=== PATIENT | male | born 1935 | race Caucasian/White ===

== ENCOUNTER 2017-08-09 16:28 | Inpatient (IN) | payer MEDICARE, OTHER ==
[~2017-08-09] VITALS: Ht 170.2 cm; Wt 81.6 kg
--- NOTE | 2017-08-09 17:40 | EKG ---
[address] [address] Test Date: 2017-08-09 Test Time: 17:26:42 Pat Name: YESENIA DAVE Department: Room: Gender: M Wilton Weaver: : 1935 Requested By: IVETT GUTIÉRREZ Order Number: [id number] Reading MD: Cornelius Villela Measurements Intervals [place] Rate: 92 P: 39 ND: 192 QRS: 15 QRSD: 78 T: 56 QT: 368 QTc: 460 Interpretive Statements SINUS RHYTHM NONSPECIFIC ST-T WAVE CHANGES. RI6.01 No previous ECG available for comparison Electronically Signed On 08-26-2017 17:27:34 CDT by Cornelius Villela
[2017-08-09 17:53] LABS: BASO # 0.1 x10^3/uL (0.0-0.2); BASO % 1 % (0-3); EOS # 0.5 x10^3/uL (0.0-0.7); EOS % 5 % (0-3); HEMATOCRIT 46.3 % (39.0-53.0); HEMOGLOBIN 15.7 g/dL (13.0-17.5); LYMPH # 2.7 x10^3/uL (1.0-4.8); LYMPH % 26 % (24-48); MEAN CORPUSCULAR HEMOGLOBIN 30 pg (25-35); MEAN CORPUSCULAR HGB CONC 34 g/dL (31-37); MEAN CORPUSCULAR VOLUME 88 fL (79-100); MONO # 0.6 x10^3/uL (0.0-1.1); MONO % 6 % (0-9); NEUT # 6.5 x10^3uL (1.8-7.7); NEUT % 63 % (31-73); PLATELET COUNT 219 x10^3/uL (140-400); RED BLOOD COUNT 5.26 x10^6/uL (4.30-5.70); RED CELL DISTRIBUTION WIDTH 13.2 % (11.5-14.5); WHITE BLOOD COUNT 10.3 x10^3/uL (4.0-11.0)
--- NOTE | 2017-08-09 18:00 | PHYS DOC ---
Text Text 81-year-old male presenting to the emergency department today signed out to me at 6 PM with plans to follow-up on the patient's medical clearance screening exams and final disposition. I examined the patient in person. Clear lungs auscultation bilaterally abdomen is soft and nontender. Triage vital signs show mild hypertension afebrile with heart rate of 100 initially. When I examined the patient, the patient's heart rate was in the mid 80s. Patient is saturating 97% breathing comfortably on room air. Patient's left knee is normal appearing with mild pain with passive range of motion. No abrasions lacerations or ecchymosis. Neurovascularly intact distally. No edema of either leg. Patient is medically clear. We obtained a bed for the patient to be admitted for [facility]. (MOSHE GOODWIN MD) General Chief Complaint: MULTIPLE COMPLAINTS Stated Complaint: MULTIPLE COMPLAINTS Time Seen by MD: 16:37 Source: patient, family, old records Exam Limitations: no limitations Problems: (IVETT SEPNCER DO) Time Seen by MD: 18:10 Problems: (MOSHE GOODWIN MD) History of Present Illness Initial Comments Patient is an 81/M to ED brought by son for medical clearance and possible [facility] admission. Pt has recent history of seizure due to hyperglycemia, was admitted to short term rehab facility. It is reported that upon discharge from the facility pt's spouse would not allow him to move back in at home so pt had been living with a different son. Pt apparently has had some recent mood changes felt to be due to dementia by the family and the other son felt with whom he was formerly living has noted anger and aggression from the patient towards his children and deferred him to the son who brought him for evaluation today. Pt suffered a fall with right knee and head injury 08/05, was evaluated at [facility] CT head revealed no acute traumatic changes and right knee imaging negative for acute abnormality. In the ED today pt is AOx3, he appears to be cognizant of circumstances and why he is here. He does have some apparent short term memory impairments as he cannot recall 08/05 [facility] fall evaluation. His only complaint is right knee pain from the 08/05 fall, denies cp/sob he is noted to have upper extremity tremors and lower extremity edema which his son states is chronic. Patient takes baby aspirin no other blood thinners. He is not previously accepted for [facility] admission, will need ED medical clearance then [facility] screen and determination whether Dr Ford will accept. Timing/Duration: getting worse, changing over time Severity: severe Modifying Factors: improves with other Associated Symptoms: other (IVETT SPENCER DO) Allergies: Coded Allergies: Opioids - Morphine Analogues (Verified Allergy, Unknown, 08/09/17) Sulfa (Sulfonamide Antibiotics) (Verified Allergy, Unknown, 08/09/17) adhesive (Verified Allergy, Unknown, 08/09/17) latex (Verified Allergy, Unknown, 08/09/17) lidocaine (Verified Allergy, Unknown, 08/09/17) morphine (Verified Allergy, Unknown, 08/09/17) Past Medical History Medical History: other (CHF, dementia, angina, depression, DM2, hyperlipidemia , coronary artery disease, hypertension, seizure, neuropathy, tremor, obstructive sleep apnea, chronic lower extremity edema) Surgical History: coronary bypass surgery, other (IVETT SPENCER DO) Social History Smoker: non-smoker Alcohol: none Drugs: none (IVETT SPENCER DO) Review of Systems Constitutional: denies chills, denies diaphoresis, denies fever Respiratory: see HPI, denies cough, denies shortness of breath Cardiovascular: see HPI, denies palpitations, denies syncope Gastrointestinal: denies abdominal pain, denies diarrhea, denies nausea, denies vomiting Musculoskeletal: see HPI, denies back pain, denies neck pain Psychiatric/Neurological: see HPI, denies headache (IVETT SPENCER DO) Physical Exam General Appearance: no apparent distress, thin Ear, Nose, Throat: hearing grossly normal, normal ENT inspection, normal pharynx Neck: non-tender, supple Respiratory: other (decreased breath sounds at the bases with mild rales, chest is nontender no respiratory distress) Cardiovascular: normal peripheral pulses, regular rate, rhythm Gastrointestinal: normal bowel sounds, non tender, soft Back: no CVA tenderness, no vertebral tenderness Extremities: other (3+ pitting lower extremity edema with chronic venous stasis changes) 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 He is calm and cooperative no angular or depression noted.) Skin: pallor (poor turgor with lower extremity skin changes as above) (IVETT SPENCER DO) Orders, Labs, Meds EKG: Normal sinus rhythm 92 bpm, T, or abnormality noted no STEMI changes. Interpreted by Dr. Spencer. Patient signed out at 1800 shift change to incoming ER MD. See his documentation for further results and pt disposition. (IVETT SPENCER DO) IVETT SPENCER DO Aug 09, 2017 18:00 MOSHE GOODWIN MD Aug 09, 2017 19:00
[2017-08-09 18:08] LABS: ALBUMIN 3.8 g/dL (3.4-5.0); ALBUMIN/GLOBULIN RATIO 1.1 (1.0-1.7); CALCIUM 9.4 mg/dL (8.5-10.1); CREATININE 0.9 mg/dL (0.7-1.3); GFR 80.6; MAGNESIUM 2.1 mg/dL (1.8-2.4); TOTAL BILIRUBIN 0.4 mg/dL (0.2-1.0); TOTAL PROTEIN 7.2 g/dL (6.4-8.2)
[2017-08-09 18:50] LABS: COLOR,URINE STRAW
[2017-08-09 18:53] LABS: BILIRUBIN,URINE NEG (NEG); CLARITY,URINE CLEAR; GLUCOSE,URINE 100 mg/dL (NEG); NITRITE,URINE NEG (NEG); UROBILINOGEN,URINE 0.2 mg/dL (0.2 mg/dL)
[2017-08-09 18:54] LABS: BACTERIA,URINE 0 /HPF (0-FEW); RBC,URINE RARE /HPF (0-2); WBC,URINE OCC /HPF (0-4)
--- NOTE | 2017-08-09 19:31 | RAD ---
CT scan of the head without contrast 08/09/2017 Clinical History: Altered mental status. Weakness. Technique: Unenhanced, contiguous, 5 mm axial sections were obtained through the head. One or more of the following individualized dose reduction techniques were utilized for this study: 1. Automated exposure control. 2. Adjustment of the mA and/or kV according to patient size. 3. Use of iterative reconstruction technique. Findings: Comparison study is dated 05/07/2017. There is generalized parenchymal atrophy. Areas of decreased attenuation are seen within the periventricular and subcortical white matter of both cerebral hemispheres consistent with areas of small vessel ischemic disease. No acute parenchymal abnormality is seen. No extra-axial fluid collection is noted. No skull fracture is seen. Impression: No acute intracranial abnormality is seen. Electronically signed by: Blake Sanchez MD (08/09/2017 7:27 PM) [facility]
[2017-08-09] MEDS ORDERED: NAPR220C4 PO (21:29)
[2017-08-09] MEDS ORDERED: LEVE500T6 PO (21:29)
[2017-08-09] MEDS ORDERED: ACET500T68 PO (21:29)
[2017-08-09] MEDS ORDERED: DULO60CA6 PO (21:29)
[2017-08-09] MEDS ORDERED: HYDR25TA PO (21:29)
[2017-08-09] MEDS ORDERED: CARV6.252 PO (21:29)
[2017-08-09] MEDS ORDERED: LOSA25TA4 PO (21:29)
[2017-08-09] MEDS ORDERED: TAMS0.4C2 PO (21:29)
[2017-08-09] MEDS ORDERED: POTA10CA PO (21:29)
[2017-08-09] MEDS ORDERED: INSU100I27 SQ (21:29)
[2017-08-09] MEDS ORDERED: ALPR0.25 PO (21:29)
[2017-08-09] MEDS ORDERED: INSU100I17 SQ (21:29)
[2017-08-09] MEDS ORDERED: ISOS30TA4 PO (21:29)
[2017-08-09] MEDS ORDERED: ALPR1TAB2 PO (21:29)
[2017-08-09] MEDS ORDERED: ATOR40TA59 PO (21:29)
[2017-08-09] MEDS ORDERED: SITA50TA PO (21:29)
[2017-08-09] MEDS ORDERED: DESO59LO TP (21:29)
[2017-08-09] MEDS ORDERED: NITR0.4T22 SL ×2 (21:29)
[2017-08-09] MEDS ORDERED: FURO40TA4 PO (21:29)
[2017-08-09] MEDS ORDERED: PREG50CA PO (21:29)
[2017-08-09] MEDS ORDERED: MULT-246 PO (21:29)
[2017-08-09] MEDS ORDERED: ASPI-630 PO (21:29)
[2017-08-09 23:15] VITALS: BP 164/82
[2017-08-09] MEDS ORDERED: METHYL SALICYLATE/MENTHOL TOPICAL OINTMENT 29GM TUBE. TP PRN (23:45)
[2017-08-09] MEDS ORDERED: MAG HYDROX/AL HYDROX/SIMETH 30 ML ORAL.SUSP PO PRN (23:45)
[2017-08-09] MEDS ORDERED: MAGNESIUM HYDROXIDE 2,400 MG/30 ML ORAL.SUSP. PO PRN (23:45)
[2017-08-10] MEDS ORDERED: ISOSORBIDE MONONITRATE ER 30 MG TAB.ER.24H PO PRN
[2017-08-10] MEDS ORDERED: NITROGLYCERIN SUBLINGUAL 0.4 MG BOTTLE OF 25. SL PRN
[2017-08-10] MEDS ORDERED: hydrOXYzine HCL 25 MG TABLET PO PRN
[2017-08-10] MEDS ORDERED: NAPROXEN 250 MG TABLET PO PRN
[2017-08-10 07:10] VITALS: BP 180/92
--- NOTE | 2017-08-10 08:28 | RAD ---
Exam performed: One view chest. Indication: medical clearance Date of Service: 08/09/2017 8:11 PM Comparison: None available. Single AP upright portable view chest findings: Cardiomediastinal silhouette is within limits of normal. Previous median sternotomy. No acute infiltrates, effusion or pneumothorax is detected. Mild elevation of the left hemidiaphragm The bony structures are normal. Impression: No acute cardiopulmonary process is detected.
[2017-08-10] MEDS: DULoxetine HCL 60 MG CAPSULE.DR PO SCH (08:54)
[2017-08-10] MEDS: levETIRAcetam 500 MG TABLET PO SCH ×2 (08:54→20:24)
[2017-08-10] MEDS: FUROSEMIDE 40 MG TABLET PO SCH (08:55)
[2017-08-10] MEDS: ISOSORBIDE MONONITRATE ER 30 MG TAB.ER.24H PO SCH (08:55)
[2017-08-10] MEDS: MULTIVITAMIN with MINERAL TABLET. PO SCH (08:55)
[2017-08-10] MEDS: PREGABALIN 50 MG CAPSULE PO SCH ×2 (08:55→20:27)
[2017-08-10] MEDS: POTASSIUM CHLORIDE 20 MEQ TABLET.ER. PO SCH (08:56)
[2017-08-10] MEDS: LINAGLIPTIN 5 MG TABLET PO SCH (08:56)
[2017-08-10] MEDS: LOSARTAN 25 MG TABLET. PO SCH (08:56)
[2017-08-10] MEDS: ASPIRIN 81 MG TAB.CHEW PO SCH (08:56)
[2017-08-10] MEDS: CARVEDILOL 6.25 MG TABLET PO SCH ×2 (08:56→17:21)
[2017-08-10] MEDS: HYDROCORTISONE 1% TOPICAL CREAM 30GM TUBE. TP SCH ×2 (08:57→20:28)
[2017-08-10] MEDS ORDERED: TAMSULOSIN 0.4 MG CAP.ER.24H. PO SCH (09:00)
[2017-08-10 13:40] LABS: THYROID STIM HORMONE (TSH) 1.409 uIU/mL (0.358-3.740)
[2017-08-10 15:55] VITALS: BP 134/70
[2017-08-10 15:56] VITALS: BP_SYST 106; BP_SYST 108; BP_DIAS 61; BP_DIAS 70
--- NOTE | 2017-08-10 16:06 | RAD ---
Indication chronic knee pain. AP oblique and lateral views of the left knee were obtained. Surgical toñito are noted. Bony mineralization appears normal. No acute finding is seen. There are no significant degenerative changes. Vascular calcification is noted. IMPRESSION: No acute or significant finding seen on plain films of the left knee
[2017-08-10 19:08] LABS: T3 TOTAL 150 ng/dL (71-180)
[2017-08-10] MEDS: ATORVASTATIN CALCIUM 20 MG TABLET PO SCH (20:27)
[2017-08-10] MEDS: QUEtiapine 25 MG TABLET. PO SCH (20:27)
[2017-08-10] MEDS: traZODone 50 MG TABLET. PO SCH (20:27)
[2017-08-10] MEDS: INSULIN DETEMIR 300 UNITS/3 ML INSULN.PEN. SQ SCH (20:30)
--- NOTE | 2017-08-10 20:42 | PDOC ---
Exam Franco Demential Exam: Franco Note: Please also refer to the separate dictated note~for this date of service dictated separately.~Patient seen individually. Discussed the patient with Nursing staff reviewed the chart.~Reviewed interim history and current functioning. Reviewed vital signs,~Labs/ Radiology~and current medications noted below. Continue current treatment with the changes noted in the dictated addendum note Assessment: Vital Signs: Vital Signs Date Time Temp Pulse Resp B/P (MAP) Pulse Ox O2 Delivery O2 Flow Rate FiO2 08/10/17 17:21 109 106/61 08/10/17 15:55 96.8 18 93 08/09/17 16:28 Room Air I&O Intake and Output 08/11/17 07:00 Intake Total 1080 ml Balance 1080 ml Intake Oral 1080 ml Labs: Laboratory Tests Test 08/10/17 00:11 08/10/17 06:45 08/10/17 07:09 08/10/17 11:20 Glucose (Fingerstick) 134 mg/dL (70-99) H 137 mg/dL (70-99) H 206 mg/dL (70-99) H Triglycerides Level 128 mg/dL (0-150) Cholesterol Level 209 mg/dL (0-200) H LDL Cholesterol, Calculated 122 mg/dL (0-100) H VLDL Cholesterol, Calculated 25 mg/dL (0-40) Non-HDL Cholesterol Calculated 147 mg/dL (0-129) H HDL Cholesterol 62 mg/dL (40-60) H Cholesterol/HDL Ratio 3.0 Vitamin B12 Level 478 pg/mL (247-911) 25-Hydroxy Vitamin D Total Pending Thyroid Stimulating Hormone (TSH) 1.409 uIU/mL (0.358-3.740) Thyroxine (T4) 9.0 ug/dL (4.5-12.0) Total Triiodothyronine (TT3) 150 ng/dL (71-180) RPR Titer Additional Testing Pending Test 08/10/17 16:24 08/10/17 19:07 Glucose (Fingerstick) 219 mg/dL (70-99) H 225 mg/dL (70-99) H Current Medications: Meds: Current Medications Olanzapine (ZyPREXA ZYDIS) 1.25 mg PRN Q2HR PRN PO AGITATION/AGGRESSION Last administered on 08/10/17t 00:59; Start 08/09/17 at 23:45 Acetaminophen (Tylenol) 650 mg PRN Q6HRS PRN PO PAIN / TEMP; Start 08/09/17 at 23:45 Multi-Ingredient Ointment (Analgesic [place]) 1 odilia PRN QID PRN TP MUSCLE PAIN; Start 08/09/17 at 23:45 Al Hydroxide/Mg Hydroxide (Mylanta Plus Xs) 15 ml PRN AFTMEALHC PRN PO DYSPEPSIA Last administered on 08/10/17 12:45; Start 08/09/17 at 23:45 Magnesium Hydroxide (Milk Of Magnesia) 2,400 mg PRN QHS PRN PO CONSTIPATION; Start 08/09/17 at 23:45 Aspirin (Children'S Aspirin) 81 mg DAILY PO Last administered on 08/10/17 08: 56; Start 08/10/17 at 09:00 Carvedilol (Coreg) 6.25 mg BIDWMEALS PO Last administered on 08/10/17 17:21; Start 08/10/17 at 08:00 Furosemide (Lasix) 40 mg DAILY PO Last administered on 08/10/17 08:55; Start 08/10/17 at 09:00 Hydroxyzine HCl (Atarax) 25 mg PRN TID PRN PO ITCHING Last administered on 00:59; Start 08/10/17 at 00:00 Insulin Detemir (Levemir) 20 units HS SQ Last administered on 08/10/17 20:30 ; Start 08/10/17 at 21:00 Isosorbide Mononitrate (Imdur) 30 mg PRN DAILY PRN PO HYPERTENSION, SEE COMMENTS; Start 08/10/17 at 00:00; Stop 08/10/17 at 04:12; Status DC Levetiracetam (Keppra) 1,000 mg BID PO Last administered on 08/10/17 20:24; Start 08/10/17 at 09:00 Losartan Potassium (Cozaar) 25 mg DAILY PO Last administered on 08/10/17 08: 56; Start 08/10/17 at 09:00 Nitroglycerin (Nitrostat) 0.4 mg PRN Q5MIN PRN SL CHEST PAIN; Start 08/10/17 at 00:00 Pregabalin (Lyrica) 50 mg BID PO Last administered on 08/10/17 20:27; Start 08/10/17 at 09:00 Tamsulosin HCl (Flomax) 0.4 mg DAILY PO Last administered on 08/10/17 08:56; Start 08/10/17 at 09:00; Stop 08/10/17 at 13:57; Status DC Alprazolam (Xanax) 0.25 mg PRN Q4HRS PRN PO ANXIETY / AGITATION; Start at 00:00 Duloxetine HCl (Cymbalta) 60 mg DAILY PO Last administered on 08/10/17 08:54 ; Start 08/10/17 at 09:00 Atorvastatin Calcium (Lipitor) 40 mg QHS PO Last administered on 08/10/17 20: 27; Start 08/10/17 at 21:00 Hydrocortisone (Cortaid) 1 odilia BID TP Last administered on 08/10/17 20:28; Start 08/10/17 at 09:00 Multivitamins/ Calcium (Thera-M Plus) 1 tab DAILY PO Last administered on 08/10 08:55; Start 08/10/17 at 09:00 Naproxen (Naprosyn) 250 mg PRN Q12HR PRN PO INFLAMATION/PAIN; Start 08/10/17 at 00:00 Potassium Chloride (Klor-Con) 20 meq DAILYWBKFT PO Last administered on 08:56; Start 08/10/17 at 08:00 Linagliptin (Tradjenta) 5 mg DAILY PO Last administered on 08/10/17 08:56; Start 08/10/17 at 09:00 Isosorbide Mononitrate (Imdur) 30 mg DAILY PO Last administered on 08/10/17 08:55; Start 08/10/17 at 09:00 Tamsulosin HCl (Flomax) 0.8 mg DAILY PO ; Start 08/11/17 at 09:00 Influenza Virus Vaccine Quadrival (Fluarix Quad [id number] Syringe) 0.5 ml ONCE ONCE VAX IM ; Start 08/11/17 at 09:00; Stop 08/11/17 at 09:01 Pneumococcal Polyvalent Vaccine (Pneumovax 23) 0.5 ml ONCE ONCE VAX IM ; Start 08/11/17 at 09:00; Stop 08/11/17 at 09:01 Quetiapine Fumarate (SEROquel) 25 mg QHS PO Last administered on 08/10/17 20: 27; Start 08/10/17 at 21:00 Trazodone HCl (Desyrel) 50 mg QHS PO Last administered on 08/10/17 20:27; Start 08/10/17 at 21:00 Trazodone HCl (Desyrel) 50 mg PRN QHS PRN PO INSOMNIA; Start 08/10/17 at 18:15 Active Scripts Active Reported Xanax (Alprazolam) 0.25 Mg Tablet 0.25 Mg PO PRN Q4HRS PRN Acetaminophen 500 Mg Tablet 500 Mg PO PRN Q4-6HRS PRN NITROGLYCERIN SubLingual (Nitroglycerin) 0.4 Mg Tab.subl 0.4 Mg SL PRN Q5MIN PRN Hydroxyzine Hcl 25 Mg Tablet 25 Mg PO PRN TID PRN Aleve (Naproxen Sodium) 220 Mg Capsule 220 Mg PO PRN Q12HR Levemir Flextouch (Insulin Detemir) 100 Unit/1 Ml Insuln.pen 20 Unit SQ HS Novolog Flexpen (Insulin Aspart) 100 Unit/1 Ml Insuln.pen 0-7 Unit SQ TIDAC Atorvastatin Calcium 40 Mg Tablet 40 Mg PO QHS Lyrica (Pregabalin) 50 Mg Capsule 50 Mg PO BID Levetiracetam 500 Mg Tablet 1,000 Mg PO BID Desonide 59 Ml Lotion 0.05 Odilia TP BID Carvedilol 6.25 Mg Tablet 6.25 Mg PO BIDWMEALS Potassium Chloride 10 Meq Capsule.er 20 Meq PO TID Tamsulosin Hcl 0.4 Mg Cap.er.24h 0.4 Mg PO DAILY Multi-Vitamin Daily (Multivitamin) 1 Each Tablet 1 Each PO DAILY Losartan Potassium 25 Mg Tablet 25 Mg PO DAILY Januvia (Sitagliptin Phosphate) 50 Mg Tablet 50 Mg PO DAILY Isosorbide Mononitrate Er (Isosorbide Mononitrate) 30 Mg Tab.er.24h 30 Mg PO DAILY PRN Furosemide 40 Mg Tablet 40 Mg PO DAILY Cymbalta (Duloxetine Hcl) 60 Mg Capsule.dr 60 Mg PO DAILY Aspirin 81 Mg Tab.chew 81 Mg PO DAILY Diagnosis: Problems: (1) Dementia with behavioral disturbance (2) Anxiety disorder (3) Impulse control disorder (4) Mild cognitive disorder (5) Psychosis, atypical SHARI CHASE MD Aug 10, 2017 20:42
--- NOTE | 2017-08-11 02:23 | CONS ---
DATE OF CONSULTATION: 08/10/2017 HISTORY OF PRESENT ILLNESS: The patient is an 81-year-old male patient who was brought by his son to the Emergency Room as he apparently has been increasingly agitated, has made suicidal ideation and according to him, he is not getting along with his son. His also refused to take him back after he stayed at [facility]. He was evaluated in the Emergency Room, was admitted [facility] for inpatient psychiatric stabilization. On questioning him, he denied any complaint and said that he did not remember making any remarks about attempting suicide and he stated that he is too much for chicken to harm himself. PAST MEDICAL HISTORY: Significant for type 2 diabetes, severe peripheral neuropathy, hypertension, hyperlipidemia, benign prostatic hypertrophy, and seizure disorder. PAST SURGICAL HISTORY: Unremarkable. FAMILY HISTORY: Unremarkable. SOCIAL HISTORY: He is ; however, he lives with one of his sons. He does not smoke, drink alcohol or use any recreational drugs. ALLERGIES: He is allergic to MORPHINE, SULFA, ADHESIVES, LATEX, LIDOCAINE. MEDICATIONS: He is currently on following medications: He is on acetaminophen 500 mg every 4-6 hours, alprazolam 0.5 mg every 4 hours, aspirin 81 mg once a day, atorvastatin calcium 40 mg at bedtime, carvedilol 6.25 mg twice a day, desonide lotion 0.05 applied topically twice a day, duloxetine for Cymbalta 60 mg once a day, furosemide 40 mg daily, hydroxyzine 25 mg 3 times a day. He is on Levemir 20 units at bedtime, NovoLog FlexPen 3 times a day as per insulin sliding scale, isosorbide mononitrate 30 mg once a day, Keppra 1000 mg twice a day, losartan potassium 25 mg once a day, multivitamin 1 tablet once a day, naproxen for Aleve 220 mg every 12 hours, nitroglycerin 0.4 mg sublingually every 5 minutes, potassium chloride 20 mEq 3 times a day, pregabalin 50 mg twice a day and sitagliptin for Januvia 50 mg once a day, tamsulosin 0.4 mg at bedtime. PHYSICAL EXAMINATION: GENERAL: On examining him, the patient was resting flat, comfortably in bed, in no apparent respiratory distress, was pale; no jaundice, cyanosis or thyromegaly. No jugular venous distention. No lower limb edema. VITAL SIGNS: His heart rate was 101, blood pressure was 180/90, temperature was 97.6, respiratory rate was 18 and oxygen saturation was 97%. HEENT: Showed normocephalic, atraumatic. NECK: Supple. HEART: Showed normal first and second heart sounds with no gallop, rub or murmur. CHEST: Clear to auscultation. No crepitation or rhonchi. ABDOMEN: Distended, soft, and nontender. No guarding or rigidity. No organomegaly. Hernial orifices intact. Bowel sounds normal. NEUROLOGIC: He was sleepy, but arousable. All his cranial nerves are intact. EXTREMITIES: He moves extremities without difficulty. LABORATORY AND DIAGNOSTIC DATA: While in the Emergency Room, he has lab work done, which showed a white cell count 10,300, hemoglobin 15.7, hematocrit 46, MCV 88 and platelet count 219,000. His chemistry showed a serum sodium of 141, potassium 4, chloride 104, bicarbonate 26, anion gap of 11, BUN 11, creatinine 0.9, estimated GFR was 80 mL per minute. His glucose 176, calcium was 9.4, magnesium 2.1. Total bilirubin, AST, ALT, alkaline phosphatase were normal. His total protein was 7.2, albumin was 3.8. Urinalysis showed the urine was yellow, was clear, straw-colored with a pH of 6, specific gravity 1.005. The urine was negative for protein. There was large amount of glucose; negative for ketones, blood, nitrite and leukocyte esterase. There are very rare rbc's, occasional wbc's, and no bacteria. He had a CT scan of the head, which basically showed that there is generalized parenchymal atrophy; areas of decreased attenuation are seen within the periventricular and subcortical white matter of both cerebral hemispheres consistent with areas of small vessel ischemic disease. No acute parenchymal abnormality seen. No extraaxial fluid collection is noted. No skull fracture is seen. His chest x-ray showed cardiomediastinal silhouette within normal limits, previous median sternotomy, no acute infiltrate, effusion or pneumothorax detected, mild elevation of the left hemidiaphragm. The bony structures are normal. IMPRESSION AND PLAN: In summary, this is an 81-year-old male patient who was brought by his son to the ER with increased agitation and suicidal ideation. He is alert, oriented x3. His past medical history is significant for type 2 diabetes, hypertension, hyperlipidemia, seizure disorder, benign prostatic hypertrophy. His vital signs showed that his blood pressure continued to be suboptimally controlled. Lab work, however, seems to be all within normal range. Given that he has longstanding diabetes, I will arrange for him to have measurements of orthostatic hypotension and decide on further management accordingly. Thank you Dr. Ford for allowing me to participate in the care of this patient. KIMI DE LA PAZ MD DR: ARIS/shadi JOB#: [id number] / [id number]
[2017-08-11 05:58] VITALS: BP 111/71
[2017-08-11] MEDS: ASPIRIN 81 MG TAB.CHEW PO SCH (08:17)
[2017-08-11] MEDS: ISOSORBIDE MONONITRATE ER 30 MG TAB.ER.24H PO SCH (08:17)
[2017-08-11] MEDS: MULTIVITAMIN with MINERAL TABLET. PO SCH (08:17)
[2017-08-11] MEDS: LINAGLIPTIN 5 MG TABLET PO SCH (08:17)
[2017-08-11] MEDS: DULoxetine HCL 60 MG CAPSULE.DR PO SCH (08:17)
[2017-08-11] MEDS: POTASSIUM CHLORIDE 20 MEQ TABLET.ER. PO SCH (08:18)
[2017-08-11] MEDS: FUROSEMIDE 40 MG TABLET PO SCH (08:18)
[2017-08-11] MEDS: levETIRAcetam 500 MG TABLET PO SCH ×2 (08:18→19:15)
[2017-08-11] MEDS: PREGABALIN 50 MG CAPSULE PO SCH ×2 (08:20→19:20)
[2017-08-11] MEDS: TAMSULOSIN 0.4 MG CAP.ER.24H. PO SCH (08:20)
[2017-08-11] MEDS: CARVEDILOL 6.25 MG TABLET PO SCH ×2 (08:39→17:13)
[2017-08-11] MEDS: LOSARTAN 25 MG TABLET. PO SCH (08:39)
[2017-08-11] MEDS ORDERED: FLU VACC QS2017-18 (36MOS+)/PF 0.5 ML SYRINGE. VAX IM ONE (09:00)
[2017-08-11] MEDS ORDERED: PNEUMOC CONJ VACC 23-VALENT 0.5 ML VIAL. VAX IM ONE (09:00)
[2017-08-11] MEDS: HYDROCORTISONE 1% TOPICAL CREAM 30GM TUBE. TP SCH ×2 (12:22→19:16)
[2017-08-11 16:37] VITALS: BP 124/70
--- NOTE | 2017-08-11 18:12 | HP ---
ADMIT DATE: 08/10/2017 PSYCHIATRIC ADMISSION HISTORY/EVALUATION This is a late entry for 08/10/2017, covers elements not covered in my initial note of 08/10/2017. SUBJECTIVE: The patient was seen individually the evening of 08/10/2017 and met with the nursing staff, reviewed current and past records from home and Emergency Room at [facility]. I had previously discussed the patient with nursing staff on 2 or 3 separate occasions prior to the patient's admission to gather background information and discussed regarding admission criteria. IDENTIFYING DATA: The patient is an 81-year-old male who lives at home with his son presents to the Emergency Room at [facility] on account of increased agitation, making suicidal statements of wanting to end his life, increasingly paranoid, psychotic, believes his is going out with someone else. Reportedly, his lives just a few doors down the street from him and he is quite demented herself and on point could not recognize the patient, which greatly exacerbated his delusions. He is referred by his primary care physician, Dr. Thomason. CHIEF COMPLAINT: "I don't know." The patient responded after I questioned him about his symptoms of depression and the fact that he had made a statement that if he had a gun he would use it to end his life. HISTORY OF PRESENT ILLNESS: The patient has a history of increasing symptoms of depression, feeling hopeless, helpless, worthless, all of which is exacerbated by psychosocial stressors including the progressive dementia of his , her inability to recognize him, thus prompting an exacerbation of his delusions. He has had sleep and appetite changes, suicidal ideation as noted above, but no actual intent or plan. No active homicidal ideation. He is reasonably oriented, but gets more confused at times. No clear history of bipolar disorder. He does have some term memory deficits. The patient has not slept in about 48 hours prior to admission and his appetite has been significantly reduced. PAST PSYCHIATRIC HISTORY: As above. MEDICAL HISTORY: Hypertension, hyperlipidemia, urinary retention, and seizure disorder. Accu-Chek, CCHS diet, ADA. He takes his medications whole. Ambulates with a wheelchair and walker. UA negative on 08/09/2017. CURRENT PSYCHOTROPICS: Cymbalta 60 mg a day, Atarax 25 mg t.i.d. p.r.n., Xanax 0.25 mg every 4 hours p.r.n., Zyprexa Zydis was added 1.25 mg every 2 hours p.r.n. psychosis, agitation, max 7.5 mg in 24 hours. FAMILY HISTORY: Noncontributory. SOCIAL HISTORY: The patient resides at home with one of his sons. He does have 2 sons, Boone and Christian. No alcohol, drug abuse, physical, sexual or elder abuse. Not known to be a perpetrator. 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 MENTAL STATUS EXAMINATION: The patient is oriented to himself and situation. Speech is coherent. He is quite verbal, interactive. Mood is depressed. Affect is mood congruent. He is quite anxious, paranoid, suspicious as noted above. No active suicidal or homicidal ideation. Attention span short, language function intact. Intellect average, insight limited, judgment marginal. REVIEW OF SYSTEMS: Ambulation impaired. No CV, , pulmonary, eye, ENT system symptoms on review. Appetite is poor. IMPRESSION: Major depressive disorder, recurrent with psychotic features; psychotic disorder, unspecified; mild cognitive impairment. Rest diagnoses as above. PLAN: Admit to the Geropsychiatry Unit at [facility]. Request medical followup with Dr. Garcia/Dr. Villavicencio. I will see the patient daily individually from a psychiatric standpoint. Continue current psychotropics. Zyprexa was added p.r.n. for psychosis, agitation. We will add trazodone 50 mg at bedtime plus may repeat x 1 p.r.n. insomnia along with Seroquel 25 mg p.o. at bedtime, the latter the augment to Cymbalta 60 mg a day to help with the insomnia and psychotic symptoms. Reviewed drug interactions. Risk/benefit ratio favors no further change at this time. SHARI CHASE MD DR: GLENROY/shadi JOB#: [id number] / [id number]
[2017-08-11] MEDS: ATORVASTATIN CALCIUM 20 MG TABLET PO SCH (19:15)
[2017-08-11] MEDS: traZODone 50 MG TABLET. PO SCH (19:15)
[2017-08-11] MEDS: QUEtiapine 25 MG TABLET. PO SCH (19:15)
--- NOTE | 2017-08-11 20:24 | PDOC ---
Exam Franco Demential Exam: Franco Note: Please also refer to the separate dictated note~for this date of service dictated separately.~Patient seen individually. Discussed the patient with Nursing staff reviewed the chart.~Reviewed interim history and current functioning. Reviewed vital signs,~Labs/ Radiology~and current medications noted below. Continue current treatment with the changes noted in the dictated addendum note Assessment: Vital Signs: Vital Signs Date Time Temp Pulse Resp B/P (MAP) Pulse Ox O2 Delivery O2 Flow Rate FiO2 08/11/17 17:13 89 124/70 08/11/17 16:37 97.0 18 92 08/09/17 16:28 Room Air I&O Intake and Output 08/12/17 07:00 Intake Total 1320 ml Balance 1320 ml Intake Oral 1320 ml # Bowel Movements 1 Labs: Laboratory Tests Test 08/11/17 07:12 08/11/17 11:33 08/11/17 16:17 08/11/17 19:04 Glucose (Fingerstick) 112 mg/dL (70-99) H 164 mg/dL (70-99) H 155 mg/dL (70-99) H 250 mg/dL (70-99) H Current Medications: Meds: Current Medications Olanzapine (ZyPREXA ZYDIS) 1.25 mg PRN Q2HR PRN PO AGITATION/AGGRESSION Last administered on 08/10/17 00:59; Start 08/09/17 at 23:45 Acetaminophen (Tylenol) 650 mg PRN Q6HRS PRN PO PAIN / TEMP; Start 08/09/17 at 23:45 Multi-Ingredient Ointment (Analgesic [place]) 1 odilia PRN QID PRN TP MUSCLE PAIN; Start 08/09/17 at 23:45 Al Hydroxide/Mg Hydroxide (Mylanta Plus Xs) 15 ml PRN AFTMEALHC PRN PO DYSPEPSIA Last administered on 08/10/17 12:45; Start 08/09/17 at 23:45 Magnesium Hydroxide (Milk Of Magnesia) 2,400 mg PRN QHS PRN PO CONSTIPATION; Start 08/09/17 at 23:45 Aspirin (Children'S Aspirin) 81 mg DAILY PO Last administered on 08/11/17 08: 17; Start 08/10/17 at 09:00 Carvedilol (Coreg) 6.25 mg BIDWMEALS PO Last administered on 08/11/17 17:13; Start 08/10/17 at 08:00 Furosemide (Lasix) 40 mg DAILY PO Last administered on 08/11/17 08:18; Start 08/10/17 at 09:00 Hydroxyzine HCl (Atarax) 25 mg PRN TID PRN PO ITCHING Last administered on 00:59; Start 08/10/17 at 00:00 Insulin Detemir (Levemir) 20 units HS SQ Last administered on 08/10/17 20:30 ; Start 08/10/17 at 21:00 Isosorbide Mononitrate (Imdur) 30 mg PRN DAILY PRN PO HYPERTENSION, SEE COMMENTS; Start 08/10/17 at 00:00; Stop 08/10/17 at 04:12; Status DC Levetiracetam (Keppra) 1,000 mg BID PO Last administered on 08/11/17 19:15; Start 08/10/17 at 09:00 Losartan Potassium (Cozaar) 25 mg DAILY PO Last administered on 08/11/17 08: 39; Start 08/10/17 at 09:00 Nitroglycerin (Nitrostat) 0.4 mg PRN Q5MIN PRN SL CHEST PAIN; Start 08/10/17 at 00:00 Pregabalin (Lyrica) 50 mg BID PO Last administered on 08/11/17 19:20; Start 08/10/17 at 09:00 Tamsulosin HCl (Flomax) 0.4 mg DAILY PO Last administered on 08/10/17 08:56; Start 08/10/17 at 09:00; Stop 08/10/17 at 13:57; Status DC Alprazolam (Xanax) 0.25 mg PRN Q4HRS PRN PO ANXIETY / AGITATION; Start at 00:00 Duloxetine HCl (Cymbalta) 60 mg DAILY PO Last administered on 08/11/17 08:17 ; Start 08/10/17 at 09:00 Atorvastatin Calcium (Lipitor) 40 mg QHS PO Last administered on 08/11/17 19: 15; Start 08/10/17 at 21:00 Hydrocortisone (Cortaid) 1 odilia BID TP Last administered on 08/11/17 12:22; Start 08/10/17 at 09:00; Stop 08/11/17 at 15:10; Status DC Multivitamins/ Calcium (Thera-M Plus) 1 tab DAILY PO Last administered on 08/11 08:17; Start 08/10/17 at 09:00 Naproxen (Naprosyn) 250 mg PRN Q12HR PRN PO INFLAMATION/PAIN; Start 08/10/17 at 00:00 Potassium Chloride (Klor-Con) 20 meq DAILYWBKFT PO Last administered on 08:18; Start 08/10/17 at 08:00 Linagliptin (Tradjenta) 5 mg DAILY PO Last administered on 08/11/17 08:17; Start 08/10/17 at 09:00 Isosorbide Mononitrate (Imdur) 30 mg DAILY PO Last administered on 08/11/17 08:17; Start 08/10/17 at 09:00 Tamsulosin HCl (Flomax) 0.8 mg DAILY PO Last administered on 08/11/17 08:20; Start 08/11/17 at 09:00 Influenza Virus Vaccine Quadrival (Fluarix Quad [id number] Syringe) 0.5 ml ONCE ONCE VAX IM Last administered on 08/11/17 17:15; Start 08/11/17 at 09:00; Stop 08/11/17 at 09:01; Status DC Pneumococcal Polyvalent Vaccine (Pneumovax 23) 0.5 ml ONCE ONCE VAX IM Last administered on 08/11/17 17:16; Start 08/11/17 at 09:00; Stop 08/11/17 at 09 :01; Status DC Quetiapine Fumarate (SEROquel) 25 mg QHS PO Last administered on 08/11/17 19: 15; Start 08/10/17 at 21:00 Trazodone HCl (Desyrel) 50 mg QHS PO Last administered on 08/11/17 19:15; Start 08/10/17 at 21:00 Trazodone HCl (Desyrel) 50 mg PRN QHS PRN PO INSOMNIA; Start 08/10/17 at 18:15 Hydrocortisone (Cortaid) 1 odilia BID TP Last administered on 08/11/17 19:16; Start 08/11/17 at 15:10 Active Scripts Active Reported Xanax (Alprazolam) 0.25 Mg Tablet 0.25 Mg PO PRN Q4HRS PRN Acetaminophen 500 Mg Tablet 500 Mg PO PRN Q4-6HRS PRN NITROGLYCERIN SubLingual (Nitroglycerin) 0.4 Mg Tab.subl 0.4 Mg SL PRN Q5MIN PRN Hydroxyzine Hcl 25 Mg Tablet 25 Mg PO PRN TID PRN Aleve (Naproxen Sodium) 220 Mg Capsule 220 Mg PO PRN Q12HR Levemir Flextouch (Insulin Detemir) 100 Unit/1 Ml Insuln.pen 20 Unit SQ HS Novolog Flexpen (Insulin Aspart) 100 Unit/1 Ml Insuln.pen 0-7 Unit SQ TIDAC Atorvastatin Calcium 40 Mg Tablet 40 Mg PO QHS Lyrica (Pregabalin) 50 Mg Capsule 50 Mg PO BID Levetiracetam 500 Mg Tablet 1,000 Mg PO BID Desonide 59 Ml Lotion 0.05 Odilia TP BID Carvedilol 6.25 Mg Tablet 6.25 Mg PO BIDWMEALS Potassium Chloride 10 Meq Capsule.er 20 Meq PO TID Tamsulosin Hcl 0.4 Mg Cap.er.24h 0.4 Mg PO DAILY Multi-Vitamin Daily (Multivitamin) 1 Each Tablet 1 Each PO DAILY Losartan Potassium 25 Mg Tablet 25 Mg PO DAILY Januvia (Sitagliptin Phosphate) 50 Mg Tablet 50 Mg PO DAILY Isosorbide Mononitrate Er (Isosorbide Mononitrate) 30 Mg Tab.er.24h 30 Mg PO DAILY PRN Furosemide 40 Mg Tablet 40 Mg PO DAILY Cymbalta (Duloxetine Hcl) 60 Mg Capsule.dr 60 Mg PO DAILY Aspirin 81 Mg Tab.chew 81 Mg PO DAILY Diagnosis: Problems: (1) Dementia with behavioral disturbance (2) Anxiety disorder (3) Impulse control disorder (4) Mild cognitive disorder (5) Psychosis, atypical SHARI CHASE MD Aug 11, 2017 20:24
[2017-08-11] MEDS: INSULIN DETEMIR 300 UNITS/3 ML INSULN.PEN. SQ SCH (21:01)
[2017-08-12 06:02] VITALS: BP 118/73
[2017-08-12] MEDS: LOSARTAN 25 MG TABLET. PO SCH (07:33)
[2017-08-12] MEDS: levETIRAcetam 500 MG TABLET PO SCH ×2 (07:33→21:16)
[2017-08-12] MEDS: FUROSEMIDE 40 MG TABLET PO SCH (07:34)
[2017-08-12] MEDS: CARVEDILOL 6.25 MG TABLET PO SCH ×2 (07:34→17:23)
[2017-08-12] MEDS: TAMSULOSIN 0.4 MG CAP.ER.24H. PO SCH (07:34)
[2017-08-12] MEDS: MULTIVITAMIN with MINERAL TABLET. PO SCH (07:34)
[2017-08-12] MEDS: LINAGLIPTIN 5 MG TABLET PO SCH (07:34)
[2017-08-12] MEDS: DULoxetine HCL 60 MG CAPSULE.DR PO SCH (07:34)
[2017-08-12] MEDS: POTASSIUM CHLORIDE 20 MEQ TABLET.ER. PO SCH (07:35)
[2017-08-12] MEDS: ASPIRIN 81 MG TAB.CHEW PO SCH (07:35)
[2017-08-12] MEDS: ISOSORBIDE MONONITRATE ER 30 MG TAB.ER.24H PO SCH (07:35)
[2017-08-12] MEDS: PREGABALIN 50 MG CAPSULE PO SCH ×2 (07:36→21:15)
[2017-08-12] MEDS: HYDROCORTISONE 1% TOPICAL CREAM 30GM TUBE. TP SCH ×2 (09:00→21:17)
[2017-08-12 16:26] VITALS: BP 113/67
--- NOTE | 2017-08-12 20:32 | PDOC ---
Exam Franco Demential Exam: Franco Note: Please also refer to the separate dictated note~for this date of service dictated separately.~Patient seen individually. Discussed the patient with Nursing staff reviewed the chart.~Reviewed interim history and current functioning. Reviewed vital signs,~Labs/ Radiology~and current medications noted below. Continue current treatment with the changes noted in the dictated addendum note Assessment: Vital Signs: Vital Signs Date Time Temp Pulse Resp B/P (MAP) Pulse Ox O2 Delivery O2 Flow Rate FiO2 08/12/17 17:23 67 113/67 08/12/17 16:26 97.6 19 94 08/09/17 16:28 Room Air I&O Intake and Output 08/13/17 07:00 Intake Total 960 ml Balance 960 ml Intake Oral 960 ml Labs: Laboratory Tests Test 08/12/17 07:04 08/12/17 11:20 08/12/17 16:42 08/12/17 19:10 Glucose (Fingerstick) 109 mg/dL (70-99) H 160 mg/dL (70-99) H 186 mg/dL (70-99) H 241 mg/dL (70-99) H Current Medications: Meds: Current Medications Olanzapine (ZyPREXA ZYDIS) 1.25 mg PRN Q2HR PRN PO AGITATION/AGGRESSION Last administered on 08/10/17 00:59; Start 08/09/17 at 23:45 Acetaminophen (Tylenol) 650 mg PRN Q6HRS PRN PO PAIN / TEMP; Start 08/09/17 at 23:45 Multi-Ingredient Ointment (Analgesic [place]) 1 odilia PRN QID PRN TP MUSCLE PAIN; Start 08/09/17 at 23:45 Al Hydroxide/Mg Hydroxide (Mylanta Plus Xs) 15 ml PRN AFTMEALHC PRN PO DYSPEPSIA Last administered on 08/10/17 12:45; Start 08/09/17 at 23:45 Magnesium Hydroxide (Milk Of Magnesia) 2,400 mg PRN QHS PRN PO CONSTIPATION; Start 08/09/17 at 23:45 Aspirin (Children'S Aspirin) 81 mg DAILY PO Last administered on 08/12/17 07: 35; Start 08/10/17 at 09:00 Carvedilol (Coreg) 6.25 mg BIDWMEALS PO Last administered on 08/12/17 17:23; Start 08/10/17 at 08:00 Furosemide (Lasix) 40 mg DAILY PO Last administered on 08/12/17 07:34; Start 08/10/17 at 09:00 Hydroxyzine HCl (Atarax) 25 mg PRN TID PRN PO ITCHING Last administered on 00:59; Start 08/10/17 at 00:00 Insulin Detemir (Levemir) 20 units HS SQ Last administered on 08/11/17 21:01 ; Start 08/10/17 at 21:00 Isosorbide Mononitrate (Imdur) 30 mg PRN DAILY PRN PO HYPERTENSION, SEE COMMENTS; Start 08/10/17 at 00:00; Stop 08/10/17 at 04:12; Status DC Levetiracetam (Keppra) 1,000 mg BID PO Last administered on 08/12/17 07:33; Start 08/10/17 at 09:00 Losartan Potassium (Cozaar) 25 mg DAILY PO Last administered on 08/12/17 07: 33; Start 08/10/17 at 09:00 Nitroglycerin (Nitrostat) 0.4 mg PRN Q5MIN PRN SL CHEST PAIN; Start 08/10/17 at 00:00 Pregabalin (Lyrica) 50 mg BID PO Last administered on 08/12/17 07:36; Start 08/10/17 at 09:00 Tamsulosin HCl (Flomax) 0.4 mg DAILY PO Last administered on 08/10/17 08:56; Start 08/10/17 at 09:00; Stop 08/10/17 at 13:57; Status DC Alprazolam (Xanax) 0.25 mg PRN Q4HRS PRN PO ANXIETY / AGITATION; Start at 00:00 Duloxetine HCl (Cymbalta) 60 mg DAILY PO Last administered on 08/12/17 07:34 ; Start 08/10/17 at 09:00 Atorvastatin Calcium (Lipitor) 40 mg QHS PO Last administered on 08/11/17 19: 15; Start 08/10/17 at 21:00 Hydrocortisone (Cortaid) 1 odilia BID TP Last administered on 08/11/17 12:22; Start 08/10/17 at 09:00; Stop 08/11/17 at 15:10; Status DC Multivitamins/ Calcium (Thera-M Plus) 1 tab DAILY PO Last administered on 08/12 07:34; Start 08/10/17 at 09:00 Naproxen (Naprosyn) 250 mg PRN Q12HR PRN PO INFLAMATION/PAIN; Start 08/10/17 at 00:00 Potassium Chloride (Klor-Con) 20 meq DAILYWBKFT PO Last administered on 07:35; Start 08/10/17 at 08:00 Linagliptin (Tradjenta) 5 mg DAILY PO Last administered on 08/12/17 07:34; Start 08/10/17 at 09:00 Isosorbide Mononitrate (Imdur) 30 mg DAILY PO Last administered on 08/12/17 07:35; Start 08/10/17 at 09:00 Tamsulosin HCl (Flomax) 0.8 mg DAILY PO Last administered on 08/12/17 07:34; Start 08/11/17 at 09:00 Influenza Virus Vaccine Quadrival (Fluarix Quad [id number] Syringe) 0.5 ml ONCE ONCE VAX IM Last administered on 08/11/17 17:15; Start 08/11/17 at 09:00; Stop 08/11/17 at 09:01; Status DC Pneumococcal Polyvalent Vaccine (Pneumovax 23) 0.5 ml ONCE ONCE VAX IM Last administered on 08/11/17 17:16; Start 08/11/17 at 09:00; Stop 08/11/17 at 09 :01; Status DC Quetiapine Fumarate (SEROquel) 25 mg QHS PO Last administered on 08/11/17 19: 15; Start 08/10/17 at 21:00; Stop 08/12/17 at 11:19; Status DC Trazodone HCl (Desyrel) 50 mg QHS PO Last administered on 08/11/17 19:15; Start 08/10/17 at 21:00 Trazodone HCl (Desyrel) 50 mg PRN QHS PRN PO INSOMNIA; Start 08/10/17 at 18:15 Hydrocortisone (Cortaid) 1 odilia BID TP Last administered on 10/12/17at 09:00; Start 08/11/17 at 15:10 Quetiapine Fumarate (SEROquel) 50 mg QHS PO ; Start 08/12/17 at 21:00 Active Scripts Active Reported Xanax (Alprazolam) 0.25 Mg Tablet 0.25 Mg PO PRN Q4HRS PRN Acetaminophen 500 Mg Tablet 500 Mg PO PRN Q4-6HRS PRN NITROGLYCERIN SubLingual (Nitroglycerin) 0.4 Mg Tab.subl 0.4 Mg SL PRN Q5MIN PRN Hydroxyzine Hcl 25 Mg Tablet 25 Mg PO PRN TID PRN Aleve (Naproxen Sodium) 220 Mg Capsule 220 Mg PO PRN Q12HR Levemir Flextouch (Insulin Detemir) 100 Unit/1 Ml Insuln.pen 20 Unit SQ HS Novolog Flexpen (Insulin Aspart) 100 Unit/1 Ml Insuln.pen 0-7 Unit SQ TIDAC Atorvastatin Calcium 40 Mg Tablet 40 Mg PO QHS Lyrica (Pregabalin) 50 Mg Capsule 50 Mg PO BID Levetiracetam 500 Mg Tablet 1,000 Mg PO BID Desonide 59 Ml Lotion 0.05 Odilia TP BID Carvedilol 6.25 Mg Tablet 6.25 Mg PO BIDWMEALS Potassium Chloride 10 Meq Capsule.er 20 Meq PO TID Tamsulosin Hcl 0.4 Mg Cap.er.24h 0.4 Mg PO DAILY Multi-Vitamin Daily (Multivitamin) 1 Each Tablet 1 Each PO DAILY Losartan Potassium 25 Mg Tablet 25 Mg PO DAILY Januvia (Sitagliptin Phosphate) 50 Mg Tablet 50 Mg PO DAILY Isosorbide Mononitrate Er (Isosorbide Mononitrate) 30 Mg Tab.er.24h 30 Mg PO DAILY PRN Furosemide 40 Mg Tablet 40 Mg PO DAILY Cymbalta (Duloxetine Hcl) 60 Mg Capsule.dr 60 Mg PO DAILY Aspirin 81 Mg Tab.chew 81 Mg PO DAILY Diagnosis: Problems: (1) Dementia with behavioral disturbance (2) Anxiety disorder (3) Impulse control disorder (4) Mild cognitive disorder (5) Psychosis, atypical SHARI CHASE MD Aug 12, 2017 20:32
[2017-08-12] MEDS: traZODone 50 MG TABLET. PO SCH (21:16)
[2017-08-12] MEDS: ATORVASTATIN CALCIUM 20 MG TABLET PO SCH (21:16)
[2017-08-12] MEDS: QUEtiapine 25 MG TABLET. PO SCH (21:17)
[2017-08-12] MEDS: INSULIN DETEMIR 300 UNITS/3 ML INSULN.PEN. SQ SCH (21:19)
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
[2017-08-13 06:26] VITALS: BP 116/75
[2017-08-13] MEDS: POTASSIUM CHLORIDE 20 MEQ TABLET.ER. PO SCH (07:46)
[2017-08-13] MEDS: DULoxetine HCL 60 MG CAPSULE.DR PO SCH (07:46)
[2017-08-13] MEDS: ISOSORBIDE MONONITRATE ER 30 MG TAB.ER.24H PO SCH (07:47)
[2017-08-13] MEDS: LINAGLIPTIN 5 MG TABLET PO SCH (07:47)
[2017-08-13] MEDS: MULTIVITAMIN with MINERAL TABLET. PO SCH (07:47)
[2017-08-13] MEDS: ASPIRIN 81 MG TAB.CHEW PO SCH (07:47)
[2017-08-13] MEDS: CARVEDILOL 6.25 MG TABLET PO SCH ×2 (07:48→16:54)
[2017-08-13] MEDS: FUROSEMIDE 40 MG TABLET PO SCH (07:48)
[2017-08-13] MEDS: LOSARTAN 25 MG TABLET. PO SCH (07:49)
[2017-08-13] MEDS: TAMSULOSIN 0.4 MG CAP.ER.24H. PO SCH (07:51)
[2017-08-13] MEDS: levETIRAcetam 500 MG TABLET PO SCH ×2 (07:51→19:45)
[2017-08-13] MEDS: PREGABALIN 50 MG CAPSULE PO SCH ×2 (07:53→19:45)
[2017-08-13] MEDS: HYDROCORTISONE 1% TOPICAL CREAM 30GM TUBE. TP SCH ×2 (07:55→19:53)
[2017-08-13 16:31] VITALS: BP 116/73
[2017-08-13] MEDS: ATORVASTATIN CALCIUM 20 MG TABLET PO SCH (19:45)
[2017-08-13] MEDS: traZODone 50 MG TABLET. PO SCH (19:46)
[2017-08-13] MEDS: QUEtiapine 25 MG TABLET. PO SCH (19:46)
[2017-08-13] MEDS: INSULIN DETEMIR 300 UNITS/3 ML INSULN.PEN. SQ SCH (19:50)
--- NOTE | 2017-08-13 20:39 | PDOC ---
Exam Franco Demential Exam: Franco Note: Please also refer to the separate dictated note~for this date of service dictated separately.~Patient seen individually. Discussed the patient with Nursing staff reviewed the chart.~Reviewed interim history and current functioning. Reviewed vital signs,~Labs/ Radiology~and current medications noted below. Continue current treatment with the changes noted in the dictated addendum note Assessment: Vital Signs: Vital Signs Date Time Temp Pulse Resp B/P (MAP) Pulse Ox O2 Delivery O2 Flow Rate FiO2 08/13/17 16:54 74 116/73 08/13/17 16:31 98.4 18 97 08/09/17 16:28 Room Air I&O Intake and Output 08/14/17 07:00 Intake Total 1080 ml Balance 1080 ml Intake Oral 1080 ml Labs: Laboratory Tests Test 08/13/17 07:54 08/13/17 11:13 08/13/17 16:43 08/13/17 19:17 Glucose (Fingerstick) 97 mg/dL (70-99) 156 mg/dL (70-99) H 162 mg/dL (70-99) H 236 mg/dL (70-99) H Current Medications: Meds: Current Medications Olanzapine (ZyPREXA ZYDIS) 1.25 mg PRN Q2HR PRN PO AGITATION/AGGRESSION Last administered on 08/10/17 00:59; Start 08/09/17 at 23:45 Acetaminophen (Tylenol) 650 mg PRN Q6HRS PRN PO PAIN / TEMP; Start 08/09/17 at 23:45 Multi-Ingredient Ointment (Analgesic [place]) 1 odilia PRN QID PRN TP MUSCLE PAIN; Start 08/09/17 at 23:45 Al Hydroxide/Mg Hydroxide (Mylanta Plus Xs) 15 ml PRN AFTMEALHC PRN PO DYSPEPSIA Last administered on 08/10/17 12:45; Start 08/09/17 at 23:45 Magnesium Hydroxide (Milk Of Magnesia) 2,400 mg PRN QHS PRN PO CONSTIPATION; Start 08/09/17 at 23:45 Aspirin (Children'S Aspirin) 81 mg DAILY PO Last administered on 08/13/17 07: 47; Start 08/10/17 at 09:00 Carvedilol (Coreg) 6.25 mg BIDWMEALS PO Last administered on 08/13/17 16:54; Start 08/10/17 at 08:00 Furosemide (Lasix) 40 mg DAILY PO Last administered on 08/13/17 07:48; Start 08/10/17 at 09:00 Hydroxyzine HCl (Atarax) 25 mg PRN TID PRN PO ITCHING Last administered on 00:59; Start 08/10/17 at 00:00 Insulin Detemir (Levemir) 20 units HS SQ Last administered on 08/13/17 19:50 ; Start 08/10/17 at 21:00 Isosorbide Mononitrate (Imdur) 30 mg PRN DAILY PRN PO HYPERTENSION, SEE COMMENTS; Start 08/10/17 at 00:00; Stop 08/10/17 at 04:12; Status DC Levetiracetam (Keppra) 1,000 mg BID PO Last administered on 08/13/17 19:45; Start 08/10/17 at 09:00 Losartan Potassium (Cozaar) 25 mg DAILY PO Last administered on 08/13/17 07: 49; Start 08/10/17 at 09:00 Nitroglycerin (Nitrostat) 0.4 mg PRN Q5MIN PRN SL CHEST PAIN; Start 08/10/17 at 00:00 Pregabalin (Lyrica) 50 mg BID PO Last administered on 08/13/17 19:45; Start 08/10/17 at 09:00 Tamsulosin HCl (Flomax) 0.4 mg DAILY PO Last administered on 08/10/17 08:56; Start 08/10/17 at 09:00; Stop 08/10/17 at 13:57; Status DC Alprazolam (Xanax) 0.25 mg PRN Q4HRS PRN PO ANXIETY / AGITATION; Start at 00:00 Duloxetine HCl (Cymbalta) 60 mg DAILY PO Last administered on 08/13/17 07:46 ; Start 08/10/17 at 09:00 Atorvastatin Calcium (Lipitor) 40 mg QHS PO Last administered on 08/13/17 19: 45; Start 08/10/17 at 21:00 Hydrocortisone (Cortaid) 1 odilia BID TP Last administered on 08/11/17 12:22; Start 08/10/17 at 09:00; Stop 08/11/17 at 15:10; Status DC Multivitamins/ Calcium (Thera-M Plus) 1 tab DAILY PO Last administered on 08/13 07:47; Start 08/10/17 at 09:00 Naproxen (Naprosyn) 250 mg PRN Q12HR PRN PO INFLAMATION/PAIN; Start 08/10/17 at 00:00 Potassium Chloride (Klor-Con) 20 meq DAILYWBKFT PO Last administered on 07:46; Start 08/10/17 at 08:00 Linagliptin (Tradjenta) 5 mg DAILY PO Last administered on 08/13/17 07:47; Start 08/10/17 at 09:00 Isosorbide Mononitrate (Imdur) 30 mg DAILY PO Last administered on 08/13/17 07:47; Start 08/10/17 at 09:00 Tamsulosin HCl (Flomax) 0.8 mg DAILY PO Last administered on 08/13/17 07:51; Start 08/11/17 at 09:00 Influenza Virus Vaccine Quadrival (Fluarix Quad [id number] Syringe) 0.5 ml ONCE ONCE VAX IM Last administered on 08/11/17 17:15; Start 08/11/17 at 09:00; Stop 08/11/17 at 09:01; Status DC Pneumococcal Polyvalent Vaccine (Pneumovax 23) 0.5 ml ONCE ONCE VAX IM Last administered on 08/11/17 17:16; Start 08/11/17 at 09:00; Stop 08/11/17 at 09 :01; Status DC Quetiapine Fumarate (SEROquel) 25 mg QHS PO Last administered on 08/11/17 19: 15; Start 08/10/17 at 21:00; Stop 08/12/17 at 11:19; Status DC Trazodone HCl (Desyrel) 50 mg QHS PO Last administered on 08/13/17 19:46; Start 08/10/17 at 21:00 Trazodone HCl (Desyrel) 50 mg PRN QHS PRN PO INSOMNIA; Start 08/10/17 at 18:15 Hydrocortisone (Cortaid) 1 odilia BID TP Last administered on 08/13/17 19:53; Start 08/11/17 at 15:10 Quetiapine Fumarate (SEROquel) 50 mg QHS PO Last administered on 08/13/17 19: 46; Start 08/12/17 at 21:00 Bupropion HCl (Wellbutrin) 75 mg DAILY08 PO ; Start 08/14/17 at 08:00 Active Scripts Active Reported Xanax (Alprazolam) 0.25 Mg Tablet 0.25 Mg PO PRN Q4HRS PRN Acetaminophen 500 Mg Tablet 500 Mg PO PRN Q4-6HRS PRN NITROGLYCERIN SubLingual (Nitroglycerin) 0.4 Mg Tab.subl 0.4 Mg SL PRN Q5MIN PRN Hydroxyzine Hcl 25 Mg Tablet 25 Mg PO PRN TID PRN Aleve (Naproxen Sodium) 220 Mg Capsule 220 Mg PO PRN Q12HR Levemir Flextouch (Insulin Detemir) 100 Unit/1 Ml Insuln.pen 20 Unit SQ HS Novolog Flexpen (Insulin Aspart) 100 Unit/1 Ml Insuln.pen 0-7 Unit SQ TIDAC Atorvastatin Calcium 40 Mg Tablet 40 Mg PO QHS Lyrica (Pregabalin) 50 Mg Capsule 50 Mg PO BID Levetiracetam 500 Mg Tablet 1,000 Mg PO BID Desonide 59 Ml Lotion 0.05 Odilia TP BID Carvedilol 6.25 Mg Tablet 6.25 Mg PO BIDWMEALS Potassium Chloride 10 Meq Capsule.er 20 Meq PO TID Tamsulosin Hcl 0.4 Mg Cap.er.24h 0.4 Mg PO DAILY Multi-Vitamin Daily (Multivitamin) 1 Each Tablet 1 Each PO DAILY Losartan Potassium 25 Mg Tablet 25 Mg PO DAILY Januvia (Sitagliptin Phosphate) 50 Mg Tablet 50 Mg PO DAILY Isosorbide Mononitrate Er (Isosorbide Mononitrate) 30 Mg Tab.er.24h 30 Mg PO DAILY PRN Furosemide 40 Mg Tablet 40 Mg PO DAILY Cymbalta (Duloxetine Hcl) 60 Mg Capsule.dr 60 Mg PO DAILY Aspirin 81 Mg Tab.chew 81 Mg PO DAILY Diagnosis: Problems: (1) Dementia with behavioral disturbance (2) Anxiety disorder (3) Impulse control disorder (4) Mild cognitive disorder (5) Psychosis, atypical SHARI CHASE MD Aug 13, 2017 20:39
--- NOTE | 2017-08-14 04:14 | PN ---
DATE: 08/12/2017 PSYCHIATRIC PROGRESS NOTE This late entry 08/12/2017 covers elements not covered in my initial note of 08/12/2017. SUBJECTIVE: I met with the patient evening of 08/12/2017 and staffed at the treatment team meeting with the entire team morning of 08/12/2017. The patient has had episodes of not sleeping for 48 hours and then sleeping well. He slept 9-3/4 hours the previous evening, which is quite an improvement. We will have Neurology consult with Dr. Walker, given his seizure disorder diagnosis. He does have new-onset seizures and is on Keppra and stable on this. Social service staff discussed placement options including [facility] in [place]. REVIEW OF SYSTEMS: No CV, , pulmonary, eye, ENT system symptoms on review. MENTAL STATUS EXAM: Oriented to himself and situation. Speech is coherent, abstraction fair, computation impaired, language function intact, attention span short. Mood is somewhat dysphoric, still delusional about his ; but redirects when her diagnosis of Alzheimer's discussed with him. LABORATORIES: Reviewed. IMPRESSION: Unchanged from initial note. No suicidal or homicidal ideation at this time. PLAN: Increase Seroquel from 25 mg at bedtime to 50 mg at bedtime, maintain Cymbalta 60 mg a day, Atarax 25 mg t.i.d. p.r.n., Xanax p.r.n., Zyprexa p.r.n., trazodone 50 mg at bedtime, may repeat x 1 p.r.n. for insomnia. Review drug interactions, risk/benefit ratio favors no further change. MAN Geno CHASE MD DR: GLENROY/shadi JOB#: [id number] / [id number]
[2017-08-14 06:24] VITALS: BP 121/74
[2017-08-14] MEDS: DULoxetine HCL 60 MG CAPSULE.DR PO SCH (08:08)
[2017-08-14] MEDS: POTASSIUM CHLORIDE 20 MEQ TABLET.ER. PO SCH (08:08)
[2017-08-14] MEDS: MULTIVITAMIN with MINERAL TABLET. PO SCH (08:09)
[2017-08-14] MEDS: TAMSULOSIN 0.4 MG CAP.ER.24H. PO SCH (08:09)
[2017-08-14] MEDS: CARVEDILOL 6.25 MG TABLET PO SCH ×2 (08:09→18:29)
[2017-08-14] MEDS: levETIRAcetam 500 MG TABLET PO SCH ×2 (08:09→20:04)
[2017-08-14] MEDS: ISOSORBIDE MONONITRATE ER 30 MG TAB.ER.24H PO SCH (08:10)
[2017-08-14] MEDS: LINAGLIPTIN 5 MG TABLET PO SCH (08:10)
[2017-08-14] MEDS: PREGABALIN 50 MG CAPSULE PO SCH ×2 (08:10→20:05)
[2017-08-14] MEDS: ASPIRIN 81 MG TAB.CHEW PO SCH (08:11)
[2017-08-14] MEDS: FUROSEMIDE 40 MG TABLET PO SCH (08:11)
[2017-08-14] MEDS: LOSARTAN 25 MG TABLET. PO SCH (08:11)
[2017-08-14] MEDS: buPROPion 75 MG TABLET PO SCH (08:12)
[2017-08-14] MEDS: HYDROCORTISONE 1% TOPICAL CREAM 30GM TUBE. TP SCH ×2 (09:38→20:06)
[2017-08-14 16:08] VITALS: BP 125/82
[2017-08-14] MEDS: traZODone 50 MG TABLET. PO SCH (20:05)
[2017-08-14] MEDS: ATORVASTATIN CALCIUM 20 MG TABLET PO SCH (20:05)
[2017-08-14] MEDS: QUEtiapine 25 MG TABLET. PO SCH (20:05)
[2017-08-14] MEDS: INSULIN DETEMIR 300 UNITS/3 ML INSULN.PEN. SQ SCH (20:07)
--- NOTE | 2017-08-14 21:39 | PDOC ---
Exam Franco Demential Exam: Franco Note: Please also refer to the separate dictated note~for this date of service dictated separately.~Patient seen individually. Discussed the patient with Nursing staff reviewed the chart.~Reviewed interim history and current functioning. Reviewed vital signs,~Labs/ Radiology~and current medications noted below. Continue current treatment with the changes noted in the dictated addendum note Assessment: Vital Signs: Vital Signs Date Time Temp Pulse Resp B/P (MAP) Pulse Ox O2 Delivery O2 Flow Rate FiO2 08/14/17 18:29 90 125/82 08/14/17 16:08 97.1 18 95 Room Air I&O Intake and Output 08/15/17 07:00 Intake Total 1140 ml Balance 1140 ml Intake Oral 1140 ml Labs: Laboratory Tests Test 08/14/17 07:09 08/14/17 11:56 08/14/17 16:27 08/14/17 19:10 Glucose (Fingerstick) 111 mg/dL (70-99) H 230 mg/dL (70-99) H 193 mg/dL (70-99) H 243 mg/dL (70-99) H Current Medications: Meds: Current Medications Olanzapine (ZyPREXA ZYDIS) 1.25 mg PRN Q2HR PRN PO AGITATION/AGGRESSION Last administered on 08/10/17 00:59; Start 08/09/17 at 23:45 Acetaminophen (Tylenol) 650 mg PRN Q6HRS PRN PO PAIN / TEMP; Start 08/09/17 at 23:45 Multi-Ingredient Ointment (Analgesic [place]) 1 odilia PRN QID PRN TP MUSCLE PAIN; Start 08/09/17 at 23:45 Al Hydroxide/Mg Hydroxide (Mylanta Plus Xs) 15 ml PRN AFTMEALHC PRN PO DYSPEPSIA Last administered on 08/10/17 12:45; Start 08/09/17 at 23:45 Magnesium Hydroxide (Milk Of Magnesia) 2,400 mg PRN QHS PRN PO CONSTIPATION; Start 08/09/17 at 23:45 Aspirin (Children'S Aspirin) 81 mg DAILY PO Last administered on 08/14/17 08: 11; Start 08/10/17 at 09:00 Carvedilol (Coreg) 6.25 mg BIDWMEALS PO Last administered on 08/14/17 18:29; Start 08/10/17 at 08:00 Furosemide (Lasix) 40 mg DAILY PO Last administered on 08/14/17 08:11; Start 08/10/17 at 09:00 Hydroxyzine HCl (Atarax) 25 mg PRN TID PRN PO ITCHING Last administered on 00:59; Start 08/10/17 at 00:00 Insulin Detemir (Levemir) 20 units HS SQ Last administered on 08/13/17 19:50 ; Start 08/10/17 at 21:00; Stop 08/14/17 at 13:28; Status DC Isosorbide Mononitrate (Imdur) 30 mg PRN DAILY PRN PO HYPERTENSION, SEE COMMENTS; Start 08/10/17 at 00:00; Stop 08/10/17 at 04:12; Status DC Levetiracetam (Keppra) 1,000 mg BID PO Last administered on 08/14/17 20:04; Start 08/10/17 at 09:00 Losartan Potassium (Cozaar) 25 mg DAILY PO Last administered on 08/14/17 08: 11; Start 08/10/17 at 09:00 Nitroglycerin (Nitrostat) 0.4 mg PRN Q5MIN PRN SL CHEST PAIN; Start 08/10/17 at 00:00 Pregabalin (Lyrica) 50 mg BID PO Last administered on 08/14/17 20:05; Start 08/10/17 at 09:00 Tamsulosin HCl (Flomax) 0.4 mg DAILY PO Last administered on 08/10/17 08:56; Start 08/10/17 at 09:00; Stop 08/10/17 at 13:57; Status DC Alprazolam (Xanax) 0.25 mg PRN Q4HRS PRN PO ANXIETY / AGITATION; Start at 00:00 Duloxetine HCl (Cymbalta) 60 mg DAILY PO Last administered on 08/14/17 08:08 ; Start 08/10/17 at 09:00 Atorvastatin Calcium (Lipitor) 40 mg QHS PO Last administered on 08/14/17 20: 05; Start 08/10/17 at 21:00 Hydrocortisone (Cortaid) 1 odilia BID TP Last administered on 08/11/17 12:22; Start 08/10/17 at 09:00; Stop 08/11/17 at 15:10; Status DC Multivitamins/ Calcium (Thera-M Plus) 1 tab DAILY PO Last administered on 08/14 08:09; Start 08/10/17 at 09:00 Naproxen (Naprosyn) 250 mg PRN Q12HR PRN PO INFLAMATION/PAIN; Start 08/10/17 at 00:00 Potassium Chloride (Klor-Con) 20 meq DAILYWBKFT PO Last administered on 08:08; Start 08/10/17 at 08:00 Linagliptin (Tradjenta) 5 mg DAILY PO Last administered on 08/14/17 08:10; Start 08/10/17 at 09:00 Isosorbide Mononitrate (Imdur) 30 mg DAILY PO Last administered on 08/14/17 08:10; Start 08/10/17 at 09:00 Tamsulosin HCl (Flomax) 0.8 mg DAILY PO Last administered on 08/14/17 08:09; Start 08/11/17 at 09:00 Influenza Virus Vaccine Quadrival (Fluarix Quad [id number] Syringe) 0.5 ml ONCE ONCE VAX IM Last administered on 08/11/17 17:15; Start 08/11/17 at 09:00; Stop 08/11/17 at 09:01; Status DC Pneumococcal Polyvalent Vaccine (Pneumovax 23) 0.5 ml ONCE ONCE VAX IM Last administered on 08/11/17 17:16; Start 08/11/17 at 09:00; Stop 08/11/17 at 09 :01; Status DC Quetiapine Fumarate (SEROquel) 25 mg QHS PO Last administered on 08/11/17 19: 15; Start 08/10/17 at 21:00; Stop 08/12/17 at 11:19; Status DC Trazodone HCl (Desyrel) 50 mg QHS PO Last administered on 08/14/17 20:05; Start 08/10/17 at 21:00 Trazodone HCl (Desyrel) 50 mg PRN QHS PRN PO INSOMNIA; Start 08/10/17 at 18:15 Hydrocortisone (Cortaid) 1 odilia BID TP Last administered on 08/14/17 20:06; Start 08/11/17 at 15:10 Quetiapine Fumarate (SEROquel) 50 mg QHS PO Last administered on 08/14/17 20: 05; Start 08/12/17 at 21:00 Bupropion HCl (Wellbutrin) 75 mg DAILY08 PO Last administered on 08/14/17 08: 12; Start 08/14/17 at 08:00 Insulin Detemir (Levemir) 15 units BID SQ Last administered on 08/14/17 20:07 ; Start 08/14/17 at 21:00 Aripiprazole (Abilify) 2.5 mg DAILY PO ; Start 08/15/17 at 09:00 Active Scripts Active Reported Xanax (Alprazolam) 0.25 Mg Tablet 0.25 Mg PO PRN Q4HRS PRN Acetaminophen 500 Mg Tablet 500 Mg PO PRN Q4-6HRS PRN NITROGLYCERIN SubLingual (Nitroglycerin) 0.4 Mg Tab.subl 0.4 Mg SL PRN Q5MIN PRN Hydroxyzine Hcl 25 Mg Tablet 25 Mg PO PRN TID PRN Aleve (Naproxen Sodium) 220 Mg Capsule 220 Mg PO PRN Q12HR Levemir Flextouch (Insulin Detemir) 100 Unit/1 Ml Insuln.pen 20 Unit SQ HS Novolog Flexpen (Insulin Aspart) 100 Unit/1 Ml Insuln.pen 0-7 Unit SQ TIDAC Atorvastatin Calcium 40 Mg Tablet 40 Mg PO QHS Lyrica (Pregabalin) 50 Mg Capsule 50 Mg PO BID Levetiracetam 500 Mg Tablet 1,000 Mg PO BID Desonide 59 Ml Lotion 0.05 Odilia TP BID Carvedilol 6.25 Mg Tablet 6.25 Mg PO BIDWMEALS Potassium Chloride 10 Meq Capsule.er 20 Meq PO TID Tamsulosin Hcl 0.4 Mg Cap.er.24h 0.4 Mg PO DAILY Multi-Vitamin Daily (Multivitamin) 1 Each Tablet 1 Each PO DAILY Losartan Potassium 25 Mg Tablet 25 Mg PO DAILY Januvia (Sitagliptin Phosphate) 50 Mg Tablet 50 Mg PO DAILY Isosorbide Mononitrate Er (Isosorbide Mononitrate) 30 Mg Tab.er.24h 30 Mg PO DAILY PRN Furosemide 40 Mg Tablet 40 Mg PO DAILY Cymbalta (Duloxetine Hcl) 60 Mg Capsule.dr 60 Mg PO DAILY Aspirin 81 Mg Tab.chew 81 Mg PO DAILY Diagnosis: Problems: (1) Dementia with behavioral disturbance (2) Anxiety disorder (3) Impulse control disorder (4) Mild cognitive disorder (5) Psychosis, atypical SHARI CHASE MD Aug 14, 2017 21:39
--- NOTE | 2017-08-14 23:54 | PN ---
DATE: 08/13/2017 This is a late entry for date of service 08/13/2017 and covers the elements not covered in my initial note. SUBJECTIVE: I met with the patient at length in his room individually evening of 08/13/2017. Per nursing staff, the patient at times is tearful. He is anxious, restless, tries to get up from his wheelchair on his own, sat himself on the floor and no injuries were noted. As I met with him in his room, he was initially tearful, facing the panoramic window with his back towards the entrance door and he was sobbing as I entered the room. When I questioned him on this, it was apparent he is still delusional about his and though he states he knows she has Alzheimer's. He says this because he has been told this rather than believing it. He states he misses his per more than anything else. REVIEW OF SYSTEMS: Ambulation impaired. No CV, , pulmonary, eye, ENT system symptoms on review. MENTAL STATUS EXAM: Oriented to himself and situation. Speech is coherent, abstraction fair, computation impaired, language function intact, attention span short. Mood and affect still depressed. LABORATORY DATA: Reviewed. IMPRESSION: Major depressive disorder with psychotic features; psychotic disorder, unspecified; mild cognitive impairment. Rest unchanged. PLAN: Continue psychotropics mentioned in my initial note, Cymbalta 60 mg a day, Atarax 25 mg t.i.d. p.r.n., Xanax p.r.n., Zyprexa p.r.n., Seroquel 50 mg at bedtime, trazodone 50 mg at bedtime may repeat x 1. Augment the Cymbalta with Wellbutrin 75 mg in the morning to help with his daytime tiredness, apathy; had considered augmentation with Abilify, but he is already on Seroquel. We will see how he does with this change. Reviewed drug interactions. Risk/benefit ratio favors no further change. SHARI CHASE MD DR: GLENROY/shadi JOB#: [id number] / [id number]
--- NOTE | 2017-08-15 01:53 | PN ---
DATE: 08/14/2017 This note covers elements not covered in my initial note of 08/14/2017. SUBJECTIVE: I met with the patient at length in his room. He slept 5-3/4 hours previous evening, remains depressed, crying in his room, anxious. REVIEW OF SYSTEMS: Ambulation impaired. No CV, , pulmonary, eye, ENT system symptoms on review. MENTAL STATUS EXAMINATION: Reasonably oriented to place and situation. Speech is coherent, has some latency, abstraction fair, computation impaired, language function intact, attention span short. Mood and affect remains depressed, paranoid. He is somewhat delusional about his . LABORATORY DATA: Reviewed. IMPRESSION: Unchanged from initial note. PLAN: Augment the Cymbalta 60 mg a day with Abilify 2.5 mg a day. Continue the rest of his psychotropics. We may taper and stop the Seroquel to avoid using 2 atypical antipsychotics. Reviewed drug interactions. Risk/benefit ratio favors no further change. SHARI CHASE MD DR: GLENROY/shadi JOB#: [id number] / [id number]
[2017-08-15 06:15] VITALS: BP 120/81
[2017-08-15] MEDS: levETIRAcetam 500 MG TABLET PO SCH ×2 (07:47→20:20)
[2017-08-15] MEDS: LINAGLIPTIN 5 MG TABLET PO SCH (07:47)
[2017-08-15] MEDS: LOSARTAN 25 MG TABLET. PO SCH (07:47)
[2017-08-15] MEDS: buPROPion 75 MG TABLET PO SCH (07:47)
[2017-08-15] MEDS: ASPIRIN 81 MG TAB.CHEW PO SCH (07:48)
[2017-08-15] MEDS: TAMSULOSIN 0.4 MG CAP.ER.24H. PO SCH (07:48)
[2017-08-15] MEDS: DULoxetine HCL 60 MG CAPSULE.DR PO SCH (07:48)
[2017-08-15] MEDS: CARVEDILOL 6.25 MG TABLET PO SCH ×2 (07:49→17:37)
[2017-08-15] MEDS: FUROSEMIDE 40 MG TABLET PO SCH (07:49)
[2017-08-15] MEDS: POTASSIUM CHLORIDE 20 MEQ TABLET.ER. PO SCH (07:51)
[2017-08-15] MEDS: MULTIVITAMIN with MINERAL TABLET. PO SCH (07:52)
[2017-08-15] MEDS: ISOSORBIDE MONONITRATE ER 30 MG TAB.ER.24H PO SCH (07:52)
[2017-08-15] MEDS: PREGABALIN 50 MG CAPSULE PO SCH ×2 (07:52→20:20)
[2017-08-15] MEDS: ARIPiprazole 5 MG TABLET PO SCH (08:51)
[2017-08-15] MEDS: INSULIN DETEMIR 300 UNITS/3 ML INSULN.PEN. SQ SCH ×2 (08:56→20:23)
[2017-08-15] MEDS: HYDROCORTISONE 1% TOPICAL CREAM 30GM TUBE. TP SCH ×2 (09:00→20:22)
[2017-08-15 16:09] VITALS: BP 123/80
[2017-08-15] MEDS: ACETAMINOPHEN 325 MG TABLET PO PRN (17:38)
[2017-08-15] MEDS: QUEtiapine 25 MG TABLET. PO SCH (20:20)
[2017-08-15] MEDS: traZODone 50 MG TABLET. PO SCH (20:20)
[2017-08-15] MEDS: ATORVASTATIN CALCIUM 20 MG TABLET PO SCH (20:20)
--- NOTE | 2017-08-15 20:44 | PDOC ---
Exam Franco Demential Exam: Franco Note: Please also refer to the separate dictated note~for this date of service dictated separately.~Patient seen individually. Discussed the patient with Nursing staff reviewed the chart.~Reviewed interim history and current functioning. Reviewed vital signs,~Labs/ Radiology~and current medications noted below. Continue current treatment with the changes noted in the dictated addendum note Assessment: Vital Signs: Vital Signs Date Time Temp Pulse Resp B/P (MAP) Pulse Ox O2 Delivery O2 Flow Rate FiO2 08/15/17 17:37 78 123/80 08/15/17 16:09 97.9 20 96 Room Air I&O Intake and Output 08/16/17 07:00 Intake Total 1560 ml Balance 1560 ml Intake Oral 1560 ml Labs: Laboratory Tests Test 08/15/17 07:35 08/15/17 11:20 08/15/17 16:40 08/15/17 19:18 Glucose (Fingerstick) 138 mg/dL (70-99) H 217 mg/dL (70-99) H 213 mg/dL (70-99) H 213 mg/dL (70-99) H Current Medications: Meds: Current Medications Olanzapine (ZyPREXA ZYDIS) 1.25 mg PRN Q2HR PRN PO AGITATION/AGGRESSION Last administered on 08/10/17 00:59; Start 08/09/17 at 23:45 Acetaminophen (Tylenol) 650 mg PRN Q6HRS PRN PO PAIN / TEMP Last administered on 08/15/17 17:38; Start 08/09/17 at 23:45 Multi-Ingredient Ointment (Analgesic [place]) 1 odilia PRN QID PRN TP MUSCLE PAIN; Start 08/09/17 at 23:45 Al Hydroxide/Mg Hydroxide (Mylanta Plus Xs) 15 ml PRN AFTMEALHC PRN PO DYSPEPSIA Last administered on 08/10/17 12:45; Start 08/09/17 at 23:45 Magnesium Hydroxide (Milk Of Magnesia) 2,400 mg PRN QHS PRN PO CONSTIPATION; Start 08/09/17 at 23:45 Aspirin (Children'S Aspirin) 81 mg DAILY PO Last administered on 08/15/17 07: 48; Start 08/10/17 at 09:00 Carvedilol (Coreg) 6.25 mg BIDWMEALS PO Last administered on 08/15/17 17:37; Start 08/10/17 at 08:00 Furosemide (Lasix) 40 mg DAILY PO Last administered on 08/15/17 07:49; Start 08/10/17 at 09:00 Hydroxyzine HCl (Atarax) 25 mg PRN TID PRN PO ITCHING Last administered on 00:59; Start 08/10/17 at 00:00 Insulin Detemir (Levemir) 20 units HS SQ Last administered on 08/13/17 19:50 ; Start 08/10/17 at 21:00; Stop 08/14/17 at 13:28; Status DC Isosorbide Mononitrate (Imdur) 30 mg PRN DAILY PRN PO HYPERTENSION, SEE COMMENTS; Start 08/10/17 at 00:00; Stop 08/10/17 at 04:12; Status DC Levetiracetam (Keppra) 1,000 mg BID PO Last administered on 08/15/17 07:47; Start 08/10/17 at 09:00 Losartan Potassium (Cozaar) 25 mg DAILY PO Last administered on 08/15/17 07: 47; Start 08/10/17 at 09:00 Nitroglycerin (Nitrostat) 0.4 mg PRN Q5MIN PRN SL CHEST PAIN; Start 08/10/17 at 00:00 Pregabalin (Lyrica) 50 mg BID PO Last administered on 08/15/17 07:52; Start 08/10/17 at 09:00 Tamsulosin HCl (Flomax) 0.4 mg DAILY PO Last administered on 08/10/17 08:56; Start 08/10/17 at 09:00; Stop 08/10/17 at 13:57; Status DC Alprazolam (Xanax) 0.25 mg PRN Q4HRS PRN PO ANXIETY / AGITATION; Start at 00:00 Duloxetine HCl (Cymbalta) 60 mg DAILY PO Last administered on 08/15/17 07:48 ; Start 08/10/17 at 09:00 Atorvastatin Calcium (Lipitor) 40 mg QHS PO Last administered on 08/14/17 20: 05; Start 08/10/17 at 21:00 Hydrocortisone (Cortaid) 1 odilia BID TP Last administered on 08/11/17 12:22; Start 08/10/17 at 09:00; Stop 08/11/17 at 15:10; Status DC Multivitamins/ Calcium (Thera-M Plus) 1 tab DAILY PO Last administered on 08/15 07:52; Start 08/10/17 at 09:00 Naproxen (Naprosyn) 250 mg PRN Q12HR PRN PO INFLAMATION/PAIN; Start 08/10/17 at 00:00 Potassium Chloride (Klor-Con) 20 meq DAILYWBKFT PO Last administered on 07:51; Start 08/10/17 at 08:00 Linagliptin (Tradjenta) 5 mg DAILY PO Last administered on 08/15/17 07:47; Start 08/10/17 at 09:00 Isosorbide Mononitrate (Imdur) 30 mg DAILY PO Last administered on 08/15/17 07:52; Start 08/10/17 at 09:00 Tamsulosin HCl (Flomax) 0.8 mg DAILY PO Last administered on 08/15/17 07:48; Start 08/11/17 at 09:00 Influenza Virus Vaccine Quadrival (Fluarix Quad [id number] Syringe) 0.5 ml ONCE ONCE VAX IM Last administered on 08/11/17 17:15; Start 08/11/17 at 09:00; Stop 08/11/17 at 09:01; Status DC Pneumococcal Polyvalent Vaccine (Pneumovax 23) 0.5 ml ONCE ONCE VAX IM Last administered on 08/11/17 17:16; Start 08/11/17 at 09:00; Stop 08/11/17 at 09 :01; Status DC Quetiapine Fumarate (SEROquel) 25 mg QHS PO Last administered on 08/11/17 19: 15; Start 08/10/17 at 21:00; Stop 08/12/17 at 11:19; Status DC Trazodone HCl (Desyrel) 50 mg QHS PO Last administered on 08/14/17 20:05; Start 08/10/17 at 21:00 Trazodone HCl (Desyrel) 50 mg PRN QHS PRN PO INSOMNIA; Start 08/10/17 at 18:15 Hydrocortisone (Cortaid) 1 odilia BID TP Last administered on 08/15/17 09:00; Start 08/11/17 at 15:10 Quetiapine Fumarate (SEROquel) 50 mg QHS PO Last administered on 08/14/17 20: 05; Start 08/12/17 at 21:00 Bupropion HCl (Wellbutrin) 75 mg DAILY08 PO Last administered on 08/15/17 07: 47; Start 08/14/17 at 08:00 Insulin Detemir (Levemir) 15 units BID SQ Last administered on 08/15/17 08:56 ; Start 08/14/17 at 21:00 Aripiprazole (Abilify) 2.5 mg DAILY PO Last administered on 08/15/17 08:51; Start 08/15/17 at 09:00 Active Scripts Active Reported Xanax (Alprazolam) 0.25 Mg Tablet 0.25 Mg PO PRN Q4HRS PRN Acetaminophen 500 Mg Tablet 500 Mg PO PRN Q4-6HRS PRN NITROGLYCERIN SubLingual (Nitroglycerin) 0.4 Mg Tab.subl 0.4 Mg SL PRN Q5MIN PRN Hydroxyzine Hcl 25 Mg Tablet 25 Mg PO PRN TID PRN Aleve (Naproxen Sodium) 220 Mg Capsule 220 Mg PO PRN Q12HR Levemir Flextouch (Insulin Detemir) 100 Unit/1 Ml Insuln.pen 20 Unit SQ HS Novolog Flexpen (Insulin Aspart) 100 Unit/1 Ml Insuln.pen 0-7 Unit SQ TIDAC Atorvastatin Calcium 40 Mg Tablet 40 Mg PO QHS Lyrica (Pregabalin) 50 Mg Capsule 50 Mg PO BID Levetiracetam 500 Mg Tablet 1,000 Mg PO BID Desonide 59 Ml Lotion 0.05 Odilia TP BID Carvedilol 6.25 Mg Tablet 6.25 Mg PO BIDWMEALS Potassium Chloride 10 Meq Capsule.er 20 Meq PO TID Tamsulosin Hcl 0.4 Mg Cap.er.24h 0.4 Mg PO DAILY Multi-Vitamin Daily (Multivitamin) 1 Each Tablet 1 Each PO DAILY Losartan Potassium 25 Mg Tablet 25 Mg PO DAILY Januvia (Sitagliptin Phosphate) 50 Mg Tablet 50 Mg PO DAILY Isosorbide Mononitrate Er (Isosorbide Mononitrate) 30 Mg Tab.er.24h 30 Mg PO DAILY PRN Furosemide 40 Mg Tablet 40 Mg PO DAILY Cymbalta (Duloxetine Hcl) 60 Mg Capsule.dr 60 Mg PO DAILY Aspirin 81 Mg Tab.chew 81 Mg PO DAILY Diagnosis: Problems: (1) Dementia with behavioral disturbance (2) Anxiety disorder (3) Impulse control disorder (4) Mild cognitive disorder (5) Psychosis, atypical (6) Major depressive disorder, recurrent episode SHARI CHASE MD Aug 15, 2017 20:44
--- NOTE | 2017-08-15 21:10 | RAD ---
CT Head W/O Contrast: History: fell hit head, headache, sleepiness Comparison: August 09, 2017 Axial images were obtained without contrast. There is moderate diffuse atrophy. There is no mass effect, extraaxial fluid collections or hydrocephalus. There is no focal loss of chatman-white matter distinction to suggest acute ischemia, i.e. stroke. Impression: No acute findings. RS Compliance Statement: One or more of the following individualized dose reduction techniques were utilized for this examination: 1. Automated exposure control 2. Adjustment of the mA and/or kV according to patient size 3. Use of iterative reconstruction technique Electronically signed by: Jg Tejada III, MD (08/15/2017 9:07 PM) [id number]
[2017-08-16 07:16] VITALS: BP 157/90
[2017-08-16] MEDS: HYDROCORTISONE 1% TOPICAL CREAM 30GM TUBE. TP SCH ×2 (09:20→20:06)
[2017-08-16] MEDS: INSULIN DETEMIR 300 UNITS/3 ML INSULN.PEN. SQ SCH ×2 (09:21→20:10)
[2017-08-16] MEDS: buPROPion 75 MG TABLET PO SCH (09:22)
[2017-08-16] MEDS: TAMSULOSIN 0.4 MG CAP.ER.24H. PO SCH (09:22)
[2017-08-16] MEDS: ARIPiprazole 5 MG TABLET PO SCH (09:22)
[2017-08-16] MEDS: LINAGLIPTIN 5 MG TABLET PO SCH (09:22)
[2017-08-16] MEDS: levETIRAcetam 500 MG TABLET PO SCH ×2 (09:22→20:05)
[2017-08-16] MEDS: DULoxetine HCL 60 MG CAPSULE.DR PO SCH (09:22)
[2017-08-16] MEDS: ASPIRIN 81 MG TAB.CHEW PO SCH (09:23)
[2017-08-16] MEDS: ISOSORBIDE MONONITRATE ER 30 MG TAB.ER.24H PO SCH (09:23)
[2017-08-16] MEDS: LOSARTAN 25 MG TABLET. PO SCH (09:23)
[2017-08-16] MEDS: MULTIVITAMIN with MINERAL TABLET. PO SCH (09:24)
[2017-08-16] MEDS: CARVEDILOL 6.25 MG TABLET PO SCH ×2 (09:24→17:23)
[2017-08-16] MEDS: FUROSEMIDE 40 MG TABLET PO SCH (09:24)
[2017-08-16] MEDS: POTASSIUM CHLORIDE 20 MEQ TABLET.ER. PO SCH (09:24)
[2017-08-16] MEDS: PREGABALIN 50 MG CAPSULE PO SCH ×2 (09:26→20:05)
[2017-08-16 16:06] VITALS: BP 139/84
[2017-08-16] MEDS: ATORVASTATIN CALCIUM 20 MG TABLET PO SCH (20:05)
[2017-08-16] MEDS: QUEtiapine 25 MG TABLET. PO SCH (20:06)
[2017-08-16] MEDS: traZODone 50 MG TABLET. PO SCH (20:06)
--- NOTE | 2017-08-16 21:21 | PDOC ---
Exam Franco Demential Exam: Franco Note: Please also refer to the separate dictated note~for this date of service dictated separately.~Patient seen individually. Discussed the patient with Nursing staff reviewed the chart.~Reviewed interim history and current functioning. Reviewed vital signs,~Labs/ Radiology~and current medications noted below. Continue current treatment with the changes noted in the dictated addendum note Assessment: Vital Signs: Vital Signs Date Time Temp Pulse Resp B/P (MAP) Pulse Ox O2 Delivery O2 Flow Rate FiO2 08/16/17 17:23 84 139/84 08/16/17 16:06 97.4 20 95 Room Air I&O Intake and Output 08/17/17 07:00 Intake Total 720 ml Balance 720 ml Intake Oral 720 ml Labs: Laboratory Tests Test 08/16/17 07:34 08/16/17 11:39 08/16/17 16:57 08/16/17 19:47 Glucose (Fingerstick) 106 mg/dL (70-99) H 133 mg/dL (70-99) H 159 mg/dL (70-99) H 160 mg/dL (70-99) H Current Medications: Meds: Current Medications Olanzapine (ZyPREXA ZYDIS) 1.25 mg PRN Q2HR PRN PO AGITATION/AGGRESSION Last administered on 08/10/17 00:59; Start 08/09/17 at 23:45 Acetaminophen (Tylenol) 650 mg PRN Q6HRS PRN PO PAIN / TEMP Last administered on 08/15/17 17:38; Start 08/09/17 at 23:45 Multi-Ingredient Ointment (Analgesic [place]) 1 odilia PRN QID PRN TP MUSCLE PAIN; Start 08/09/17 at 23:45 Al Hydroxide/Mg Hydroxide (Mylanta Plus Xs) 15 ml PRN AFTMEALHC PRN PO DYSPEPSIA Last administered on 08/10/17 12:45; Start 08/09/17 at 23:45 Magnesium Hydroxide (Milk Of Magnesia) 2,400 mg PRN QHS PRN PO CONSTIPATION; Start 08/09/17 at 23:45 Aspirin (Children'S Aspirin) 81 mg DAILY PO Last administered on 08/16/17 09: 23; Start 08/10/17 at 09:00 Carvedilol (Coreg) 6.25 mg BIDWMEALS PO Last administered on 08/16/17 17:23; Start 08/10/17 at 08:00 Furosemide (Lasix) 40 mg DAILY PO Last administered on 08/16/17 09:24; Start 08/10/17 at 09:00 Hydroxyzine HCl (Atarax) 25 mg PRN TID PRN PO ITCHING Last administered on 00:59; Start 08/10/17 at 00:00 Insulin Detemir (Levemir) 20 units HS SQ Last administered on 08/13/17 19:50 ; Start 08/10/17 at 21:00; Stop 08/14/17 at 13:28; Status DC Isosorbide Mononitrate (Imdur) 30 mg PRN DAILY PRN PO HYPERTENSION, SEE COMMENTS; Start 08/10/17 at 00:00; Stop 08/10/17 at 04:12; Status DC Levetiracetam (Keppra) 1,000 mg BID PO Last administered on 08/16/17 20:05; Start 08/10/17 at 09:00 Losartan Potassium (Cozaar) 25 mg DAILY PO Last administered on 08/16/17 09: 23; Start 08/10/17 at 09:00 Nitroglycerin (Nitrostat) 0.4 mg PRN Q5MIN PRN SL CHEST PAIN; Start 08/10/17 at 00:00 Pregabalin (Lyrica) 50 mg BID PO Last administered on 08/16/17 20:05; Start 08/10/17 at 09:00 Tamsulosin HCl (Flomax) 0.4 mg DAILY PO Last administered on 08/10/17 08:56; Start 08/10/17 at 09:00; Stop 08/10/17 at 13:57; Status DC Alprazolam (Xanax) 0.25 mg PRN Q4HRS PRN PO ANXIETY / AGITATION; Start at 00:00 Duloxetine HCl (Cymbalta) 60 mg DAILY PO Last administered on 08/16/17 09:22 ; Start 08/10/17 at 09:00 Atorvastatin Calcium (Lipitor) 40 mg QHS PO Last administered on 08/16/17 20: 05; Start 08/10/17 at 21:00 Hydrocortisone (Cortaid) 1 odilia BID TP Last administered on 08/11/17 12:22; Start 08/10/17 at 09:00; Stop 08/11/17 at 15:10; Status DC Multivitamins/ Calcium (Thera-M Plus) 1 tab DAILY PO Last administered on 08/16 09:24; Start 08/10/17 at 09:00 Naproxen (Naprosyn) 250 mg PRN Q12HR PRN PO INFLAMATION/PAIN; Start 08/10/17 at 00:00 Potassium Chloride (Klor-Con) 20 meq DAILYWBKFT PO Last administered on 09:24; Start 08/10/17 at 08:00 Linagliptin (Tradjenta) 5 mg DAILY PO Last administered on 08/16/17 09:22; Start 08/10/17 at 09:00 Isosorbide Mononitrate (Imdur) 30 mg DAILY PO Last administered on 08/16/17 09:23; Start 08/10/17 at 09:00 Tamsulosin HCl (Flomax) 0.8 mg DAILY PO Last administered on 08/16/17 09:22; Start 08/11/17 at 09:00 Influenza Virus Vaccine Quadrival (Fluarix Quad [id number] Syringe) 0.5 ml ONCE ONCE VAX IM Last administered on 08/11/17 17:15; Start 08/11/17 at 09:00; Stop 08/11/17 at 09:01; Status DC Pneumococcal Polyvalent Vaccine (Pneumovax 23) 0.5 ml ONCE ONCE VAX IM Last administered on 08/11/17 17:16; Start 08/11/17 at 09:00; Stop 08/11/17 at 09 :01; Status DC Quetiapine Fumarate (SEROquel) 25 mg QHS PO Last administered on 08/11/17 19: 15; Start 08/10/17 at 21:00; Stop 08/12/17 at 11:19; Status DC Trazodone HCl (Desyrel) 50 mg QHS PO Last administered on 08/16/17 20:06; Start 08/10/17 at 21:00 Trazodone HCl (Desyrel) 50 mg PRN QHS PRN PO INSOMNIA; Start 08/10/17 at 18:15 Hydrocortisone (Cortaid) 1 odilia BID TP Last administered on 08/16/17 20:06; Start 08/11/17 at 15:10 Quetiapine Fumarate (SEROquel) 50 mg QHS PO Last administered on 08/16/17 20: 06; Start 08/12/17 at 21:00 Bupropion HCl (Wellbutrin) 75 mg DAILY08 PO Last administered on 08/16/17 09: 22; Start 08/14/17 at 08:00 Insulin Detemir (Levemir) 15 units BID SQ Last administered on 08/16/17 20:10 ; Start 08/14/17 at 21:00 Aripiprazole (Abilify) 2.5 mg DAILY PO Last administered on 08/16/17 09:22; Start 08/15/17 at 09:00 Active Scripts Active Reported Xanax (Alprazolam) 0.25 Mg Tablet 0.25 Mg PO PRN Q4HRS PRN Acetaminophen 500 Mg Tablet 500 Mg PO PRN Q4-6HRS PRN NITROGLYCERIN SubLingual (Nitroglycerin) 0.4 Mg Tab.subl 0.4 Mg SL PRN Q5MIN PRN Hydroxyzine Hcl 25 Mg Tablet 25 Mg PO PRN TID PRN Aleve (Naproxen Sodium) 220 Mg Capsule 220 Mg PO PRN Q12HR Levemir Flextouch (Insulin Detemir) 100 Unit/1 Ml Insuln.pen 20 Unit SQ HS Novolog Flexpen (Insulin Aspart) 100 Unit/1 Ml Insuln.pen 0-7 Unit SQ TIDAC Atorvastatin Calcium 40 Mg Tablet 40 Mg PO QHS Lyrica (Pregabalin) 50 Mg Capsule 50 Mg PO BID Levetiracetam 500 Mg Tablet 1,000 Mg PO BID Desonide 59 Ml Lotion 0.05 Odilia TP BID Carvedilol 6.25 Mg Tablet 6.25 Mg PO BIDWMEALS Potassium Chloride 10 Meq Capsule.er 20 Meq PO TID Tamsulosin Hcl 0.4 Mg Cap.er.24h 0.4 Mg PO DAILY Multi-Vitamin Daily (Multivitamin) 1 Each Tablet 1 Each PO DAILY Losartan Potassium 25 Mg Tablet 25 Mg PO DAILY Januvia (Sitagliptin Phosphate) 50 Mg Tablet 50 Mg PO DAILY Isosorbide Mononitrate Er (Isosorbide Mononitrate) 30 Mg Tab.er.24h 30 Mg PO DAILY PRN Furosemide 40 Mg Tablet 40 Mg PO DAILY Cymbalta (Duloxetine Hcl) 60 Mg Capsule.dr 60 Mg PO DAILY Aspirin 81 Mg Tab.chew 81 Mg PO DAILY Diagnosis: Problems: (1) Dementia with behavioral disturbance (2) Anxiety disorder (3) Impulse control disorder (4) Mild cognitive disorder (5) Psychosis, atypical (6) Major depressive disorder, recurrent episode SHARI CHASE MD Aug 16, 2017 21:21
--- NOTE | 2017-08-16 22:28 | PN ---
DATE: 08/15/2017 PSYCHIATRIC PROGRESS NOTE This late entry 08/15/2017 covers elements, not covered in my initial note of 08/15/2017. SUBJECTIVE: I met with the patient in the evening of 08/15/2017. Overall, the patient remains withdrawn, somewhat depressed, but better than before. He is compliant with medications and assessment. I met with him in his room. REVIEW OF SYSTEMS: Ambulation impaired, in a wheelchair. No CV, , pulmonary, eye, ENT system symptoms on review. MENTAL STATUS EXAM: Oriented to himself and situation. Speech coherent, has some latency, low in volume. Abstraction fair, computation impaired, language function intact. Mood and affect still depressed showing some improvement. LABORATORY DATA: Reviewed. IMPRESSION: Unchanged from initial note. PLAN: Continue Cymbalta 60 mg a day, Abilify 2.5 mg a day, Atarax p.r.n., Xanax p.r.n., Zyprexa p.r.n., Seroquel 50 mg at bedtime, trazodone 50 mg at bedtime, may repeat x1 for insomnia. Reviewed drug contractions. Risk/benefit ratio favors no further change. SHARI CHASE MD DR: GLENROY/shadi JOB#: [id number] / [id number]
--- NOTE | 2017-08-17 00:45 | RAD ---
CT head without contrast TECHNIQUE: 5 mm axial noncontrast imaging skull base to vertex. HISTORY: Fall injury hitting posterior head with headache and dizziness. COMPARISON: CT head August 15, 2017. FINDINGS: Ventriculomegaly similar to the prior exam could be due to generalized brain atrophy or normal pressure hydrocephalus. No obstructive hydrocephalus. No intracranial hemorrhage, mass or infarction. Orbits, mastoids, paranasal sinuses and bones are unremarkable. IMPRESSION: No acute intracranial CT abnormality. Stable exam. Exposure: One or more of the following individualized dose reduction techniques were utilized for this examination: 1. Automated exposure control 2. Adjustment of the mA and/or kV according to patient size 3. Use of iterative reconstruction technique Electronically signed by: You Mills MD (08/17/2017 12:42 AM) [facility]
--- NOTE | 2017-08-17 01:43 | RAD ---
AP pelvis and frontal and lateral x-rays bilateral hips HISTORY: Fall, pelvic and bilateral hip pain FINDINGS: No fracture or dislocation of the bilateral hips and pelvis. Bilateral hip osteoarthritis with joint space narrowing and bulky femoral head osteophytes. Spinal stimulator. IMPRESSION: No acute osseous injury. Electronically signed by: You Mills MD (08/17/2017 1:40 AM) [facility]
[2017-08-17 06:12] VITALS: BP 160/89
[2017-08-17] MEDS: FUROSEMIDE 40 MG TABLET PO SCH (08:50)
[2017-08-17] MEDS: PREGABALIN 50 MG CAPSULE PO SCH ×2 (08:50→20:45)
[2017-08-17] MEDS: LOSARTAN 25 MG TABLET. PO SCH (08:50)
[2017-08-17] MEDS: levETIRAcetam 500 MG TABLET PO SCH ×2 (08:50→20:46)
[2017-08-17] MEDS: LINAGLIPTIN 5 MG TABLET PO SCH (08:50)
[2017-08-17] MEDS: buPROPion 75 MG TABLET PO SCH (08:51)
[2017-08-17] MEDS: ISOSORBIDE MONONITRATE ER 30 MG TAB.ER.24H PO SCH (08:51)
[2017-08-17] MEDS: TAMSULOSIN 0.4 MG CAP.ER.24H. PO SCH (08:51)
[2017-08-17] MEDS: CARVEDILOL 6.25 MG TABLET PO SCH ×2 (08:51→17:10)
[2017-08-17] MEDS: POTASSIUM CHLORIDE 20 MEQ TABLET.ER. PO SCH (08:51)
[2017-08-17] MEDS: ARIPiprazole 5 MG TABLET PO SCH (08:51)
[2017-08-17] MEDS: DULoxetine HCL 60 MG CAPSULE.DR PO SCH (08:52)
[2017-08-17] MEDS: ASPIRIN 81 MG TAB.CHEW PO SCH (08:52)
[2017-08-17] MEDS: MULTIVITAMIN with MINERAL TABLET. PO SCH (08:52)
[2017-08-17] MEDS: HYDROCORTISONE 1% TOPICAL CREAM 30GM TUBE. TP SCH ×2 (08:56→20:47)
[2017-08-17] MEDS: INSULIN DETEMIR 300 UNITS/3 ML INSULN.PEN. SQ SCH ×2 (08:57→20:50)
[2017-08-17 15:58] VITALS: BP 105/55
--- NOTE | 2017-08-17 20:17 | PDOC ---
Exam Franco Demential Exam: Franco Note: Please also refer to the separate dictated note~for this date of service dictated separately.~Patient seen individually. Discussed the patient with Nursing staff reviewed the chart.~Reviewed interim history and current functioning. Reviewed vital signs,~Labs/ Radiology~and current medications noted below. Continue current treatment with the changes noted in the dictated addendum note Assessment: Vital Signs: Vital Signs Date Time Temp Pulse Resp B/P (MAP) Pulse Ox O2 Delivery O2 Flow Rate FiO2 08/17/17 17:10 88 105/55 08/17/17 15:58 97.3 18 97 08/16/17 16:06 Room Air I&O Intake and Output 08/18/17 07:00 Intake Total 600 ml Balance 600 ml Intake Oral 600 ml Labs: Laboratory Tests Test 08/17/17 07:23 08/17/17 11:28 08/17/17 16:04 08/17/17 19:17 Glucose (Fingerstick) 105 mg/dL (70-99) H 225 mg/dL (70-99) H 190 mg/dL (70-99) H 160 mg/dL (70-99) H Current Medications: Meds: Current Medications Olanzapine (ZyPREXA ZYDIS) 1.25 mg PRN Q2HR PRN PO AGITATION/AGGRESSION Last administered on 08/10/17 00:59; Start 08/09/17 at 23:45 Acetaminophen (Tylenol) 650 mg PRN Q6HRS PRN PO PAIN / TEMP Last administered on 08/15/17 17:38; Start 08/09/17 at 23:45 Multi-Ingredient Ointment (Analgesic [place]) 1 odilia PRN QID PRN TP MUSCLE PAIN; Start 08/09/17 at 23:45 Al Hydroxide/Mg Hydroxide (Mylanta Plus Xs) 15 ml PRN AFTMEALHC PRN PO DYSPEPSIA Last administered on 08/10/17 12:45; Start 08/09/17 at 23:45 Magnesium Hydroxide (Milk Of Magnesia) 2,400 mg PRN QHS PRN PO CONSTIPATION; Start 08/09/17 at 23:45 Aspirin (Children'S Aspirin) 81 mg DAILY PO Last administered on 08/17/17 08: 52; Start 08/10/17 at 09:00 Carvedilol (Coreg) 6.25 mg BIDWMEALS PO Last administered on 08/17/17 08:51; Start 08/10/17 at 08:00 Furosemide (Lasix) 40 mg DAILY PO Last administered on 08/17/17 08:50; Start 08/10/17 at 09:00 Hydroxyzine HCl (Atarax) 25 mg PRN TID PRN PO ITCHING Last administered on 00:59; Start 08/10/17 at 00:00 Insulin Detemir (Levemir) 20 units HS SQ Last administered on 08/13/17 19:50 ; Start 08/10/17 at 21:00; Stop 08/14/17 at 13:28; Status DC Isosorbide Mononitrate (Imdur) 30 mg PRN DAILY PRN PO HYPERTENSION, SEE COMMENTS; Start 08/10/17 at 00:00; Stop 08/10/17 at 04:12; Status DC Levetiracetam (Keppra) 1,000 mg BID PO Last administered on 08/17/17 08:50; Start 08/10/17 at 09:00 Losartan Potassium (Cozaar) 25 mg DAILY PO Last administered on 08/17/17 08: 50; Start 08/10/17 at 09:00 Nitroglycerin (Nitrostat) 0.4 mg PRN Q5MIN PRN SL CHEST PAIN; Start 08/10/17 at 00:00 Pregabalin (Lyrica) 50 mg BID PO Last administered on 08/17/17 08:50; Start 08/10/17 at 09:00 Tamsulosin HCl (Flomax) 0.4 mg DAILY PO Last administered on 08/10/17 08:56; Start 08/10/17 at 09:00; Stop 08/10/17 at 13:57; Status DC Alprazolam (Xanax) 0.25 mg PRN Q4HRS PRN PO ANXIETY / AGITATION; Start at 00:00 Duloxetine HCl (Cymbalta) 60 mg DAILY PO Last administered on 08/17/17 08:52 ; Start 08/10/17 at 09:00 Atorvastatin Calcium (Lipitor) 40 mg QHS PO Last administered on 08/16/17 20: 05; Start 08/10/17 at 21:00 Hydrocortisone (Cortaid) 1 odilia BID TP Last administered on 08/11/17 12:22; Start 08/10/17 at 09:00; Stop 08/11/17 at 15:10; Status DC Multivitamins/ Calcium (Thera-M Plus) 1 tab DAILY PO Last administered on 08/17 08:52; Start 08/10/17 at 09:00 Naproxen (Naprosyn) 250 mg PRN Q12HR PRN PO INFLAMATION/PAIN; Start 08/10/17 at 00:00 Potassium Chloride (Klor-Con) 20 meq DAILYWBKFT PO Last administered on 08:51; Start 08/10/17 at 08:00 Linagliptin (Tradjenta) 5 mg DAILY PO Last administered on 08/17/17 08:50; Start 08/10/17 at 09:00 Isosorbide Mononitrate (Imdur) 30 mg DAILY PO Last administered on 08/17/17 08:51; Start 08/10/17 at 09:00 Tamsulosin HCl (Flomax) 0.8 mg DAILY PO Last administered on 08/17/17 08:51; Start 08/11/17 at 09:00 Influenza Virus Vaccine Quadrival (Fluarix Quad [id number] Syringe) 0.5 ml ONCE ONCE VAX IM Last administered on 08/11/17 17:15; Start 08/11/17 at 09:00; Stop 08/11/17 at 09:01; Status DC Pneumococcal Polyvalent Vaccine (Pneumovax 23) 0.5 ml ONCE ONCE VAX IM Last administered on 08/11/17 17:16; Start 08/11/17 at 09:00; Stop 08/11/17 at 09 :01; Status DC Quetiapine Fumarate (SEROquel) 25 mg QHS PO Last administered on 08/11/17 19: 15; Start 08/10/17 at 21:00; Stop 08/12/17 at 11:19; Status DC Trazodone HCl (Desyrel) 50 mg QHS PO Last administered on 08/16/17 20:06; Start 08/10/17 at 21:00 Trazodone HCl (Desyrel) 50 mg PRN QHS PRN PO INSOMNIA; Start 08/10/17 at 18:15 Hydrocortisone (Cortaid) 1 odilia BID TP Last administered on 08/17/17 08:56; Start 08/11/17 at 15:10 Quetiapine Fumarate (SEROquel) 50 mg QHS PO Last administered on 08/16/17 20: 06; Start 08/12/17 at 21:00 Bupropion HCl (Wellbutrin) 75 mg DAILY08 PO Last administered on 08/17/17 08: 51; Start 08/14/17 at 08:00 Insulin Detemir (Levemir) 15 units BID SQ Last administered on 08/17/17 08:57 ; Start 08/14/17 at 21:00 Aripiprazole (Abilify) 2.5 mg DAILY PO Last administered on 08/17/17 08:51; Start 08/15/17 at 09:00 Active Scripts Active Reported Xanax (Alprazolam) 0.25 Mg Tablet 0.25 Mg PO PRN Q4HRS PRN Acetaminophen 500 Mg Tablet 500 Mg PO PRN Q4-6HRS PRN NITROGLYCERIN SubLingual (Nitroglycerin) 0.4 Mg Tab.subl 0.4 Mg SL PRN Q5MIN PRN Hydroxyzine Hcl 25 Mg Tablet 25 Mg PO PRN TID PRN Aleve (Naproxen Sodium) 220 Mg Capsule 220 Mg PO PRN Q12HR Levemir Flextouch (Insulin Detemir) 100 Unit/1 Ml Insuln.pen 20 Unit SQ HS Novolog Flexpen (Insulin Aspart) 100 Unit/1 Ml Insuln.pen 0-7 Unit SQ TIDAC Atorvastatin Calcium 40 Mg Tablet 40 Mg PO QHS Lyrica (Pregabalin) 50 Mg Capsule 50 Mg PO BID Levetiracetam 500 Mg Tablet 1,000 Mg PO BID Desonide 59 Ml Lotion 0.05 Odilia TP BID Carvedilol 6.25 Mg Tablet 6.25 Mg PO BIDWMEALS Potassium Chloride 10 Meq Capsule.er 20 Meq PO TID Tamsulosin Hcl 0.4 Mg Cap.er.24h 0.4 Mg PO DAILY Multi-Vitamin Daily (Multivitamin) 1 Each Tablet 1 Each PO DAILY Losartan Potassium 25 Mg Tablet 25 Mg PO DAILY Januvia (Sitagliptin Phosphate) 50 Mg Tablet 50 Mg PO DAILY Isosorbide Mononitrate Er (Isosorbide Mononitrate) 30 Mg Tab.er.24h 30 Mg PO DAILY PRN Furosemide 40 Mg Tablet 40 Mg PO DAILY Cymbalta (Duloxetine Hcl) 60 Mg Capsule.dr 60 Mg PO DAILY Aspirin 81 Mg Tab.chew 81 Mg PO DAILY Diagnosis: Problems: (1) Dementia with behavioral disturbance (2) Anxiety disorder (3) Impulse control disorder (4) Mild cognitive disorder (5) Psychosis, atypical (6) Major depressive disorder, recurrent episode SHARI CHASE MD Aug 17, 2017 20:17
[2017-08-17] MEDS: QUEtiapine 25 MG TABLET. PO SCH (20:46)
[2017-08-17] MEDS: traZODone 50 MG TABLET. PO SCH (20:46)
[2017-08-17] MEDS: ATORVASTATIN CALCIUM 20 MG TABLET PO SCH (21:20)
--- NOTE | 2017-08-18 03:37 | PN ---
DATE: 08/16/2017 This is a late entry for 08/16/2017 and covers elements not covered in my initial note of 08/16/2017. I met with the patient in the evening of 08/16/2017. I met with him in his room. He still believes his left him for another man as noted by nursing staff, but when I questioned him, he denied this, said, "she has dementia." He slept 8-1/2 hours previous evening, has been less tearful, looking for his dog, seems to have an affection more for his dog than his . He is quite open, candid about this as I met with him. REVIEW OF SYSTEMS: Positive for impaired ambulation, in wheelchair. No CV, , pulmonary, eye, ENT system symptoms on review. MENTAL STATUS EXAM: Oriented to himself and situation. Speech has some latency, coherent, often responses monosyllabic. Abstraction fair, computation impaired, language function intact, attention span short. Mood and affect still depressed. No suicidal or homicidal ideation. LABORATORY DATA: Reviewed. IMPRESSION: Unchanged from initial note. PLAN: Continue current psychotropics as mentioned in my initial note. Reviewed drug interactions, risk/benefit ratio favors no further change, may need to increase Abilify if mood symptoms persist or psychotic symptoms remain problematic. MAN Geno CHASE MD DR: GLENROY/shadi JOB#: [id number] / [id number]
[2017-08-18 05:54] VITALS: BP 154/93
[2017-08-18] MEDS: TAMSULOSIN 0.4 MG CAP.ER.24H. PO SCH (08:08)
[2017-08-18] MEDS: ARIPiprazole 5 MG TABLET PO SCH (08:08)
[2017-08-18] MEDS: PREGABALIN 50 MG CAPSULE PO SCH ×2 (08:08→19:19)
[2017-08-18] MEDS: MULTIVITAMIN with MINERAL TABLET. PO SCH (08:09)
[2017-08-18] MEDS: LOSARTAN 25 MG TABLET. PO SCH (08:09)
[2017-08-18] MEDS: ASPIRIN 81 MG TAB.CHEW PO SCH (08:09)
[2017-08-18] MEDS: DULoxetine HCL 60 MG CAPSULE.DR PO SCH (08:10)
[2017-08-18] MEDS: LINAGLIPTIN 5 MG TABLET PO SCH (08:10)
[2017-08-18] MEDS: FUROSEMIDE 40 MG TABLET PO SCH (08:10)
[2017-08-18] MEDS: buPROPion 75 MG TABLET PO SCH (08:10)
[2017-08-18] MEDS: levETIRAcetam 500 MG TABLET PO SCH ×2 (08:10→19:18)
[2017-08-18] MEDS: ISOSORBIDE MONONITRATE ER 30 MG TAB.ER.24H PO SCH (08:11)
[2017-08-18] MEDS: POTASSIUM CHLORIDE 20 MEQ TABLET.ER. PO SCH (08:11)
[2017-08-18] MEDS: CARVEDILOL 6.25 MG TABLET PO SCH ×2 (08:11→16:52)
[2017-08-18] MEDS: HYDROCORTISONE 1% TOPICAL CREAM 30GM TUBE. TP SCH ×2 (08:13→20:25)
[2017-08-18] MEDS: INSULIN DETEMIR 300 UNITS/3 ML INSULN.PEN. SQ SCH ×2 (08:14→20:21)
[2017-08-18 09:18] LABS: BASO # 0.1 x10^3/uL (0.0-0.2); BASO % 1 % (0-3); EOS # 0.3 x10^3/uL (0.0-0.7); EOS % 3 % (0-3); HEMATOCRIT 44.3 % (39.0-53.0); HEMOGLOBIN 15.2 g/dL (13.0-17.5); LYMPH # 2.4 x10^3/uL (1.0-4.8); LYMPH % 22 % (24-48); MEAN CORPUSCULAR HEMOGLOBIN 30 pg (25-35); MEAN CORPUSCULAR HGB CONC 34 g/dL (31-37); MEAN CORPUSCULAR VOLUME 88 fL (79-100); MONO # 0.7 x10^3/uL (0.0-1.1); MONO % 7 % (0-9); NEUT # 7.1 x10^3uL (1.8-7.7); NEUT % 67 % (31-73); PLATELET COUNT 225 x10^3/uL (140-400); RED BLOOD COUNT 5.05 x10^6/uL (4.30-5.70); RED CELL DISTRIBUTION WIDTH 13.6 % (11.5-14.5); WHITE BLOOD COUNT 10.6 x10^3/uL (4.0-11.0)
[2017-08-18 09:33] LABS: ALBUMIN 3.2 g/dL (3.4-5.0); ALBUMIN/GLOBULIN RATIO 0.8 (1.0-1.7); CALCIUM 8.9 mg/dL (8.5-10.1); CREATININE 0.8 mg/dL (0.7-1.3); GFR 92.3; TOTAL BILIRUBIN 0.5 mg/dL (0.2-1.0)
[2017-08-18 16:14] VITALS: BP 108/70
[2017-08-18] MEDS ORDERED: POTASSIUM CHLORIDE 20 MEQ TABLET.ER. PO ONE (17:00)
[2017-08-18] MEDS: traZODone 50 MG TABLET. PO SCH (19:18)
[2017-08-18] MEDS: QUEtiapine 25 MG TABLET. PO SCH (19:18)
[2017-08-18] MEDS: ATORVASTATIN CALCIUM 20 MG TABLET PO SCH (19:18)
--- NOTE | 2017-08-18 20:45 | PDOC ---
Exam Franco Demential Exam: Franco Note: Please also refer to the separate dictated note~for this date of service dictated separately.~Patient seen individually. Discussed the patient with Nursing staff reviewed the chart.~Reviewed interim history and current functioning. Reviewed vital signs,~Labs/ Radiology~and current medications noted below. Continue current treatment with the changes noted in the dictated addendum note Assessment: Vital Signs: Vital Signs Date Time Temp Pulse Resp B/P (MAP) Pulse Ox O2 Delivery O2 Flow Rate FiO2 08/18/17 16:52 87 108/70 08/18/17 16:14 98.2 20 97 08/16/17 16:06 Room Air I&O Intake and Output 08/19/17 06:59 Intake Total 840 ml Balance 840 ml Intake Oral 840 ml Labs: Laboratory Tests Test 08/18/17 07:10 08/18/17 08:59 08/18/17 11:58 08/18/17 16:51 Glucose (Fingerstick) 142 mg/dL (70-99) H 162 mg/dL (70-99) H 181 mg/dL (70-99) H White Blood Count 10.6 x10^3/uL (4.0-11.0) Red Blood Count 5.05 x10^6/uL (4.30-5.70) Hemoglobin 15.2 g/dL (13.0-17.5) Hematocrit 44.3 % (39.0-53.0) Mean Corpuscular Volume 88 fL (79-100) Mean Corpuscular Hemoglobin 30 pg (25-35) Mean Corpuscular Hemoglobin Concent 34 g/dL (31-37) Red Cell Distribution Width 13.6 % (11.5-14.5) Platelet Count 225 x10^3/uL (140-400) Neutrophils (%) (Auto) 67 % (31-73) Lymphocytes (%) (Auto) 22 % (24-48) L Monocytes (%) (Auto) 7 % (0-9) Eosinophils (%) (Auto) 3 % (0-3) Basophils (%) (Auto) 1 % (0-3) Neutrophils # (Auto) 7.1 x10^3uL (1.8-7.7) Lymphocytes # (Auto) 2.4 x10^3/uL (1.0-4.8) Monocytes # (Auto) 0.7 x10^3/uL (0.0-1.1) Eosinophils # (Auto) 0.3 x10^3/uL (0.0-0.7) Basophils # (Auto) 0.1 x10^3/uL (0.0-0.2) Sodium Level 139 mmol/L (136-145) Potassium Level 3.0 mmol/L (3.5-5.1) L Chloride Level 100 mmol/L (98-107) Carbon Dioxide Level 30 mmol/L (21-32) Anion Gap 9 (6-14) Blood Urea Nitrogen 15 mg/dL (8-26) Creatinine 0.8 mg/dL (0.7-1.3) Estimated GFR (Cockcroft-Gault) 92.3 BUN/Creatinine Ratio 19 (6-20) Glucose Level 175 mg/dL (70-99) H Calcium Level 8.9 mg/dL (8.5-10.1) Total Bilirubin 0.5 mg/dL (0.2-1.0) Aspartate Amino Transferase (AST) 16 U/L (15-37) Alanine Aminotransferase (ALT) 21 U/L (16-63) Alkaline Phosphatase 71 U/L (46-116) Total Protein 7.0 g/dL (6.4-8.2) Albumin 3.2 g/dL (3.4-5.0) L Albumin/Globulin Ratio 0.8 (1.0-1.7) L Test 08/18/17 19:57 Glucose (Fingerstick) 225 mg/dL (70-99) H Current Medications: Meds: Current Medications Olanzapine (ZyPREXA ZYDIS) 1.25 mg PRN Q2HR PRN PO AGITATION/AGGRESSION Last administered on 08/10/17 00:59; Start 08/09/17 at 23:45 Acetaminophen (Tylenol) 650 mg PRN Q6HRS PRN PO PAIN / TEMP Last administered on 08/15/17 17:38; Start 08/09/17 at 23:45 Multi-Ingredient Ointment (Analgesic [place]) 1 odilia PRN QID PRN TP MUSCLE PAIN; Start 08/09/17 at 23:45 Al Hydroxide/Mg Hydroxide (Mylanta Plus Xs) 15 ml PRN AFTMEALHC PRN PO DYSPEPSIA Last administered on 08/10/17 12:45; Start 08/09/17 at 23:45 Magnesium Hydroxide (Milk Of Magnesia) 2,400 mg PRN QHS PRN PO CONSTIPATION; Start 08/09/17 at 23:45 Aspirin (Children'S Aspirin) 81 mg DAILY PO Last administered on 08/18/17 08: 09; Start 08/10/17 at 09:00 Carvedilol (Coreg) 6.25 mg BIDWMEALS PO Last administered on 08/18/17 16:52; Start 08/10/17 at 08:00 Furosemide (Lasix) 40 mg DAILY PO Last administered on 08/18/17 08:10; Start 08/10/17 at 09:00 Hydroxyzine HCl (Atarax) 25 mg PRN TID PRN PO ITCHING Last administered on 00:59; Start 08/10/17 at 00:00 Insulin Detemir (Levemir) 20 units HS SQ Last administered on 08/13/17 19:50 ; Start 08/10/17 at 21:00; Stop 08/14/17 at 13:28; Status DC Isosorbide Mononitrate (Imdur) 30 mg PRN DAILY PRN PO HYPERTENSION, SEE COMMENTS; Start 08/10/17 at 00:00; Stop 08/10/17 at 04:12; Status DC Levetiracetam (Keppra) 1,000 mg BID PO Last administered on 08/18/17 19:18; Start 08/10/17 at 09:00 Losartan Potassium (Cozaar) 25 mg DAILY PO Last administered on 08/18/17 08: 09; Start 08/10/17 at 09:00 Nitroglycerin (Nitrostat) 0.4 mg PRN Q5MIN PRN SL CHEST PAIN; Start 08/10/17 at 00:00 Pregabalin (Lyrica) 50 mg BID PO Last administered on 08/18/17 19:19; Start 08/10/17 at 09:00 Tamsulosin HCl (Flomax) 0.4 mg DAILY PO Last administered on 08/10/17 08:56; Start 08/10/17 at 09:00; Stop 08/10/17 at 13:57; Status DC Alprazolam (Xanax) 0.25 mg PRN Q4HRS PRN PO ANXIETY / AGITATION; Start at 00:00 Duloxetine HCl (Cymbalta) 60 mg DAILY PO Last administered on 08/18/17 08:10 ; Start 08/10/17 at 09:00 Atorvastatin Calcium (Lipitor) 40 mg QHS PO Last administered on 08/18/17 19: 18; Start 08/10/17 at 21:00 Hydrocortisone (Cortaid) 1 odilia BID TP Last administered on 08/11/17 12:22; Start 08/10/17 at 09:00; Stop 08/11/17 at 15:10; Status DC Multivitamins/ Calcium (Thera-M Plus) 1 tab DAILY PO Last administered on 08/18 08:09; Start 08/10/17 at 09:00 Naproxen (Naprosyn) 250 mg PRN Q12HR PRN PO INFLAMATION/PAIN; Start 08/10/17 at 00:00 Potassium Chloride (Klor-Con) 20 meq DAILYWBKFT PO Last administered on 08:11; Start 08/10/17 at 08:00 Linagliptin (Tradjenta) 5 mg DAILY PO Last administered on 08/18/17 08:10; Start 08/10/17 at 09:00 Isosorbide Mononitrate (Imdur) 30 mg DAILY PO Last administered on 08/18/17 08:11; Start 08/10/17 at 09:00 Tamsulosin HCl (Flomax) 0.8 mg DAILY PO Last administered on 08/18/17 08:08; Start 08/11/17 at 09:00 Influenza Virus Vaccine Quadrival (Fluarix Quad [id number] Syringe) 0.5 ml ONCE ONCE VAX IM Last administered on 08/11/17 17:15; Start 08/11/17 at 09:00; Stop 08/11/17 at 09:01; Status DC Pneumococcal Polyvalent Vaccine (Pneumovax 23) 0.5 ml ONCE ONCE VAX IM Last administered on 08/11/17 17:16; Start 08/11/17 at 09:00; Stop 08/11/17 at 09 :01; Status DC Quetiapine Fumarate (SEROquel) 25 mg QHS PO Last administered on 08/11/17 19: 15; Start 08/10/17 at 21:00; Stop 08/12/17 at 11:19; Status DC Trazodone HCl (Desyrel) 50 mg QHS PO Last administered on 08/18/17 19:18; Start 08/10/17 at 21:00 Trazodone HCl (Desyrel) 50 mg PRN QHS PRN PO INSOMNIA; Start 08/10/17 at 18:15 Hydrocortisone (Cortaid) 1 odilia BID TP Last administered on 08/18/17 20:25; Start 08/11/17 at 15:10 Quetiapine Fumarate (SEROquel) 50 mg QHS PO Last administered on 08/18/17 19: 18; Start 08/12/17 at 21:00 Bupropion HCl (Wellbutrin) 75 mg DAILY08 PO Last administered on 08/18/17 08: 10; Start 08/14/17 at 08:00 Insulin Detemir (Levemir) 15 units BID SQ Last administered on 08/18/17 20:21 ; Start 08/14/17 at 21:00 Aripiprazole (Abilify) 2.5 mg DAILY PO Last administered on 08/18/17 08:08; Start 08/15/17 at 09:00 Potassium Chloride (Klor-Con) 40 meq 1X ONCE PO Last administered on 16:51; Start 08/18/17 at 17:00; Stop 08/18/17 at 17:01; Status DC Active Scripts Active Reported Xanax (Alprazolam) 0.25 Mg Tablet 0.25 Mg PO PRN Q4HRS PRN Acetaminophen 500 Mg Tablet 500 Mg PO PRN Q4-6HRS PRN NITROGLYCERIN SubLingual (Nitroglycerin) 0.4 Mg Tab.subl 0.4 Mg SL PRN Q5MIN PRN Hydroxyzine Hcl 25 Mg Tablet 25 Mg PO PRN TID PRN Aleve (Naproxen Sodium) 220 Mg Capsule 220 Mg PO PRN Q12HR Levemir Flextouch (Insulin Detemir) 100 Unit/1 Ml Insuln.pen 20 Unit SQ HS Novolog Flexpen (Insulin Aspart) 100 Unit/1 Ml Insuln.pen 0-7 Unit SQ TIDAC Atorvastatin Calcium 40 Mg Tablet 40 Mg PO QHS Lyrica (Pregabalin) 50 Mg Capsule 50 Mg PO BID Levetiracetam 500 Mg Tablet 1,000 Mg PO BID Desonide 59 Ml Lotion 0.05 Odilia TP BID Carvedilol 6.25 Mg Tablet 6.25 Mg PO BIDWMEALS Potassium Chloride 10 Meq Capsule.er 20 Meq PO TID Tamsulosin Hcl 0.4 Mg Cap.er.24h 0.4 Mg PO DAILY Multi-Vitamin Daily (Multivitamin) 1 Each Tablet 1 Each PO DAILY Losartan Potassium 25 Mg Tablet 25 Mg PO DAILY Januvia (Sitagliptin Phosphate) 50 Mg Tablet 50 Mg PO DAILY Isosorbide Mononitrate Er (Isosorbide Mononitrate) 30 Mg Tab.er.24h 30 Mg PO DAILY PRN Furosemide 40 Mg Tablet 40 Mg PO DAILY Cymbalta (Duloxetine Hcl) 60 Mg Capsule.dr 60 Mg PO DAILY Aspirin 81 Mg Tab.chew 81 Mg PO DAILY Diagnosis: Problems: (1) Dementia with behavioral disturbance (2) Anxiety disorder (3) Impulse control disorder (4) Mild cognitive disorder (5) Psychosis, atypical (6) Major depressive disorder, recurrent episode SHARI CHASE MD Aug 18, 2017 20:45
--- NOTE | 2017-08-18 23:50 | PN ---
DATE: 08/17/2017 PSYCHIATRIC PROGRESS NOTE This is a late entry for 08/17/2017, covers the elements not covered in my initial note of 08/17/2017. SUBJECTIVE: I met with the patient in the evening of 08/17/2017 in his room. I also had a message to call the patient's son Deuce Bernabe Jr., but JAMES Forbes informed me she had already discussed the patient's progress with the son and would check with the son had any further questions. Once Leidy called the son, he had some questions about discharge plans and transportation, but did not express the need to have any other questions for me. The patient has been somewhat withdrawn, sedated at times, did ambulate with physical therapy. REVIEW OF SYSTEMS: No CV, , pulmonary, eye, ENT system symptoms on review. Gait unsteady. MENTAL STATUS EXAM: Oriented to himself and situation. Speech is coherent, abstraction fair, computation impaired, language function intact, attention span short. Mood and affect still withdrawn, but showing improvement. LABORATORY DATA: Reviewed. IMPRESSION: Unchanged from initial note. PLAN: Continue current psychotropics, reviewed drug interactions, risk/benefit ratio favors no further change. SHARI CHASE MD DR: GLENROY/shadi JOB#: [id number] / [id number]
[2017-08-19 06:28] VITALS: BP 160/90
[2017-08-19] MEDS: ISOSORBIDE MONONITRATE ER 30 MG TAB.ER.24H PO SCH (08:11)
[2017-08-19] MEDS: ARIPiprazole 5 MG TABLET PO SCH (08:12)
[2017-08-19] MEDS: CARVEDILOL 6.25 MG TABLET PO SCH ×2 (08:12→16:57)
[2017-08-19] MEDS: MULTIVITAMIN with MINERAL TABLET. PO SCH (08:12)
[2017-08-19] MEDS: levETIRAcetam 500 MG TABLET PO SCH ×2 (08:12→19:16)
[2017-08-19] MEDS: PREGABALIN 50 MG CAPSULE PO SCH ×2 (08:12→19:15)
[2017-08-19] MEDS: ASPIRIN 81 MG TAB.CHEW PO SCH (08:13)
[2017-08-19] MEDS: FUROSEMIDE 40 MG TABLET PO SCH (08:13)
[2017-08-19] MEDS: DULoxetine HCL 60 MG CAPSULE.DR PO SCH (08:13)
[2017-08-19] MEDS: LOSARTAN 25 MG TABLET. PO SCH (08:13)
[2017-08-19] MEDS: LINAGLIPTIN 5 MG TABLET PO SCH (08:13)
[2017-08-19] MEDS: TAMSULOSIN 0.4 MG CAP.ER.24H. PO SCH (08:14)
[2017-08-19] MEDS: buPROPion 75 MG TABLET PO SCH (08:14)
[2017-08-19] MEDS: POTASSIUM CHLORIDE 20 MEQ TABLET.ER. PO SCH (08:14)
[2017-08-19] MEDS: HYDROCORTISONE 1% TOPICAL CREAM 30GM TUBE. TP SCH ×2 (08:15→21:00)
[2017-08-19] MEDS: INSULIN DETEMIR 300 UNITS/3 ML INSULN.PEN. SQ SCH ×2 (08:17→19:18)
[2017-08-19 16:17] VITALS: BP 131/71
[2017-08-19] MEDS: QUEtiapine 25 MG TABLET. PO SCH (19:16)
[2017-08-19] MEDS: ATORVASTATIN CALCIUM 20 MG TABLET PO SCH (19:16)
[2017-08-19] MEDS: traZODone 50 MG TABLET. PO SCH (19:16)
[2017-08-19] MEDS: traZODone 50 MG TABLET. PO PRN (19:19)
--- NOTE | 2017-08-19 20:49 | PDOC ---
Exam Franco Demential Exam: Franco Note: Please also refer to the separate dictated note~for this date of service dictated separately.~Patient seen individually. Discussed the patient with Nursing staff reviewed the chart.~Reviewed interim history and current functioning. Reviewed vital signs,~Labs/ Radiology~and current medications noted below. Continue current treatment with the changes noted in the dictated addendum note Assessment: Vital Signs: Vital Signs Date Time Temp Pulse Resp B/P (MAP) Pulse Ox O2 Delivery O2 Flow Rate FiO2 08/19/17 16:57 76 131/71 08/19/17 16:17 97.6 20 96 08/16/17 16:06 Room Air I&O Intake and Output 08/20/17 07:00 Intake Total 1320 ml Balance 1320 ml Intake Oral 1320 ml Labs: Laboratory Tests Test 08/19/17 07:11 08/19/17 11:45 08/19/17 16:35 08/19/17 19:05 Glucose (Fingerstick) 118 mg/dL (70-99) H 128 mg/dL (70-99) H 179 mg/dL (70-99) H 198 mg/dL (70-99) H Current Medications: Meds: Current Medications Olanzapine (ZyPREXA ZYDIS) 1.25 mg PRN Q2HR PRN PO AGITATION/AGGRESSION Last administered on 08/10/17 00:59; Start 08/09/17 at 23:45 Acetaminophen (Tylenol) 650 mg PRN Q6HRS PRN PO PAIN / TEMP Last administered on 08/15/17 17:38; Start 08/09/17 at 23:45 Multi-Ingredient Ointment (Analgesic [place]) 1 odilia PRN QID PRN TP MUSCLE PAIN; Start 08/09/17 at 23:45 Al Hydroxide/Mg Hydroxide (Mylanta Plus Xs) 15 ml PRN AFTMEALHC PRN PO DYSPEPSIA Last administered on 08/10/17 12:45; Start 08/09/17 at 23:45 Magnesium Hydroxide (Milk Of Magnesia) 2,400 mg PRN QHS PRN PO CONSTIPATION; Start 08/09/17 at 23:45 Aspirin (Children'S Aspirin) 81 mg DAILY PO Last administered on 08/19/17 08: 13; Start 08/10/17 at 09:00 Carvedilol (Coreg) 6.25 mg BIDWMEALS PO Last administered on 08/19/17 16:57; Start 08/10/17 at 08:00 Furosemide (Lasix) 40 mg DAILY PO Last administered on 08/19/17 08:13; Start 08/10/17 at 09:00 Hydroxyzine HCl (Atarax) 25 mg PRN TID PRN PO ITCHING Last administered on 00:59; Start 08/10/17 at 00:00 Insulin Detemir (Levemir) 20 units HS SQ Last administered on 08/13/17 19:50 ; Start 08/10/17 at 21:00; Stop 08/14/17 at 13:28; Status DC Isosorbide Mononitrate (Imdur) 30 mg PRN DAILY PRN PO HYPERTENSION, SEE COMMENTS; Start 08/10/17 at 00:00; Stop 08/10/17 at 04:12; Status DC Levetiracetam (Keppra) 1,000 mg BID PO Last administered on 08/19/17 19:16; Start 08/10/17 at 09:00 Losartan Potassium (Cozaar) 25 mg DAILY PO Last administered on 08/19/17 08: 13; Start 08/10/17 at 09:00 Nitroglycerin (Nitrostat) 0.4 mg PRN Q5MIN PRN SL CHEST PAIN; Start 08/10/17 at 00:00 Pregabalin (Lyrica) 50 mg BID PO Last administered on 08/19/17 19:15; Start 08/10/17 at 09:00 Tamsulosin HCl (Flomax) 0.4 mg DAILY PO Last administered on 08/10/17 08:56; Start 08/10/17 at 09:00; Stop 08/10/17 at 13:57; Status DC Alprazolam (Xanax) 0.25 mg PRN Q4HRS PRN PO ANXIETY / AGITATION; Start at 00:00 Duloxetine HCl (Cymbalta) 60 mg DAILY PO Last administered on 08/19/17 08:13 ; Start 08/10/17 at 09:00 Atorvastatin Calcium (Lipitor) 40 mg QHS PO Last administered on 08/19/17 19: 16; Start 08/10/17 at 21:00 Hydrocortisone (Cortaid) 1 odilia BID TP Last administered on 08/11/17 12:22; Start 08/10/17 at 09:00; Stop 08/11/17 at 15:10; Status DC Multivitamins/ Calcium (Thera-M Plus) 1 tab DAILY PO Last administered on 08/19 08:12; Start 08/10/17 at 09:00 Naproxen (Naprosyn) 250 mg PRN Q12HR PRN PO INFLAMATION/PAIN; Start 08/10/17 at 00:00 Potassium Chloride (Klor-Con) 20 meq DAILYWBKFT PO Last administered on 08:14; Start 08/10/17 at 08:00 Linagliptin (Tradjenta) 5 mg DAILY PO Last administered on 08/19/17 08:13; Start 08/10/17 at 09:00 Isosorbide Mononitrate (Imdur) 30 mg DAILY PO Last administered on 08/19/17 08:11; Start 08/10/17 at 09:00 Tamsulosin HCl (Flomax) 0.8 mg DAILY PO Last administered on 08/19/17 08:14; Start 08/11/17 at 09:00 Influenza Virus Vaccine Quadrival (Fluarix Quad [id number] Syringe) 0.5 ml ONCE ONCE VAX IM Last administered on 08/11/17 17:15; Start 08/11/17 at 09:00; Stop 08/11/17 at 09:01; Status DC Pneumococcal Polyvalent Vaccine (Pneumovax 23) 0.5 ml ONCE ONCE VAX IM Last administered on 08/11/17 17:16; Start 08/11/17 at 09:00; Stop 08/11/17 at 09 :01; Status DC Quetiapine Fumarate (SEROquel) 25 mg QHS PO Last administered on 08/11/17 19: 15; Start 08/10/17 at 21:00; Stop 08/12/17 at 11:19; Status DC Trazodone HCl (Desyrel) 50 mg QHS PO Last administered on 08/19/17 19:16; Start 08/10/17 at 21:00 Trazodone HCl (Desyrel) 50 mg PRN QHS PRN PO INSOMNIA Last administered on 19:19; Start 08/10/17 at 18:15 Hydrocortisone (Cortaid) 1 odilia BID TP Last administered on 08/19/17 08:15; Start 08/11/17 at 15:10 Quetiapine Fumarate (SEROquel) 50 mg QHS PO Last administered on 08/19/17 19: 16; Start 08/12/17 at 21:00 Bupropion HCl (Wellbutrin) 75 mg DAILY08 PO Last administered on 08/19/17 08: 14; Start 08/14/17 at 08:00 Insulin Detemir (Levemir) 15 units BID SQ Last administered on 08/19/17 19:18 ; Start 08/14/17 at 21:00 Aripiprazole (Abilify) 2.5 mg DAILY PO Last administered on 08/19/17 08:12; Start 08/15/17 at 09:00 Potassium Chloride (Klor-Con) 40 meq 1X ONCE PO Last administered on 16:51; Start 08/18/17 at 17:00; Stop 08/18/17 at 17:01; Status DC Active Scripts Active Reported Xanax (Alprazolam) 0.25 Mg Tablet 0.25 Mg PO PRN Q4HRS PRN Acetaminophen 500 Mg Tablet 500 Mg PO PRN Q4-6HRS PRN NITROGLYCERIN SubLingual (Nitroglycerin) 0.4 Mg Tab.subl 0.4 Mg SL PRN Q5MIN PRN Hydroxyzine Hcl 25 Mg Tablet 25 Mg PO PRN TID PRN Aleve (Naproxen Sodium) 220 Mg Capsule 220 Mg PO PRN Q12HR Levemir Flextouch (Insulin Detemir) 100 Unit/1 Ml Insuln.pen 20 Unit SQ HS Novolog Flexpen (Insulin Aspart) 100 Unit/1 Ml Insuln.pen 0-7 Unit SQ TIDAC Atorvastatin Calcium 40 Mg Tablet 40 Mg PO QHS Lyrica (Pregabalin) 50 Mg Capsule 50 Mg PO BID Levetiracetam 500 Mg Tablet 1,000 Mg PO BID Desonide 59 Ml Lotion 0.05 Odilia TP BID Carvedilol 6.25 Mg Tablet 6.25 Mg PO BIDWMEALS Potassium Chloride 10 Meq Capsule.er 20 Meq PO TID Tamsulosin Hcl 0.4 Mg Cap.er.24h 0.4 Mg PO DAILY Multi-Vitamin Daily (Multivitamin) 1 Each Tablet 1 Each PO DAILY Losartan Potassium 25 Mg Tablet 25 Mg PO DAILY Januvia (Sitagliptin Phosphate) 50 Mg Tablet 50 Mg PO DAILY Isosorbide Mononitrate Er (Isosorbide Mononitrate) 30 Mg Tab.er.24h 30 Mg PO DAILY PRN Furosemide 40 Mg Tablet 40 Mg PO DAILY Cymbalta (Duloxetine Hcl) 60 Mg Capsule.dr 60 Mg PO DAILY Aspirin 81 Mg Tab.chew 81 Mg PO DAILY Diagnosis: Problems: (1) Dementia with behavioral disturbance (2) Anxiety disorder (3) Impulse control disorder (4) Mild cognitive disorder (5) Psychosis, atypical (6) Major depressive disorder, recurrent episode SHARI CHASE MD Aug 19, 2017 20:49
--- NOTE | 2017-08-20 03:46 | PN ---
DATE: 08/18/2017 PSYCHIATRIC PROGRESS NOTE This is a late entry for 08/18/2017, covers the elements not covered in my initial note of 08/18/2017. SUBJECTIVE: I met with the patient evening of 08/18/2017. The patient has been coming out a little more to the groups in common areas, day room. He is still delusional, believes his is running around with another man. Oriented to himself and hospital, confused about time. REVIEW OF SYSTEMS: Ambulation impaired. No CV, , pulmonary, eye, ENT system symptoms on review. Ambulation is in a wheelchair. MENTAL STATUS EXAM: Oriented to himself. Insight somewhat limited, judgment marginal, language function intact, attention span short. Mood and affect, somewhat anxious, attention span fair. No active suicidal or homicidal ideation. LABORATORY DATA: Reviewed. IMPRESSION: Unchanged from initial note. PLAN: Continue current psychotropics. Reviewed drug interactions, risk/benefit ratio favors no further change. SHARI CHASE MD DR: GLENROY/shadi JOB#: [id number] / [id number]
[2017-08-20 05:44] VITALS: BP 132/79
[2017-08-20] MEDS: FUROSEMIDE 40 MG TABLET PO SCH (07:55)
[2017-08-20] MEDS: CARVEDILOL 6.25 MG TABLET PO SCH ×2 (07:55→16:48)
[2017-08-20] MEDS: levETIRAcetam 500 MG TABLET PO SCH ×2 (07:55→19:30)
[2017-08-20] MEDS: buPROPion 75 MG TABLET PO SCH (07:55)
[2017-08-20] MEDS: POTASSIUM CHLORIDE 20 MEQ TABLET.ER. PO SCH (07:55)
[2017-08-20] MEDS: TAMSULOSIN 0.4 MG CAP.ER.24H. PO SCH (07:56)
[2017-08-20] MEDS: LOSARTAN 25 MG TABLET. PO SCH (07:56)
[2017-08-20] MEDS: DULoxetine HCL 60 MG CAPSULE.DR PO SCH (07:57)
[2017-08-20] MEDS: LINAGLIPTIN 5 MG TABLET PO SCH (07:57)
[2017-08-20] MEDS: ISOSORBIDE MONONITRATE ER 30 MG TAB.ER.24H PO SCH (07:57)
[2017-08-20] MEDS: PREGABALIN 50 MG CAPSULE PO SCH ×2 (07:57→19:30)
[2017-08-20] MEDS: MULTIVITAMIN with MINERAL TABLET. PO SCH (07:57)
[2017-08-20] MEDS: ASPIRIN 81 MG TAB.CHEW PO SCH (07:57)
[2017-08-20] MEDS: ARIPiprazole 5 MG TABLET PO SCH (08:00)
[2017-08-20] MEDS: HYDROCORTISONE 1% TOPICAL CREAM 30GM TUBE. TP SCH ×2 (08:00→19:33)
[2017-08-20] MEDS: INSULIN DETEMIR 300 UNITS/3 ML INSULN.PEN. SQ SCH ×2 (08:03→19:32)
[2017-08-20 16:28] VITALS: BP 114/75
[2017-08-20] MEDS: QUEtiapine 25 MG TABLET. PO SCH (19:30)
[2017-08-20] MEDS: ATORVASTATIN CALCIUM 20 MG TABLET PO SCH (19:30)
[2017-08-20] MEDS: traZODone 50 MG TABLET. PO SCH (19:30)
--- NOTE | 2017-08-20 20:49 | PDOC ---
Exam Franco Demential Exam: Franco Note: Please also refer to the separate dictated note~for this date of service dictated separately.~Patient seen individually. Discussed the patient with Nursing staff reviewed the chart.~Reviewed interim history and current functioning. Reviewed vital signs,~Labs/ Radiology~and current medications noted below. Continue current treatment with the changes noted in the dictated addendum note Assessment: Vital Signs: Vital Signs Date Time Temp Pulse Resp B/P (MAP) Pulse Ox O2 Delivery O2 Flow Rate FiO2 08/20/17 16:48 81 114/75 08/20/17 16:28 97.3 20 96 08/16/17 16:06 Room Air I&O Intake and Output 08/21/17 07:00 Intake Total 960 ml Balance 960 ml Intake Oral 960 ml Labs: Laboratory Tests Test 08/20/17 07:24 08/20/17 11:31 08/20/17 16:37 08/20/17 19:06 Glucose (Fingerstick) 106 mg/dL (70-99) H 140 mg/dL (70-99) H 136 mg/dL (70-99) H 173 mg/dL (70-99) H Current Medications: Meds: Current Medications Olanzapine (ZyPREXA ZYDIS) 1.25 mg PRN Q2HR PRN PO AGITATION/AGGRESSION Last administered on 08/10/17 00:59; Start 08/09/17 at 23:45 Acetaminophen (Tylenol) 650 mg PRN Q6HRS PRN PO PAIN / TEMP Last administered on 08/15/17 17:38; Start 08/09/17 at 23:45 Multi-Ingredient Ointment (Analgesic [place]) 1 odilia PRN QID PRN TP MUSCLE PAIN; Start 08/09/17 at 23:45 Al Hydroxide/Mg Hydroxide (Mylanta Plus Xs) 15 ml PRN AFTMEALHC PRN PO DYSPEPSIA Last administered on 08/10/17 12:45; Start 08/09/17 at 23:45 Magnesium Hydroxide (Milk Of Magnesia) 2,400 mg PRN QHS PRN PO CONSTIPATION; Start 08/09/17 at 23:45 Aspirin (Children'S Aspirin) 81 mg DAILY PO Last administered on 08/20/17 07: 57; Start 08/10/17 at 09:00 Carvedilol (Coreg) 6.25 mg BIDWMEALS PO Last administered on 08/20/17 16:48; Start 08/10/17 at 08:00 Furosemide (Lasix) 40 mg DAILY PO Last administered on 08/20/17 07:55; Start 08/10/17 at 09:00 Hydroxyzine HCl (Atarax) 25 mg PRN TID PRN PO ITCHING Last administered on 00:59; Start 08/10/17 at 00:00 Insulin Detemir (Levemir) 20 units HS SQ Last administered on 08/13/17 19:50 ; Start 08/10/17 at 21:00; Stop 08/14/17 at 13:28; Status DC Isosorbide Mononitrate (Imdur) 30 mg PRN DAILY PRN PO HYPERTENSION, SEE COMMENTS; Start 08/10/17 at 00:00; Stop 08/10/17 at 04:12; Status DC Levetiracetam (Keppra) 1,000 mg BID PO Last administered on 08/20/17 19:30; Start 08/10/17 at 09:00 Losartan Potassium (Cozaar) 25 mg DAILY PO Last administered on 08/20/17 07: 56; Start 08/10/17 at 09:00 Nitroglycerin (Nitrostat) 0.4 mg PRN Q5MIN PRN SL CHEST PAIN; Start 08/10/17 at 00:00 Pregabalin (Lyrica) 50 mg BID PO Last administered on 08/20/17 19:30; Start 08/10/17 at 09:00 Tamsulosin HCl (Flomax) 0.4 mg DAILY PO Last administered on 08/10/17 08:56; Start 08/10/17 at 09:00; Stop 08/10/17 at 13:57; Status DC Alprazolam (Xanax) 0.25 mg PRN Q4HRS PRN PO ANXIETY / AGITATION; Start at 00:00 Duloxetine HCl (Cymbalta) 60 mg DAILY PO Last administered on 08/20/17 07:57 ; Start 08/10/17 at 09:00 Atorvastatin Calcium (Lipitor) 40 mg QHS PO Last administered on 08/20/17 19: 30; Start 08/10/17 at 21:00 Hydrocortisone (Cortaid) 1 odilia BID TP Last administered on 08/11/17 12:22; Start 08/10/17 at 09:00; Stop 08/11/17 at 15:10; Status DC Multivitamins/ Calcium (Thera-M Plus) 1 tab DAILY PO Last administered on 08/20 07:57; Start 08/10/17 at 09:00 Naproxen (Naprosyn) 250 mg PRN Q12HR PRN PO INFLAMATION/PAIN; Start 08/10/17 at 00:00 Potassium Chloride (Klor-Con) 20 meq DAILYWBKFT PO Last administered on 07:55; Start 08/10/17 at 08:00 Linagliptin (Tradjenta) 5 mg DAILY PO Last administered on 08/20/17 07:57; Start 08/10/17 at 09:00 Isosorbide Mononitrate (Imdur) 30 mg DAILY PO Last administered on 08/20/17 07:57; Start 08/10/17 at 09:00 Tamsulosin HCl (Flomax) 0.8 mg DAILY PO Last administered on 08/20/17 07:56; Start 08/11/17 at 09:00 Influenza Virus Vaccine Quadrival (Fluarix Quad [id number] Syringe) 0.5 ml ONCE ONCE VAX IM Last administered on 08/11/17 17:15; Start 08/11/17 at 09:00; Stop 08/11/17 at 09:01; Status DC Pneumococcal Polyvalent Vaccine (Pneumovax 23) 0.5 ml ONCE ONCE VAX IM Last administered on 08/11/17 17:16; Start 08/11/17 at 09:00; Stop 08/11/17 at 09 :01; Status DC Quetiapine Fumarate (SEROquel) 25 mg QHS PO Last administered on 08/11/17 19: 15; Start 08/10/17 at 21:00; Stop 08/12/17 at 11:19; Status DC Trazodone HCl (Desyrel) 50 mg QHS PO Last administered on 08/20/17 19:30; Start 08/10/17 at 21:00 Trazodone HCl (Desyrel) 50 mg PRN QHS PRN PO INSOMNIA Last administered on 19:19; Start 08/10/17 at 18:15 Hydrocortisone (Cortaid) 1 odilia BID TP Last administered on 08/20/17 19:33; Start 08/11/17 at 15:10 Quetiapine Fumarate (SEROquel) 50 mg QHS PO Last administered on 08/20/17 19: 30; Start 08/12/17 at 21:00 Bupropion HCl (Wellbutrin) 75 mg DAILY08 PO Last administered on 08/20/17 07: 55; Start 08/14/17 at 08:00; Stop 08/20/17 at 12:20; Status DC Insulin Detemir (Levemir) 15 units BID SQ Last administered on 08/20/17 19:32 ; Start 08/14/17 at 21:00 Aripiprazole (Abilify) 2.5 mg DAILY PO Last administered on 08/20/17 08:00; Start 08/15/17 at 09:00 Potassium Chloride (Klor-Con) 40 meq 1X ONCE PO Last administered on 16:51; Start 08/18/17 at 17:00; Stop 08/18/17 at 17:01; Status DC Bupropion HCl (Wellbutrin Xl) 150 mg DAILY PO ; Start 08/21/17 at 09:00 Active Scripts Active Reported Xanax (Alprazolam) 0.25 Mg Tablet 0.25 Mg PO PRN Q4HRS PRN Acetaminophen 500 Mg Tablet 500 Mg PO PRN Q4-6HRS PRN NITROGLYCERIN SubLingual (Nitroglycerin) 0.4 Mg Tab.subl 0.4 Mg SL PRN Q5MIN PRN Hydroxyzine Hcl 25 Mg Tablet 25 Mg PO PRN TID PRN Aleve (Naproxen Sodium) 220 Mg Capsule 220 Mg PO PRN Q12HR Levemir Flextouch (Insulin Detemir) 100 Unit/1 Ml Insuln.pen 20 Unit SQ HS Novolog Flexpen (Insulin Aspart) 100 Unit/1 Ml Insuln.pen 0-7 Unit SQ TIDAC Atorvastatin Calcium 40 Mg Tablet 40 Mg PO QHS Lyrica (Pregabalin) 50 Mg Capsule 50 Mg PO BID Levetiracetam 500 Mg Tablet 1,000 Mg PO BID Desonide 59 Ml Lotion 0.05 Odilia TP BID Carvedilol 6.25 Mg Tablet 6.25 Mg PO BIDWMEALS Potassium Chloride 10 Meq Capsule.er 20 Meq PO TID Tamsulosin Hcl 0.4 Mg Cap.er.24h 0.4 Mg PO DAILY Multi-Vitamin Daily (Multivitamin) 1 Each Tablet 1 Each PO DAILY Losartan Potassium 25 Mg Tablet 25 Mg PO DAILY Januvia (Sitagliptin Phosphate) 50 Mg Tablet 50 Mg PO DAILY Isosorbide Mononitrate Er (Isosorbide Mononitrate) 30 Mg Tab.er.24h 30 Mg PO DAILY PRN Furosemide 40 Mg Tablet 40 Mg PO DAILY Cymbalta (Duloxetine Hcl) 60 Mg Capsule.dr 60 Mg PO DAILY Aspirin 81 Mg Tab.chew 81 Mg PO DAILY Diagnosis: Problems: (1) Dementia with behavioral disturbance (2) Anxiety disorder (3) Impulse control disorder (4) Mild cognitive disorder (5) Psychosis, atypical (6) Major depressive disorder, recurrent episode SHARI CHASE MD Aug 20, 2017 20:49
--- NOTE | 2017-08-21 03:51 | PN ---
DATE: 08/19/2017 This late entry 08/19/2017 covers elements not covered in my initial note of 08/19/2017. SUBJECTIVE: I met with the patient evening of 08/19/2017 and the patient was staffed at a treatment team meeting with the entire team morning of 08/19/2017. He has been coming out of his room just a little bit better, still is somewhat delusional, believing his maybe going out with another man, but as I questioned him on this at some length individually, he was able to accept that his has dementia and is probably not going out with someone else, but that is his perception, which is inaccurate. He goes back and forth on this. REVIEW OF SYSTEMS: Ambulation impaired. No CV, , pulmonary, eye, ENT system symptoms on review. He is in a wheelchair. MENTAL STATUS EXAM: Oriented to himself and situation. Speech has some latency, coherent. Abstraction fair, computation impaired, language function intact. Mood and affect still somewhat dysphoric, anxious, obsessive. No active suicidal or homicidal ideation. LABORATORY DATA: Reviewed. IMPRESSION: Unchanged from initial note. PLAN: Increase the morning Wellbutrin 75 mg a day to Wellbutrin XL 150 mg a day. Continue rest of the psychotropics noted in my initial note. As part of discharge instructions, believing directions on how to taper off the Seroquel to avoid combination of two atypical antipsychotics Seroquel and Abilify. MAN Geno CHASE MD DR: GLENROY/shadi JOB#: [id number] / [id number]
[2017-08-21 05:53] VITALS: BP 165/96
[2017-08-21] MEDS: LINAGLIPTIN 5 MG TABLET PO SCH (08:35)
[2017-08-21] MEDS: TAMSULOSIN 0.4 MG CAP.ER.24H. PO SCH (08:35)
[2017-08-21] MEDS: POTASSIUM CHLORIDE 20 MEQ TABLET.ER. PO SCH (08:36)
[2017-08-21] MEDS: ARIPiprazole 5 MG TABLET PO SCH (08:36)
[2017-08-21] MEDS: FUROSEMIDE 40 MG TABLET PO SCH (08:36)
[2017-08-21] MEDS: levETIRAcetam 500 MG TABLET PO SCH ×2 (08:36→19:21)
[2017-08-21] MEDS: LOSARTAN 25 MG TABLET. PO SCH (08:36)
[2017-08-21] MEDS: DULoxetine HCL 60 MG CAPSULE.DR PO SCH (08:37)
[2017-08-21] MEDS: ASPIRIN 81 MG TAB.CHEW PO SCH (08:37)
[2017-08-21] MEDS: MULTIVITAMIN with MINERAL TABLET. PO SCH (08:37)
[2017-08-21] MEDS: ISOSORBIDE MONONITRATE ER 30 MG TAB.ER.24H PO SCH (08:37)
[2017-08-21] MEDS: HYDROCORTISONE 1% TOPICAL CREAM 30GM TUBE. TP SCH ×2 (09:00→19:21)
[2017-08-21] MEDS: CARVEDILOL 6.25 MG TABLET PO SCH ×2 (09:34→17:00)
[2017-08-21] MEDS: PREGABALIN 50 MG CAPSULE PO SCH ×2 (09:36→19:21)
[2017-08-21] MEDS: buPROPion XL 150 MG TAB.ER.24H PO SCH (09:36)
[2017-08-21] MEDS: INSULIN DETEMIR 300 UNITS/3 ML INSULN.PEN. SQ SCH ×2 (09:41→19:21)
--- NOTE | 2017-08-21 14:24 | PN ---
DATE: 08/20/2017 PSYCHIATRIC PROGRESS NOTE This note covers elements not covered in my initial note of 08/20/2017. SUBJECTIVE: Per nursing report, the patient continues to be somewhat delusional about his running with someone else. He has also talked about believing a son that kicking him out of the home he just purchased with kim payment. obsessed with some of these. REVIEW OF SYSTEMS: Ambulation impaired, in wheelchair. No CV, , pulmonary, eye, ENT system symptoms on review. MENTAL STATUS EXAM: Oriented to himself and situation. Speech has some latency, coherent. Abstraction fair, computation impaired, language function intact. Mood and affect despite the above has improved and still somewhat delusional. LABORATORY DATA: Reviewed. IMPRESSION: Unchanged from initial note. PLAN: Continue current psychotropics. Review drug interactions. Risk/benefit ratio favors no further change. Transition to [facility] over the weekend. MAN Geno CHASE MD DR: GLENROY/shadi JOB#: [id number] / [id number]
[2017-08-21 16:10] VITALS: BP 97/60
[2017-08-21] MEDS: PRIMIDONE 50 MG TABLET PO SCH (18:05)
[2017-08-21] MEDS: traZODone 50 MG TABLET. PO SCH (19:21)
[2017-08-21] MEDS: ATORVASTATIN CALCIUM 20 MG TABLET PO SCH (19:21)
[2017-08-21] MEDS: QUEtiapine 25 MG TABLET. PO SCH (19:21)
--- NOTE | 2017-08-21 21:51 | PDOC ---
Exam Franco Demential Exam: Franco Note: Please also refer to the separate dictated note~for this date of service dictated separately.~Patient seen individually. Discussed the patient with Nursing staff reviewed the chart.~Reviewed interim history and current functioning. Reviewed vital signs,~Labs/ Radiology~and current medications noted below. Continue current treatment with the changes noted in the dictated addendum note Assessment: Vital Signs: Vital Signs Date Time Temp Pulse Resp B/P (MAP) Pulse Ox O2 Delivery O2 Flow Rate FiO2 08/21/17 17:00 90 97/60 08/21/17 16:10 97.0 18 97 08/21/17 05:53 Room Air I&O Intake and Output 08/22/17 07:00 Intake Total 1680 ml Balance 1680 ml Intake Oral 1680 ml Labs: Laboratory Tests Test 08/21/17 07:26 08/21/17 11:25 08/21/17 16:36 08/21/17 18:52 Glucose (Fingerstick) 130 mg/dL (70-99) H 144 mg/dL (70-99) H 122 mg/dL (70-99) H 172 mg/dL (70-99) H Current Medications: Meds: Current Medications Olanzapine (ZyPREXA ZYDIS) 1.25 mg PRN Q2HR PRN PO AGITATION/AGGRESSION Last administered on 08/10/17 00:59; Start 08/09/17 at 23:45 Acetaminophen (Tylenol) 650 mg PRN Q6HRS PRN PO PAIN / TEMP Last administered on 08/15/17 17:38; Start 08/09/17 at 23:45 Multi-Ingredient Ointment (Analgesic [place]) 1 odilia PRN QID PRN TP MUSCLE PAIN; Start 08/09/17 at 23:45 Al Hydroxide/Mg Hydroxide (Mylanta Plus Xs) 15 ml PRN AFTMEALHC PRN PO DYSPEPSIA Last administered on 08/10/17 12:45; Start 08/09/17 at 23:45 Magnesium Hydroxide (Milk Of Magnesia) 2,400 mg PRN QHS PRN PO CONSTIPATION; Start 08/09/17 at 23:45 Aspirin (Children'S Aspirin) 81 mg DAILY PO Last administered on 08/21/17 08: 37; Start 08/10/17 at 09:00 Carvedilol (Coreg) 6.25 mg BIDWMEALS PO Last administered on 08/21/17 09:34; Start 08/10/17 at 08:00 Furosemide (Lasix) 40 mg DAILY PO Last administered on 08/21/17 08:36; Start 08/10/17 at 09:00 Hydroxyzine HCl (Atarax) 25 mg PRN TID PRN PO ITCHING Last administered on 00:59; Start 08/10/17 at 00:00 Insulin Detemir (Levemir) 20 units HS SQ Last administered on 08/13/17 19:50 ; Start 08/10/17 at 21:00; Stop 08/14/17 at 13:28; Status DC Isosorbide Mononitrate (Imdur) 30 mg PRN DAILY PRN PO HYPERTENSION, SEE COMMENTS; Start 08/10/17 at 00:00; Stop 08/10/17 at 04:12; Status DC Levetiracetam (Keppra) 1,000 mg BID PO Last administered on 08/21/17 19:21; Start 08/10/17 at 09:00 Losartan Potassium (Cozaar) 25 mg DAILY PO Last administered on 08/21/17 08: 36; Start 08/10/17 at 09:00 Nitroglycerin (Nitrostat) 0.4 mg PRN Q5MIN PRN SL CHEST PAIN; Start 08/10/17 at 00:00 Pregabalin (Lyrica) 50 mg BID PO Last administered on 08/21/17 19:21; Start 08/10/17 at 09:00 Tamsulosin HCl (Flomax) 0.4 mg DAILY PO Last administered on 08/10/17 08:56; Start 08/10/17 at 09:00; Stop 08/10/17 at 13:57; Status DC Alprazolam (Xanax) 0.25 mg PRN Q4HRS PRN PO ANXIETY / AGITATION; Start at 00:00 Duloxetine HCl (Cymbalta) 60 mg DAILY PO Last administered on 08/21/17 08:37 ; Start 08/10/17 at 09:00 Atorvastatin Calcium (Lipitor) 40 mg QHS PO Last administered on 08/21/17 19: 21; Start 08/10/17 at 21:00 Hydrocortisone (Cortaid) 1 odilia BID TP Last administered on 08/11/17 12:22; Start 08/10/17 at 09:00; Stop 08/11/17 at 15:10; Status DC Multivitamins/ Calcium (Thera-M Plus) 1 tab DAILY PO Last administered on 08/21 08:37; Start 08/10/17 at 09:00 Naproxen (Naprosyn) 250 mg PRN Q12HR PRN PO INFLAMATION/PAIN; Start 08/10/17 at 00:00 Potassium Chloride (Klor-Con) 20 meq DAILYWBKFT PO Last administered on 08:36; Start 08/10/17 at 08:00 Linagliptin (Tradjenta) 5 mg DAILY PO Last administered on 08/21/17 08:35; Start 08/10/17 at 09:00 Isosorbide Mononitrate (Imdur) 30 mg DAILY PO Last administered on 08/21/17 08:37; Start 08/10/17 at 09:00 Tamsulosin HCl (Flomax) 0.8 mg DAILY PO Last administered on 08/21/17 08:35; Start 08/11/17 at 09:00 Influenza Virus Vaccine Quadrival (Fluarix Quad [id number] Syringe) 0.5 ml ONCE ONCE VAX IM Last administered on 08/11/17 17:15; Start 08/11/17 at 09:00; Stop 08/11/17 at 09:01; Status DC Pneumococcal Polyvalent Vaccine (Pneumovax 23) 0.5 ml ONCE ONCE VAX IM Last administered on 08/11/17 17:16; Start 08/11/17 at 09:00; Stop 08/11/17 at 09 :01; Status DC Quetiapine Fumarate (SEROquel) 25 mg QHS PO Last administered on 08/11/17 19: 15; Start 08/10/17 at 21:00; Stop 08/12/17 at 11:19; Status DC Trazodone HCl (Desyrel) 50 mg QHS PO Last administered on 08/21/17 19:21; Start 08/10/17 at 21:00 Trazodone HCl (Desyrel) 50 mg PRN QHS PRN PO INSOMNIA Last administered on 19:19; Start 08/10/17 at 18:15 Hydrocortisone (Cortaid) 1 odilia BID TP Last administered on 08/21/17 19:21; Start 08/11/17 at 15:10 Quetiapine Fumarate (SEROquel) 50 mg QHS PO Last administered on 08/21/17 19: 21; Start 08/12/17 at 21:00 Bupropion HCl (Wellbutrin) 75 mg DAILY08 PO Last administered on 08/20/17 07: 55; Start 08/14/17 at 08:00; Stop 08/20/17 at 12:20; Status DC Insulin Detemir (Levemir) 15 units BID SQ Last administered on 08/21/17 19:21 ; Start 08/14/17 at 21:00 Aripiprazole (Abilify) 2.5 mg DAILY PO Last administered on 08/21/17 08:36; Start 08/15/17 at 09:00 Potassium Chloride (Klor-Con) 40 meq 1X ONCE PO Last administered on 16:51; Start 08/18/17 at 17:00; Stop 08/18/17 at 17:01; Status DC Bupropion HCl (Wellbutrin Xl) 150 mg DAILY PO Last administered on 08/21/17 09:36; Start 08/21/17 at 09:00 Primidone (Mysoline) 50 mg DAILY16 PO Last administered on 08/21/17 18:05; Start 08/21/17 at 16:00 Active Scripts Active Reported Xanax (Alprazolam) 0.25 Mg Tablet 0.25 Mg PO PRN Q4HRS PRN Acetaminophen 500 Mg Tablet 500 Mg PO PRN Q4-6HRS PRN NITROGLYCERIN SubLingual (Nitroglycerin) 0.4 Mg Tab.subl 0.4 Mg SL PRN Q5MIN PRN Hydroxyzine Hcl 25 Mg Tablet 25 Mg PO PRN TID PRN Aleve (Naproxen Sodium) 220 Mg Capsule 220 Mg PO PRN Q12HR Levemir Flextouch (Insulin Detemir) 100 Unit/1 Ml Insuln.pen 20 Unit SQ HS Novolog Flexpen (Insulin Aspart) 100 Unit/1 Ml Insuln.pen 0-7 Unit SQ TIDAC Atorvastatin Calcium 40 Mg Tablet 40 Mg PO QHS Lyrica (Pregabalin) 50 Mg Capsule 50 Mg PO BID Levetiracetam 500 Mg Tablet 1,000 Mg PO BID Desonide 59 Ml Lotion 0.05 Odilia TP BID Carvedilol 6.25 Mg Tablet 6.25 Mg PO BIDWMEALS Potassium Chloride 10 Meq Capsule.er 20 Meq PO TID Tamsulosin Hcl 0.4 Mg Cap.er.24h 0.4 Mg PO DAILY Multi-Vitamin Daily (Multivitamin) 1 Each Tablet 1 Each PO DAILY Losartan Potassium 25 Mg Tablet 25 Mg PO DAILY Januvia (Sitagliptin Phosphate) 50 Mg Tablet 50 Mg PO DAILY Isosorbide Mononitrate Er (Isosorbide Mononitrate) 30 Mg Tab.er.24h 30 Mg PO DAILY PRN Furosemide 40 Mg Tablet 40 Mg PO DAILY Cymbalta (Duloxetine Hcl) 60 Mg Capsule.dr 60 Mg PO DAILY Aspirin 81 Mg Tab.chew 81 Mg PO DAILY Diagnosis: Problems: (1) Dementia with behavioral disturbance (2) Anxiety disorder (3) Impulse control disorder (4) Mild cognitive disorder (5) Psychosis, atypical (6) Major depressive disorder, recurrent episode SHARI CHASE MD Aug 21, 2017 21:51
--- NOTE | 2017-08-22 00:48 | PN ---
DATE: 08/21/2017 This note covers elements not covered in my initial note of 08/21/2017. SUBJECTIVE: Overall, the patient remains somewhat isolative, little delusional about his but less so than before. I met with him in his room. REVIEW OF SYSTEMS: No CV, , pulmonary, eye, ENT system symptoms on review. Ambulation impaired. MENTAL STATUS EXAM: Oriented to himself and situation. Speech has some latency, coherent. Abstraction fair, computation impaired, language function intact, attention span short. Mood and affect showing improvement. LABORATORY DATA: Reviewed. IMPRESSION: Unchanged from initial note. PLAN: Continue current psychotropics as mentioned my initial note. Wellbutrin was increased and he is more awake and alert during the day. Reviewed drug interactions, risk/benefit ratio favors no further change. MAN Geno CHASE MD DR: GLENROY/shadi JOB#: [id number] / [id number]
[2017-08-22 05:58] VITALS: BP 143/63
[2017-08-22] MEDS: buPROPion XL 150 MG TAB.ER.24H PO SCH (07:54)
[2017-08-22] MEDS: TAMSULOSIN 0.4 MG CAP.ER.24H. PO SCH (07:54)
[2017-08-22] MEDS: ASPIRIN 81 MG TAB.CHEW PO SCH (07:54)
[2017-08-22] MEDS: PREGABALIN 50 MG CAPSULE PO SCH ×2 (07:54→19:17)
[2017-08-22] MEDS: levETIRAcetam 500 MG TABLET PO SCH ×2 (07:54→19:17)
[2017-08-22] MEDS: ISOSORBIDE MONONITRATE ER 30 MG TAB.ER.24H PO SCH (07:55)
[2017-08-22] MEDS: LOSARTAN 25 MG TABLET. PO SCH (07:55)
[2017-08-22] MEDS: FUROSEMIDE 40 MG TABLET PO SCH (07:55)
[2017-08-22] MEDS: ARIPiprazole 5 MG TABLET PO SCH (07:55)
[2017-08-22] MEDS: DULoxetine HCL 60 MG CAPSULE.DR PO SCH (07:55)
[2017-08-22] MEDS: MULTIVITAMIN with MINERAL TABLET. PO SCH (07:55)
[2017-08-22] MEDS: LINAGLIPTIN 5 MG TABLET PO SCH (07:55)
[2017-08-22] MEDS: CARVEDILOL 6.25 MG TABLET PO SCH ×2 (07:56→16:20)
[2017-08-22] MEDS: POTASSIUM CHLORIDE 20 MEQ TABLET.ER. PO SCH (07:56)
[2017-08-22] MEDS: HYDROCORTISONE 1% TOPICAL CREAM 30GM TUBE. TP SCH ×2 (07:57→19:19)
[2017-08-22] MEDS: INSULIN DETEMIR 300 UNITS/3 ML INSULN.PEN. SQ SCH ×2 (07:59→19:19)
[2017-08-22] MEDS ORDERED: PERMETHRIN 5% TOPICAL CREAM 60GM TUBE. TP ONE ×2 (15:00→21:00)
[2017-08-22 16:05] VITALS: BP 148/81
[2017-08-22] MEDS: PRIMIDONE 50 MG TABLET PO SCH (16:20)
[2017-08-22] MEDS: QUEtiapine 25 MG TABLET. PO SCH (19:17)
[2017-08-22] MEDS: traZODone 50 MG TABLET. PO SCH (19:17)
[2017-08-22] MEDS: ATORVASTATIN CALCIUM 20 MG TABLET PO SCH (19:17)
--- NOTE | 2017-08-22 23:49 | PN ---
DATE: REFERRING PHYSICIAN: Champ Ford MD SUBJECTIVE: The patient denies any new medical or neurological complaints. He denies seizure; however, he complains of numbness and paresthesia of the upper and lower extremities due to underlying peripheral neuropathy. The patient has been calm, cooperative and less delusional. OBJECTIVE: GENERAL: Well-developed, well-nourished male in no acute distress. VITAL SIGNS: Blood pressure 143/63, respiratory rate 18, pulse is 96, oxygen saturation 96% on room air and temperature is 97.2. HEENT: Normocephalic, atraumatic, otherwise unremarkable. NECK: Supple. Negative for carotid bruit, lymphadenopathy or thyromegaly. LUNGS: Clear to A and P. CARDIOVASCULAR: Regular rate and rhythm, normal S1, S2. ABDOMEN: Soft. Bowel sounds positive. EXTREMITIES: Negative for cyanosis, clubbing or pitting edema. NEUROLOGICAL EXAM: Mental Status: The patient is alert and oriented x 3. Speech is fluent. There is no language dysfunction. Memory, judgment, and abstract thinking are fair. The patient denies hallucination or delusion. Cranial nerves are intact. Motor examination revealed a resting muscle in both hands and weakness of the hands, abductors muscles. The strength was 4/5 throughout. Sensory examination revealed diminished pinprick and light touch senses in the glove and stocking distributions bilaterally. Deep tendon reflexes were symmetric and absent Achilles responses bilaterally. The patient has unsteady gait and unsteady stand and he uses a chair and walker for ambulation. IMPRESSION: 1. Dementia. 2. Depression and anxiety. 3. Multiple medical problems include peripheral neuropathy in the upper and lower extremities, hypertension and chronic obstructive pulmonary disease. RECOMMENDATIONS: Continue with current medical and psychiatric care and medications. M Rocio MUNOZ MD DR: MANDEEP/shadi JOB#: [id number] / [id number]
[2017-08-23] MEDS ORDERED: ACET325T9 PO (01:44)
[2017-08-23] MEDS ORDERED: ARIP5TAB13 PO (01:45)
[2017-08-23] MEDS ORDERED: MAG30ORA2 PO (01:54)
[2017-08-23] MEDS ORDERED: MAGN400O7 PO (01:54)
[2017-08-23] MEDS ORDERED: OLAN5TAB5 PO (01:56)
[2017-08-23] MEDS ORDERED: POTA20TA84 PO (01:57)
[2017-08-23] MEDS ORDERED: QUET50TA5 PO (01:58)
[2017-08-23] MEDS ORDERED: BUPR150T15 PO (01:59)
[2017-08-23] MEDS ORDERED: TRAZ50TA15 PO ×2 (02:00)
[2017-08-23] MEDS ORDERED: PERM60CR12 TP (02:11)
[2017-08-23 06:04] VITALS: BP 149/88
[2017-08-23] MEDS: levETIRAcetam 500 MG TABLET PO SCH ×2 (08:30→19:33)
[2017-08-23] MEDS: LINAGLIPTIN 5 MG TABLET PO SCH (08:30)
[2017-08-23] MEDS: PREGABALIN 50 MG CAPSULE PO SCH ×2 (08:31→19:32)
[2017-08-23] MEDS: MULTIVITAMIN with MINERAL TABLET. PO SCH (08:31)
[2017-08-23] MEDS: buPROPion XL 150 MG TAB.ER.24H PO SCH (08:31)
[2017-08-23] MEDS: DULoxetine HCL 60 MG CAPSULE.DR PO SCH (08:31)
[2017-08-23] MEDS: FUROSEMIDE 40 MG TABLET PO SCH (08:31)
[2017-08-23] MEDS: TAMSULOSIN 0.4 MG CAP.ER.24H. PO SCH (08:32)
[2017-08-23] MEDS: ARIPiprazole 5 MG TABLET PO SCH (08:32)
[2017-08-23] MEDS: CARVEDILOL 6.25 MG TABLET PO SCH ×2 (08:32→17:22)
[2017-08-23] MEDS: ASPIRIN 81 MG TAB.CHEW PO SCH (08:32)
[2017-08-23] MEDS: POTASSIUM CHLORIDE 20 MEQ TABLET.ER. PO SCH (08:32)
[2017-08-23] MEDS: LOSARTAN 25 MG TABLET. PO SCH (08:32)
[2017-08-23] MEDS: INSULIN DETEMIR 300 UNITS/3 ML INSULN.PEN. SQ SCH ×2 (08:33→19:34)
[2017-08-23] MEDS: ISOSORBIDE MONONITRATE ER 30 MG TAB.ER.24H PO SCH (08:33)
[2017-08-23] MEDS: HYDROCORTISONE 1% TOPICAL CREAM 30GM TUBE. TP SCH ×2 (09:00→20:08)
[2017-08-23 16:09] VITALS: BP 128/78
[2017-08-23] MEDS: PRIMIDONE 50 MG TABLET PO SCH (17:22)
[2017-08-23 17:38] LABS: CALCIUM 8.8 mg/dL (8.5-10.1); CREATININE 0.8 mg/dL (0.7-1.3); GFR 92.3; POTASSIUM 3.7 mmol/L (3.5-5.1)
[2017-08-23] MEDS: ATORVASTATIN CALCIUM 20 MG TABLET PO SCH (19:31)
[2017-08-23] MEDS: QUEtiapine 25 MG TABLET. PO SCH (19:32)
[2017-08-23] MEDS: traZODone 50 MG TABLET. PO SCH (19:32)
[2017-08-23] MEDS: ALPRAZolam 0.25 MG TABLET PO PRN (21:58)
[2017-08-23] MEDS: traZODone 50 MG TABLET. PO PRN (22:40)
--- NOTE | 2017-08-24 01:32 | PN ---
DATE: 08/23/2017 SUBJECTIVE: The patient was seen today, met with the staff, chart reviewed, and covering for Dr. Ford. The patient apparently had multiple TIAs in the past. The patient lately has been threatening suicide. The patient is also tearful, feeling hopeless and helpless. He feels there is no future for him. Sometimes, the patient also made statements like blowing his head off. The patient was able to walk. The patient also has physical complaints. OBSERVATION: VITAL SIGNS: Temperature 97.5, blood pressure 149/88, pulse 84, respirations 20 and O2 sat 94%. GENERAL: Slept about 7 hours last night. The patient apparently not sleeping well. The patient also has some paranoia and pathological jealousy towards his . The patient had significant difficulty accepting the changes he is going through and not happy with himself. He feels there is no future for him. The patient also states his spent all his money. The patient also showed some cognitive deficits. The patient was able to do serial 7 once. The patient was able to recall 2/3 objects in 3 minutes. MEDICATIONS: Reviewed. Currently on primidone 50 mg daily, bupropion 150 mg daily, aripiprazole 2.5 mg daily, Seroquel 50 mg at night, trazodone 50 mg at night and Cymbalta 60 mg daily. LABORATORY DATA: Reviewed. 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 PLAN: To continue with the treatment. Continue to evaluate the progress and make necessary adjustment with the medications. ABDIRIZAK DUARTE MD DR: LUCIO/shadi JOB#: [id number] / [id number]
[2017-08-24 06:32] VITALS: BP 158/94
[2017-08-24] MEDS: DULoxetine HCL 60 MG CAPSULE.DR PO SCH (08:38)
[2017-08-24] MEDS: LOSARTAN 25 MG TABLET. PO SCH (08:38)
[2017-08-24] MEDS: levETIRAcetam 500 MG TABLET PO SCH ×2 (08:38→19:17)
[2017-08-24] MEDS: ARIPiprazole 5 MG TABLET PO SCH (08:38)
[2017-08-24] MEDS: ISOSORBIDE MONONITRATE ER 30 MG TAB.ER.24H PO SCH (08:39)
[2017-08-24] MEDS: TAMSULOSIN 0.4 MG CAP.ER.24H. PO SCH (08:39)
[2017-08-24] MEDS: LINAGLIPTIN 5 MG TABLET PO SCH (08:39)
[2017-08-24] MEDS: CARVEDILOL 6.25 MG TABLET PO SCH ×2 (08:39→16:59)
[2017-08-24] MEDS: buPROPion XL 150 MG TAB.ER.24H PO SCH (08:39)
[2017-08-24] MEDS: POTASSIUM CHLORIDE 20 MEQ TABLET.ER. PO SCH (08:40)
[2017-08-24] MEDS: ASPIRIN 81 MG TAB.CHEW PO SCH (08:40)
[2017-08-24] MEDS: FUROSEMIDE 40 MG TABLET PO SCH (08:40)
[2017-08-24] MEDS: PREGABALIN 50 MG CAPSULE PO SCH ×2 (08:40→19:17)
[2017-08-24] MEDS: MULTIVITAMIN with MINERAL TABLET. PO SCH (08:41)
[2017-08-24] MEDS: HYDROCORTISONE 1% TOPICAL CREAM 30GM TUBE. TP SCH ×2 (08:41→19:22)
[2017-08-24] MEDS: INSULIN DETEMIR 300 UNITS/3 ML INSULN.PEN. SQ SCH ×2 (08:42→19:21)
[2017-08-24 15:27] VITALS: BP 122/77
[2017-08-24] MEDS: PRIMIDONE 50 MG TABLET PO SCH (17:00)
[2017-08-24] MEDS: traZODone 50 MG TABLET. PO SCH (19:16)
[2017-08-24] MEDS: QUEtiapine 25 MG TABLET. PO SCH (19:16)
[2017-08-24] MEDS: ATORVASTATIN CALCIUM 20 MG TABLET PO SCH (19:16)
--- NOTE | 2017-08-25 02:55 | PN ---
DATE: 08/24/2017 SUBJECTIVE: The patient was seen today, met with the staff, chart reviewed. The patient continues to have problems scratching his legs. The patient suspected of having scabies. The patient also has some inflammation of his right leg. The patient denies of any major problems. The patient is not expressing any suicidal or homicidal thoughts at this time. The patient is able to walk, but unsteady. OBSERVATION: VITAL SIGNS: Temperature 98, blood pressure 158/94, pulse 84, respirations 18, O2 sat was 98%. Slept 5-1/2 hours. The patient is not having any side effects to the medications. ASSESSMENT: Major depressive disorder, recurrent with psychotic features, vascular dementia, mild depression. PLAN: To continue with the treatment. ABDIRIZAK DUARTE MD DR: LUCIO/shadi JOB#: [id number] / [id number]
[2017-08-25 06:01] VITALS: BP 114/71
[2017-08-25] MEDS: ARIPiprazole 5 MG TABLET PO SCH (08:07)
[2017-08-25] MEDS: TAMSULOSIN 0.4 MG CAP.ER.24H. PO SCH (08:08)
[2017-08-25] MEDS: DULoxetine HCL 60 MG CAPSULE.DR PO SCH (08:08)
[2017-08-25] MEDS: ASPIRIN 81 MG TAB.CHEW PO SCH (08:08)
[2017-08-25] MEDS: FUROSEMIDE 40 MG TABLET PO SCH (08:08)
[2017-08-25] MEDS: POTASSIUM CHLORIDE 20 MEQ TABLET.ER. PO SCH (08:08)
[2017-08-25] MEDS: ISOSORBIDE MONONITRATE ER 30 MG TAB.ER.24H PO SCH (08:09)
[2017-08-25] MEDS: levETIRAcetam 500 MG TABLET PO SCH ×2 (08:09→19:35)
[2017-08-25] MEDS: buPROPion XL 150 MG TAB.ER.24H PO SCH (08:09)
[2017-08-25] MEDS: CARVEDILOL 6.25 MG TABLET PO SCH ×2 (08:09→16:26)
[2017-08-25] MEDS: LINAGLIPTIN 5 MG TABLET PO SCH (08:09)
[2017-08-25] MEDS: LOSARTAN 25 MG TABLET. PO SCH (08:10)
[2017-08-25] MEDS: MULTIVITAMIN with MINERAL TABLET. PO SCH (08:10)
[2017-08-25] MEDS: PREGABALIN 50 MG CAPSULE PO SCH ×2 (08:12→19:36)
[2017-08-25] MEDS: INSULIN DETEMIR 300 UNITS/3 ML INSULN.PEN. SQ SCH ×2 (08:14→19:53)
[2017-08-25] MEDS: HYDROCORTISONE 1% TOPICAL CREAM 30GM TUBE. TP SCH ×2 (08:15→21:00)
[2017-08-25 16:09] VITALS: BP 117/73
[2017-08-25] MEDS: PRIMIDONE 50 MG TABLET PO SCH (16:25)
[2017-08-25] MEDS: ATORVASTATIN CALCIUM 20 MG TABLET PO SCH (19:35)
[2017-08-25] MEDS: QUEtiapine 25 MG TABLET. PO SCH (19:36)
[2017-08-25] MEDS: traZODone 50 MG TABLET. PO SCH (19:36)
[2017-08-26] MEDS: traZODone 50 MG TABLET. PO PRN (00:46)
--- NOTE | 2017-08-26 02:38 | PN ---
DATE: 08/25/2017 SUBJECTIVE: The patient was seen today, met with the staff, chart reviewed. The patient's behavior remains the same. No major behavior problems. Still confused, unsteady gait, but no falls. OBSERVATION: VITAL SIGNS: Temperature 98.3, blood pressure 114/71, pulse 78, respirations 18, O2 sat 94%. Slept about 9 hours last night. CURRENT MEDICATIONS: The patient's current medications include primidone 50 mg daily, bupropion 150 mg daily, Abilify 2.5 mg daily, Seroquel 50 mg at night, trazodone 50 mg at night, and Cymbalta 60 mg daily. The patient is not having any side effects to the medications. ASSESSMENT: 1. Major depressive disorder, recurrent with psychotic features. 2. Vascular dementia, depression. PLAN: Continue with the treatment. Awaiting for placement. ABDIRIZAK DUARTE MD DR: LUCIO/shadi JOB#: [id number] / [id number]
[2017-08-26 05:52] VITALS: BP 166/73
[2017-08-26 05:53] LABS: BASO # 0.1 x10^3/uL (0.0-0.2); BASO % 1 % (0-3); EOS # 0.3 x10^3/uL (0.0-0.7); EOS % 3 % (0-3); HEMATOCRIT 42.8 % (39.0-53.0); HEMOGLOBIN 14.7 g/dL (13.0-17.5); LYMPH # 2.6 x10^3/uL (1.0-4.8); LYMPH % 24 % (24-48); MEAN CORPUSCULAR HEMOGLOBIN 30 pg (25-35); MEAN CORPUSCULAR HGB CONC 34 g/dL (31-37); MEAN CORPUSCULAR VOLUME 88 fL (79-100); MONO # 0.8 x10^3/uL (0.0-1.1); MONO % 8 % (0-9); NEUT # 6.9 x10^3uL (1.8-7.7); NEUT % 64 % (31-73); PLATELET COUNT 190 x10^3/uL (140-400); RED BLOOD COUNT 4.88 x10^6/uL (4.30-5.70); RED CELL DISTRIBUTION WIDTH 13.8 % (11.5-14.5); WHITE BLOOD COUNT 10.7 x10^3/uL (4.0-11.0)
[2017-08-26] MEDS: LINAGLIPTIN 5 MG TABLET PO SCH (07:35)
[2017-08-26] MEDS: buPROPion XL 150 MG TAB.ER.24H PO SCH (07:35)
[2017-08-26] MEDS: levETIRAcetam 500 MG TABLET PO SCH ×2 (07:35→19:59)
[2017-08-26] MEDS: FUROSEMIDE 40 MG TABLET PO SCH (07:35)
[2017-08-26] MEDS: ARIPiprazole 5 MG TABLET PO SCH (07:36)
[2017-08-26] MEDS: CARVEDILOL 6.25 MG TABLET PO SCH ×2 (07:36→16:07)
[2017-08-26] MEDS: MULTIVITAMIN with MINERAL TABLET. PO SCH (07:37)
[2017-08-26] MEDS: ASPIRIN 81 MG TAB.CHEW PO SCH (07:37)
[2017-08-26] MEDS: POTASSIUM CHLORIDE 20 MEQ TABLET.ER. PO SCH (07:37)
[2017-08-26] MEDS: TAMSULOSIN 0.4 MG CAP.ER.24H. PO SCH (07:37)
[2017-08-26] MEDS: ISOSORBIDE MONONITRATE ER 30 MG TAB.ER.24H PO SCH (07:38)
[2017-08-26] MEDS: DULoxetine HCL 60 MG CAPSULE.DR PO SCH (07:38)
[2017-08-26] MEDS: PREGABALIN 50 MG CAPSULE PO SCH ×2 (07:40→19:59)
[2017-08-26] MEDS: HYDROCORTISONE 1% TOPICAL CREAM 30GM TUBE. TP SCH ×2 (07:40→21:00)
[2017-08-26] MEDS: LOSARTAN 25 MG TABLET. PO SCH (07:40)
[2017-08-26] MEDS: INSULIN DETEMIR 300 UNITS/3 ML INSULN.PEN. SQ SCH ×2 (07:42→20:00)
[2017-08-26 15:28] VITALS: BP 129/82
[2017-08-26] MEDS: PRIMIDONE 50 MG TABLET PO SCH (16:06)
[2017-08-26] MEDS: ATORVASTATIN CALCIUM 20 MG TABLET PO SCH (19:58)
[2017-08-26] MEDS: QUEtiapine 25 MG TABLET. PO SCH (19:59)
[2017-08-26] MEDS: traZODone 50 MG TABLET. PO SCH (19:59)
[2017-08-27 05:35] VITALS: BP 157/75
[2017-08-27] MEDS: TAMSULOSIN 0.4 MG CAP.ER.24H. PO SCH (07:57)
[2017-08-27] MEDS: ARIPiprazole 5 MG TABLET PO SCH (07:57)
[2017-08-27] MEDS: buPROPion XL 150 MG TAB.ER.24H PO SCH (07:57)
[2017-08-27] MEDS: LINAGLIPTIN 5 MG TABLET PO SCH (07:57)
[2017-08-27] MEDS: POTASSIUM CHLORIDE 20 MEQ TABLET.ER. PO SCH (07:58)
[2017-08-27] MEDS: LOSARTAN 25 MG TABLET. PO SCH (07:58)
[2017-08-27] MEDS: ISOSORBIDE MONONITRATE ER 30 MG TAB.ER.24H PO SCH (07:58)
[2017-08-27] MEDS: PREGABALIN 50 MG CAPSULE PO SCH ×2 (07:59→19:31)
[2017-08-27] MEDS: ASPIRIN 81 MG TAB.CHEW PO SCH (07:59)
[2017-08-27] MEDS: MULTIVITAMIN with MINERAL TABLET. PO SCH (07:59)
[2017-08-27] MEDS: levETIRAcetam 500 MG TABLET PO SCH ×2 (07:59→19:31)
[2017-08-27] MEDS: CARVEDILOL 6.25 MG TABLET PO SCH ×2 (08:00→16:39)
[2017-08-27] MEDS: FUROSEMIDE 40 MG TABLET PO SCH (08:00)
[2017-08-27] MEDS: DULoxetine HCL 60 MG CAPSULE.DR PO SCH (08:00)
[2017-08-27] MEDS: HYDROCORTISONE 1% TOPICAL CREAM 30GM TUBE. TP SCH ×2 (08:01→19:33)
[2017-08-27] MEDS: INSULIN DETEMIR 300 UNITS/3 ML INSULN.PEN. SQ SCH ×2 (08:01→19:47)
[2017-08-27] MEDS: ALPRAZolam 0.25 MG TABLET PO PRN (13:06)
[2017-08-27 16:27] VITALS: BP 137/77
--- NOTE | 2017-08-27 16:38 | PN ---
DATE: 08/26/2017 SUBJECTIVE: Discussed in the treatment review today with regard to the patient's progress, diagnosis, and discharge plans. The patient's behavior remains the same. The patient's test for scabies came negative. Staff reports no major behavior problems. OBSERVATION: VITAL SIGNS: Temperature 97.2, blood pressure 166/73, pulse 75, respirations 18, O2 sat 94%. GENERAL: The patient slept about 7 hours last night. CURRENT MEDICATIONS: The patient's current medications include bupropion 150 mg daily, Abilify 2.5 mg daily, Seroquel 50 mg at night, trazodone 50 mg at night, and Cymbalta 60 mg daily. The patient denies of any side effects to the medications. ASSESSMENT: 1. Major depressive disorder, recurrent with psychotic features. 2. Vascular dementia with depression. PLAN: To continue with the treatment. The patient is planned for discharge in 3 or 4 days and hoping to find a placement. ABDIRIZAK DUARTE MD DR: LUCIO/shadi JOB#: [id number] / [id number]
[2017-08-27] MEDS: PRIMIDONE 50 MG TABLET PO SCH (16:39)
[2017-08-27] MEDS: traZODone 50 MG TABLET. PO SCH (19:31)
[2017-08-27] MEDS: ATORVASTATIN CALCIUM 20 MG TABLET PO SCH (19:31)
[2017-08-27] MEDS: QUEtiapine 25 MG TABLET. PO SCH (19:32)
[2017-08-28 05:55] VITALS: BP 133/92
[2017-08-28] MEDS: POTASSIUM CHLORIDE 20 MEQ TABLET.ER. PO SCH (08:11)
[2017-08-28] MEDS: CARVEDILOL 6.25 MG TABLET PO SCH ×2 (08:11→17:38)
[2017-08-28] MEDS: ARIPiprazole 5 MG TABLET PO SCH (08:11)
[2017-08-28] MEDS: ASPIRIN 81 MG TAB.CHEW PO SCH (08:12)
[2017-08-28] MEDS: LOSARTAN 25 MG TABLET. PO SCH (08:12)
[2017-08-28] MEDS: DULoxetine HCL 60 MG CAPSULE.DR PO SCH (08:12)
[2017-08-28] MEDS: TAMSULOSIN 0.4 MG CAP.ER.24H. PO SCH (08:12)
[2017-08-28] MEDS: levETIRAcetam 500 MG TABLET PO SCH ×2 (08:13→19:43)
[2017-08-28] MEDS: ISOSORBIDE MONONITRATE ER 30 MG TAB.ER.24H PO SCH (08:13)
[2017-08-28] MEDS: FUROSEMIDE 40 MG TABLET PO SCH (08:13)
[2017-08-28] MEDS: MULTIVITAMIN with MINERAL TABLET. PO SCH (08:14)
[2017-08-28] MEDS: PREGABALIN 50 MG CAPSULE PO SCH ×2 (08:14→19:43)
[2017-08-28] MEDS: buPROPion XL 150 MG TAB.ER.24H PO SCH (08:14)
[2017-08-28] MEDS: LINAGLIPTIN 5 MG TABLET PO SCH (08:14)
[2017-08-28] MEDS: HYDROCORTISONE 1% TOPICAL CREAM 30GM TUBE. TP SCH ×2 (09:00→21:00)
[2017-08-28] MEDS: INSULIN DETEMIR 300 UNITS/3 ML INSULN.PEN. SQ SCH ×2 (09:11→19:47)
[2017-08-28 15:46] VITALS: BP 111/69
[2017-08-28] MEDS: PRIMIDONE 50 MG TABLET PO SCH (17:38)
[2017-08-28] MEDS: QUEtiapine 25 MG TABLET. PO SCH (19:43)
[2017-08-28] MEDS: ATORVASTATIN CALCIUM 20 MG TABLET PO SCH (19:43)
[2017-08-28] MEDS: traZODone 50 MG TABLET. PO SCH (19:43)
[2017-08-28] MEDS: traZODone 50 MG TABLET. PO PRN (22:11)
[2017-08-28] MEDS: ALPRAZolam 0.25 MG TABLET PO PRN (23:39)
--- NOTE | 2017-08-29 02:12 | PN ---
DATE: 08/28/2017 SUBJECTIVE: The patient was seen today, met with the staff, chart reviewed. The patient is still unsteady on his feet. The patient is not reporting any major complaints at this time. OBSERVATION: VITAL SIGNS: Temperature 97.3, blood pressure 133/92, pulse 79, respiration 18, O2 sat 93%. Slept about 6 hours last night. The patient denies of any falls. Staff reports no major physical problems. MEDICATIONS: The patient's current medications include bupropion 150 mg daily. Abilify 2.5 mg daily, Seroquel 50 mg at night, trazodone 50 mg at night, and Cymbalta 60 mg daily. The patient denies of any side effects to the medications. His appetite is improved. ASSESSMENT: 1. Major depressive disorder, recurrent with psychotic features. 2. Vascular dementia with depression. PLAN: To continue with the treatment. ABDIRIZAK DUARTE MD DR: LUCIO/shadi JOB#: [id number] / [id number]
[2017-08-29 05:56] VITALS: BP 152/78
[2017-08-29] MEDS: POTASSIUM CHLORIDE 20 MEQ TABLET.ER. PO SCH (08:10)
[2017-08-29] MEDS: CARVEDILOL 6.25 MG TABLET PO SCH ×2 (08:11→16:15)
[2017-08-29] MEDS: ARIPiprazole 5 MG TABLET PO SCH (08:12)
[2017-08-29] MEDS: buPROPion XL 150 MG TAB.ER.24H PO SCH (08:12)
[2017-08-29] MEDS: PREGABALIN 50 MG CAPSULE PO SCH ×2 (08:13→19:56)
[2017-08-29] MEDS: FUROSEMIDE 40 MG TABLET PO SCH (08:13)
[2017-08-29] MEDS: LINAGLIPTIN 5 MG TABLET PO SCH (08:13)
[2017-08-29] MEDS: TAMSULOSIN 0.4 MG CAP.ER.24H. PO SCH (08:13)
[2017-08-29] MEDS: ASPIRIN 81 MG TAB.CHEW PO SCH (08:14)
[2017-08-29] MEDS: levETIRAcetam 500 MG TABLET PO SCH ×2 (08:14→19:55)
[2017-08-29] MEDS: DULoxetine HCL 60 MG CAPSULE.DR PO SCH (08:14)
[2017-08-29] MEDS: LOSARTAN 25 MG TABLET. PO SCH (08:14)
[2017-08-29] MEDS: ISOSORBIDE MONONITRATE ER 30 MG TAB.ER.24H PO SCH (08:15)
[2017-08-29] MEDS: MULTIVITAMIN with MINERAL TABLET. PO SCH (08:17)
[2017-08-29] MEDS: INSULIN DETEMIR 300 UNITS/3 ML INSULN.PEN. SQ SCH ×2 (08:23→19:57)
[2017-08-29] MEDS: HYDROCORTISONE 1% TOPICAL CREAM 30GM TUBE. TP SCH ×2 (08:25→19:56)
[2017-08-29] MEDS: PRIMIDONE 50 MG TABLET PO SCH (16:17)
[2017-08-29 16:40] VITALS: BP 120/77
[2017-08-29] MEDS: ATORVASTATIN CALCIUM 20 MG TABLET PO SCH (19:55)
[2017-08-29] MEDS: QUEtiapine 25 MG TABLET. PO SCH (19:55)
[2017-08-29] MEDS: traZODone 50 MG TABLET. PO SCH (19:56)
--- NOTE | 2017-08-29 20:46 | DS ---
DATE OF DISCHARGE: 08/29/2017 PSYCHIATRIC DISCHARGE SUMMARY FINAL DIAGNOSES: AXIS I: 1. Major depressive disorder, recurrent with psychotic features. 2. Psychotic disorder, unspecified. 3. Mild cognitive disorder. AXIS II: None. AXIS III: Hypertension, hyperlipidemia, history of seizures, congestive heart failure, diabetes mellitus, peripheral neuropathy, benign prostatic hypertrophy. REASON FOR ADMISSION: This 81-year-old male was admitted to inpatient program senior behavioral unit at [facility] through the Emergency Room and he was brought by his son. Reasons for admissions were increased agitation, suicidal statements, not getting along well with his son. His also refused to take him back after he stayed at the [facility]. The patient also having problems with his cognitive functioning, also tend to be impulsive. HOSPITAL COURSE: The patient had a physical exam, routine lab work including CBC, chem profile, urinalysis, which were all within normal range except for blood sugar fluctuated from 96 to 283. The patient's electrolytes were within normal range. The patient's albumin was 3.2. The patient will continue on his medications including primidone 50 mg daily, Wellbutrin XL 150 mg daily, Abilify 2.5 mg b.i.d. and Seroquel 50 mg q hs po and he was also on insulin detemir, he was also Keppra 1000 mg b.i.d., aspirin 81 mg daily, potassium chloride 20 mEq daily, Coreg 6.25 mg b.i.d., he was also on nitroglycerin 0.4 mg p.r.n. q. 5 minutes for chest pain. The patient was also on Lyrica 50 mg b.i.d., losartan 25 mg daily, Cymbalta 60 mg daily. The patient was also on Imdur 30 mg daily, he was also on Tradjenta 5 mg daily, Lipitor 40 mg daily. The patient did improve, did not present with any major behavioral problems. The patient is mainly concerned about his legs and has been scratching constantly, has some inflammation. The patient attended all the activities, able to gain some understanding of his problems. After care plan, the patient at the time of discharge was not expressing any suicidal or homicidal thoughts. His condition improved and he was medically stable. The patient will be returning to correction and son will be his caregiver.Patient is on two anti psychotic drugs an discontinuation of Abilify is recommended. ABDIRIZAK DUARTE MD DR: LUCIO/shadi JOB#: [id number] / [id number] ESTHER
[2017-08-30] MEDS ORDERED: PRIM50TA PO (00:05)
[2017-08-30 06:17] VITALS: BP 171/52
[2017-08-30] MEDS: POTASSIUM CHLORIDE 20 MEQ TABLET.ER. PO SCH (07:39)
[2017-08-30] MEDS: CARVEDILOL 6.25 MG TABLET PO SCH (07:41)
[2017-08-30] MEDS: MULTIVITAMIN with MINERAL TABLET. PO SCH (08:43)
[2017-08-30] MEDS: ARIPiprazole 5 MG TABLET PO SCH (08:43)
[2017-08-30] MEDS: levETIRAcetam 500 MG TABLET PO SCH (08:43)
[2017-08-30] MEDS: buPROPion XL 150 MG TAB.ER.24H PO SCH (08:43)
[2017-08-30] MEDS: FUROSEMIDE 40 MG TABLET PO SCH (08:43)
[2017-08-30] MEDS: ISOSORBIDE MONONITRATE ER 30 MG TAB.ER.24H PO SCH (08:44)
[2017-08-30] MEDS: PREGABALIN 50 MG CAPSULE PO SCH (08:44)
[2017-08-30] MEDS: LINAGLIPTIN 5 MG TABLET PO SCH (08:44)
[2017-08-30] MEDS: TAMSULOSIN 0.4 MG CAP.ER.24H. PO SCH (08:44)
[2017-08-30] MEDS: DULoxetine HCL 60 MG CAPSULE.DR PO SCH (08:45)
[2017-08-30 08:55] VITALS: BP 171/52
[2017-08-30] MEDS: LOSARTAN 25 MG TABLET. PO SCH (08:55)
[2017-08-30] MEDS: ASPIRIN 81 MG TAB.CHEW PO SCH (08:56)
[2017-08-30] MEDS: INSULIN DETEMIR 300 UNITS/3 ML INSULN.PEN. SQ SCH (09:09)
[2017-08-30] MEDS: ACETAMINOPHEN 325 MG TABLET PO PRN (09:13)
[2017-08-30] MEDS: HYDROCORTISONE 1% TOPICAL CREAM 30GM TUBE. TP SCH (09:39)
--- NOTE | 2017-08-30 12:33 | PN ---
DATE: 08/27/2017 SUBJECTIVE: The patient was seen today, met with the staff, chart reviewed. The patient's behavior is improved. The patient is not presenting with any major physical complaints. OBSERVATION: The patient's vital signs are stable. The patient's sleep and appetite have improved. The patient did not have any falls. The patient is pleasant, interacting with the staff and not confused.. MEDICATIONS: The patient's current medications include bupropion 150 mg daily, Abilify 2.5 mg daily, Seroquel 50 mg at night, trazodone 50 mg at night, Cymbalta 60 mg daily. The patient is not having any side effects. ASSESSMENT: 1. Major depressive disorder, recurrent with psychotic features. 2. Vascular dementia with depression. PLAN: To continue with the treatment. Plan for discharge on 08/30/2017. ABDIRIZAK DUARTE MD DR: LUCIO/shdai JOB#: [id number] / [id number] ESTHER
--- NOTE | 2017-08-30 20:54 | PDOC ---
Exam Franco Demential Exam: Franco Note: Please also refer to the separate dictated note~for this date of service dictated separately.~Patient seen individually. Discussed the patient with Nursing staff reviewed the chart.~Reviewed interim history and current functioning. Reviewed vital signs,~Labs/ Radiology~and current medications noted below. Continue current treatment with the changes noted in the dictated addendum note Assessment: Vital Signs: Vital Signs Date Time Temp Pulse Resp B/P (MAP) Pulse Ox O2 Delivery O2 Flow Rate FiO2 08/30/17 08:55 91 171/52 08/30/17 06:17 97.4 22 92 Room Air I&O Intake and Output 08/31/17 07:00 Intake Total 540 ml Balance 540 ml Intake Oral 540 ml Labs: Laboratory Tests Test 08/30/17 06:55 Glucose (Fingerstick) 91 mg/dL (70-99) Current Medications: Meds: Current Medications Olanzapine (ZyPREXA ZYDIS) 1.25 mg PRN Q2HR PRN PO AGITATION/AGGRESSION Last administered on 08/10/17 00:59; Start 08/09/17 at 23:45; Stop 08/30/17 at 10: 06; Status DC Acetaminophen (Tylenol) 650 mg PRN Q6HRS PRN PO PAIN / TEMP Last administered on 08/30/17 09:13; Start 08/09/17 at 23:45; Stop 08/30/17 at 10:06; Status DC Multi-Ingredient Ointment (Analgesic Chappell) 1 odilia PRN QID PRN TP MUSCLE PAIN Last administered on 08/23/17 08:51; Start 08/09/17 at 23:45; Stop 08/30/17 at 10:06; Status DC Al Hydroxide/Mg Hydroxide (Mylanta Plus Xs) 15 ml PRN AFTMEALHC PRN PO DYSPEPSIA Last administered on 08/10/17 12:45; Start 08/09/17 at 23:45; Stop 08/30/17 at 10:06; Status DC Magnesium Hydroxide (Milk Of Magnesia) 2,400 mg PRN QHS PRN PO CONSTIPATION; Start 08/09/17 at 23:45; Stop 08/30/17 at 10:06; Status DC Aspirin (Children'S Aspirin) 81 mg DAILY PO Last administered on 08/30/17 08: 56; Start 08/10/17 at 09:00; Stop 08/30/17 at 10:06; Status DC Carvedilol (Coreg) 6.25 mg BIDWMEALS PO Last administered on 08/30/17 07:41; Start 08/10/17 at 08:00; Stop 08/30/17 at 10:06; Status DC Furosemide (Lasix) 40 mg DAILY PO Last administered on 08/30/17 08:43; Start 08/10/17 at 09:00; Stop 08/30/17 at 10:06; Status DC Hydroxyzine HCl (Atarax) 25 mg PRN TID PRN PO ITCHING Last administered on 00:59; Start 08/10/17 at 00:00; Stop 08/30/17 at 10:06; Status DC Insulin Detemir (Levemir) 20 units HS SQ Last administered on 08/13/17 19:50 ; Start 08/10/17 at 21:00; Stop 08/14/17 at 13:28; Status DC Isosorbide Mononitrate (Imdur) 30 mg PRN DAILY PRN PO HYPERTENSION, SEE COMMENTS; Start 08/10/17 at 00:00; Stop 08/10/17 at 04:12; Status DC Levetiracetam (Keppra) 1,000 mg BID PO Last administered on 08/30/17 08:43; Start 08/10/17 at 09:00; Stop 08/30/17 at 10:06; Status DC Losartan Potassium (Cozaar) 25 mg DAILY PO Last administered on 08/30/17 08: 55; Start 08/10/17 at 09:00; Stop 08/30/17 at 10:06; Status DC Nitroglycerin (Nitrostat) 0.4 mg PRN Q5MIN PRN SL CHEST PAIN; Start 08/10/17 at 00:00; Stop 08/30/17 at 10:06; Status DC Pregabalin (Lyrica) 50 mg BID PO Last administered on 08/30/17 08:44; Start 08/10/17 at 09:00; Stop 08/30/17 at 10:06; Status DC Tamsulosin HCl (Flomax) 0.4 mg DAILY PO Last administered on 08/10/17 08:56; Start 08/10/17 at 09:00; Stop 08/10/17 at 13:57; Status DC Alprazolam (Xanax) 0.25 mg PRN Q4HRS PRN PO ANXIETY / AGITATION Last administered on 08/28/17 23:39; Start 08/10/17 at 00:00; Stop 08/30/17 at 10 :06; Status DC Duloxetine HCl (Cymbalta) 60 mg DAILY PO Last administered on 08/30/17 08:45 ; Start 08/10/17 at 09:00; Stop 08/30/17 at 10:06; Status DC Atorvastatin Calcium (Lipitor) 40 mg QHS PO Last administered on 08/29/17 19: 55; Start 08/10/17 at 21:00; Stop 08/30/17 at 10:06; Status DC Hydrocortisone (Cortaid) 1 odilia BID TP Last administered on 08/11/17 12:22; Start 08/10/17 at 09:00; Stop 08/11/17 at 15:10; Status DC Multivitamins/ Calcium (Thera-M Plus) 1 tab DAILY PO Last administered on 08/30 08:43; Start 08/10/17 at 09:00; Stop 08/30/17 at 10:06; Status DC Naproxen (Naprosyn) 250 mg PRN Q12HR PRN PO INFLAMATION/PAIN; Start 08/10/17 at 00:00; Stop 08/30/17 at 10:06; Status DC Potassium Chloride (Klor-Con) 20 meq DAILYWBKFT PO Last administered on 07:39; Start 08/10/17 at 08:00; Stop 08/30/17 at 10:06; Status DC Linagliptin (Tradjenta) 5 mg DAILY PO Last administered on 08/30/17 08:44; Start 08/10/17 at 09:00; Stop 08/30/17 at 10:06; Status DC Isosorbide Mononitrate (Imdur) 30 mg DAILY PO Last administered on 08/30/17 08:44; Start 08/10/17 at 09:00; Stop 08/30/17 at 10:06; Status DC Tamsulosin HCl (Flomax) 0.8 mg DAILY PO Last administered on 08/30/17 08:44; Start 08/11/17 at 09:00; Stop 08/30/17 at 10:06; Status DC Influenza Virus Vaccine Quadrival (Fluarix Quad 8910-0004 Syringe) 0.5 ml ONCE ONCE VAX IM Last administered on 08/11/17 17:15; Start 08/11/17 at 09:00; Stop 08/11/17 at 09:01; Status DC Pneumococcal Polyvalent Vaccine (Pneumovax 23) 0.5 ml ONCE ONCE VAX IM Last administered on 08/11/17 17:16; Start 08/11/17 at 09:00; Stop 08/11/17 at 09 :01; Status DC Quetiapine Fumarate (SEROquel) 25 mg QHS PO Last administered on 08/11/17 19: 15; Start 08/10/17 at 21:00; Stop 08/12/17 at 11:19; Status DC Trazodone HCl (Desyrel) 50 mg QHS PO Last administered on 08/29/17 19:56; Start 08/10/17 at 21:00; Stop 08/30/17 at 10:06; Status DC Trazodone HCl (Desyrel) 50 mg PRN QHS PRN PO INSOMNIA Last administered on 22:11; Start 08/10/17 at 18:15; Stop 08/30/17 at 10:06; Status DC Hydrocortisone (Cortaid) 1 odilia BID TP Last administered on 08/30/17 09:39; Start 08/11/17 at 15:10; Stop 08/30/17 at 10:06; Status DC Quetiapine Fumarate (SEROquel) 50 mg QHS PO Last administered on 08/29/17 19: 55; Start 08/12/17 at 21:00; Stop 08/30/17 at 10:06; Status DC Bupropion HCl (Wellbutrin) 75 mg DAILY08 PO Last administered on 08/20/17 07: 55; Start 08/14/17 at 08:00; Stop 08/20/17 at 12:20; Status DC Insulin Detemir (Levemir) 15 units BID SQ Last administered on 08/30/17 09:09 ; Start 08/14/17 at 21:00; Stop 08/30/17 at 10:06; Status DC Aripiprazole (Abilify) 2.5 mg DAILY PO Last administered on 08/30/17 08:43; Start 08/15/17 at 09:00; Stop 08/30/17 at 10:06; Status DC Potassium Chloride (Klor-Con) 40 meq 1X ONCE PO Last administered on 16:51; Start 08/18/17 at 17:00; Stop 08/18/17 at 17:01; Status DC Bupropion HCl (Wellbutrin Xl) 150 mg DAILY PO Last administered on 08/30/17 08:43; Start 08/21/17 at 09:00; Stop 08/30/17 at 10:06; Status DC Primidone (Mysoline) 50 mg DAILY16 PO Last administered on 08/29/17 16:17; Start 08/21/17 at 16:00; Stop 08/30/17 at 10:06; Status DC Permethrin (Elimite) 1 odilia 1X ONCE TP ; Start 08/22/17 at 15:00; Stop at 15:01; Status DC Permethrin (Elimite) 1 odilia 1X ONCE TP Last administered on 08/22/17 18:30; Start 08/22/17 at 21:00; Stop 08/22/17 at 21:01; Status DC Active Scripts Active Reported Primidone 50 Mg Tablet 50 Mg PO DAILY16 Trazodone Hcl 50 Mg Tablet 50 Mg PO PRN QHS PRN Trazodone Hcl 50 Mg Tablet 50 Mg PO QHS Wellbutrin Xl (Bupropion Hcl) 150 Mg Tab.er.24h 150 Mg PO DAILY Seroquel (Quetiapine Fumarate) 50 Mg Tablet 50 Mg PO QHS K-Tab ER (Potassium Chloride) 20 Meq Tablet.er 20 Meq PO DAILYWBKFT Zyprexa Zydis (Olanzapine) 5 Mg Tab.rapdis 1.25 Mg PO PRN Q2HR PRN MDD 7.5mg Milk Of Magnesia (Magnesium Hydroxide) 400 Mg/5 Ml Oral.susp 2,400 Mg PO PRN QHS PRN Mag-Al Plus Xs Suspension (Mag Hydrox/Al Hydrox/Simeth) 30 Ml Oral.susp 15 Ml PO PRN AFTMEALHC PRN Abilify (Aripiprazole) 5 Mg Tablet 2.5 Mg PO DAILY Tylenol (Acetaminophen) 325 Mg Tablet 650 Mg PO PRN Q6HRS PRN Xanax (Alprazolam) 0.25 Mg Tablet 0.25 Mg PO PRN Q4HRS PRN NITROGLYCERIN SubLingual (Nitroglycerin) 0.4 Mg Tab.subl 0.4 Mg SL PRN Q5MIN PRN Hydroxyzine Hcl 25 Mg Tablet 25 Mg PO PRN TID PRN Levemir Flextouch (Insulin Detemir) 100 Unit/1 Ml Insuln.pen 15 Unit SQ HS Atorvastatin Calcium 40 Mg Tablet 40 Mg PO QHS Lyrica (Pregabalin) 50 Mg Capsule 50 Mg PO BID Levetiracetam 500 Mg Tablet 1,000 Mg PO BID Desonide 59 Ml Lotion 1 Odilia TP BID Carvedilol 6.25 Mg Tablet 6.25 Mg PO BIDWMEALS Tamsulosin Hcl 0.4 Mg Cap.er.24h 0.8 Mg PO DAILY Multi-Vitamin Daily (Multivitamin) 1 Each Tablet 1 Tab PO DAILY Losartan Potassium 25 Mg Tablet 25 Mg PO DAILY Januvia (Sitagliptin Phosphate) 50 Mg Tablet 50 Mg PO DAILY Isosorbide Mononitrate Er (Isosorbide Mononitrate) 30 Mg Tab.er.24h 30 Mg PO DAILY PRN Furosemide 40 Mg Tablet 40 Mg PO DAILY Cymbalta (Duloxetine Hcl) 60 Mg Capsule.dr 60 Mg PO DAILY Aspirin 81 Mg Tab.chew 81 Mg PO DAILY Diagnosis: Problems: (1) Anxiety disorder (2) Impulse control disorder (3) Mild cognitive disorder (4) Psychosis, atypical (5) Major depressive disorder, recurrent episode SHARI CHASE MD Aug 30, 2017 20:53
--- NOTE | 2017-08-31 19:53 | DS ---
DATE OF DISCHARGE: 08/30/2017 DISCHARGE SUMMARY/PSYCHIATRIC PROGRESS NOTE REASON FOR ADMISSION: Please refer to the admission history for details. Briefly, the patient is an 81-year-old male admitted from home via the Emergency Room at [facility] where he presented on account of increased agitation, suicidal ideation, being delusional, having marked insomnia, worsening memory deficits, having failed outpatient psychiatric interventions. SIGNIFICANT FINDINGS AND CLINICAL COURSE: Following admission, the patient was seen daily individually by myself from a psychiatric standpoint and Dr. Palma during my vacation and from a medical standpoint per Dr. Garcia/Dr. Villavicencio. He was noted to be initially forgetful, anxious, somewhat delusional, convinced that his was having an affair rather than worsening confusion, which prevented her from recognizing him. He continued to believe erroneously that his was deliberately not recognizing him. Adjustments were made in his psychotropics and all of this gradually improved other than his memory deficits. No suicidal or homicidal ideation noted at discharge. He seemed to respond to a combination of Cymbalta 60 mg a day, Atarax 25 mg t.i.d. p.r.n., Xanax p.r.n., Zyprexa p.r.n., Seroquel 50 mg at bedtime, trazodone 50 mg at bedtime, may repeat x 1 for insomnia, Abilify 2.5 mg a day to augment the Cymbalta, Wellbutrin-XL 150 mg a day, which seemed to help with his energy, motivation, daytime sedation and helped his withdrawal and isolation, which was prominent before that. He was also on primidone 50 mg daily at 1600 hours. Condition on discharge improved. REVIEW OF SYSTEMS: Prior to discharge, ambulation improved. No CV, , pulmonary, eye, ENT system symptoms on review. MENTAL STATUS EXAM: Oriented to himself and situation. Speech has some latency, coherent, often responses monosyllabic. Abstraction fair, computation impaired, language function intact. Mood and affect improved. No active suicidal or homicidal ideation prior to discharge. Condition improved. 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 Rest diagnoses unchanged from admission. DISCHARGE MEDICATIONS: Please refer to the MRAD. DISCHARGE INSTRUCTIONS: Outpatient psychiatric and medical followup at the alf. Time for discharge day management greater than 30 minutes. The patient in fact was transferred to an assisted living while his was going to be at the same facility and then on the alf side, and they would have an opportunity to visit each other if they so desired. MAN Geno CHASE MD DR: GLENROY/shadi JOB#: [id number] / [id number]
== END 2017-08-30 09:40 | DRG 884 ==
LOC: ER 16:28 → GEROPSY 23:04
PROVIDERS: ADMIT Psychiatry & Neurology Psychiatry; ATTEND Psychiatry & Neurology Psychiatry
DX: F01.51 Vascular dementia, unspecified severity, with behavioral disturbance (principal); E11.42 Type 2 diabetes mellitus with diabetic polyneuropathy; F33.3 Major depressive disorder, recurrent, severe with psychotic symptoms; I11.0 Hypertensive heart disease with heart failure; I50.9 Heart failure, unspecified; F02.81 Dementia in other diseases classified elsewhere, unspecified severity, with behavioral disturbance; G30.9 Alzheimer's disease, unspecified; E78.5 Hyperlipidemia, unspecified; F41.9 Anxiety disorder, unspecified; F63.9 Impulse disorder, unspecified; G40.909 Epilepsy, unspecified, not intractable, without status epilepticus; G47.00 Insomnia, unspecified; G47.33 Obstructive sleep apnea (adult) (pediatric); I25.10 Atherosclerotic heart disease of native coronary artery without angina pectoris; I95.1 Orthostatic hypotension; J44.9 Chronic obstructive pulmonary disease, unspecified; N40.0 Benign prostatic hyperplasia without lower urinary tract symptoms; Z79.82 Long term (current) use of aspirin; Z79.899 Other long term (current) drug therapy; Z86.73 Personal history of transient ischemic attack (TIA), and cerebral infarction without residual deficits; Z88.2 Allergy status to sulfonamides; Z88.8 Allergy status to other drugs, medicaments and biological substances; Z88.6 Allergy status to analgesic agent; Z88.1 Allergy status to other antibiotic agents; Z91.040 Latex allergy status; Z95.1 Presence of aortocoronary bypass graft
CPT/HCPCS: 36415; 70450; 71010; 73521; 73562; 80048; 80053; 80061; 81001; 82306; 82550; 82607; 82947; 83036; 83540; 83550; 83735; 84436; 84443; 84480; 84484; 85025; 86592; 86593; 90686; 90732; 93005; J1815; 97110; 97116; 97535; 99285-25

== ENCOUNTER 2019-05-08 17:04 | Observation (INO) | payer MEDICARE, OTHER ==
[~2019-05-08] VITALS: Ht 170.2 cm; Wt 74.0 kg
[~2019-05-08 17:04] MED LIST: ACET325T9 PO; ACET500T68 PO; ALPR0.25 PO; ALPR1TAB2 PO; ARIP5TAB13 PO; ASPI-630 PO; ATOR40TA59 PO; BUPR150T15 PO; CARV6.2541 PO; DESO59LO TP; DULO60CA6 PO; FURO40TA4 PO; HYDR25TA PO; INSU100I17 SQ; INSU100I27 SQ; ISOS30TA4 PO; LEVE500T6 PO; LOSA25TA11 PO; MAG30ORA2 PO; MAGN400O7 PO; MULT-246 PO; NAPR220C4 PO; NITR0.4T22 SL; OLAN5TAB5 PO; PERM60CR12 TP; POTA10CA PO; POTA20TA84 PO; PREG50CA PO; PRIM50TA PO; QUET50TA5 PO; SITA50TA PO; TAMS0.4C2 PO; TRAZ-120 PO
[2019-05-08] MEDS ORDERED: IV NORMAL SALINE 500ML 500 ML IV ONE (18:45)
[2019-05-08 18:51] LABS: ACETAMIN 5.5 mcg/mL (10-30); SALIC 0.8 mg/dL (2.8-20.0)
[2019-05-08 18:54] LABS: ALBUMIN 2.5 g/dL (3.4-5.0); ALBUMIN/GLOBULIN RATIO 0.6 (1.0-1.7); CALCIUM 9.1 mg/dL (8.5-10.1); CREATININE 0.7 mg/dL (0.7-1.3); GFR 107.2; MAGNESIUM 1.9 mg/dL (1.8-2.4); POTASSIUM 3.8 mmol/L (3.5-5.1); TOTAL BILIRUBIN 0.8 mg/dL (0.2-1.0); TOTAL PROTEIN 6.7 g/dL (6.4-8.2)
[2019-05-08 19:00] LABS: BASO % 0 % (0-3); EOS % 1 % (0-3); HEMATOCRIT 37.4 % (39.0-53.0); LYMPH % 10 % (24-48); MEAN CORPUSCULAR HEMOGLOBIN 30 pg (25-35); MEAN CORPUSCULAR HGB CONC 32 g/dL (31-37); MEAN CORPUSCULAR VOLUME 95 fL (79-100); MONO % 7 % (0-9); NEUT # 9.7 x10^3uL (1.8-7.7); NEUT % 82 % (31-73); PLATELET COUNT 186 x10^3/uL (140-400); RED BLOOD COUNT 3.95 x10^6/uL (4.30-5.70); RED CELL DISTRIBUTION WIDTH 13.2 % (11.5-14.5); WHITE BLOOD COUNT 11.9 x10^3/uL (4.0-11.0)
[2019-05-08 19:01] LABS: EOS # 0.1 x10^3/uL (0.0-0.7); LYMPH # 1.2 x10^3/uL (1.0-4.8); MONO # 0.9 x10^3/uL (0.0-1.1)
[2019-05-08] MEDS ORDERED: DEXTROSE 50% 25 GM / 50ML DISP.SYRIN. IV PRN (19:15)
[2019-05-08 19:49] LABS: BARBITURATES NEG (NEG); BENZODIAZEPINES POS (NEG); CANNABINOIDS NEG (NEG); COCAINE NEG (NEG); METHADONE NEG (NEG); OPIATES NEG (NEG); PHENCYCLIDINE NEG (NEG)
[2019-05-08 19:51] LABS: AMPHETAMINE/METHAMPHETAMINE NEG (NEG)
--- NOTE | 2019-05-08 19:59 | PHYS DOC ---
Past History Past Medical History: CAD, CHF, Dementia, Depression, Diabetes, Hypertension, Seizure Additional Past Medical Histor: Parkinsonism, Mild congnitive impairment, muscle weakness Past Medical History Unable to obtain due to dementia Past Surgical History: Coronary Bypass Surgery, Other Past Surgical History Unable to obtain due to dementia Alcohol Use: None Drug Use: None Social History Unable to obtain due to dementia Adult General Chief Complaint Chief Complaint: MEDICAL CLEARANCE HPI HPI 83-year-old male with past medical history of dementia and CAD with history of CABG presents with report of behavioral changes from jail for medical clearance for [facility] behavioral unit. Patient is a very poor historian. Patient will follow commands however is unclear of why he has been transferred to the emergency department. Per EMS patient is currently at his baseline. Patient denies any pain at this time. Denies shortness of breath. Denies nausea or vomiting. History of present illness limited due to patient's baseline dementia. Review of Systems Review of Systems Respiratory: Denies shortness of breath Cardiovascular: Denies chest pain GI: Denies abdominal pain, nausea, or vomiting Psych: Hx of behavioral changes Review of systems limited due to patient's baseline dementia Current Medications Current Medications Current Medications Medications (Trade) Dose Ordered Sig/Bobbi Start Time Stop Time Status Last Admin Dose Admin Dextrose (Dextrose 50%-Water Syringe) 12.5 gm PRN Q15MIN PRN 05/08/19 19:15 Insulin Human Lispro (HumaLOG) 0-5 UNITS TIDWMEALS 05/09/19 08:00 Sodium Chloride 500 ml @ 0 mls/hr 1X ONCE 05/08/19 18:45 05/08/19 18:46 DC 05/08/19 18:45 500 MLS/HR Allergies Allergies Allergies Coded Allergies Type Severity Reaction Last Updated Verified Opioids - Morphine Analogues Allergy Intermediate 08/10/17 Yes Sulfa (Sulfonamide Antibiotics) Allergy Intermediate 08/10/17 Yes adhesive Allergy Intermediate 08/10/17 Yes latex Allergy Intermediate 08/10/17 Yes lidocaine Allergy Intermediate 08/10/17 Yes morphine Allergy Intermediate 08/10/17 Yes Physical Exam Physical Exam Constitutional: Well developed, well nourished, no acute distress, non-toxic appearance HENT: Normocephalic, atraumatic, oropharynx tacky Eyes: Conjunctiva normal, no discharge Neck: Normal range of motion, no tenderness, supple Cardiovascular: Heart rate normal, regular rhythm Lungs & Thorax: Bilateral breath sounds clear to auscultation, no wheezing Abdomen: Soft, no tenderness Skin: Warm, dry, no erythema, no rash Extremities: No tenderness, ROM intact, no edema Neurologic: Alert and oriented to name only, normal motor function, normal sensory function, no focal deficits noted Psychologic: Affect flat, judgement abnormal Current Patient Data Vital Signs Vital Signs Date Time Temp Pulse Resp B/P (MAP) Pulse Ox O2 Delivery O2 Flow Rate FiO2 05/08/19 19:15 85 20 160/109 (126) 93 Room Air 05/08/19 18:08 97.7 Lab Results Laboratory Tests Test 05/08/19 17:26 White Blood Count 11.9 x10^3/uL (4.0-11.0) H Red Blood Count 3.95 x10^6/uL (4.30-5.70) L Hemoglobin 12.0 g/dL (13.0-17.5) L Hematocrit 37.4 % (39.0-53.0) L Mean Corpuscular Volume 95 fL (79-100) Mean Corpuscular Hemoglobin 30 pg (25-35) Mean Corpuscular Hemoglobin Concent 32 g/dL (31-37) Red Cell Distribution Width 13.2 % (11.5-14.5) Platelet Count 186 x10^3/uL (140-400) Neutrophils (%) (Auto) 82 % (31-73) H Lymphocytes (%) (Auto) 10 % (24-48) L Monocytes (%) (Auto) 7 % (0-9) Eosinophils (%) (Auto) 1 % (0-3) Basophils (%) (Auto) 0 % (0-3) Neutrophils # (Auto) 9.7 x10^3uL (1.8-7.7) H Lymphocytes # (Auto) 1.2 x10^3/uL (1.0-4.8) Monocytes # (Auto) 0.9 x10^3/uL (0.0-1.1) Eosinophils # (Auto) 0.1 x10^3/uL (0.0-0.7) Basophils # (Auto) 0.0 x10^3/uL (0.0-0.2) Sodium Level 138 mmol/L (136-145) Potassium Level 3.8 mmol/L (3.5-5.1) Chloride Level 101 mmol/L (98-107) Carbon Dioxide Level 26 mmol/L (21-32) Anion Gap 11 (6-14) Blood Urea Nitrogen 16 mg/dL (8-26) Creatinine 0.7 mg/dL (0.7-1.3) Estimated GFR (Cockcroft-Gault) 107.2 BUN/Creatinine Ratio 23 (6-20) H Glucose Level 193 mg/dL (70-99) H Calcium Level 9.1 mg/dL (8.5-10.1) Magnesium Level 1.9 mg/dL (1.8-2.4) Total Bilirubin 0.8 mg/dL (0.2-1.0) Aspartate Amino Transferase (AST) 16 U/L (15-37) Alanine Aminotransferase (ALT) 24 U/L (16-63) Alkaline Phosphatase 105 U/L (46-116) Creatine Kinase 33 U/L (39-308) L Creatine Kinase MB (Mass) 3.4 ng/mL (0.0-3.6) Creatine Kinase MB Relative Index 10.3 % (0-4) H Troponin I Quantitative 0.057 ng/mL (0-0.055) H Total Protein 6.7 g/dL (6.4-8.2) Albumin 2.5 g/dL (3.4-5.0) L Albumin/Globulin Ratio 0.6 (1.0-1.7) L Salicylates Level 0.8 mg/dL (2.8-20.0) L Salicylate Last Dose Date Unknown Salicylate Last Dose Time Unknown Acetaminophen Level 5.5 mcg/mL (10-30) L Acetaminophen Last Dose Date Unknown Acetaminophen Last Dose Time Unknown EKG EKG @1735 NSR at 90bpm, NO ST elevation, PAC, QRS 90ms, QT/QTc 366/452ms Radiology/Procedures Radiology/Procedures [] Course & Med Decision Making Course & Med Decision Making Pertinent Lab studies reviewed. (See chart for details) Patient [facility] EMS from jail with report of behavioral changes. Patient sent for medical clearance for possible admission to senior behavioral unit. Patient poor historian. Hx of dementia. Patient also with history of CAD with CABG. Denies pain or SOA at this time. Again patient very poor historian. No history or signs of trauma. Patient moving all extremities. Will pick and choose following commands. EKG stable. Labs obtained and posted to chart. Troponin slightly elevated. Given elevated troponin, patient requiring admission for further evaluation and treatment including serial troponins. Discussed with Dr. Villavicencio (hospitalist) who is in agreement with admission. Dragon Disclaimer Dragon Disclaimer This electronic medical record was generated, in whole or in part, using a voice recognition dictation system. Departure Departure: Impression: Primary Impression: Elevated troponin Additional Impression: Change in behavior Disposition: ADMITTED INPATIENT Admitting Physician: Arcadio Villavicencio Condition: GUARDED Referrals: BRISEYDA DUFF MD (PCP) HEART Score for Chest Pain PTs The HEART Score for CP Pts HEART Score for Chest Pain: HEART Score for Chest Pain Response (Comments) Value History Slighlty/Non-Suspicious 0 ECG Normal 0 Age > 65 2 Risk Factors >3 Risk Factors or Hx CAD 2 Troponin >1-<3x Normal Limit 1 Total 5 Risk Factors: Risk Factors: DM, Current or recent (<one month) smoker, HTN, HLP, family history of CAD, obesity. Risk Scores: Score 0 - 3: 2.5% MACE over next 6 weeks - Discharge Home Score 4 - 6: 20.3% MACE over next 6 weeks - Admit for Clinical Observation Score 7 - 10: 72.7% MACE over next 6 weeks - Early Invasive Strategies Critical Care Time Critical care time was 30 minutes which includes time at bedside, spent in discussion of patient's care with specialists and/or family members, with interpretation of laboratory and/or radiological studies and is exclusive of procedures. Problem Qualifiers SUKI SIGALA DO May 08, 2019 19:59
[2019-05-08 20:08] LABS: CLARITY,URINE CLOUDY; COLOR,URINE YELLOW
[2019-05-08 20:09] LABS: BACTERIA,URINE FEW /HPF (0-FEW); BILIRUBIN,URINE NEG (NEG); GLUCOSE,URINE NEG (NEG); HYALINE CASTS, URINE OCC /HPF; NITRITE,URINE NEG (NEG); RBC,URINE OCC /HPF (0-2); SQUAMOUS EPITHELIAL CELL,UR OCC /LPF; UROBILINOGEN,URINE 4 mg/dL (0.2 mg/dL); WBC,URINE 0 /HPF (0-4)
[2019-05-08 21:01] VITALS: BP 152/77
[2019-05-08 21:50] VITALS: BP 152/77
--- NOTE | 2019-05-08 22:38 | PDOC ---
Exam Note: Franco Note: Please also refer to the separate dictated note~for this date of service dictated separately.~Patient seen individually. Discussed the patient with Nursing staff reviewed the chart.~Reviewed interim history and current functioning. Reviewed vital signs,~Labs/ Radiology~and current medications noted below. Continue current treatment with the changes noted in the dictated addendum note Assessment: Vital Signs/I&O: Vital Signs Date Time Temp Pulse Resp B/P (MAP) Pulse Ox O2 Delivery O2 Flow Rate FiO2 05/08/19 21:50 98.3 86 15 152/77 (102) Room Air 05/08/19 21:01 93 Labs: Laboratory Tests Test 05/08/19 17:26 05/08/19 19:22 White Blood Count 11.9 x10^3/uL (4.0-11.0) H Red Blood Count 3.95 x10^6/uL (4.30-5.70) L Hemoglobin 12.0 g/dL (13.0-17.5) L Hematocrit 37.4 % (39.0-53.0) L Mean Corpuscular Volume 95 fL (79-100) Mean Corpuscular Hemoglobin 30 pg (25-35) Mean Corpuscular Hemoglobin Concent 32 g/dL (31-37) Red Cell Distribution Width 13.2 % (11.5-14.5) Platelet Count 186 x10^3/uL (140-400) Neutrophils (%) (Auto) 82 % (31-73) H Lymphocytes (%) (Auto) 10 % (24-48) L Monocytes (%) (Auto) 7 % (0-9) Eosinophils (%) (Auto) 1 % (0-3) Basophils (%) (Auto) 0 % (0-3) Neutrophils # (Auto) 9.7 x10^3uL (1.8-7.7) H Lymphocytes # (Auto) 1.2 x10^3/uL (1.0-4.8) Monocytes # (Auto) 0.9 x10^3/uL (0.0-1.1) Eosinophils # (Auto) 0.1 x10^3/uL (0.0-0.7) Basophils # (Auto) 0.0 x10^3/uL (0.0-0.2) Sodium Level 138 mmol/L (136-145) Potassium Level 3.8 mmol/L (3.5-5.1) Chloride Level 101 mmol/L (98-107) Carbon Dioxide Level 26 mmol/L (21-32) Anion Gap 11 (6-14) Blood Urea Nitrogen 16 mg/dL (8-26) Creatinine 0.7 mg/dL (0.7-1.3) Estimated GFR (Cockcroft-Gault) 107.2 BUN/Creatinine Ratio 23 (6-20) H Glucose Level 193 mg/dL (70-99) H Calcium Level 9.1 mg/dL (8.5-10.1) Magnesium Level 1.9 mg/dL (1.8-2.4) Total Bilirubin 0.8 mg/dL (0.2-1.0) Aspartate Amino Transferase (AST) 16 U/L (15-37) Alanine Aminotransferase (ALT) 24 U/L (16-63) Alkaline Phosphatase 105 U/L (46-116) Creatine Kinase 33 U/L (39-308) L Creatine Kinase MB (Mass) 3.4 ng/mL (0.0-3.6) Creatine Kinase MB Relative Index 10.3 % (0-4) H Troponin I Quantitative 0.057 ng/mL (0-0.055) H Total Protein 6.7 g/dL (6.4-8.2) Albumin 2.5 g/dL (3.4-5.0) L Albumin/Globulin Ratio 0.6 (1.0-1.7) L Salicylates Level 0.8 mg/dL (2.8-20.0) L Salicylate Last Dose Date Unknown Salicylate Last Dose Time Unknown Acetaminophen Level 5.5 mcg/mL (10-30) L Acetaminophen Last Dose Date Unknown Acetaminophen Last Dose Time Unknown Urine Collection Type Unknown Urine Color Yellow Urine Clarity Cloudy Urine pH 6.5 Urine Specific Osteen 1.025 Urine Protein 100 mg/dl (NEG-TRACE) Urine Glucose (UA) Neg mg/dL (NEG) Urine Ketones (Stick) Trace mg/dL (NEG) Urine Blood Small (NEG) Urine Nitrite Neg (NEG) Urine Bilirubin Neg (NEG) Urine Urobilinogen Dipstick 4 mg/dL (0.2 mg/dL) Urine Leukocyte Esterase Neg (NEG) Urine RBC Occ /HPF (0-2) Urine WBC 0 /HPF (0-4) Urine Squamous Epithelial Cells Occ /LPF Urine Bacteria Few /HPF (0-FEW) Urine Hyaline Casts Occ /HPF Urine Opiates Screen Neg (NEG) Urine Methadone Screen Neg (NEG) Urine Barbiturates Neg (NEG) Urine Phencyclidine Screen Neg (NEG) Urine Amphetamine/Methamphetamine Neg (NEG) Urine Benzodiazepines Screen Pos (NEG) Urine Cocaine Screen Neg (NEG) Urine Cannabinoids Screen Neg (NEG) Urine Ethyl Alcohol Neg (NEG) Current Medications: Meds: Current Medications Medications (Trade) Dose Ordered Sig/Bobbi Route PRN Reason Start Time Stop Time Status Last Admin Dose Admin Sodium Chloride 500 ml @ 0 mls/hr 1X ONCE IV 05/08/19 18:45 05/08/19 18:46 DC 05/08/19 18:45 I have reviewed the current psychotropics carefully including drug interactions. Risk benefit ratio favors no change other than as noted in my dictated progress note. Diagnosis: Problems: (1) Anxiety disorder (2) Impulse control disorder (3) Mild cognitive disorder (4) Psychosis, atypical (5) Major depressive disorder, recurrent episode SHARI CHASE MD May 08, 2019 22:38
[2019-05-09] MEDS ORDERED: TRAM50TA PO ×2 (01:47)
[2019-05-09] MEDS ORDERED: CALC-157 PO (01:47)
[2019-05-09] MEDS ORDERED: ACET325T9 RC (01:47)
[2019-05-09] MEDS ORDERED: ONDA4TAB7 PO (01:47)
[2019-05-09] MEDS ORDERED: GUAI-108 PO (01:47)
[2019-05-09] MEDS ORDERED: MELA3TAB2 PO (01:47)
[2019-05-09] MEDS ORDERED: INSU100C4 SQ (01:47)
[2019-05-09] MEDS ORDERED: CHOL200074 PO (01:47)
[2019-05-09] MEDS ORDERED: SENN-80 PO (01:47)
[2019-05-09] MEDS ORDERED: PROM25TA10 PO (01:47)
[2019-05-09] MEDS ORDERED: FINA5TAB4 PO (01:47)
[2019-05-09] MEDS ORDERED: BISA5TAB4 PO (01:47)
[2019-05-09] MEDS ORDERED: HYOS0.1279 PO (01:47)
[2019-05-09] MEDS ORDERED: BISA10SU2 RC (01:47)
[2019-05-09] MEDS ORDERED: MELO15TA23 PO (01:47)
[2019-05-09] MEDS ORDERED: CITA10TA4 PO (01:47)
[2019-05-09] MEDS ORDERED: DIVA500T17 PO (01:47)
[2019-05-09] MEDS ORDERED: METF500T16 PO (01:47)
[2019-05-09] MEDS ORDERED: ACETAMINOPHEN 325 MG TABLET PO PRN (02:15)
[2019-05-09] MEDS ORDERED: guaiFENesin DM 600/30MG 1 TAB TAB.ER.12H PO PRN (02:15)
[2019-05-09] MEDS ORDERED: traMADol 50 MG TABLET PO PRN ×2 (02:15)
[2019-05-09] MEDS ORDERED: BISACODYL TAB 5 MG TABLET.DR. PO PRN (02:15)
[2019-05-09] MEDS ORDERED: CALCIUM CARB/VIT D3 500/200 TABLET PO PRN (02:15)
[2019-05-09] MEDS ORDERED: MAGNESIUM HYDROXIDE 2,400 MG/30 ML ORAL.SUSP. PO PRN (02:15)
[2019-05-09] MEDS ORDERED: HYOSCYAMINE 0.125 MG TAB.RAPDIS PO PRN (02:30)
[2019-05-09] MEDS ORDERED: BISACODYL 10 MG SUPP.RECT PR PRN (02:30)
[2019-05-09] MEDS ORDERED: MELATONIN 3 MG TABLET PO PRN (02:30)
[2019-05-09] MEDS ORDERED: ONDANSETRON ODT 4 MG TAB.RAPDIS PO PRN (02:30)
[2019-05-09] MEDS ORDERED: ACETAMINOPHEN 650 MG SUPP.RECT. PR PRN (02:45)
[2019-05-09] MEDS ORDERED: PROMETHAZINE 25 MG TABLET. PO PRN (02:45)
[2019-05-09] MEDS ORDERED: CARVEDILOL 12.5 MG TABLET PO SCH (03:00)
[2019-05-09] MEDS ORDERED: ALPRAZolam 0.5 MG TABLET PO SCH (03:00)
[2019-05-09 06:42] VITALS: BP 160/99
[2019-05-09] MEDS ORDERED: POTASSIUM CHLORIDE 20 MEQ TABLET.ER. PO SCH (08:00)
[2019-05-09] MEDS ORDERED: ASPIRIN 81 MG TAB.CHEW PO SCH (08:00)
[2019-05-09] MEDS ORDERED: metFORMIN 500 MG TABLET PO SCH (08:00)
[2019-05-09] MEDS: INSULIN LISPRO 300 UNITS/3 ML INSULN.PEN. SQ SCH ×4 (08:00→12:00)
[2019-05-09] MEDS ORDERED: FINASTERIDE 5 MG TABLET PO SCH (09:00)
[2019-05-09] MEDS ORDERED: SENNOSIDES 8.6 MG TABLET PO SCH (09:00)
[2019-05-09] MEDS ORDERED: CHOLECALCIFEROL (VITAMIN D3) 1,000 UNIT TABLET PO SCH (09:00)
[2019-05-09] MEDS ORDERED: levETIRAcetam 500 MG TABLET PO SCH (09:00)
[2019-05-09] MEDS ORDERED: CITALOPRAM 10 MG TABLET. PO SCH (09:00)
[2019-05-09] MEDS ORDERED: FUROSEMIDE 40 MG TABLET PO SCH (09:00)
[2019-05-09] MEDS ORDERED: MULTIVITAMIN with MINERAL TABLET. PO SCH (09:00)
[2019-05-09] MEDS ORDERED: MELOXICAM 15 MG TABLET. PO SCH (09:00)
[2019-05-09] MEDS ORDERED: PREGABALIN 50 MG CAPSULE PO SCH (09:00)
[2019-05-09 10:38] VITALS: BP_SYST 116; BP_SYST 173; BP_DIAS 61; BP_DIAS 72
--- NOTE | 2019-05-09 15:51 | SSS ---
ADMIT DATE: HISTORY OF PRESENT ILLNESS: The patient is an 83-year-old male patient, a resident at [facility], who was brought to the Emergency Room with a plan to admit him to [facility] for inpatient psychiatric stabilization. The patient has been displaying increased anxiety, calling out repetitively, run into by another resident because of being disruptive, uncooperative with care, has had scheduled Xanax and tramadol for pain without much improvement and all this behavior is in a background of dementia with behavioral disturbances. The patient is extremely hard of hearing and really difficult to communicate with except by writing ____ accent and the nurse accent was a problem, but even ____ able to speak [place] accent he was unable to understand and then we have to write on a note to communicate with him. He apparently was evaluated in the Emergency Room and his troponin was found to be elevated and therefore, he was admitted to [address] [place] [address] to trend cardiac enzymes. When I questioned him, actually the pain was musculoskeletal, probably in the form of costochondritis, mostly in the left side. He has had 3 cardiac enzymes that all trending down, the first one was 0.057, second one 0.039 and 0.026. I did speak with the highway maintenance crew worker and given his age and frailty, he has a Halina lift and they recommended medical treatment and did not recommend any aggressive intervention. PAST MEDICAL HISTORY: Significant for congestive heart failure, Parkinson's disease, hypertension, type 2 diabetes mellitus and cardiomyopathy. The patient has also multiple falls. PAST PSYCHIATRIC HISTORY: Significant for major depressive disorder and dementia. ALLERGIES: He is allergic to LIDOCAINE and MORPHINE. MEDICATIONS: He is currently on following medications: He is on promethazine 25 mg every 4 hours as needed for nausea and vomiting, hyoscyamine sulfate 0.125 mg tablet every 4 hours, Flomax 0.4 mg at bedtime, carvedilol 12.5 mg twice a day with meals, aspirin 81 mg once a day, meloxicam 15 mg daily, tramadol 50 mg every 6 hours, tramadol 100 mg 4 times a day as needed, acetaminophen 650 mg every 6 hours, Tylenol 650 mg every 4 hours, primidone 50 mg at bedtime, divalproex 250 mg at bedtime. He is on Lyrica 50 mg 3 times a day, citalopram hydrobromide 30 mg daily, trazodone 25 mg at bedtime. He is on alprazolam 0.5 mg twice a day, calcium carbonate with vitamin D3 two tablets every 4 hours, potassium chloride 20 mEq twice a day, furosemide 40 mg daily, Mucinex DM extended release 600/30 mg 1 tablet twice a day, bisacodyl 10 mg suppositories rectally daily p.r.n. for constipation, bisacodyl 5 mg p.o. every 8 hours as needed, milk of magnesia 30 mL p.o. daily p.r.n. for constipation, senna 1 tablet twice a day, ondansetron 4 mg 3 times a day as needed for nausea and vomiting, metformin 500 mg twice a day. He is on NovoLog 3 units before meals and Levemir insulin 20 units at bedtime. He is on cholecalciferol for 2000 International Units p.o. daily, multivitamin 1 tablet once a day, finasteride 5 mg daily, melatonin 3 mg at bedtime. FAMILY HISTORY: Probably noncontributory. SOCIAL HISTORY: He is a resident at [facility]. He does not smoke, drink alcohol or use recreational drugs. He is mostly bed bound. He has a Halina lift. He is probably 6/6 in all his ADLs. PHYSICAL EXAMINATION: GENERAL: On arrival to the Emergency Room, he looked well and was clearly in no apparent respiratory distress, slightly pale, but no jaundice, cyanosis, or thyromegaly. No jugular venous distension. No limb edema. VITAL SIGNS: His heart rate was 85, blood pressure 160/109, temperature was 97.7, respiratory rate was 18 and oxygen saturation was 94%. HEAD, EYES, EARS, NOSE AND THROAT: Showed normocephalic, atraumatic. NECK: Supple. HEART: Showed normal first and second heart sounds. No gallop, rub or murmur. CHEST: Clear to auscultation. No crepitation or rhonchi. ABDOMEN: Distended, soft, nontender. NEUROLOGIC: He is extremely hard of hearing, but otherwise all his cranial nerves are intact. He moves his upper extremities to much good extent than his lower extremities, mostly bed bound and chair bound. He has a Halina lift for all the transfers. LABORATORY DATA: His lab work on arrival showed a serum sodium 138, potassium 3.8, chloride 101, bicarbonate 26, anion gap of 11, BUN 16, creatinine 0.7, estimated GFR was 107 mL per minute. His glucose was 193, calcium was 9.1, magnesium was 1.9. Total bilirubin, AST, ALT, alkaline phosphatase were normal. His first set troponin was 0.057. His total protein was 6.7 and albumin was 2.5. ASSESSMENT AND PLAN: The patient was admitted to [address] [place] [address]. His cardiac enzyme was trended down and in fact his second was 0.039 and the third was 0.026. I discussed the management with the Cardiology team and they do not feel that the patient need any further ischemic workup and in fact his pain is mostly musculoskeletal and marked tenderness on the left side of the chest at the chondrocostal junction. Given that he remained hemodynamically stable and afebrile, all his lab works are within normal range. A decision was made to discharge him from [address] [place] [address] to [facility] for inpatient psychiatric stabilization. FINAL DISCHARGE DIAGNOSES: Extreme anxiety and agitation, calling out repetitively, run into by another resident because he is being disruptive, uncooperative with care. He has numerous medical problems including hypertension, benign prostatic hypertrophy, type 2 diabetes, has also Parkinson's disease and congestive heart failure due to ischemic cardiomyopathy, although clinically he seems to be well compensated. He was discharged to [facility] to continue with all his medications. KIMI DE LA PAZ MD DR: ARIS/shadi JOB#: [id number] / [id number]
[2019-05-09] MEDS ORDERED: GUAI600T47 PO (16:01)
[2019-05-09] MEDS ORDERED: CALC200T3 PO (16:01)
[2019-05-09] MEDS ORDERED: INSULIN GLARGINE 300 UNITS/3 ML INSULN.PEN. SQ SCH (21:00)
[2019-05-09] MEDS ORDERED: traZODone 50 MG TABLET. PO SCH (21:00)
[2019-05-09] MEDS ORDERED: PRIMIDONE 50 MG TABLET PO SCH (21:00)
[2019-05-09] MEDS ORDERED: TAMSULOSIN 0.4 MG CAP.ER.24H. PO SCH (21:00)
[2019-05-09] MEDS ORDERED: DIVALPROEX ER 250 MG TAB.ER.24H. PO SCH (21:00)
== END 2019-05-09 14:42 | disposition short-term general hospital (02) ==
LOC: ER 17:04 → 1 SOUTH 19:15 → INTOOBSV 19:15 → ER 20:40
PROVIDERS: ADMIT Internal Medicine; ATTEND Internal Medicine
DX: F41.9 Anxiety disorder, unspecified (principal); R79.89 Other specified abnormal findings of blood chemistry; I25.10 Atherosclerotic heart disease of native coronary artery without angina pectoris; I11.0 Hypertensive heart disease with heart failure; I50.9 Heart failure, unspecified; E11.9 Type 2 diabetes mellitus without complications; F03.90 Unspecified dementia, unspecified severity, without behavioral disturbance, psychotic disturbance, mood disturbance, and anxiety; G20 Parkinson's disease; Z95.1 Presence of aortocoronary bypass graft; F33.9 Major depressive disorder, recurrent, unspecified; R29.6 Repeated falls; I25.5 Ischemic cardiomyopathy; N40.0 Benign prostatic hyperplasia without lower urinary tract symptoms
CPT/HCPCS: 36415; 80053; 80307; 80329; 81001; 82306; 82553; 82947; 83540; 83550; 83735; 84484; 85025; 87641; 93005; 99284; G0378; G0480; J1815; J7040; 96360; G0379; 82003; 99285-25

== ENCOUNTER 2019-05-09 14:10 | Inpatient (IN) | payer MEDICARE, OTHER ==
[~2019-05-09] VITALS: Ht 170.2 cm; Wt 69.1 kg
[~2019-05-09 14:10] MED LIST changes: +ACET325T9 RC; +BISA10SU4 RC; +BISA5TAB4 PO; +CALC-157 PO; +CHOL200074 PO; +CITA10TA4 PO; +DIVA500T17 PO; +FINA5TAB4 PO; +GUAI-108 PO; +HYOS0.1279 PO; +INSU100C4 SQ; +MELA3TAB2 PO; +MELO15TA23 PO; +METF500T16 PO; +ONDA4TAB7 PO; +PROM25TA10 PO; +SENN-80 PO; +TRAM50TA PO
[2019-05-09] MEDS ORDERED: BISACODYL TAB 5 MG TABLET.DR. PO PRN (15:45)
[2019-05-09] MEDS ORDERED: MAGNESIUM HYDROXIDE 2,400 MG/30 ML ORAL.SUSP. PO PRN ×2 (15:45→16:15)
[2019-05-09] MEDS ORDERED: ACETAMINOPHEN 325 MG TABLET PO PRN ×3 (15:45→16:15)
[2019-05-09 15:53] VITALS: BP 159/102
[2019-05-09 15:54] VITALS: BP 159/102
[2019-05-09] MEDS ORDERED: CALC200T3 PO (16:01)
[2019-05-09] MEDS ORDERED: GUAI600T47 PO (16:01)
[2019-05-09] MEDS ORDERED: MAG HYDROX/AL HYDROX/SIMETH 30 ML ORAL.SUSP PO PRN (16:15)
[2019-05-09] MEDS ORDERED: METHYL SALICYLATE/MENTHOL TOPICAL OINTMENT 29GM TUBE. TP PRN (16:15)
[2019-05-09] MEDS ORDERED: HYOSCYAMINE 0.125 MG TAB.RAPDIS PO PRN (16:30)
[2019-05-09] MEDS ORDERED: BISACODYL 10 MG SUPP.RECT PR PRN (16:30)
[2019-05-09] MEDS ORDERED: traMADol 50 MG TABLET PO PRN (16:45)
[2019-05-09] MEDS ORDERED: ONDANSETRON ODT 4 MG TAB.RAPDIS PO PRN (16:45)
[2019-05-09] MEDS ORDERED: CALCIUM CARBONATE 500 MG TAB.CHEW PO PRN (17:00)
[2019-05-09] MEDS ORDERED: CALCIUM CARB/VIT D3 500/200 TABLET PO PRN (17:00)
[2019-05-09] MEDS: POTASSIUM CHLORIDE 20 MEQ TABLET.ER. PO SCH (17:14)
[2019-05-09] MEDS: metFORMIN 500 MG TABLET PO SCH (17:14)
[2019-05-09] MEDS: CARVEDILOL 12.5 MG TABLET PO SCH (17:14)
[2019-05-09] MEDS: INSULIN LISPRO 300 UNITS/3 ML INSULN.PEN. SQ SCH (17:16)
[2019-05-09 17:18] LABS: VAL ACID 9 mcg/mL (50-100)
[2019-05-09] MEDS: traZODone 50 MG TABLET. PO SCH (19:58)
[2019-05-09] MEDS: TAMSULOSIN 0.4 MG CAP.ER.24H. PO SCH (19:58)
[2019-05-09] MEDS: PREGABALIN 50 MG CAPSULE PO SCH (19:58)
[2019-05-09] MEDS: ALPRAZolam 0.5 MG TABLET PO SCH (19:58)
[2019-05-09] MEDS: levETIRAcetam 500 MG TABLET PO SCH (19:58)
[2019-05-09] MEDS: SENNOSIDES 8.6 MG TABLET PO SCH (19:59)
[2019-05-09] MEDS: PRIMIDONE 50 MG TABLET PO SCH (19:59)
[2019-05-09] MEDS: INSULIN GLARGINE 300 UNITS/3 ML INSULN.PEN. SQ SCH (20:02)
--- NOTE | 2019-05-09 22:15 | PDOC ---
Exam Note: Franco Note: Please also refer to the separate dictated note~for this date of service dictated separately. Discussed the patient with Nursing staff reviewed the chart.~Reviewed interim history and current functioning. Reviewed vital signs,~Labs/ Radiology~and current medications noted below. Continue current treatment with the changes noted in the dictated addendum note Assessment: Vital Signs/I&O: Vital Signs Date Time Temp Pulse Resp B/P (MAP) Pulse Ox O2 Delivery O2 Flow Rate FiO2 05/09/19 19:54 95 05/09/19 17:15 24 Room Air 05/09/19 17:14 65 159/102 05/09/19 15:54 98.2 Labs: Laboratory Tests Test 05/09/19 16:36 05/09/19 16:48 05/09/19 19:17 Magnesium Level 1.8 mg/dL (1.8-2.4) Valproic Acid Level 9 mcg/mL (50-100) L Valproic Acid Last Dose Date 05/08/2019 Valproic Acid Last Dose Time 2100 Glucose (Fingerstick) 146 mg/dL (70-99) H 196 mg/dL (70-99) H Current Medications: Meds: Current Medications Medications (Trade) Dose Ordered Sig/Bobbi Route PRN Reason Start Time Stop Time Status Last Admin Dose Admin Olanzapine (ZyPREXA ZYDIS) 2.5 mg PRN Q2HR PRN PO PSYCHOSIS 05/09/19 16:00 05/09/19 16:23 Carvedilol (Coreg) 12.5 mg BIDWMEALS PO 05/09/19 17:00 05/09/19 17:14 Pregabalin (Lyrica) 50 mg TID PO 05/09/19 21:00 05/09/19 19:58 Tamsulosin HCl (Flomax) 0.4 mg HS PO 05/09/19 21:00 05/09/19 19:58 Tramadol HCl (Ultram) 50 mg PRN Q6HRS PRN PO PAIN 05/09/19 16:45 05/09/19 17:15 Alprazolam (Xanax) 0.5 mg BID PO 05/09/19 21:00 05/09/19 19:58 Insulin Human Lispro (HumaLOG) 3 units TIDBFRMEAL SQ 05/09/19 16:30 05/09/19 17:16 Insulin Glargine (Lantus) 20 units QHS SQ 05/09/19 21:00 05/09/19 20:02 Levetiracetam (Keppra) 1,000 mg BID PO 05/09/19 21:00 05/09/19 19:58 Potassium Chloride (Klor-Con) 20 meq BIDWMEALS PO 05/09/19 17:00 05/09/19 17:14 Primidone (Mysoline) 50 mg HS PO 05/09/19 21:00 05/09/19 19:59 Sennosides (Senna) 8.6 mg BID PO 05/09/19 21:00 05/09/19 19:59 Trazodone HCl (Desyrel) 25 mg QHS PO 05/09/19 21:00 05/09/19 19:58 Metformin HCl (Glucophage) 500 mg BIDWMEALS PO 05/09/19 17:00 05/09/19 17:14 Olanzapine (ZyPREXA ZYDIS) 5 mg ONCE ONCE PO 05/09/19 18:40 05/09/19 18:41 DC 05/09/19 18:44 I have reviewed the current psychotropics carefully including drug interactions. Risk benefit ratio favors no change other than as noted in my dictated progress note. Diagnosis: Problems: (1) Anxiety disorder (2) Impulse control disorder (3) Mild cognitive disorder (4) Psychosis, atypical (5) Major depressive disorder, recurrent episode (6) Dementia SHARI CHASE MD May 09, 2019 22:15
[2019-05-10 04:08] LABS: HEMOGLOBIN A1C 6.4 % (4.8-5.6)
[2019-05-10 05:12] LABS: THYROXINE 8.3 ug/dL (4.5-12.0)
[2019-05-10 06:33] VITALS: BP 164/95
[2019-05-10] MEDS ORDERED: CITALOPRAM 10 MG TABLET. PO SCH (09:00)
[2019-05-10] MEDS ORDERED: SERTRALINE 25 MG TABLET. PO ONE (09:15)
[2019-05-10] MEDS: INSULIN LISPRO 300 UNITS/3 ML INSULN.PEN. SQ SCH ×3 (09:58→16:30)
[2019-05-10] MEDS: CARVEDILOL 12.5 MG TABLET PO SCH ×2 (09:59→17:28)
[2019-05-10] MEDS: levETIRAcetam 500 MG TABLET PO SCH ×2 (09:59→19:21)
[2019-05-10] MEDS: ALPRAZolam 0.5 MG TABLET PO SCH ×2 (09:59→19:25)
[2019-05-10] MEDS: POTASSIUM CHLORIDE 20 MEQ TABLET.ER. PO SCH ×2 (09:59→17:28)
[2019-05-10] MEDS: metFORMIN 500 MG TABLET PO SCH ×2 (09:59→17:28)
[2019-05-10] MEDS: traMADol 50 MG TABLET PO PRN ×2 (10:00→19:53)
[2019-05-10] MEDS: PREGABALIN 50 MG CAPSULE PO SCH ×3 (10:00→19:22)
[2019-05-10] MEDS: SENNOSIDES 8.6 MG TABLET PO SCH ×2 (10:02→19:22)
[2019-05-10] MEDS: MELOXICAM 15 MG TABLET. PO SCH (10:05)
[2019-05-10] MEDS: ASPIRIN 81 MG TAB.CHEW PO SCH (10:05)
[2019-05-10] MEDS: QUEtiapine 25 MG TABLET. PO SCH ×3 (10:06→17:29)
[2019-05-10] MEDS: FINASTERIDE 5 MG TABLET PO SCH (10:06)
[2019-05-10] MEDS: FUROSEMIDE 40 MG TABLET PO SCH (10:06)
[2019-05-10] MEDS: MULTIVITAMIN with MINERAL TABLET. PO SCH (10:09)
[2019-05-10] MEDS: CHOLECALCIFEROL (VITAMIN D3) 1,000 UNIT TABLET PO SCH (10:10)
--- NOTE | 2019-05-10 13:07 | HP ---
ADMIT DATE: 05/09/2019 PSYCHIATRIC ADMISSION HISTORY AND EVALUATION This late entry, 05/09/2019, covers elements, not covered in my initial note. I met with the patient in the evening of 05/09/2019 in his room. Previously, discussed with Charlene Vega, hardware installation coordinator after we received a referral from Miles Puentes by Dr. Thomason, his primary care physician, on account of increasing anxiety, confusion, calling out repetitively. He ran into another resident because the entire unit at the long term was disrupted because of his yelling. He is uncooperative with cares. He has had significant sleep and appetite changes, appears psychotic with marked mood lability and worsening confusion. He was admitted for inpatient psychiatric hospitalization, having failed outpatient psychiatric interventions. CHIEF COMPLAINT: "____." The patient was yelling out loud, whistling loudly, extremely disruptive, as I met with him. He is unable to answer orientation questions as I persisted quite a bit with him. HISTORY OF PRESENT ILLNESS: The patient has a history of major depressive disorder; anxiety disorder and progressive memory deficits. He has been residing at the above long term for some time, but recently getting increasingly agitated. He has been on hospice services lately, but this was discontinued. He has had sleep and appetite changes, marked mood vacillations. No active suicidal or homicidal ideation. PAST PSYCHIATRIC HISTORY: As above. MEDICAL HISTORY: Positive for congestive heart failure, Parkinson's disease, type 2 diabetes mellitus, hypertension, cardiomyopathy, frequent falls, worsening dementia. He was on hospice care, which has been discontinued. ALLERGIES: LIDOCAINE and MORPHINE. CURRENT PSYCHOTROPICS: MRAD was reviewed. Diet is regular. He eats ground meat. No evidence of current UTI. No oxygen requirement. No dialysis. He is incontinent, transfer by 2-person assist. FAMILY HISTORY: Noncontributory. SOCIAL HISTORY: No history of alcohol, drug abuse, physical, sexual or elder abuse. He is not known to be a perpetrator. REACTION TO HOSPITALIZATION: The patient oblivious of this. ASSETS: Supportive living at the long term. MENTAL STATUS EXAMINATION: The patient was seen individually evening of ____. He is oriented to himself, yelling, loud, repetitive, disruptive. Insight, judgment, recent and remote memory, attention, concentration, fund of knowledge poor, consistent with his diagnosis. IMPRESSION: Major neurocognitive disorder, Alzheimer, vascular with delusion, depression, behavioral disturbance; anxiety disorder, unspecified; impulse control disorder, unspecified. Rest as above. PLAN: Admit to geropsychiatry unit at [facility]. I will see the patient daily individually from a psychiatric standpoint. Medical followup with Dr. Villavicencio. Continue the patient on his current psychotropics. Adjust further as clinically indicated. Estimated length of stay 10-12 days. DISPOSITION: Plans back to long term when stable. MAN Geno CHASE MD DR: GLENROY/shadi JOB#: [id number] / [id number]
[2019-05-10 13:13] LABS: THYROID STIM HORMONE (TSH) 0.691 uIU/mL (0.358-3.740)
[2019-05-10 15:35] VITALS: BP 134/82
[2019-05-10] MEDS: PRIMIDONE 50 MG TABLET PO SCH (19:22)
[2019-05-10] MEDS: traZODone 50 MG TABLET. PO SCH (19:22)
[2019-05-10] MEDS: TAMSULOSIN 0.4 MG CAP.ER.24H. PO SCH (19:22)
[2019-05-10] MEDS: INSULIN GLARGINE 300 UNITS/3 ML INSULN.PEN. SQ SCH (19:46)
[2019-05-10] MEDS: DIVALPROEX ER 500 MG TAB.ER.24H PO SCH (20:11)
[2019-05-10] MEDS ORDERED: DIVALPROEX ER 250 MG TAB.ER.24H. PO SCH (21:00)
--- NOTE | 2019-05-10 22:21 | PDOC ---
Exam Note: Franco Note: Please also refer to the separate dictated note~for this date of service dictated separately.~Patient seen individually. Discussed the patient with Nursing staff reviewed the chart.~Reviewed interim history and current functioning. Reviewed vital signs,~Labs/ Radiology~and current medications noted below. Continue current treatment with the changes noted in the dictated addendum note Assessment: Vital Signs/I&O: Vital Signs Date Time Temp Pulse Resp B/P (MAP) Pulse Ox O2 Delivery O2 Flow Rate FiO2 05/10/19 21:00 95 05/10/19 17:28 76 134/82 05/10/19 15:35 98.6 20 Room Air I & O 05/09/19 05/09/19 05/10/19 15:00 23:00 07:00 Intake Total 120 ml 120 ml Balance 120 ml 120 ml Labs: Laboratory Tests Test 05/10/19 07:21 05/10/19 11:51 05/10/19 16:59 05/10/19 19:59 Glucose (Fingerstick) 104 mg/dL (70-99) H 166 mg/dL (70-99) H 115 mg/dL (70-99) H 173 mg/dL (70-99) H Current Medications: Meds: Current Medications Medications (Trade) Dose Ordered Sig/Bobbi Route PRN Reason Start Time Stop Time Status Last Admin Dose Admin Aspirin (Children'S Aspirin) 81 mg DAILYWBKFT PO 05/10/19 08:00 05/10/19 10:05 Furosemide (Lasix) 40 mg DAILY PO 05/10/19 09:00 05/10/19 10:06 Finasteride (Proscar) 5 mg DAILY PO 05/10/19 09:00 05/10/19 10:06 Meloxicam (Mobic) 15 mg DAILY PO 05/10/19 09:00 05/10/19 10:05 Divalproex Sodium (Depakote Er) 500 mg QHS PO 05/10/19 21:00 05/10/19 20:11 Quetiapine Fumarate (SEROquel) 12.5 mg TID@0900,1300,1700 PO 05/10/19 09:00 05/10/19 17:29 Sertraline HCl (Zoloft) 25 mg 1X ONCE PO 05/10/19 09:15 05/10/19 09:16 DC 05/10/19 10:06 I have reviewed the current psychotropics carefully including drug interactions. Risk benefit ratio favors no change other than as noted in my dictated progress note. Diagnosis: Problems: (1) Anxiety disorder (2) Impulse control disorder (3) Mild cognitive disorder (4) Psychosis, atypical (5) Major depressive disorder, recurrent episode (6) Dementia SHARI CHASE MD May 10, 2019 22:21
--- NOTE | 2019-05-11 02:44 | CONS ---
DATE OF CONSULTATION: 05/10/2019 REASON FOR CONSULTATION: Consult for medical management. HISTORY OF PRESENT ILLNESS: The patient is an 83-year-old male patient, a resident at [facility], who was admitted through the Emergency Room and with increased anxiety, calling out repetitively, ran into by another resident, became very disruptive, uncooperative with cares. All this in a background of major neurocognitive disorder, vascular, Alzheimer with delusion, depression. While in the Emergency Room, he was noted to have mildly elevated troponin, was admitted to [address] [place] [address] where the cardiac enzymes trended down and a consultation with the Cardiology team, a decision was made not to do any further ischemic workup and was admitted to [facility] for inpatient psychiatric stabilization. The patient is extremely hard of hearing and difficulty to get any information from him. PAST MEDICAL HISTORY: Significant for acute on chronic systolic congestive heart failure, Parkinson's disease, cardiomyopathy, type 2 diabetes, hypertension, atherosclerotic heart disease, coronary artery disease, seizure disorder, muscle weakness, gait and mobility abnormalities, repeated falls, attention and concentration deficit, mild cognitive impairment, cognitive communication deficits and cellulitis of left lower extremity. PAST SURGICAL HISTORY: Unremarkable. PAST PSYCHIATRIC HISTORY: Significant for major depressive disorder and dementia. ALLERGIES: He is allergic to LIDOCAINE and MORPHINE. FAMILY HISTORY: Noncontributory. SOCIAL HISTORY: He is a resident at [facility]. He does not smoke, drink alcohol or use any recreational drugs. He is mostly bed bound. He uses Halina lift and he is probably 6/6 in all his ADLs. MEDICATIONS: He is currently on following medications: He is on promethazine 25 mg every 4 hours, hyoscyamine sulfate 0.125 mg every 4 hours, Flomax 0.4 mg at bedtime, carvedilol 12.5 mg twice a day, aspirin 81 mg once a day, meloxicam 15 mg daily, tramadol 50 mg every 6 hours, he also has 100 mg 4 times a day, Tylenol 650 mg every 6 hours and Tylenol 650 mg every 4 hours, primidone 50 mg at bedtime, divalproex 250 mg at bedtime. He is on Keppra 1000 mg twice a day, pregabalin for Lyrica 50 mg 3 times a day, citalopram hydrobromide 30 mg daily, trazodone 25 mg at bedtime, alprazolam 0.25 mg twice a day, potassium chloride 20 mEq twice a day, furosemide 40 mg daily, Mucinex 600 mg twice a day, calcium carbonate for Tums 100 mg every 4 hours, bisacodyl 10 mg suppository rectally daily p.r.n. for constipation, bisacodyl 5 mg q.8 hourly as needed, magnesium hydroxide for milk of magnesia at 30 mL p.o. daily p.r.n. for constipation, senna 1 tablet twice a day, ondansetron 4 mg 3 times a day before meals and metformin 500 mg twice a day. He is on NovoLog 3 units subcutaneously 3 times a day before meals and Levemir insulin 20 units at bedtime, cholecalciferol 2000 international units once a day, multivitamin 1 tablet once a day, finasteride 5 mg daily, melatonin 3 mg at bedtime. OBJECTIVE: GENERAL: On examining him, he looked well and was clearly in no apparent respiratory distress. Pale, but no jaundice, cyanosis, or thyromegaly. No jugular venous distension. No limb edema. VITAL SIGNS: His heart rate was 76, blood pressure 134/82, temperature was 98.6, respiratory rate was 20, and oxygen saturation was 95%. HEAD, EYES, EARS, NOSE, AND THOAT: Normocephalic, atraumatic. NECK: Supple. HEART: Showed normal first and second heart sounds. No gallop, rub or murmur. CHEST: Clear to auscultation. No crepitation or rhonchi. ABDOMEN: Distended, soft, nontender. NEUROLOGIC: He is very hard of hearing, otherwise all his cranial nerves are intact. He moves upper extremities to much good extent than lower extremities. He is mostly bedbound, chair bound. He apparently has a Halina lift. LABORATORY DATA: Showed that his white cell count was 11,900, hemoglobin 12, hematocrit 37, MCV 95, and platelet count of 186,000. His chemistry showed that his serum sodium was 138, potassium 3.8, chloride 101, bicarbonate 26, anion gap of 11, BUN 16, creatinine 0.7, estimated GFR was 107 mL per minute. His glucose was 193 and calcium was 9.1, magnesium 1.9. Serum iron, TIBC and iron saturation was all low. Total bilirubin, AST, ALT, alkaline phosphatase were normal. Total protein was 6.7, albumin was 2.5. His 25-hydroxyvitamin D was low at 27.6. His hemoglobin A1c was 6.4% and TSH was 0.691, total T4 and total T3 are all within normal limits. His serum triglyceride was 71, total cholesterol 139, LDL was 89, VLDL was 14, HDL was 36, and the ratio was 3. His urinalysis was unremarkable. Toxic screen was unremarkable and his treponema pallidum antibodies were nonreactive. IMPRESSION AND PLAN: In summary, this is an 83-year-old male patient, a resident at [facility], who was admitted with increased anxiety, calling out repetitively, ran into by another resident and became disruptive, uncooperative with cares, all this in a background of major neurocognitive disorder, vascular, Alzheimer with delusion, depression. He is here for inpatient psychiatric stabilization. Medically all in all he seemed to be stable. All his vital signs are within normal limits. All his lab works are within normal range. I will continue with all his current medication. Review of all other labs is still pending at the time of this dictation and make necessary recommendation. Thank you, Dr. Ford for allowing me to participate in the care of this patient. KIMI DE LA PAZ MD DR: ARIS/shadi JOB#: [id number] / [id number]
[2019-05-11 06:18] VITALS: BP 129/73
[2019-05-11] MEDS: POTASSIUM CHLORIDE 20 MEQ TABLET.ER. PO SCH ×2 (07:28→18:24)
[2019-05-11] MEDS: CHOLECALCIFEROL (VITAMIN D3) 1,000 UNIT TABLET PO SCH (07:28)
[2019-05-11] MEDS: FUROSEMIDE 40 MG TABLET PO SCH (07:29)
[2019-05-11] MEDS: MULTIVITAMIN with MINERAL TABLET. PO SCH (07:29)
[2019-05-11] MEDS: PREGABALIN 50 MG CAPSULE PO SCH ×3 (07:29→20:06)
[2019-05-11] MEDS: MELOXICAM 15 MG TABLET. PO SCH (07:29)
[2019-05-11] MEDS: QUEtiapine 25 MG TABLET. PO SCH ×3 (07:29→18:24)
[2019-05-11] MEDS: ASPIRIN 81 MG TAB.CHEW PO SCH (07:29)
[2019-05-11] MEDS: SENNOSIDES 8.6 MG TABLET PO SCH ×2 (07:29→20:06)
[2019-05-11] MEDS: ALPRAZolam 0.5 MG TABLET PO SCH ×2 (07:29→20:05)
[2019-05-11] MEDS: FINASTERIDE 5 MG TABLET PO SCH (07:30)
[2019-05-11] MEDS: CARVEDILOL 12.5 MG TABLET PO SCH ×2 (07:30→18:23)
[2019-05-11] MEDS: INSULIN LISPRO 300 UNITS/3 ML INSULN.PEN. SQ SCH ×3 (07:30→18:20)
[2019-05-11] MEDS: metFORMIN 500 MG TABLET PO SCH ×2 (07:30→18:24)
[2019-05-11] MEDS: levETIRAcetam 500 MG TABLET PO SCH ×2 (07:30→20:07)
[2019-05-11] MEDS: SERTRALINE 50 MG TABLET. PO SCH (07:31)
[2019-05-11] MEDS: traMADol 50 MG TABLET PO PRN (11:39)
[2019-05-11 16:14] VITALS: BP 125/74
[2019-05-11] MEDS: TAMSULOSIN 0.4 MG CAP.ER.24H. PO SCH (20:06)
[2019-05-11] MEDS: PRIMIDONE 50 MG TABLET PO SCH (20:06)
[2019-05-11] MEDS: DIVALPROEX ER 500 MG TAB.ER.24H PO SCH (20:06)
[2019-05-11] MEDS: traZODone 50 MG TABLET. PO SCH (20:07)
[2019-05-11] MEDS: INSULIN GLARGINE 300 UNITS/3 ML INSULN.PEN. SQ SCH (20:09)
[2019-05-11] MEDS: traMADol 50 MG TABLET PO SCH (20:11)
[2019-05-12 06:23] VITALS: BP 141/87
[2019-05-12] MEDS: INSULIN LISPRO 300 UNITS/3 ML INSULN.PEN. SQ SCH ×3 (08:11→18:21)
[2019-05-12] MEDS: CHOLECALCIFEROL (VITAMIN D3) 1,000 UNIT TABLET PO SCH (09:17)
[2019-05-12] MEDS: SENNOSIDES 8.6 MG TABLET PO SCH ×2 (09:18→19:37)
[2019-05-12] MEDS: QUEtiapine 25 MG TABLET. PO SCH ×4 (09:18→17:28)
[2019-05-12] MEDS: ASPIRIN 81 MG TAB.CHEW PO SCH (09:18)
[2019-05-12] MEDS: MULTIVITAMIN with MINERAL TABLET. PO SCH (09:18)
[2019-05-12] MEDS: MELOXICAM 15 MG TABLET. PO SCH (09:18)
[2019-05-12] MEDS: SERTRALINE 50 MG TABLET. PO SCH (09:18)
[2019-05-12] MEDS: FUROSEMIDE 40 MG TABLET PO SCH (09:18)
[2019-05-12] MEDS: levETIRAcetam 500 MG TABLET PO SCH ×2 (09:18→19:39)
[2019-05-12] MEDS: POTASSIUM CHLORIDE 20 MEQ TABLET.ER. PO SCH ×2 (09:19→17:27)
[2019-05-12] MEDS: CARVEDILOL 12.5 MG TABLET PO SCH ×2 (09:19→17:29)
[2019-05-12] MEDS: metFORMIN 500 MG TABLET PO SCH ×2 (09:19→17:27)
[2019-05-12] MEDS: FINASTERIDE 5 MG TABLET PO SCH (09:19)
[2019-05-12] MEDS: PREGABALIN 50 MG CAPSULE PO SCH ×4 (09:22→17:27)
[2019-05-12] MEDS: ALPRAZolam 0.5 MG TABLET PO SCH ×2 (09:22→19:38)
[2019-05-12] MEDS: traMADol 50 MG TABLET PO SCH ×5 (09:22→19:38)
--- NOTE | 2019-05-12 10:17 | PDOC ---
Exam Note: Franco Note: Late entry for DOS 05/11/2019. Please also refer to the separate dictated note~for this date of service dictated separately.~Patient seen individually. Discussed the patient with Nursing staff reviewed the chart.~Reviewed interim history and current functioning. Reviewed vital signs,~Labs/ Radiology~and current medications noted below. Continue current treatment with the changes noted in the dictated addendum note Assessment: Vital Signs/I&O: Vital Signs Date Time Temp Pulse Resp B/P (MAP) Pulse Ox O2 Delivery O2 Flow Rate FiO2 05/12/19 09:19 80 141/87 05/12/19 06:23 97.4 14 96 Room Air I & O 05/11/19 05/11/19 05/12/19 14:59 22:59 06:59 Intake Total 720 ml 240 ml 120 ml Balance 720 ml 240 ml 120 ml Labs: Laboratory Tests Test 05/11/19 11:59 05/11/19 17:05 05/11/19 19:07 05/12/19 07:48 Glucose (Fingerstick) 105 mg/dL (70-99) H 167 mg/dL (70-99) H 191 mg/dL (70-99) H 66 mg/dL (70-99) L Test 05/12/19 08:22 Glucose (Fingerstick) 83 mg/dL (70-99) Current Medications: Meds: Current Medications Medications (Trade) Dose Ordered Sig/Bobbi Route PRN Reason Start Time Stop Time Status Last Admin Dose Admin Tramadol HCl (Ultram) 100 mg QID PO 05/11/19 21:00 05/12/19 09:22 I have reviewed the current psychotropics carefully including drug interactions. Risk benefit ratio favors no change other than as noted in my dictated progress note. Diagnosis: Problems: (1) Anxiety disorder (2) Impulse control disorder (3) Mild cognitive disorder (4) Psychosis, atypical (5) Major depressive disorder, recurrent episode (6) Dementia SHARI CHASE MD May 12, 2019 10:17
--- NOTE | 2019-05-12 13:02 | PN ---
DATE: 05/10/2019 PSYCHIATRIC PROGRESS NOTE This late entry 05/10/2019 covers elements not covered in my initial note. SUBJECTIVE: I met with the patient evening of 05/10/2019. The patient slept 6 hours previous night, then took a nap during the day. He has had some pain, receives tramadol, which seems to help his agitation as well. He does better with a pocket talker for communication because of being hard of hearing. At one point, he was yelling that his mother and brother were . Remains anxious, somewhat obsessive. REVIEW OF SYSTEMS: Hard of hearing, impaired ambulation, in wheelchair. No CV, , pulmonary, eye system symptoms on review. MENTAL STATUS EXAM: Oriented to himself and situation. When proper communication is initiated with a hearing amplifier, he is much more oriented than it seemed initially. Speech is coherent, abstraction fair, computation impaired, language function intact, attention span short. Mood and affect remain somewhat anxious, labile, but better than before. LABORATORY DATA: Reviewed. IMPRESSION: Major depressive disorder with psychotic features; anxiety disorder, unspecified; mild cognitive impairment. Rest unchanged. PLAN: Change Celexa to Zoloft 50 mg a day. Valproic acid level is subtherapeutic at 9. We will increase Depakote ER to 500 mg p.o. at bedtime. Check CBC, CMP, valproic acid level in 3 days. Start Seroquel 12.5 mg 9 a.m., 1:00 p.m., 5:00 p.m. Continue rest unchanged for now including Xanax 0.5 b.i.d., Zoloft 50 mg a day, trazodone along with Zyprexa p.r.n. and melatonin. MAN Geno CHASE MD DR: GLENROY/shadi JOB#: [id number] / [id number]
[2019-05-12 15:59] VITALS: BP 131/80
[2019-05-12] MEDS: DIVALPROEX ER 500 MG TAB.ER.24H PO SCH (19:38)
[2019-05-12] MEDS: PRIMIDONE 50 MG TABLET PO SCH (19:38)
[2019-05-12] MEDS: traZODone 50 MG TABLET. PO SCH (19:38)
[2019-05-12] MEDS: TAMSULOSIN 0.4 MG CAP.ER.24H. PO SCH (19:38)
[2019-05-12] MEDS: INSULIN GLARGINE 300 UNITS/3 ML INSULN.PEN. SQ SCH (19:42)
--- NOTE | 2019-05-12 22:24 | PDOC ---
Exam Note: Franco Note: Please also refer to the separate dictated note~for this date of service dictated separately.~Patient seen individually. Discussed the patient with Nursing staff reviewed the chart.~Reviewed interim history and current functioning. Reviewed vital signs,~Labs/ Radiology~and current medications noted below. Continue current treatment with the changes noted in the dictated addendum note Assessment: Vital Signs/I&O: Vital Signs Date Time Temp Pulse Resp B/P (MAP) Pulse Ox O2 Delivery O2 Flow Rate FiO2 05/12/19 19:38 93 05/12/19 17:29 87 131/80 05/12/19 15:59 97.9 20 05/12/19 06:23 Room Air I & O 05/11/19 05/11/19 05/12/19 14:59 22:59 06:59 Intake Total 720 ml 240 ml 120 ml Balance 720 ml 240 ml 120 ml Labs: Laboratory Tests Test 05/12/19 07:48 05/12/19 08:22 05/12/19 11:45 05/12/19 16:44 Glucose (Fingerstick) 66 mg/dL (70-99) L 83 mg/dL (70-99) 99 mg/dL (70-99) 66 mg/dL (70-99) L Test 05/12/19 19:02 Glucose (Fingerstick) 100 mg/dL (70-99) H Current Medications: I have reviewed the current psychotropics carefully including drug interactions. Risk benefit ratio favors no change other than as noted in my dictated progress note. Diagnosis: Problems: (1) Anxiety disorder (2) Impulse control disorder (3) Mild cognitive disorder (4) Psychosis, atypical (5) Major depressive disorder, recurrent episode (6) Dementia SHARI CHASE MD May 12, 2019 22:24
--- NOTE | 2019-05-12 22:36 | PN ---
DATE: 05/11/2019 PSYCHIATRIC PROGRESS NOTE This late entry 05/11/2019 covers elements not covered in my initial note. SUBJECTIVE: I met with the patient in the evening and staffed at a treatment team meeting with the entire team in the morning. I reviewed the patient's history at length. The patient slept 6-1/4 hours. He is doing much better communicating with the Pocketalker because he is hard of hearing. REVIEW OF SYSTEMS: Ambulation impaired, in wheelchair. Does complain of pain, does better with tramadol. Remote memory is reasonable, recent had some mild deficits. REVIEW OF SYSTEMS: Other than above: No CV, , pulmonary, eye, ENT system symptoms on review. MENTAL STATUS EXAM: Oriented to himself and situation. Speech is coherent, has some latency. Abstraction fair, computation impaired, language function intact, attention span short. Mood and affect somewhat withdrawn, but much less irritable and labile. LABORATORY DATA: Reviewed. IMPRESSION: Unchanged from initial note. Major depressive disorder, recurrent with psychotic features, in partial remission, mild cognitive impairment; impulse control disorder; anxiety disorder, unspecified. PLAN: Continue psychotropics from initial note. Depakote is being adjusted. Maintain Seroquel. Continue Xanax for now, but we will try and taper it. SHARI CHASE MD DR: GLENROY/shadi JOB#: [id number] / [id number]
[2019-05-13 05:59] VITALS: BP 138/85
[2019-05-13 07:03] LABS: BASO % 0 % (0-3); EOS # 0.3 x10^3/uL (0.0-0.7); EOS % 4 % (0-3); HEMATOCRIT 37.4 % (39.0-53.0); HEMOGLOBIN 12.4 g/dL (13.0-17.5); LYMPH # 2.7 x10^3/uL (1.0-4.8); LYMPH % 30 % (24-48); MEAN CORPUSCULAR HEMOGLOBIN 31 pg (25-35); MEAN CORPUSCULAR HGB CONC 33 g/dL (31-37); MEAN CORPUSCULAR VOLUME 93 fL (79-100); MONO # 0.7 x10^3/uL (0.0-1.1); MONO % 7 % (0-9); NEUT # 5.5 x10^3uL (1.8-7.7); NEUT % 59 % (31-73); PLATELET COUNT 285 x10^3/uL (140-400); RED BLOOD COUNT 4.03 x10^6/uL (4.30-5.70); RED CELL DISTRIBUTION WIDTH 13.7 % (11.5-14.5); WHITE BLOOD COUNT 9.2 x10^3/uL (4.0-11.0)
[2019-05-13 07:04] LABS: ALBUMIN 2.4 g/dL (3.4-5.0); ALBUMIN/GLOBULIN RATIO 0.6 (1.0-1.7); ALK PHOS 88 U/L (46-116); ALT (SGPT) 27 U/L (16-63); ANION GAP 9 (6-14); AST (SGOT) 16 U/L (15-37); BLOOD UREA NITROGEN 14 mg/dL (8-26); BUN/CREATININE RATIO 20 (6-20); CALCIUM 8.7 mg/dL (8.5-10.1); CARBON DIOXIDE 30 mmol/L (21-32); CHLORIDE 102 mmol/L (98-107); CREATININE 0.7 mg/dL (0.7-1.3); GFR 107.2; GLUCOSE 66 mg/dL (70-99); SODIUM 141 mmol/L (136-145); TOTAL BILIRUBIN 0.3 mg/dL (0.2-1.0); TOTAL PROTEIN 6.3 g/dL (6.4-8.2)
[2019-05-13 07:15] LABS: VAL ACID 19 mcg/mL (50-100)
[2019-05-13] MEDS: INSULIN LISPRO 300 UNITS/3 ML INSULN.PEN. SQ SCH ×3 (07:41→16:27)
[2019-05-13] MEDS: ASPIRIN 81 MG TAB.CHEW PO SCH (08:18)
[2019-05-13] MEDS: PREGABALIN 50 MG CAPSULE PO SCH ×3 (08:18→21:05)
[2019-05-13] MEDS: metFORMIN 500 MG TABLET PO SCH ×2 (08:18→18:29)
[2019-05-13] MEDS: FINASTERIDE 5 MG TABLET PO SCH (08:18)
[2019-05-13] MEDS: ALPRAZolam 0.5 MG TABLET PO SCH ×2 (08:19→21:04)
[2019-05-13] MEDS: FUROSEMIDE 40 MG TABLET PO SCH (08:19)
[2019-05-13] MEDS: traMADol 50 MG TABLET PO SCH ×4 (08:19→21:05)
[2019-05-13] MEDS: CARVEDILOL 12.5 MG TABLET PO SCH ×2 (08:19→18:29)
[2019-05-13] MEDS: SERTRALINE 50 MG TABLET. PO SCH (08:19)
[2019-05-13] MEDS: MELOXICAM 15 MG TABLET. PO SCH (08:21)
[2019-05-13] MEDS: levETIRAcetam 500 MG TABLET PO SCH ×2 (08:21→21:05)
[2019-05-13] MEDS: QUEtiapine 25 MG TABLET. PO SCH ×3 (08:21→18:30)
[2019-05-13] MEDS: POTASSIUM CHLORIDE 20 MEQ TABLET.ER. PO SCH ×2 (08:22→18:30)
[2019-05-13] MEDS: CHOLECALCIFEROL (VITAMIN D3) 1,000 UNIT TABLET PO SCH (11:28)
[2019-05-13] MEDS: MULTIVITAMIN with MINERAL TABLET. PO SCH (11:28)
[2019-05-13] MEDS: SENNOSIDES 8.6 MG TABLET PO SCH ×2 (11:29→21:04)
[2019-05-13 15:41] VITALS: BP 125/70
[2019-05-13] MEDS: INSULIN GLARGINE 300 UNITS/3 ML INSULN.PEN. SQ SCH (21:00)
[2019-05-13] MEDS: TAMSULOSIN 0.4 MG CAP.ER.24H. PO SCH (21:04)
[2019-05-13] MEDS: PRIMIDONE 50 MG TABLET PO SCH (21:05)
[2019-05-13] MEDS: DIVALPROEX ER 500 MG TAB.ER.24H PO SCH (21:05)
[2019-05-13] MEDS: traZODone 50 MG TABLET. PO SCH (21:05)
[2019-05-13] MEDS ORDERED: INSULIN GLARGINE 300 UNITS/3 ML INSULN.PEN. SQ ONE (21:15)
--- NOTE | 2019-05-13 22:49 | PDOC ---
Exam Note: Franco Note: Please also refer to the separate dictated note~for this date of service dictated separately.~Patient seen individually. Discussed the patient with Nursing staff reviewed the chart.~Reviewed interim history and current functioning. Reviewed vital signs,~Labs/ Radiology~and current medications noted below. Continue current treatment with the changes noted in the dictated addendum note Assessment: Vital Signs/I&O: Vital Signs Date Time Temp Pulse Resp B/P (MAP) Pulse Ox O2 Delivery O2 Flow Rate FiO2 05/13/19 21:05 98 05/13/19 18:29 63 125/70 05/13/19 15:41 97.2 19 Room Air I & O 05/12/19 05/12/19 05/13/19 14:59 22:59 06:59 Intake Total 720 ml 360 ml Balance 720 ml 360 ml Labs: Laboratory Tests Test 05/13/19 06:43 05/13/19 07:08 05/13/19 11:12 05/13/19 16:03 White Blood Count 9.2 x10^3/uL (4.0-11.0) Red Blood Count 4.03 x10^6/uL (4.30-5.70) L Hemoglobin 12.4 g/dL (13.0-17.5) L Hematocrit 37.4 % (39.0-53.0) L Mean Corpuscular Volume 93 fL (79-100) Mean Corpuscular Hemoglobin 31 pg (25-35) Mean Corpuscular Hemoglobin Concent 33 g/dL (31-37) Red Cell Distribution Width 13.7 % (11.5-14.5) Platelet Count 285 x10^3/uL (140-400) Neutrophils (%) (Auto) 59 % (31-73) Lymphocytes (%) (Auto) 30 % (24-48) Monocytes (%) (Auto) 7 % (0-9) Eosinophils (%) (Auto) 4 % (0-3) H Basophils (%) (Auto) 0 % (0-3) Neutrophils # (Auto) 5.5 x10^3uL (1.8-7.7) Lymphocytes # (Auto) 2.7 x10^3/uL (1.0-4.8) Monocytes # (Auto) 0.7 x10^3/uL (0.0-1.1) Eosinophils # (Auto) 0.3 x10^3/uL (0.0-0.7) Basophils # (Auto) 0.0 x10^3/uL (0.0-0.2) Sodium Level 141 mmol/L (136-145) Potassium Level 4.0 mmol/L (3.5-5.1) Chloride Level 102 mmol/L (98-107) Carbon Dioxide Level 30 mmol/L (21-32) Anion Gap 9 (6-14) Blood Urea Nitrogen 14 mg/dL (8-26) Creatinine 0.7 mg/dL (0.7-1.3) Estimated GFR (Cockcroft-Gault) 107.2 BUN/Creatinine Ratio 20 (6-20) Glucose Level 66 mg/dL (70-99) L Calcium Level 8.7 mg/dL (8.5-10.1) Total Bilirubin 0.3 mg/dL (0.2-1.0) Aspartate Amino Transferase (AST) 16 U/L (15-37) Alanine Aminotransferase (ALT) 27 U/L (16-63) Alkaline Phosphatase 88 U/L (46-116) Total Protein 6.3 g/dL (6.4-8.2) L Albumin 2.4 g/dL (3.4-5.0) L Albumin/Globulin Ratio 0.6 (1.0-1.7) L Valproic Acid Level 19 mcg/mL (50-100) L Valproic Acid Last Dose Date 05/12/2019 Valproic Acid Last Dose Time 2100 Glucose (Fingerstick) 60 mg/dL (70-99) L 93 mg/dL (70-99) 103 mg/dL (70-99) H Test 05/13/19 19:15 Glucose (Fingerstick) 75 mg/dL (70-99) Current Medications: Meds: Current Medications Medications (Trade) Dose Ordered Sig/Bobbi Route PRN Reason Start Time Stop Time Status Last Admin Dose Admin Insulin Glargine (Lantus) 10 units 1X ONCE SQ 05/13/19 21:15 05/13/19 21:37 DC 05/13/19 21:12 I have reviewed the current psychotropics carefully including drug interactions. Risk benefit ratio favors no change other than as noted in my dictated progress note. Diagnosis: Problems: (1) Anxiety disorder (2) Impulse control disorder (3) Mild cognitive disorder (4) Psychosis, atypical (5) Major depressive disorder, recurrent episode (6) Dementia SHARI CHASE MD May 13, 2019 22:49
[2019-05-14 05:55] VITALS: BP 148/83
[2019-05-14] MEDS: INSULIN LISPRO 300 UNITS/3 ML INSULN.PEN. SQ SCH ×3 (07:30→17:28)
[2019-05-14] MEDS: ASPIRIN 81 MG TAB.CHEW PO SCH (08:04)
[2019-05-14] MEDS: CARVEDILOL 12.5 MG TABLET PO SCH ×2 (08:04→17:27)
[2019-05-14] MEDS: levETIRAcetam 500 MG TABLET PO SCH ×2 (08:04→20:37)
[2019-05-14] MEDS: SERTRALINE 50 MG TABLET. PO SCH (08:04)
[2019-05-14] MEDS: MULTIVITAMIN with MINERAL TABLET. PO SCH (08:05)
[2019-05-14] MEDS: FINASTERIDE 5 MG TABLET PO SCH (08:05)
[2019-05-14] MEDS: FUROSEMIDE 40 MG TABLET PO SCH (08:05)
[2019-05-14] MEDS: POTASSIUM CHLORIDE 20 MEQ TABLET.ER. PO SCH ×2 (08:05→17:27)
[2019-05-14] MEDS: metFORMIN 500 MG TABLET PO SCH ×2 (08:05→17:27)
[2019-05-14] MEDS: SENNOSIDES 8.6 MG TABLET PO SCH ×2 (08:06→20:38)
[2019-05-14] MEDS: MELOXICAM 15 MG TABLET. PO SCH (08:06)
[2019-05-14] MEDS: CHOLECALCIFEROL (VITAMIN D3) 1,000 UNIT TABLET PO SCH (08:06)
[2019-05-14] MEDS: PREGABALIN 50 MG CAPSULE PO SCH ×3 (08:10→20:38)
[2019-05-14] MEDS: ALPRAZolam 0.5 MG TABLET PO SCH ×2 (08:10→20:38)
[2019-05-14] MEDS: traMADol 50 MG TABLET PO SCH ×4 (08:11→20:38)
[2019-05-14] MEDS: QUEtiapine 25 MG TABLET. PO SCH ×3 (08:11→17:27)
[2019-05-14 16:05] VITALS: BP 120/71
[2019-05-14] MEDS: DIVALPROEX ER 500 MG TAB.ER.24H PO SCH (20:37)
[2019-05-14] MEDS: TAMSULOSIN 0.4 MG CAP.ER.24H. PO SCH (20:37)
[2019-05-14] MEDS: MELATONIN 3 MG TABLET PO PRN (20:37)
[2019-05-14] MEDS: PRIMIDONE 50 MG TABLET PO SCH (20:38)
[2019-05-14] MEDS: traZODone 50 MG TABLET. PO SCH (20:39)
[2019-05-14] MEDS: INSULIN GLARGINE 300 UNITS/3 ML INSULN.PEN. SQ SCH (20:45)
--- NOTE | 2019-05-14 22:18 | PN ---
DATE: 05/12/2019 PSYCHIATRIC PROGRESS NOTE This late entry of 05/12/2019 covers the elements not covered in my initial note. SUBJECTIVE: I met with the patient in the evening of 05/12/2019. The patient slept 9-1/4 hours previous night. Overall, per nursing report, he has done better, took a shower. No yelling. He is hard of hearing, I had to talk loudly into his ear with an amplifier. REVIEW OF SYSTEMS: Impaired ambulation. No CV, , pulmonary, eye system symptoms on review. MENTAL STATUS EXAM: Oriented to himself and situation. Speech has some latency, coherent. Abstraction fair, computation impaired, language function intact, attention span short. Mood and affect improved. LABORATORY DATA: Reviewed. IMPRESSION: Unchanged from initial note. PLAN: No change from initial note. MAN Geno CHASE MD DR: GLENROY/shadi JOB#: [id number] / [id number]
--- NOTE | 2019-05-14 22:20 | PDOC ---
Exam Note: Franco Note: Please also refer to the separate dictated note~for this date of service dictated separately.~Patient seen individually. Discussed the patient with Nursing staff reviewed the chart.~Reviewed interim history and current functioning. Reviewed vital signs,~Labs/ Radiology~and current medications noted below. Continue current treatment with the changes noted in the dictated addendum note Assessment: Vital Signs/I&O: Vital Signs Date Time Temp Pulse Resp B/P (MAP) Pulse Ox O2 Delivery O2 Flow Rate FiO2 05/14/19 17:27 18 92 05/14/19 17:27 67 120/71 05/14/19 16:05 98.1 05/14/19 05:55 Room Air I & O 05/13/19 05/13/19 05/14/19 14:59 22:59 06:59 Intake Total 720 ml 0 ml 120 ml Balance 720 ml 0 ml 120 ml Labs: Laboratory Tests Test 05/14/19 07:03 05/14/19 11:42 05/14/19 17:11 05/14/19 19:18 Glucose (Fingerstick) 72 mg/dL (70-99) 140 mg/dL (70-99) H 113 mg/dL (70-99) H 136 mg/dL (70-99) H Current Medications: Meds: Current Medications Medications (Trade) Dose Ordered Sig/Bobbi Route PRN Reason Start Time Stop Time Status Last Admin Dose Admin Quetiapine Fumarate (SEROquel) 12.5 mg AFTRNOON PO 05/14/19 13:00 05/14/19 13:16 Quetiapine Fumarate (SEROquel) 25 mg BIDWMEALS PO 05/14/19 09:00 05/14/19 17:27 I have reviewed the current psychotropics carefully including drug interactions. Risk benefit ratio favors no change other than as noted in my dictated progress note. Diagnosis: Problems: (1) Anxiety disorder (2) Impulse control disorder (3) Mild cognitive disorder (4) Psychosis, atypical (5) Major depressive disorder, recurrent episode (6) Dementia SHARI CHASE MD May 14, 2019 22:20
[2019-05-15 06:12] VITALS: BP 136/53
[2019-05-15] MEDS: INSULIN LISPRO 300 UNITS/3 ML INSULN.PEN. SQ SCH ×3 (07:30→16:30)
[2019-05-15] MEDS: levETIRAcetam 500 MG TABLET PO SCH ×2 (08:10→20:24)
[2019-05-15] MEDS: CHOLECALCIFEROL (VITAMIN D3) 1,000 UNIT TABLET PO SCH (08:10)
[2019-05-15] MEDS: FINASTERIDE 5 MG TABLET PO SCH (08:10)
[2019-05-15] MEDS: POTASSIUM CHLORIDE 20 MEQ TABLET.ER. PO SCH ×2 (08:11→17:30)
[2019-05-15] MEDS: MELOXICAM 15 MG TABLET. PO SCH (08:11)
[2019-05-15] MEDS: ASPIRIN 81 MG TAB.CHEW PO SCH (08:11)
[2019-05-15] MEDS: MULTIVITAMIN with MINERAL TABLET. PO SCH (08:11)
[2019-05-15] MEDS: metFORMIN 500 MG TABLET PO SCH ×2 (08:11→17:29)
[2019-05-15] MEDS: CARVEDILOL 12.5 MG TABLET PO SCH ×2 (08:11→17:30)
[2019-05-15] MEDS: QUEtiapine 25 MG TABLET. PO SCH ×3 (08:11→17:30)
[2019-05-15] MEDS: SENNOSIDES 8.6 MG TABLET PO SCH ×2 (08:12→20:30)
[2019-05-15] MEDS: FUROSEMIDE 40 MG TABLET PO SCH (08:12)
[2019-05-15] MEDS: PREGABALIN 50 MG CAPSULE PO SCH ×3 (08:25→20:30)
[2019-05-15] MEDS: SERTRALINE 50 MG TABLET. PO SCH (08:26)
[2019-05-15] MEDS: traMADol 50 MG TABLET PO SCH ×4 (08:27→20:31)
[2019-05-15] MEDS: ALPRAZolam 0.5 MG TABLET PO SCH ×2 (08:30→20:31)
[2019-05-15] MEDS ORDERED: CALCIUM CARBONATE 500 MG TAB.CHEW PO PRN (14:00)
[2019-05-15 16:24] VITALS: BP 136/83
[2019-05-15] MEDS: DIVALPROEX ER 500 MG TAB.ER.24H PO SCH (20:24)
[2019-05-15] MEDS: TAMSULOSIN 0.4 MG CAP.ER.24H. PO SCH (20:24)
[2019-05-15] MEDS: PRIMIDONE 50 MG TABLET PO SCH (20:30)
[2019-05-15] MEDS: traZODone 50 MG TABLET. PO SCH (20:31)
[2019-05-15] MEDS: INSULIN GLARGINE 300 UNITS/3 ML INSULN.PEN. SQ SCH (20:35)
--- NOTE | 2019-05-15 22:28 | PDOC ---
Exam Note: Franco Note: Please also refer to the separate dictated note~for this date of service dictated separately.~Patient seen individually. Discussed the patient with Nursing staff reviewed the chart.~Reviewed interim history and current functioning. Reviewed vital signs,~Labs/ Radiology~and current medications noted below. Continue current treatment with the changes noted in the dictated addendum note Assessment: Vital Signs/I&O: Vital Signs Date Time Temp Pulse Resp B/P (MAP) Pulse Ox O2 Delivery O2 Flow Rate FiO2 05/15/19 19:00 Room Air 05/15/19 17:30 73 136/83 05/15/19 16:24 97.5 17 94 I & O 05/14/19 05/14/19 05/15/19 15:00 23:00 07:00 Intake Total 720 ml 720 ml Balance 720 ml 720 ml Labs: Laboratory Tests Test 05/15/19 07:15 05/15/19 11:52 05/15/19 16:45 05/15/19 19:48 Glucose (Fingerstick) 56 mg/dL (70-99) L 120 mg/dL (70-99) H 76 mg/dL (70-99) 126 mg/dL (70-99) H Current Medications: Meds: Current Medications Medications (Trade) Dose Ordered Sig/Bobbi Route PRN Reason Start Time Stop Time Status Last Admin Dose Admin Sertraline HCl (Zoloft) 75 mg DAILY PO 05/15/19 09:00 05/15/19 08:26 I have reviewed the current psychotropics carefully including drug interactions. Risk benefit ratio favors no change other than as noted in my dictated progress note. Diagnosis: Problems: (1) Anxiety disorder (2) Impulse control disorder (3) Mild cognitive disorder (4) Psychosis, atypical (5) Major depressive disorder, recurrent episode (6) Dementia SHARI CHASE MD May 15, 2019 22:28
[2019-05-16] VITALS (9 sets, daily range): BP systolic 136–215; BP diastolic 81–127
--- NOTE | 2019-05-16 00:21 | PN ---
DATE: 05/13/2019 PSYCHIATRIC PROGRESS NOTE This late entry 05/13/2019 covers elements not covered in my initial note. SUBJECTIVE: I met with the patient in the evening. The patient slept 7-3/4 hours previous night. The patient has been yelling at times, verbally abusive to staff, but less so than before. REVIEW OF SYSTEMS: Hard of hearing, impaired ambulation, in a wheelchair. No CV, , pulmonary, eye system symptoms on review. MENTAL STATUS EXAM: Oriented to himself and situation. Speech is coherent, can be rapid at times, loud. Abstraction fair, computation impaired, language function intact, attention span short. Mood and affect remain somewhat anxious, labile, depressed, but improved. LABORATORY DATA: Reviewed. IMPRESSION: Unchanged from initial note. Major depressive disorder with psychotic features; major neurocognitive disorder, early possibly Lewy body with delusion, depression. Rest unchanged. PLAN: Increase Seroquel from 12.5 t.i.d. to 25 mg a.m. and p.m. and 12.5 at noon. Rest of the psychotropics unchanged for now. We will gradually taper the Xanax at some point. SHARI CHASE MD DR: GLENROY/shadi JOB#: [id number] / [id number]
[2019-05-16] MEDS: INSULIN LISPRO 300 UNITS/3 ML INSULN.PEN. SQ SCH ×3 (07:30→16:30)
[2019-05-16] MEDS: metFORMIN 500 MG TABLET PO SCH ×2 (10:12→17:00)
[2019-05-16] MEDS: ASPIRIN 81 MG TAB.CHEW PO SCH (10:12)
[2019-05-16] MEDS: QUEtiapine 25 MG TABLET. PO SCH ×3 (10:13→18:46)
[2019-05-16] MEDS: levETIRAcetam 500 MG TABLET PO SCH ×2 (10:13→19:21)
[2019-05-16] MEDS: FINASTERIDE 5 MG TABLET PO SCH (10:13)
[2019-05-16] MEDS: POTASSIUM CHLORIDE 20 MEQ TABLET.ER. PO SCH ×2 (10:13→18:45)
[2019-05-16] MEDS: PREGABALIN 50 MG CAPSULE PO SCH ×3 (10:14→21:00)
[2019-05-16] MEDS: MULTIVITAMIN with MINERAL TABLET. PO SCH (10:14)
[2019-05-16] MEDS: MELOXICAM 15 MG TABLET. PO SCH (10:14)
[2019-05-16] MEDS: FUROSEMIDE 40 MG TABLET PO SCH (10:15)
[2019-05-16] MEDS: traMADol 50 MG TABLET PO SCH ×4 (10:15→21:00)
[2019-05-16] MEDS: CHOLECALCIFEROL (VITAMIN D3) 1,000 UNIT TABLET PO SCH (10:15)
[2019-05-16] MEDS: SENNOSIDES 8.6 MG TABLET PO SCH ×2 (10:16→19:21)
[2019-05-16] MEDS: ALPRAZolam 0.5 MG TABLET PO SCH ×2 (10:16→21:00)
[2019-05-16] MEDS: SERTRALINE 50 MG TABLET. PO SCH (10:16)
[2019-05-16] MEDS: CARVEDILOL 12.5 MG TABLET PO SCH ×2 (10:17→18:46)
[2019-05-16] MEDS ORDERED: FUROSEMIDE 80 MG TABLET PO ONE (18:45)
[2019-05-16] MEDS ORDERED: BISACODYL 10 MG SUPP.RECT PR PRN (19:15)
[2019-05-16] MEDS: DIVALPROEX ER 500 MG TAB.ER.24H PO SCH (19:17)
[2019-05-16] MEDS: traZODone 50 MG TABLET. PO SCH (19:20)
[2019-05-16] MEDS: TAMSULOSIN 0.4 MG CAP.ER.24H. PO SCH (19:21)
[2019-05-16] MEDS: PRIMIDONE 50 MG TABLET PO SCH (19:21)
[2019-05-16] MEDS: INSULIN GLARGINE 300 UNITS/3 ML INSULN.PEN. SQ SCH (21:17)
--- NOTE | 2019-05-16 22:18 | PDOC ---
Exam Note: Franco Note: Please also refer to the separate dictated note~for this date of service dictated separately.~Patient seen individually. Discussed the patient with Nursing staff reviewed the chart.~Reviewed interim history and current functioning. Reviewed vital signs,~Labs/ Radiology~and current medications noted below. Continue current treatment with the changes noted in the dictated addendum note Assessment: Vital Signs/I&O: Vital Signs Date Time Temp Pulse Resp B/P (MAP) Pulse Ox O2 Delivery O2 Flow Rate FiO2 05/16/19 21:14 76 96 Nasal Cannula 2.0 05/16/19 19:41 98.3 22 144/86 (105) I & O 05/15/19 05/15/19 05/16/19 14:59 22:59 06:59 Intake Total 600 ml 220 ml Balance 600 ml 220 ml Labs: Laboratory Tests Test 05/16/19 07:45 05/16/19 08:29 05/16/19 12:11 05/16/19 16:42 Glucose (Fingerstick) 51 mg/dL (70-99) L 74 mg/dL (70-99) 115 mg/dL (70-99) H 64 mg/dL (70-99) L Test 05/16/19 17:14 05/16/19 19:38 Glucose (Fingerstick) 104 mg/dL (70-99) H 85 mg/dL (70-99) Current Medications: Meds: Current Medications Medications (Trade) Dose Ordered Sig/Bobbi Route PRN Reason Start Time Stop Time Status Last Admin Dose Admin Furosemide (Lasix) 160 mg 1X ONCE PO 05/16/19 18:45 05/16/19 18:46 DC 05/16/19 18:47 I have reviewed the current psychotropics carefully including drug interactions. Risk benefit ratio favors no change other than as noted in my dictated progress note. Diagnosis: Problems: (1) Anxiety disorder (2) Impulse control disorder (3) Mild cognitive disorder (4) Psychosis, atypical (5) Major depressive disorder, recurrent episode (6) Dementia SHARI CHASE MD May 16, 2019 22:18
--- NOTE | 2019-05-17 00:20 | PN ---
DATE: 05/14/2019 PSYCHIATRIC PROGRESS NOTE. This late entry of 05/14/2019 covers the elements not covered in my initial note. SUBJECTIVE: I met with the patient in the evening of 05/14/2019. The patient slept 7-3/4 hours previous night. He is up for breakfast and lunch, slept after lunch, agitated during showers but redirected. REVIEW OF SYSTEMS: Ambulation impaired, in Broda chair; hard of hearing. No CV, , pulmonary, eye system symptoms on review. MENTAL STATUS EXAM: Oriented to himself and situation. Speech has some latency, coherent. Abstraction fair, computation impaired, language function intact, attention span short. Mood and affect is improved, less labile, still depressed. LABORATORY DATA: Reviewed. IMPRESSION: Unchanged from initial note. Major depressive disorder with psychotic features; anxiety disorder, unspecified; impulse control disorder; psychotic disorder, unspecified; mild cognitive impairment. PLAN: Continue psychotropics from initial note. Increase Zoloft from 50 mg a day to 75 mg a day after he has been on 50 mg for 3 days. Rest unchanged. MAN Geno CHASE MD DR: GLENROY/shadi JOB#: [id number] / [id number]
--- NOTE | 2019-05-17 00:22 | PN ---
DATE: 05/15/2019 PSYCHIATRIC PROGRESS NOTE This late entry 05/15/2019, covers elements not covered in my initial note. SUBJECTIVE: I met with the patient in the evening of 05/15/2019. The patient slept 8-1/2 hours previous night. He remains somewhat withdrawn with a flat affect, had a 4-hour nap during the day. His son visited at 4:00 p.m. The patient was very pleased with this. He has been whistling, somewhat loudly at times, but redirects. REVIEW OF SYSTEMS: Hard of hearing, impaired ambulation, in Broda chair. No CV, , pulmonary, eye system symptoms on review. MENTAL STATUS EXAM: Oriented to himself and situation. Speech has some latency, coherent. Abstraction fair, computation impaired, language function intact, attention span short. Mood and affect remain somewhat withdrawn at times, but less depressed. LABORATORY DATA: Reviewed. IMPRESSION: Unchanged from initial note. PLAN: No change from initial note. MAN Geno CHASE MD DR: GLENROY/shadi JOB#: [id number] / [id number]
--- NOTE | 2019-05-17 05:16 | RAD ---
AP portable chest radiograph 05/16/2019 Clinical History: Shortness of breath. An AP erect portable digital radiograph of the chest was obtained. No previous studies are available for comparison. The patient is post CABG procedure. Spinal stimulator leads overlie the lower thoracic spine. The cardiac silhouette is mildly enlarged. The thoracic aorta is tortuous. Atherosclerotic calcification thoracic aorta is seen. Bilateral perihilar infiltrates are seen consistent with pulmonary edema from CHF. There are probable very small bilateral pleural effusions. No pneumothorax is seen. Degenerative changes are seen involving the thoracic spine and both shoulders. IMPRESSION: Bilateral perihilar infiltrates are seen consistent with pulmonary edema from CHF. Electronically signed by: Blake Sanchez MD (05/17/2019 5:13 AM) [facility]
[2019-05-17 06:40] VITALS: BP 150/84
[2019-05-17] MEDS: INSULIN LISPRO 300 UNITS/3 ML INSULN.PEN. SQ SCH ×3 (07:57→17:42)
[2019-05-17] MEDS: CARVEDILOL 12.5 MG TABLET PO SCH ×2 (08:46→18:18)
[2019-05-17] MEDS: FINASTERIDE 5 MG TABLET PO SCH (08:46)
[2019-05-17] MEDS: POTASSIUM CHLORIDE 20 MEQ TABLET.ER. PO SCH ×2 (08:46→18:17)
[2019-05-17] MEDS: QUEtiapine 25 MG TABLET. PO SCH ×2 (08:46→12:33)
[2019-05-17] MEDS: metFORMIN 500 MG TABLET PO SCH ×2 (08:46→18:17)
[2019-05-17] MEDS: FUROSEMIDE 40 MG TABLET PO SCH (08:47)
[2019-05-17] MEDS: traMADol 50 MG TABLET PO SCH ×4 (08:47→20:21)
[2019-05-17] MEDS: MULTIVITAMIN with MINERAL TABLET. PO SCH (08:47)
[2019-05-17] MEDS: ALPRAZolam 0.5 MG TABLET PO SCH ×2 (08:47→20:20)
[2019-05-17] MEDS: ASPIRIN 81 MG TAB.CHEW PO SCH (08:48)
[2019-05-17] MEDS: levETIRAcetam 500 MG TABLET PO SCH ×2 (08:48→20:17)
[2019-05-17] MEDS: SENNOSIDES 8.6 MG TABLET PO SCH ×2 (08:49→20:17)
[2019-05-17] MEDS: CHOLECALCIFEROL (VITAMIN D3) 1,000 UNIT TABLET PO SCH (08:49)
[2019-05-17] MEDS: PREGABALIN 50 MG CAPSULE PO SCH ×3 (08:59→20:20)
[2019-05-17 09:54] LABS: CALCIUM 8.9 mg/dL (8.5-10.1); CREATININE 0.7 mg/dL (0.7-1.3); GFR 107.2; POTASSIUM 3.8 mmol/L (3.5-5.1)
[2019-05-17 15:52] VITALS: BP 150/81
[2019-05-17] MEDS: PRIMIDONE 50 MG TABLET PO SCH (20:17)
[2019-05-17] MEDS: traZODone 50 MG TABLET. PO SCH (20:17)
[2019-05-17] MEDS: TAMSULOSIN 0.4 MG CAP.ER.24H. PO SCH (20:17)
[2019-05-17] MEDS: DIVALPROEX ER 250 MG TAB.ER.24H. PO SCH (20:22)
[2019-05-17] MEDS: INSULIN GLARGINE 300 UNITS/3 ML INSULN.PEN. SQ SCH (20:23)
--- NOTE | 2019-05-17 22:21 | PDOC ---
Exam Note: Franco Note: Please also refer to the separate dictated note~for this date of service dictated separately.~Patient seen individually. Discussed the patient with Nursing staff reviewed the chart.~Reviewed interim history and current functioning. Reviewed vital signs,~Labs/ Radiology~and current medications noted below. Continue current treatment with the changes noted in the dictated addendum note Assessment: Vital Signs/I&O: Vital Signs Date Time Temp Pulse Resp B/P (MAP) Pulse Ox O2 Delivery O2 Flow Rate FiO2 05/17/19 20:21 90 Room Air 05/17/19 18:18 94 150/81 05/17/19 15:52 97.3 16 05/16/19 21:14 2.0 I & O 05/16/19 05/16/19 05/17/19 15:00 23:00 07:00 Intake Total 720 ml 0 ml 100 ml Balance 720 ml 0 ml 100 ml Labs: Laboratory Tests Test 05/17/19 07:37 05/17/19 09:28 05/17/19 12:05 05/17/19 16:19 Glucose (Fingerstick) 73 mg/dL (70-99) 130 mg/dL (70-99) H 166 mg/dL (70-99) H Sodium Level 139 mmol/L (136-145) Potassium Level 3.8 mmol/L (3.5-5.1) Chloride Level 100 mmol/L (98-107) Carbon Dioxide Level 30 mmol/L (21-32) Anion Gap 9 (6-14) Blood Urea Nitrogen 18 mg/dL (8-26) Creatinine 0.7 mg/dL (0.7-1.3) Estimated GFR (Cockcroft-Gault) 107.2 Glucose Level 126 mg/dL (70-99) H Calcium Level 8.9 mg/dL (8.5-10.1) Test 05/17/19 19:20 Glucose (Fingerstick) 111 mg/dL (70-99) H Current Medications: Meds: Current Medications Medications (Trade) Dose Ordered Sig/Bobbi Route PRN Reason Start Time Stop Time Status Last Admin Dose Admin Fluvoxamine Maleate (Luvox) 25 mg DAILY PO 05/17/19 09:00 05/20/19 08:59 05/17/19 08:59 Divalproex Sodium (Depakote Er) 750 mg QHS PO 05/17/19 21:00 05/17/19 20:22 I have reviewed the current psychotropics carefully including drug interactions. Risk benefit ratio favors no change other than as noted in my dictated progress note. Diagnosis: Problems: (1) Anxiety disorder (2) Impulse control disorder (3) Mild cognitive disorder (4) Psychosis, atypical (5) Major depressive disorder, recurrent episode (6) Dementia SHARI CHASE MD May 17, 2019 22:21
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
[2019-05-18 06:17] VITALS: BP 137/82
[2019-05-18] MEDS: INSULIN LISPRO 300 UNITS/3 ML INSULN.PEN. SQ SCH ×3 (08:09→17:37)
[2019-05-18] MEDS: SENNOSIDES 8.6 MG TABLET PO SCH ×2 (11:19→19:33)
[2019-05-18] MEDS: CHOLECALCIFEROL (VITAMIN D3) 1,000 UNIT TABLET PO SCH (11:19)
[2019-05-18] MEDS: FINASTERIDE 5 MG TABLET PO SCH (11:19)
[2019-05-18] MEDS: metFORMIN 500 MG TABLET PO SCH ×2 (11:19→18:24)
[2019-05-18] MEDS: FUROSEMIDE 40 MG TABLET PO SCH (11:19)
[2019-05-18] MEDS: CARVEDILOL 12.5 MG TABLET PO SCH ×2 (11:20→18:24)
[2019-05-18] MEDS: POTASSIUM CHLORIDE 20 MEQ TABLET.ER. PO SCH ×2 (11:20→18:25)
[2019-05-18] MEDS: levETIRAcetam 500 MG TABLET PO SCH ×2 (11:20→19:33)
[2019-05-18] MEDS: ASPIRIN 81 MG TAB.CHEW PO SCH (11:20)
[2019-05-18] MEDS: MULTIVITAMIN with MINERAL TABLET. PO SCH (11:20)
[2019-05-18] MEDS: PREGABALIN 50 MG CAPSULE PO SCH ×3 (11:57→19:33)
[2019-05-18] MEDS: ALPRAZolam 0.5 MG TABLET PO SCH ×2 (11:57→19:35)
[2019-05-18] MEDS: QUEtiapine 25 MG TABLET. PO SCH ×3 (11:58→18:25)
[2019-05-18] MEDS: traMADol 50 MG TABLET PO SCH ×4 (11:58→19:35)
[2019-05-18 16:23] VITALS: BP 129/81
[2019-05-18] MEDS: DIVALPROEX ER 250 MG TAB.ER.24H. PO SCH (19:32)
[2019-05-18] MEDS: traZODone 50 MG TABLET. PO SCH (19:32)
[2019-05-18] MEDS: PRIMIDONE 50 MG TABLET PO SCH (19:33)
[2019-05-18] MEDS: TAMSULOSIN 0.4 MG CAP.ER.24H. PO SCH (19:33)
[2019-05-18] MEDS: INSULIN GLARGINE 300 UNITS/3 ML INSULN.PEN. SQ SCH (19:36)
[2019-05-18] MEDS ORDERED: ALPRAZolam 0.5 MG TABLET PO SCH (21:00)
--- NOTE | 2019-05-18 22:28 | PDOC ---
Exam Note: Franco Note: Please also refer to the separate dictated note~for this date of service dictated separately.~Patient seen individually. Discussed the patient with Nursing staff reviewed the chart.~Reviewed interim history and current functioning. Reviewed vital signs,~Labs/ Radiology~and current medications noted below. Continue current treatment with the changes noted in the dictated addendum note Assessment: Vital Signs/I&O: Vital Signs Date Time Temp Pulse Resp B/P (MAP) Pulse Ox O2 Delivery O2 Flow Rate FiO2 05/18/19 19:35 96 05/18/19 19:25 18 Room Air 05/18/19 18:24 81 129/81 05/18/19 16:23 97.4 05/18/19 06:17 2.0 I & O 05/17/19 05/17/19 05/18/19 15:00 23:00 07:00 Intake Total 720 ml 480 ml Balance 720 ml 480 ml Labs: Laboratory Tests Test 05/18/19 08:08 05/18/19 11:40 05/18/19 17:25 05/18/19 19:14 Glucose (Fingerstick) 64 mg/dL (70-99) L 137 mg/dL (70-99) H 78 mg/dL (70-99) 191 mg/dL (70-99) H Current Medications: Meds: Current Medications Medications (Trade) Dose Ordered Sig/Bobbi Route PRN Reason Start Time Stop Time Status Last Admin Dose Admin Quetiapine Fumarate (SEROquel) 25 mg DAILYWSUP PO 05/18/19 17:00 05/18/19 18:25 Quetiapine Fumarate (SEROquel) 37.5 mg DAILY PO 05/18/19 09:00 05/18/19 11:58 Alprazolam (Xanax) 0.25 mg QHS PO 05/18/19 21:00 05/22/19 20:59 05/18/19 19:35 I have reviewed the current psychotropics carefully including drug interactions. Risk benefit ratio favors no change other than as noted in my dictated progress note. Diagnosis: Problems: (1) Anxiety disorder (2) Impulse control disorder (3) Mild cognitive disorder (4) Psychosis, atypical (5) Major depressive disorder, recurrent episode (6) Dementia SHARI CHASE MD May 18, 2019 22:28
[2019-05-19 06:26] VITALS: BP 150/62
[2019-05-19] MEDS: INSULIN LISPRO 300 UNITS/3 ML INSULN.PEN. SQ SCH ×3 (07:30→16:30)
[2019-05-19] MEDS: FINASTERIDE 5 MG TABLET PO SCH (07:55)
[2019-05-19] MEDS: ASPIRIN 81 MG TAB.CHEW PO SCH (07:55)
[2019-05-19] MEDS: SENNOSIDES 8.6 MG TABLET PO SCH ×2 (07:55→19:31)
[2019-05-19] MEDS: POTASSIUM CHLORIDE 20 MEQ TABLET.ER. PO SCH ×2 (07:55→18:00)
[2019-05-19] MEDS: levETIRAcetam 500 MG TABLET PO SCH ×2 (07:55→19:29)
[2019-05-19] MEDS: CHOLECALCIFEROL (VITAMIN D3) 1,000 UNIT TABLET PO SCH (07:56)
[2019-05-19] MEDS: metFORMIN 500 MG TABLET PO SCH ×2 (07:56→18:00)
[2019-05-19] MEDS: MULTIVITAMIN with MINERAL TABLET. PO SCH (07:56)
[2019-05-19] MEDS: CARVEDILOL 12.5 MG TABLET PO SCH ×2 (07:56→18:00)
[2019-05-19] MEDS: QUEtiapine 25 MG TABLET. PO SCH ×3 (07:56→18:00)
[2019-05-19] MEDS: FUROSEMIDE 40 MG TABLET PO SCH (07:56)
[2019-05-19] MEDS: ALPRAZolam 0.5 MG TABLET PO SCH ×2 (08:00→20:04)
[2019-05-19] MEDS: traMADol 50 MG TABLET PO SCH ×4 (08:01→19:31)
[2019-05-19] MEDS: PREGABALIN 50 MG CAPSULE PO SCH ×3 (08:01→19:31)
[2019-05-19] MEDS ORDERED: ALPRAZolam 0.5 MG TABLET PO SCH (09:00)
[2019-05-19 16:28] VITALS: BP 170/108
[2019-05-19] MEDS: DIVALPROEX ER 250 MG TAB.ER.24H. PO SCH (19:29)
[2019-05-19] MEDS: traZODone 50 MG TABLET. PO SCH (19:29)
[2019-05-19] MEDS: TAMSULOSIN 0.4 MG CAP.ER.24H. PO SCH (19:29)
[2019-05-19] MEDS: PRIMIDONE 50 MG TABLET PO SCH (19:31)
[2019-05-19] MEDS: INSULIN GLARGINE 300 UNITS/3 ML INSULN.PEN. SQ SCH (20:05)
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
--- NOTE | 2019-05-19 22:25 | PDOC ---
Exam Note: Franco Note: Please also refer to the separate dictated note~for this date of service dictated separately.~Patient seen individually. Discussed the patient with Nursing staff reviewed the chart.~Reviewed interim history and current functioning. Reviewed vital signs,~Labs/ Radiology~and current medications noted below. Continue current treatment with the changes noted in the dictated addendum note Assessment: Vital Signs/I&O: Vital Signs Date Time Temp Pulse Resp B/P (MAP) Pulse Ox O2 Delivery O2 Flow Rate FiO2 05/19/19 20:31 90 Room Air 05/19/19 18:00 101 170/108 05/19/19 16:28 98.1 20 2.0 I & O 05/18/19 05/18/19 05/19/19 14:59 22:59 06:59 Intake Total 240 ml 120 ml Balance 240 ml 120 ml Labs: Laboratory Tests Test 05/19/19 07:03 05/19/19 11:25 05/19/19 12:09 05/19/19 17:02 Glucose (Fingerstick) 71 mg/dL (70-99) 59 mg/dL (70-99) L 80 mg/dL (70-99) 90 mg/dL (70-99) Test 05/19/19 19:11 Glucose (Fingerstick) 148 mg/dL (70-99) H Current Medications: Meds: Current Medications Medications (Trade) Dose Ordered Sig/Bobbi Route PRN Reason Start Time Stop Time Status Last Admin Dose Admin Alprazolam (Xanax) 0.5 mg Taper DAILY PO 05/19/19 09:00 05/24/19 08:59 05/19/19 08:00 I have reviewed the current psychotropics carefully including drug interactions. Risk benefit ratio favors no change other than as noted in my dictated progress note. Diagnosis: Problems: (1) Anxiety disorder (2) Impulse control disorder (3) Mild cognitive disorder (4) Psychosis, atypical (5) Major depressive disorder, recurrent episode (6) Dementia SHARI CHASE MD May 19, 2019 22:25
--- NOTE | 2019-05-20 01:40 | PN ---
DATE: 05/18/2019 PSYCHIATRIC PROGRESS NOTE This late entry 05/18/2019 covers elements not covered in my initial note. SUBJECTIVE: I met with the patient in the evening of 05/18/2019 at length and staffed treatment team meeting with the entire team in the morning. The patient slept 6-1/4 hours previous night. He yells out at times, whistles loudly and I addressed this with him as being disruptive and he is able to understand this. At times, he is yelling, cursing at staff, called the [employer] rather derogatory names. REVIEW OF SYSTEMS: Hard of hearing, impaired ambulation, in Broda chair. No CV, , pulmonary, eye system symptoms on review. MENTAL STATUS EXAM: Oriented to himself and situation. Speech has some latency, coherent. Abstraction fair, computation impaired, language function intact, attention span short. Mood and affect somewhat anxious, labile, but improved. LABORATORY DATA: Reviewed. IMPRESSION: Major depressive disorder, recurrent with psychotic features, obsessive-compulsive disorder; anxiety disorder, unspecified. Mild cognitive impairment. PLAN: Taper and stop the Xanax, gradually increase the Luvox to 100 mg a day. Maintain Depakote, trazodone, Zyprexa as p.r.n. Seroquel at current dosage, melatonin 3 mg at bedtime p.r.n. Adjust further as clinically indicated. MAN Geno CHASE MD DR: GLENROY/shadi JOB#: [id number] / [id number]
[2019-05-20 06:19] VITALS: BP 158/96
[2019-05-20] MEDS: INSULIN LISPRO 300 UNITS/3 ML INSULN.PEN. SQ SCH ×3 (07:30→16:30)
[2019-05-20 08:06] LABS: BASO % 0 % (0-3); EOS # 0.2 x10^3/uL (0.0-0.7); EOS % 1 % (0-3); HEMATOCRIT 38.9 % (39.0-53.0); HEMOGLOBIN 12.5 g/dL (13.0-17.5); LYMPH # 1.8 x10^3/uL (1.0-4.8); LYMPH % 12 % (24-48); MEAN CORPUSCULAR HEMOGLOBIN 30 pg (25-35); MEAN CORPUSCULAR HGB CONC 32 g/dL (31-37); MEAN CORPUSCULAR VOLUME 94 fL (79-100); MONO % 6 % (0-9); NEUT # 12.2 x10^3uL (1.8-7.7); NEUT % 80 % (31-73); PLATELET COUNT 308 x10^3/uL (140-400); RED BLOOD COUNT 4.13 x10^6/uL (4.30-5.70); WHITE BLOOD COUNT 15.1 x10^3/uL (4.0-11.0)
[2019-05-20] MEDS: metFORMIN 500 MG TABLET PO SCH ×2 (08:47→17:00)
[2019-05-20] MEDS: CHOLECALCIFEROL (VITAMIN D3) 1,000 UNIT TABLET PO SCH (08:47)
[2019-05-20] MEDS: levETIRAcetam 500 MG TABLET PO SCH ×2 (08:47→20:22)
[2019-05-20] MEDS: CARVEDILOL 12.5 MG TABLET PO SCH ×2 (08:47→17:44)
[2019-05-20] MEDS: ASPIRIN 81 MG TAB.CHEW PO SCH (08:48)
[2019-05-20] MEDS: MULTIVITAMIN with MINERAL TABLET. PO SCH (08:48)
[2019-05-20] MEDS: FUROSEMIDE 40 MG TABLET PO SCH (08:48)
[2019-05-20] MEDS: SENNOSIDES 8.6 MG TABLET PO SCH ×2 (08:48→20:22)
[2019-05-20] MEDS: POTASSIUM CHLORIDE 20 MEQ TABLET.ER. PO SCH ×2 (08:48→17:43)
[2019-05-20] MEDS: FINASTERIDE 5 MG TABLET PO SCH (08:48)
[2019-05-20] MEDS: PREGABALIN 50 MG CAPSULE PO SCH ×4 (08:57→22:00)
[2019-05-20] MEDS: traMADol 50 MG TABLET PO SCH ×4 (08:57→20:33)
[2019-05-20] MEDS: QUEtiapine 50 MG TABLET. PO SCH (08:58)
[2019-05-20] MEDS: ALPRAZolam 0.5 MG TABLET PO SCH ×2 (08:58→20:32)
[2019-05-20 09:10] LABS: ALBUMIN 2.6 g/dL (3.4-5.0); ALBUMIN/GLOBULIN RATIO 0.6 (1.0-1.7); ALK PHOS 81 U/L (46-116); ALT (SGPT) 17 U/L (16-63); AST (SGOT) 18 U/L (15-37); BLOOD UREA NITROGEN 17 mg/dL (8-26); BUN/CREATININE RATIO 24 (6-20); CALCIUM 8.9 mg/dL (8.5-10.1); CHLORIDE 101 mmol/L (98-107); CREATININE 0.7 mg/dL (0.7-1.3); GFR 107.2; GLUCOSE 84 mg/dL (70-99); POTASSIUM 3.8 mmol/L (3.5-5.1); SODIUM 137 mmol/L (136-145); TOTAL BILIRUBIN 0.7 mg/dL (0.2-1.0); TOTAL PROTEIN 6.7 g/dL (6.4-8.2)
[2019-05-20 09:11] LABS: ANION GAP 8 (6-14); CARBON DIOXIDE 28 mmol/L (21-32); VAL ACID 43 mcg/mL (50-100)
[2019-05-20 09:48] LABS: % BANDS 2 % (0-9); % LYMPHS 15 % (24-48); % MONOS 3 % (0-10); % SEGS 80 % (35-66); PLT ESTIMATE ADEQUATE (ADEQUATE); TOXIC GRANULATION SLIGHT
[2019-05-20] MEDS: QUEtiapine 25 MG TABLET. PO SCH ×2 (12:28→17:43)
[2019-05-20 15:03] LABS: BACTERIA,URINE 0 /HPF (0-FEW); BILIRUBIN,URINE NEG (NEG); CLARITY,URINE CLEAR; COLOR,URINE YELLOW; GLUCOSE,URINE NEG (NEG); HYALINE CASTS, URINE OCC /HPF; NITRITE,URINE NEG (NEG); SQUAMOUS EPITHELIAL CELL,UR OCC /LPF; UROBILINOGEN,URINE 1 mg/dL (0.2 mg/dL); WBC,URINE OCC /HPF (0-4)
[2019-05-20 15:59] VITALS: BP 141/80
[2019-05-20] MEDS: DIVALPROEX ER 250 MG TAB.ER.24H. PO SCH (20:22)
[2019-05-20] MEDS: traZODone 50 MG TABLET. PO SCH (20:23)
[2019-05-20] MEDS: PRIMIDONE 50 MG TABLET PO SCH (20:23)
[2019-05-20] MEDS: TAMSULOSIN 0.4 MG CAP.ER.24H. PO SCH (20:23)
[2019-05-20] MEDS: INSULIN GLARGINE 300 UNITS/3 ML INSULN.PEN. SQ SCH (20:34)
[2019-05-20] MEDS: MELATONIN 3 MG TABLET PO PRN (22:04)
--- NOTE | 2019-05-20 23:09 | PDOC ---
Exam Note: Franco Note: Please also refer to the separate dictated note~for this date of service dictated separately.~Patient seen individually. Discussed the patient with Nursing staff reviewed the chart.~Reviewed interim history and current functioning. Reviewed vital signs,~Labs/ Radiology~and current medications noted below. Continue current treatment with the changes noted in the dictated addendum note Assessment: Vital Signs/I&O: Vital Signs Date Time Temp Pulse Resp B/P (MAP) Pulse Ox O2 Delivery O2 Flow Rate FiO2 05/20/19 17:44 81 141/80 05/20/19 15:59 97.9 22 95 05/20/19 06:19 2.0 05/19/19 20:31 Room Air I & O 05/19/19 05/19/19 05/20/19 15:00 23:00 07:00 Intake Total 960 ml 160 ml Balance 960 ml 160 ml Labs: Laboratory Tests Test 05/20/19 06:00 05/20/19 06:38 05/20/19 07:02 05/20/19 07:54 Glucose (Fingerstick) 50 mg/dL (70-99) L 90 mg/dL (70-99) 70 mg/dL (70-99) White Blood Count 15.1 x10^3/uL (4.0-11.0) H Red Blood Count 4.13 x10^6/uL (4.30-5.70) L Hemoglobin 12.5 g/dL (13.0-17.5) L Hematocrit 38.9 % (39.0-53.0) L Mean Corpuscular Volume 94 fL (79-100) Mean Corpuscular Hemoglobin 30 pg (25-35) Mean Corpuscular Hemoglobin Concent 32 g/dL (31-37) Red Cell Distribution Width 14.0 % (11.5-14.5) Platelet Count 308 x10^3/uL (140-400) Neutrophils (%) (Auto) 80 % (31-73) H Lymphocytes (%) (Auto) 12 % (24-48) L Monocytes (%) (Auto) 6 % (0-9) Eosinophils (%) (Auto) 1 % (0-3) Basophils (%) (Auto) 0 % (0-3) Neutrophils # (Auto) 12.2 x10^3uL (1.8-7.7) H Lymphocytes # (Auto) 1.8 x10^3/uL (1.0-4.8) Monocytes # (Auto) 1.0 x10^3/uL (0.0-1.1) Eosinophils # (Auto) 0.2 x10^3/uL (0.0-0.7) Basophils # (Auto) 0.0 x10^3/uL (0.0-0.2) Segmented Neutrophils % 80 % (35-66) H Band Neutrophils % 2 % (0-9) Lymphocytes % 15 % (24-48) L Monocytes % 3 % (0-10) Toxic Granulation Slight Platelet Estimate Adequate (ADEQUATE) Sodium Level 137 mmol/L (136-145) Potassium Level 3.8 mmol/L (3.5-5.1) Chloride Level 101 mmol/L (98-107) Carbon Dioxide Level 28 mmol/L (21-32) Anion Gap 8 (6-14) Blood Urea Nitrogen 17 mg/dL (8-26) Creatinine 0.7 mg/dL (0.7-1.3) Estimated GFR (Cockcroft-Gault) 107.2 BUN/Creatinine Ratio 24 (6-20) H Glucose Level 84 mg/dL (70-99) Calcium Level 8.9 mg/dL (8.5-10.1) Total Bilirubin 0.7 mg/dL (0.2-1.0) Aspartate Amino Transferase (AST) 18 U/L (15-37) Alanine Aminotransferase (ALT) 17 U/L (16-63) Alkaline Phosphatase 81 U/L (46-116) Total Protein 6.7 g/dL (6.4-8.2) Albumin 2.6 g/dL (3.4-5.0) L Albumin/Globulin Ratio 0.6 (1.0-1.7) L Valproic Acid Level 43 mcg/mL (50-100) L Valproic Acid Last Dose Date 05/19/2019 Valproic Acid Last Dose Time 2100 Test 05/20/19 12:01 05/20/19 12:37 05/20/19 14:21 05/20/19 16:40 Glucose (Fingerstick) 60 mg/dL (70-99) L 85 mg/dL (70-99) 109 mg/dL (70-99) H Urine Collection Type Unknown Urine Color Yellow Urine Clarity Clear Urine pH 7.5 Urine Specific Hanna 1.015 Urine Protein 30 mg/dl (NEG-TRACE) Urine Glucose (UA) Neg mg/dL (NEG) Urine Ketones (Stick) 15 mg/dL (NEG) Urine Blood Small (NEG) Urine Nitrite Neg (NEG) Urine Bilirubin Neg (NEG) Urine Urobilinogen Dipstick 1 mg/dL (0.2 mg/dL) Urine Leukocyte Esterase Neg (NEG) Urine RBC 6-10 /HPF (0-2) Urine WBC Occ /HPF (0-4) Urine Squamous Epithelial Cells Occ /LPF Urine Bacteria 0 /HPF (0-FEW) Urine Hyaline Casts Occ /HPF Urine Mucus Slight /LPF Test 05/20/19 19:05 Glucose (Fingerstick) 130 mg/dL (70-99) H Current Medications: Meds: Current Medications Medications (Trade) Dose Ordered Sig/Bobbi Route PRN Reason Start Time Stop Time Status Last Admin Dose Admin Quetiapine Fumarate (SEROquel) 50 mg DAILY PO 05/20/19 09:00 05/20/19 08:58 Fluvoxamine Maleate (Luvox) 50 mg 1X ONCE PO 05/20/19 09:00 05/20/19 09:01 DC 05/20/19 09:05 Divalproex Sodium (Depakote Er) 1,000 mg QHS PO 05/20/19 21:00 05/20/19 20:22 I have reviewed the current psychotropics carefully including drug interactions. Risk benefit ratio favors no change other than as noted in my dictated progress note. Diagnosis: Problems: (1) Anxiety disorder (2) Impulse control disorder (3) Mild cognitive disorder (4) Psychosis, atypical (5) Major depressive disorder, recurrent episode (6) Dementia SHARI CHASE MD May 20, 2019 23:09
[2019-05-21 06:23] VITALS: BP 145/93
[2019-05-21] MEDS: INSULIN LISPRO 300 UNITS/3 ML INSULN.PEN. SQ SCH ×3 (07:30→16:30)
[2019-05-21] MEDS: levETIRAcetam 500 MG TABLET PO SCH ×2 (08:27→22:11)
[2019-05-21] MEDS: ASPIRIN 81 MG TAB.CHEW PO SCH (08:27)
[2019-05-21] MEDS: FINASTERIDE 5 MG TABLET PO SCH (08:27)
[2019-05-21] MEDS: CHOLECALCIFEROL (VITAMIN D3) 1,000 UNIT TABLET PO SCH (08:27)
[2019-05-21] MEDS: FUROSEMIDE 40 MG TABLET PO SCH (08:27)
[2019-05-21] MEDS: POTASSIUM CHLORIDE 20 MEQ TABLET.ER. PO SCH ×2 (08:27→17:42)
[2019-05-21] MEDS: metFORMIN 500 MG TABLET PO SCH ×2 (08:27→17:42)
[2019-05-21] MEDS: SENNOSIDES 8.6 MG TABLET PO SCH ×2 (08:27→22:11)
[2019-05-21] MEDS: MULTIVITAMIN with MINERAL TABLET. PO SCH (08:27)
[2019-05-21] MEDS: QUEtiapine 50 MG TABLET. PO SCH (08:28)
[2019-05-21] MEDS: PREGABALIN 50 MG CAPSULE PO SCH ×3 (08:28→22:10)
[2019-05-21] MEDS: traMADol 50 MG TABLET PO SCH ×4 (08:28→22:10)
[2019-05-21] MEDS: CARVEDILOL 12.5 MG TABLET PO SCH ×2 (08:28→16:57)
[2019-05-21] MEDS: ALPRAZolam 0.5 MG TABLET PO SCH ×2 (08:32→22:15)
[2019-05-21] MEDS: QUEtiapine 25 MG TABLET. PO SCH ×2 (13:22→17:41)
[2019-05-21 16:22] VITALS: BP 108/71
[2019-05-21] MEDS ORDERED: ALPRAZolam 0.25 MG TABLET PO SCH (21:00)
[2019-05-21] MEDS: traZODone 50 MG TABLET. PO SCH (22:10)
[2019-05-21] MEDS: DIVALPROEX ER 250 MG TAB.ER.24H. PO SCH (22:10)
[2019-05-21] MEDS: TAMSULOSIN 0.4 MG CAP.ER.24H. PO SCH (22:11)
[2019-05-21] MEDS: PRIMIDONE 50 MG TABLET PO SCH (22:11)
[2019-05-21] MEDS: INSULIN GLARGINE 300 UNITS/3 ML INSULN.PEN. SQ SCH (22:13)
--- NOTE | 2019-05-21 22:15 | PDOC ---
Exam Note: Franco Note: Please also refer to the separate dictated note~for this date of service dictated separately.~Patient seen individually. Discussed the patient with Nursing staff reviewed the chart.~Reviewed interim history and current functioning. Reviewed vital signs,~Labs/ Radiology~and current medications noted below. Continue current treatment with the changes noted in the dictated addendum note Assessment: Vital Signs/I&O: Vital Signs Date Time Temp Pulse Resp B/P (MAP) Pulse Ox O2 Delivery O2 Flow Rate FiO2 05/21/19 18:42 20 94 05/21/19 16:57 73 108/71 05/21/19 16:22 97.1 Room Air 05/20/19 06:19 2.0 I & O 05/20/19 05/20/19 05/21/19 15:00 23:00 07:00 Intake Total 840 ml 240 ml 100 ml Balance 840 ml 240 ml 100 ml Labs: Laboratory Tests Test 05/21/19 07:29 05/21/19 11:53 05/21/19 16:37 Glucose (Fingerstick) 60 mg/dL (70-99) L 184 mg/dL (70-99) H 135 mg/dL (70-99) H Current Medications: Meds: Current Medications Medications (Trade) Dose Ordered Sig/Bobbi Route PRN Reason Start Time Stop Time Status Last Admin Dose Admin Fluvoxamine Maleate (Luvox) 50 mg DAILY PO 05/21/19 09:00 05/23/19 11:00 05/21/19 08:32 I have reviewed the current psychotropics carefully including drug interactions. Risk benefit ratio favors no change other than as noted in my dictated progress note. Diagnosis: Problems: (1) Anxiety disorder (2) Impulse control disorder (3) Mild cognitive disorder (4) Psychosis, atypical (5) Major depressive disorder, recurrent episode (6) Dementia SHARI CHASE MD May 21, 2019 22:15
--- NOTE | 2019-05-22 05:30 | PN ---
DATE: 05/19/2019 PSYCHIATRIC PROGRESS NOTE This late entry 05/19/2019 covers elements not covered in my initial note. SUBJECTIVE: I met with the patient in the evening of 05/19/2019. The patient slept 3-1/4 hours previous night. He has been loud, whistling, yelling at times and I addressed this with him at length individually to improve insight and help moderate this behavior. He is on fluid restriction. He does better with Ultram for pain, helps his agitation as well. REVIEW OF SYSTEMS: Hard of hearing with an amplifier, impaired ambulation in Broda chair. No CV, , pulmonary, eye system symptoms on review. MENTAL STATUS EXAM: Oriented to himself and situation. Speech is coherent, can be rapid, loud at times. Abstraction fair, computation impaired, language function intact, attention span short. Mood and affect remain somewhat anxious, labile. LABORATORY DATA: Reviewed. IMPRESSION: Major depressive disorder with psychotic features; anxiety disorder, unspecified; impulse control disorder, unspecified; mild cognitive impairment. PLAN: Increase 0900 Seroquel from 37.5 mg to 50 mg. Rest unchanged for now. MAN Geno CHASE MD DR: GLENROY/shadi JOB#: [id number] / [id number]
[2019-05-22 05:56] VITALS: BP 163/91
[2019-05-22 06:54] LABS: BASO % 0 % (0-3); EOS # 0.2 x10^3/uL (0.0-0.7); EOS % 2 % (0-3); HEMATOCRIT 38.9 % (39.0-53.0); HEMOGLOBIN 12.9 g/dL (13.0-17.5); LYMPH % 17 % (24-48); MEAN CORPUSCULAR HEMOGLOBIN 31 pg (25-35); MEAN CORPUSCULAR HGB CONC 33 g/dL (31-37); MEAN CORPUSCULAR VOLUME 93 fL (79-100); MONO # 0.9 x10^3/uL (0.0-1.1); MONO % 8 % (0-9); NEUT # 8.2 x10^3uL (1.8-7.7); NEUT % 72 % (31-73); PLATELET COUNT 294 x10^3/uL (140-400); RED BLOOD COUNT 4.19 x10^6/uL (4.30-5.70); WHITE BLOOD COUNT 11.3 x10^3/uL (4.0-11.0)
[2019-05-22 07:23] LABS: ALBUMIN 2.6 g/dL (3.4-5.0); ALBUMIN/GLOBULIN RATIO 0.6 (1.0-1.7); CALCIUM 8.9 mg/dL (8.5-10.1); CREATININE 0.7 mg/dL (0.7-1.3); GFR 107.2; TOTAL BILIRUBIN 0.6 mg/dL (0.2-1.0); TOTAL PROTEIN 6.9 g/dL (6.4-8.2)
[2019-05-22 07:24] LABS: POTASSIUM 3.5 mmol/L (3.5-5.1)
[2019-05-22] MEDS: INSULIN LISPRO 300 UNITS/3 ML INSULN.PEN. SQ SCH ×3 (08:08→17:10)
[2019-05-22] MEDS: ASPIRIN 81 MG TAB.CHEW PO SCH (08:09)
[2019-05-22] MEDS: metFORMIN 500 MG TABLET PO SCH ×2 (08:10→16:00)
[2019-05-22] MEDS: levETIRAcetam 500 MG TABLET PO SCH ×2 (08:10→20:04)
[2019-05-22] MEDS: POTASSIUM CHLORIDE 20 MEQ TABLET.ER. PO SCH ×2 (08:10→16:01)
[2019-05-22] MEDS: CARVEDILOL 12.5 MG TABLET PO SCH ×2 (08:10→16:00)
[2019-05-22] MEDS: PREGABALIN 50 MG CAPSULE PO SCH ×3 (08:11→20:04)
[2019-05-22] MEDS: SENNOSIDES 8.6 MG TABLET PO SCH ×2 (08:11→20:05)
[2019-05-22] MEDS: MULTIVITAMIN with MINERAL TABLET. PO SCH (08:11)
[2019-05-22] MEDS: FUROSEMIDE 40 MG TABLET PO SCH (08:11)
[2019-05-22] MEDS: QUEtiapine 50 MG TABLET. PO SCH (08:11)
[2019-05-22] MEDS: FINASTERIDE 5 MG TABLET PO SCH (08:11)
[2019-05-22] MEDS: traMADol 50 MG TABLET PO SCH ×4 (08:14→20:10)
[2019-05-22] MEDS: CHOLECALCIFEROL (VITAMIN D3) 1,000 UNIT TABLET PO SCH (08:14)
[2019-05-22] MEDS: ALPRAZolam 0.5 MG TABLET PO SCH (08:15)
[2019-05-22] MEDS: QUEtiapine 25 MG TABLET. PO SCH ×2 (13:48→16:01)
[2019-05-22 15:47] VITALS: BP 149/89
[2019-05-22] MEDS: DIVALPROEX ER 250 MG TAB.ER.24H. PO SCH (20:04)
[2019-05-22] MEDS: TAMSULOSIN 0.4 MG CAP.ER.24H. PO SCH (20:05)
[2019-05-22] MEDS: PRIMIDONE 50 MG TABLET PO SCH (20:05)
[2019-05-22] MEDS: traZODone 100 MG TABLET. PO SCH (20:10)
[2019-05-22] MEDS: MIRTAZAPINE 7.5 MG TABLET. PO SCH (20:12)
[2019-05-22] MEDS: INSULIN GLARGINE 300 UNITS/3 ML INSULN.PEN. SQ SCH (20:15)
[2019-05-22] MEDS ORDERED: traZODone 50 MG TABLET. PO PRN (21:00)
[2019-05-22] MEDS ORDERED: traZODone 50 MG TABLET. PO SCH (21:00)
--- NOTE | 2019-05-22 21:12 | PDOC ---
Exam Note: Franco Note: Please also refer to the separate dictated note~for this date of service dictated separately.~Patient seen individually. Discussed the patient with Nursing staff reviewed the chart.~Reviewed interim history and current functioning. Reviewed vital signs,~Labs/ Radiology~and current medications noted below. Continue current treatment with the changes noted in the dictated addendum note Assessment: Vital Signs/I&O: Vital Signs Date Time Temp Pulse Resp B/P (MAP) Pulse Ox O2 Delivery O2 Flow Rate FiO2 05/22/19 17:11 20 05/22/19 16:00 89 149/89 05/22/19 15:47 97.9 93 05/21/19 23:31 Room Air 05/20/19 06:19 2.0 I & O 05/21/19 05/21/19 05/22/19 15:00 23:00 07:00 Intake Total 840 ml 200 ml Balance 840 ml 200 ml Labs: Laboratory Tests Test 05/22/19 05:37 05/22/19 06:43 05/22/19 07:30 05/22/19 12:00 Glucose (Fingerstick) 124 mg/dL (70-99) H 112 mg/dL (70-99) H 154 mg/dL (70-99) H White Blood Count 11.3 x10^3/uL (4.0-11.0) H Red Blood Count 4.19 x10^6/uL (4.30-5.70) L Hemoglobin 12.9 g/dL (13.0-17.5) L Hematocrit 38.9 % (39.0-53.0) L Mean Corpuscular Volume 93 fL (79-100) Mean Corpuscular Hemoglobin 31 pg (25-35) Mean Corpuscular Hemoglobin Concent 33 g/dL (31-37) Red Cell Distribution Width 14.0 % (11.5-14.5) Platelet Count 294 x10^3/uL (140-400) Neutrophils (%) (Auto) 72 % (31-73) Lymphocytes (%) (Auto) 17 % (24-48) L Monocytes (%) (Auto) 8 % (0-9) Eosinophils (%) (Auto) 2 % (0-3) Basophils (%) (Auto) 0 % (0-3) Neutrophils # (Auto) 8.2 x10^3uL (1.8-7.7) H Lymphocytes # (Auto) 2.0 x10^3/uL (1.0-4.8) Monocytes # (Auto) 0.9 x10^3/uL (0.0-1.1) Eosinophils # (Auto) 0.2 x10^3/uL (0.0-0.7) Basophils # (Auto) 0.0 x10^3/uL (0.0-0.2) Sodium Level 141 mmol/L (136-145) Potassium Level 3.5 mmol/L (3.5-5.1) Chloride Level 102 mmol/L (98-107) Carbon Dioxide Level 28 mmol/L (21-32) Anion Gap 11 (6-14) Blood Urea Nitrogen 16 mg/dL (8-26) Creatinine 0.7 mg/dL (0.7-1.3) Estimated GFR (Cockcroft-Gault) 107.2 BUN/Creatinine Ratio 23 (6-20) H Glucose Level 129 mg/dL (70-99) H Calcium Level 8.9 mg/dL (8.5-10.1) Total Bilirubin 0.6 mg/dL (0.2-1.0) Aspartate Amino Transferase (AST) 12 U/L (15-37) L Alanine Aminotransferase (ALT) 20 U/L (16-63) Alkaline Phosphatase 76 U/L (46-116) Total Protein 6.9 g/dL (6.4-8.2) Albumin 2.6 g/dL (3.4-5.0) L Albumin/Globulin Ratio 0.6 (1.0-1.7) L Test 05/22/19 16:52 05/22/19 19:22 Glucose (Fingerstick) 156 mg/dL (70-99) H 199 mg/dL (70-99) H Current Medications: Meds: Current Medications Medications (Trade) Dose Ordered Sig/Bobbi Route PRN Reason Start Time Stop Time Status Last Admin Dose Admin Trazodone HCl (Desyrel) 100 mg QHS PO 05/22/19 21:00 05/22/19 20:10 Mirtazapine (Remeron) 7.5 mg QHS PO 05/22/19 21:00 05/22/19 20:12 I have reviewed the current psychotropics carefully including drug interactions. Risk benefit ratio favors no change other than as noted in my dictated progress note. Diagnosis: Problems: (1) Anxiety disorder (2) Impulse control disorder (3) Mild cognitive disorder (4) Psychosis, atypical (5) Major depressive disorder, recurrent episode (6) Dementia SHARI CHASE MD May 22, 2019 21:12
--- NOTE | 2019-05-22 23:28 | PN ---
DATE: 05/21/2019 PSYCHIATRIC PROGRESS NOTE This is a late entry 05/21/2019, covers the elements not covered in my initial note. SUBJECTIVE: I met with the patient in the evening of 05/21/2019. The patient slept zero hours previous night. He has spent much time in bed and on 05/21/2019, catching up on sleep. WBC is 15,000. Blood pressure was somewhat low, we will defer to Dr. Villavicencio if possible. Check chest x-ray. UA is negative. Valproic acid level is 43. REVIEW OF SYSTEMS: Hard of hearing with hearing amplifier, impaired ambulation, in Broda chair. No CV, , pulmonary, eye system symptoms on review. MENTAL STATUS EXAM: Oriented to himself and situation. Speech is coherent, has some latency. Abstraction fair, computation impaired, language function intact, attention span short. Mood and affect remain somewhat anxious, labile, but improved. LABORATORY DATA: Reviewed. IMPRESSION: Major depressive disorder with psychotic features; anxiety disorder, unspecified; mild cognitive impairment, bipolar disorder, unspecified. PLAN: The patient's Depakote has been increased. We will also increase the trazodone from 25 mg at bedtime to 50 mg at bedtime, may repeat x 1 for insomnia and we are tapering and stopping the Xanax. Rest unchanged for now. MAN Geno CHASE MD DR: GLENROY/shadi JOB#: [id number] / [id number]
--- NOTE | 2019-05-22 23:39 | PN ---
DATE: 05/20/2019 PSYCHIATRIC PROGRESS NOTE This late entry 05/20/2019 covers elements not covered in my initial note. SUBJECTIVE: I met with the patient evening of 05/20/2019. The patient slept 5 hours previous night. He was somewhat helpless in the morning, whistling loudly, disruptive and I processed this at length with him. Insight limited in this respect. In the evening, he was better. UA negative on 05/20/2019. Blood sugar 50 in the morning, 60 at noon. WBC 15,000. We will defer to Dr. Sneed/Dr. Villavicencio. Valproic acid level on 05/20/2019 was 43. REVIEW OF SYSTEMS: Ambulation impaired, in Broda chair, hard of hearing. No CV, , pulmonary, eye system symptoms on review. MENTAL STATUS EXAM: Oriented to himself, situation. Speech had some latency, coherent. Abstraction fair, computation impaired, language function intact, attention span short. Mood and affect remain somewhat labile, anxious. LABORATORY DATA: Reviewed. IMPRESSION: Major depressive disorder, recurrent; anxiety disorder, unspecified; impulse control disorder; bipolar disorder, unspecified. Rest unchanged, mild cognitive impairment. PLAN: Valproic acid level is low and we will increase the Depakote ER from 750 at bedtime to 1000 mg at bedtime. Check CBC, CMP, valproic acid level in 3 days. Rest unchanged for now. MAN Geno CHASE MD DR: GLENROY/shadi JOB#: [id number] / [id number]
[2019-05-23 05:41] VITALS: BP 140/95
[2019-05-23] MEDS: INSULIN LISPRO 300 UNITS/3 ML INSULN.PEN. SQ SCH ×3 (08:18→18:00)
[2019-05-23] MEDS: levETIRAcetam 500 MG TABLET PO SCH ×2 (10:14→20:59)
[2019-05-23] MEDS: FINASTERIDE 5 MG TABLET PO SCH (10:14)
[2019-05-23] MEDS: POTASSIUM CHLORIDE 20 MEQ TABLET.ER. PO SCH ×2 (10:14→18:01)
[2019-05-23] MEDS: ASPIRIN 81 MG TAB.CHEW PO SCH (10:15)
[2019-05-23] MEDS: CARVEDILOL 12.5 MG TABLET PO SCH ×2 (10:15→18:01)
[2019-05-23] MEDS: SENNOSIDES 8.6 MG TABLET PO SCH ×2 (10:15→21:00)
[2019-05-23] MEDS: traMADol 50 MG TABLET PO SCH ×4 (10:15→21:00)
[2019-05-23] MEDS: MIRTAZAPINE 7.5 MG TABLET. PO SCH ×2 (10:15→21:00)
[2019-05-23] MEDS: FUROSEMIDE 40 MG TABLET PO SCH (10:15)
[2019-05-23] MEDS: PREGABALIN 50 MG CAPSULE PO SCH ×3 (10:17→21:00)
[2019-05-23] MEDS: CHOLECALCIFEROL (VITAMIN D3) 1,000 UNIT TABLET PO SCH (10:17)
[2019-05-23] MEDS: metFORMIN 500 MG TABLET PO SCH ×2 (10:17→18:01)
[2019-05-23] MEDS: MULTIVITAMIN with MINERAL TABLET. PO SCH (10:17)
[2019-05-23] MEDS: QUEtiapine 50 MG TABLET. PO SCH (10:19)
[2019-05-23] MEDS: ALPRAZolam 0.5 MG TABLET PO SCH (10:20)
[2019-05-23] MEDS: QUEtiapine 25 MG TABLET. PO SCH ×2 (12:50→18:02)
[2019-05-23 16:21] VITALS: BP 153/73
[2019-05-23] MEDS ORDERED: DEXTROSE ORAL GEL 15 GM TUBE. ONE (19:36)
[2019-05-23] MEDS: PRIMIDONE 50 MG TABLET PO SCH (21:00)
[2019-05-23] MEDS: DIVALPROEX ER 250 MG TAB.ER.24H. PO SCH (21:00)
[2019-05-23] MEDS: traZODone 100 MG TABLET. PO SCH (21:00)
[2019-05-23] MEDS: INSULIN GLARGINE 300 UNITS/3 ML INSULN.PEN. SQ SCH (21:00)
[2019-05-23] MEDS: TAMSULOSIN 0.4 MG CAP.ER.24H. PO SCH (21:00)
--- NOTE | 2019-05-23 22:26 | PDOC ---
Exam Note: Franco Note: Please also refer to the separate dictated note~for this date of service dictated separately.~Patient seen individually. Discussed the patient with Nursing staff reviewed the chart.~Reviewed interim history and current functioning. Reviewed vital signs,~Labs/ Radiology~and current medications noted below. Continue current treatment with the changes noted in the dictated addendum note Assessment: Vital Signs/I&O: Vital Signs Date Time Temp Pulse Resp B/P (MAP) Pulse Ox O2 Delivery O2 Flow Rate FiO2 05/23/19 18:01 80 153/73 05/23/19 16:21 96.8 14 93 05/22/19 21:20 Room Air 05/20/19 06:19 2.0 I & O 05/22/19 05/22/19 05/23/19 14:59 22:59 06:59 Intake Total 1080 ml 120 ml Balance 1080 ml 120 ml Labs: Laboratory Tests Test 05/23/19 03:59 05/23/19 08:00 05/23/19 12:07 05/23/19 15:49 Glucose (Fingerstick) 158 mg/dL (70-99) H 100 mg/dL (70-99) H 130 mg/dL (70-99) H 94 mg/dL (70-99) Test 05/23/19 19:27 05/23/19 21:24 Glucose (Fingerstick) 60 mg/dL (70-99) L 139 mg/dL (70-99) H Current Medications: I have reviewed the current psychotropics carefully including drug interactions. Risk benefit ratio favors no change other than as noted in my dictated progress note. Diagnosis: Problems: (1) Anxiety disorder (2) Impulse control disorder (3) Mild cognitive disorder (4) Psychosis, atypical (5) Major depressive disorder, recurrent episode (6) Dementia SHARI CHASE MD May 23, 2019 22:26
--- NOTE | 2019-05-23 23:00 | PN ---
DATE: 05/22/2019 PSYCHIATRIC PROGRESS NOTE This late entry, 05/22/2019, covers elements not covered in my initial note. SUBJECTIVE: I met with the patient evening of 05/22/2019. The patient slept just 2 hours previous night. He was quite agitated, loud, verbally aggressive in the morning, yelling, name calling people, hitting and slapping at staff members. Extremely volatile, disruptive. He is whistling loudly, quite disruptive to the entire milieu. Slept 2 hours previous night. REVIEW OF SYSTEMS: Hard of hearing with hearing amplifier, in Broda chair. No CV, , pulmonary, eye system symptoms on review. MENTAL STATUS EXAM: Oriented to himself and situation. Speech has some latency, coherent, often responses monosyllabic. Abstraction fair, computation impaired, language function intact, attention span short. Mood and affect remains labile. LABORATORY DATA: Reviewed. IMPRESSION: Major depressive disorder with psychotic features; impulse control disorder, possible Lewy body dementia. Rest diagnoses unchanged from earlier. PLAN: Increase trazodone to 100 mg at bedtime, may repeat x 1. Start Remeron 7.5 mg at bedtime to help with insomnia and anxiety. Valproic acid level on 05/20/2018 was 43. Depakote has been adjusted. Follow labs, level; adjust this to reach therapeutic level. Xanax is being tapered. Maintain Zoloft along with Zyprexa p.r.n., Seroquel scheduled, primidone and melatonin. SHARI CHASE MD DR: GLENROY/shadi JOB#: [id number] / [id number]
[2019-05-24] MEDS: CARVEDILOL 12.5 MG TABLET PO SCH ×2 (05:53→17:37)
[2019-05-24 05:56] VITALS: BP 171/100
[2019-05-24] MEDS: POTASSIUM CHLORIDE 20 MEQ TABLET.ER. PO SCH ×2 (07:23→17:37)
[2019-05-24] MEDS: levETIRAcetam 500 MG TABLET PO SCH ×2 (07:23→19:23)
[2019-05-24] MEDS: ASPIRIN 81 MG TAB.CHEW PO SCH (07:23)
[2019-05-24] MEDS: MULTIVITAMIN with MINERAL TABLET. PO SCH (07:24)
[2019-05-24] MEDS: FUROSEMIDE 40 MG TABLET PO SCH (07:24)
[2019-05-24] MEDS: SENNOSIDES 8.6 MG TABLET PO SCH ×2 (07:24→19:24)
[2019-05-24] MEDS: FINASTERIDE 5 MG TABLET PO SCH (07:24)
[2019-05-24] MEDS: metFORMIN 500 MG TABLET PO SCH ×2 (07:24→17:37)
[2019-05-24] MEDS: CHOLECALCIFEROL (VITAMIN D3) 1,000 UNIT TABLET PO SCH (07:28)
[2019-05-24] MEDS: QUEtiapine 50 MG TABLET. PO SCH (07:29)
[2019-05-24] MEDS: traMADol 50 MG TABLET PO SCH ×4 (07:29→19:25)
[2019-05-24] MEDS: PREGABALIN 50 MG CAPSULE PO SCH ×3 (07:29→19:23)
[2019-05-24 07:45] LABS: BASO # 0.1 x10^3/uL (0.0-0.2); BASO % 0 % (0-3); EOS # 0.2 x10^3/uL (0.0-0.7); EOS % 2 % (0-3); HEMATOCRIT 43.8 % (39.0-53.0); HEMOGLOBIN 14.4 g/dL (13.0-17.5); LYMPH % 16 % (24-48); MEAN CORPUSCULAR HEMOGLOBIN 31 pg (25-35); MEAN CORPUSCULAR HGB CONC 33 g/dL (31-37); MEAN CORPUSCULAR VOLUME 94 fL (79-100); MONO # 0.8 x10^3/uL (0.0-1.1); MONO % 7 % (0-9); NEUT # 9.8 x10^3uL (1.8-7.7); NEUT % 76 % (31-73); PLATELET COUNT 345 x10^3/uL (140-400); RED BLOOD COUNT 4.64 x10^6/uL (4.30-5.70); RED CELL DISTRIBUTION WIDTH 14.2 % (11.5-14.5)
[2019-05-24 07:58] LABS: ALBUMIN 2.8 g/dL (3.4-5.0); ALBUMIN/GLOBULIN RATIO 0.6 (1.0-1.7); ALK PHOS 74 U/L (46-116); ALT (SGPT) 22 U/L (16-63); ANION GAP 11 (6-14); AST (SGOT) 20 U/L (15-37); BLOOD UREA NITROGEN 17 mg/dL (8-26); BUN/CREATININE RATIO 28 (6-20); CALCIUM 9.2 mg/dL (8.5-10.1); CARBON DIOXIDE 28 mmol/L (21-32); CHLORIDE 105 mmol/L (98-107); CREATININE 0.6 mg/dL (0.7-1.3); GLUCOSE 83 mg/dL (70-99); POTASSIUM 3.1 mmol/L (3.5-5.1); SODIUM 144 mmol/L (136-145); TOTAL BILIRUBIN 0.7 mg/dL (0.2-1.0); TOTAL PROTEIN 7.3 g/dL (6.4-8.2)
[2019-05-24 08:22] LABS: VAL ACID 46 mcg/mL (50-100)
[2019-05-24] MEDS: INSULIN LISPRO 300 UNITS/3 ML INSULN.PEN. SQ SCH ×4 (09:15→17:35)
[2019-05-24] MEDS: QUEtiapine 25 MG TABLET. PO SCH ×2 (12:23→17:38)
[2019-05-24 17:10] VITALS: BP 141/97
[2019-05-24] MEDS: DIVALPROEX ER 250 MG TAB.ER.24H. PO SCH (19:17)
[2019-05-24] MEDS: traZODone 100 MG TABLET. PO SCH (19:17)
[2019-05-24] MEDS: TAMSULOSIN 0.4 MG CAP.ER.24H. PO SCH (19:17)
[2019-05-24] MEDS: MIRTAZAPINE 7.5 MG TABLET. PO SCH (19:18)
[2019-05-24] MEDS: PRIMIDONE 50 MG TABLET PO SCH (19:23)
[2019-05-24] MEDS: MELATONIN 3 MG TABLET PO PRN (19:25)
[2019-05-24] MEDS: POTASSIUM CHLORIDE 20 MEQ PACKET. PO SCH (19:58)
[2019-05-24] MEDS: INSULIN GLARGINE 300 UNITS/3 ML INSULN.PEN. SQ SCH (19:59)
--- NOTE | 2019-05-24 22:33 | PDOC ---
Exam Note: Franco Note: Please also refer to the separate dictated note~for this date of service dictated separately.~Patient seen individually. Discussed the patient with Nursing staff reviewed the chart.~Reviewed interim history and current functioning. Reviewed vital signs,~Labs/ Radiology~and current medications noted below. Continue current treatment with the changes noted in the dictated addendum note Assessment: Vital Signs/I&O: Vital Signs Date Time Temp Pulse Resp B/P (MAP) Pulse Ox O2 Delivery O2 Flow Rate FiO2 05/24/19 20:25 96 Room Air 05/24/19 17:37 65 141/97 05/24/19 17:10 97.5 16 05/20/19 06:19 2.0 I & O 05/23/19 05/23/19 05/24/19 14:59 22:59 06:59 Intake Total 840 ml 0 ml 60 ml Balance 840 ml 0 ml 60 ml Labs: Laboratory Tests Test 05/24/19 01:52 05/24/19 07:14 05/24/19 12:06 05/24/19 17:20 Glucose (Fingerstick) 74 mg/dL (70-99) 129 mg/dL (70-99) H 80 mg/dL (70-99) White Blood Count 13.0 x10^3/uL (4.0-11.0) H Red Blood Count 4.64 x10^6/uL (4.30-5.70) Hemoglobin 14.4 g/dL (13.0-17.5) Hematocrit 43.8 % (39.0-53.0) Mean Corpuscular Volume 94 fL (79-100) Mean Corpuscular Hemoglobin 31 pg (25-35) Mean Corpuscular Hemoglobin Concent 33 g/dL (31-37) Red Cell Distribution Width 14.2 % (11.5-14.5) Platelet Count 345 x10^3/uL (140-400) Neutrophils (%) (Auto) 76 % (31-73) H Lymphocytes (%) (Auto) 16 % (24-48) L Monocytes (%) (Auto) 7 % (0-9) Eosinophils (%) (Auto) 2 % (0-3) Basophils (%) (Auto) 0 % (0-3) Neutrophils # (Auto) 9.8 x10^3uL (1.8-7.7) H Lymphocytes # (Auto) 2.0 x10^3/uL (1.0-4.8) Monocytes # (Auto) 0.8 x10^3/uL (0.0-1.1) Eosinophils # (Auto) 0.2 x10^3/uL (0.0-0.7) Basophils # (Auto) 0.1 x10^3/uL (0.0-0.2) Sodium Level 144 mmol/L (136-145) Potassium Level 3.1 mmol/L (3.5-5.1) L Chloride Level 105 mmol/L (98-107) Carbon Dioxide Level 28 mmol/L (21-32) Anion Gap 11 (6-14) Blood Urea Nitrogen 17 mg/dL (8-26) Creatinine 0.6 mg/dL (0.7-1.3) L Estimated GFR (Cockcroft-Gault) 128.0 BUN/Creatinine Ratio 28 (6-20) H Glucose Level 83 mg/dL (70-99) Calcium Level 9.2 mg/dL (8.5-10.1) Total Bilirubin 0.7 mg/dL (0.2-1.0) Aspartate Amino Transferase (AST) 20 U/L (15-37) Alanine Aminotransferase (ALT) 22 U/L (16-63) Alkaline Phosphatase 74 U/L (46-116) Total Protein 7.3 g/dL (6.4-8.2) Albumin 2.8 g/dL (3.4-5.0) L Albumin/Globulin Ratio 0.6 (1.0-1.7) L Valproic Acid Level 46 mcg/mL (50-100) L Valproic Acid Last Dose Date 05/23/19 Valproic Acid Last Dose Time 2100 Test 05/24/19 19:33 Glucose (Fingerstick) 127 mg/dL (70-99) H Current Medications: Meds: Current Medications Medications (Trade) Dose Ordered Sig/Bobbi Route PRN Reason Start Time Stop Time Status Last Admin Dose Admin Fluvoxamine Maleate (Luvox) 75 mg DAILY PO 05/24/19 09:00 05/26/19 11:00 05/24/19 07:34 Potassium Chloride (Klor-Con Packet) 20 meq TID PO 05/24/19 21:00 05/24/19 19:58 I have reviewed the current psychotropics carefully including drug interactions. Risk benefit ratio favors no change other than as noted in my dictated progress note. Diagnosis: Problems: (1) Anxiety disorder (2) Impulse control disorder (3) Mild cognitive disorder (4) Psychosis, atypical (5) Major depressive disorder, recurrent episode (6) Dementia SHARI CHASE MD May 24, 2019 22:33
--- NOTE | 2019-05-25 01:46 | PN ---
DATE: 05/23/2019 This late entry 05/23 covers elements not covered in my initial note. I met with the patient in the evening of 05/23. The patient slept 5-1/2 hours previous night. He slept in a Broda chair, drowsy. Pain medications were held at 1300 and 1400 and Seroquel held at 1300, then more awake, slept 5-1/2 hours previous night. REVIEW OF SYSTEMS: Hard of hearing, impaired ambulation, in Broda chair. No CV, , pulmonary, eye system symptoms on review. MENTAL STATUS EXAM: Oriented to himself and situation. Speech has some latency, coherent, can be rapid at times. Abstraction fair, computation impaired, language function intact. Mood and affect remain somewhat anxious, labile, but improved. LABORATORY DATA: Reviewed. He remains somewhat obsessive. IMPRESSION: Unchanged from initial note. PLAN: No change from initial note. We may need to increase Luvox further gradually for his obsessiveness. SHARI CHASE MD DR: GLENROY/shadi JOB#: [id number] / [id number]
[2019-05-25 06:46] VITALS: BP 163/97
[2019-05-25] MEDS: INSULIN LISPRO 300 UNITS/3 ML INSULN.PEN. SQ SCH ×4 (07:30→17:45)
[2019-05-25] MEDS: QUEtiapine 50 MG TABLET. PO SCH (08:05)
[2019-05-25] MEDS: levETIRAcetam 500 MG TABLET PO SCH ×2 (08:05→19:30)
[2019-05-25] MEDS: SENNOSIDES 8.6 MG TABLET PO SCH ×2 (08:06→19:31)
[2019-05-25] MEDS: FUROSEMIDE 40 MG TABLET PO SCH (08:07)
[2019-05-25] MEDS: MULTIVITAMIN with MINERAL TABLET. PO SCH ×2 (08:07→09:00)
[2019-05-25] MEDS: POTASSIUM CHLORIDE 20 MEQ PACKET. PO SCH ×3 (08:07→19:36)
[2019-05-25] MEDS: ASPIRIN 81 MG TAB.CHEW PO SCH (08:07)
[2019-05-25] MEDS: metFORMIN 500 MG TABLET PO SCH ×2 (08:07→17:04)
[2019-05-25] MEDS: FINASTERIDE 5 MG TABLET PO SCH (08:07)
[2019-05-25] MEDS: CARVEDILOL 12.5 MG TABLET PO SCH ×2 (08:08→17:05)
[2019-05-25] MEDS: CHOLECALCIFEROL (VITAMIN D3) 1,000 UNIT TABLET PO SCH (08:08)
[2019-05-25] MEDS: PREGABALIN 50 MG CAPSULE PO SCH ×3 (09:07→19:36)
[2019-05-25] MEDS: traMADol 50 MG TABLET PO SCH ×4 (09:08→19:36)
[2019-05-25] MEDS: QUEtiapine 25 MG TABLET. PO SCH ×2 (12:47→17:04)
[2019-05-25 13:38] LABS: BACTERIA,URINE MANY /HPF (0-FEW); BILIRUBIN,URINE NEG (NEG); CLARITY,URINE TURBID; COLOR,URINE AMBER; GLUCOSE,URINE NEG (NEG); NITRITE,URINE NEG (NEG); RBC,URINE RARE /HPF (0-2); SQUAMOUS EPITHELIAL CELL,UR OCC /LPF; UROBILINOGEN,URINE 1 mg/dL (0.2 mg/dL)
[2019-05-25 16:57] VITALS: BP 130/80
[2019-05-25] MEDS: PRIMIDONE 50 MG TABLET PO SCH (19:30)
[2019-05-25] MEDS: TAMSULOSIN 0.4 MG CAP.ER.24H. PO SCH (19:30)
[2019-05-25] MEDS: traZODone 100 MG TABLET. PO SCH (19:30)
[2019-05-25] MEDS: DIVALPROEX ER 250 MG TAB.ER.24H. PO SCH (19:30)
[2019-05-25] MEDS: MIRTAZAPINE 7.5 MG TABLET. PO SCH (19:30)
[2019-05-25] MEDS: INSULIN GLARGINE 300 UNITS/3 ML INSULN.PEN. SQ SCH (19:37)
--- NOTE | 2019-05-25 22:47 | PDOC ---
Exam Note: Franco Note: Please also refer to the separate dictated note~for this date of service dictated separately.~Patient seen individually. Discussed the patient with Nursing staff reviewed the chart.~Reviewed interim history and current functioning. Reviewed vital signs,~Labs/ Radiology~and current medications noted below. Continue current treatment with the changes noted in the dictated addendum note Assessment: Vital Signs/I&O: Vital Signs Date Time Temp Pulse Resp B/P (MAP) Pulse Ox O2 Delivery O2 Flow Rate FiO2 05/25/19 20:36 17 94 Room Air 05/25/19 17:05 68 130/80 05/25/19 16:57 98.3 05/20/19 06:19 2.0 I & O 05/24/19 05/24/19 05/25/19 14:59 22:59 06:59 Intake Total 1200 ml 360 ml Balance 1200 ml 360 ml Labs: Laboratory Tests Test 05/25/19 07:28 05/25/19 11:24 05/25/19 13:00 05/25/19 16:44 Glucose (Fingerstick) 84 mg/dL (70-99) 148 mg/dL (70-99) H 76 mg/dL (70-99) Urine Collection Type Unknown Urine Color Margarette Urine Clarity Turbid Urine pH 7.0 Urine Specific [place] 1.020 Urine Protein 30 mg/dl (NEG-TRACE) Urine Glucose (UA) Neg mg/dL (NEG) Urine Ketones (Stick) 15 mg/dL (NEG) Urine Blood Neg (NEG) Urine Nitrite Neg (NEG) Urine Bilirubin Neg (NEG) Urine Urobilinogen Dipstick 1 mg/dL (0.2 mg/dL) Urine Leukocyte Esterase Neg (NEG) Urine RBC Rare /HPF (0-2) Urine WBC 5-10 /HPF (0-4) Urine Squamous Epithelial Cells Occ /LPF Urine Bacteria Many /HPF (0-FEW) Test 05/25/19 19:17 Glucose (Fingerstick) 125 mg/dL (70-99) H Current Medications: I have reviewed the current psychotropics carefully including drug interactions. Risk benefit ratio favors no change other than as noted in my dictated progress note. Diagnosis: Problems: (1) Anxiety disorder (2) Impulse control disorder (3) Mild cognitive disorder (4) Psychosis, atypical (5) Major depressive disorder, recurrent episode (6) Dementia SHARI CHASE MD May 25, 2019 22:47
[2019-05-26 06:38] VITALS: BP 143/96
[2019-05-26] MEDS: INSULIN LISPRO 300 UNITS/3 ML INSULN.PEN. SQ SCH ×3 (07:30→16:30)
[2019-05-26 07:35] LABS: BASO % 1 % (0-3); EOS # 0.2 x10^3/uL (0.0-0.7); EOS % 3 % (0-3); HEMOGLOBIN 13.2 g/dL (13.0-17.5); LYMPH # 2.3 x10^3/uL (1.0-4.8); LYMPH % 25 % (24-48); MEAN CORPUSCULAR HEMOGLOBIN 31 pg (25-35); MEAN CORPUSCULAR HGB CONC 33 g/dL (31-37); MEAN CORPUSCULAR VOLUME 94 fL (79-100); MONO # 0.7 x10^3/uL (0.0-1.1); MONO % 8 % (0-9); NEUT % 64 % (31-73); PLATELET COUNT 274 x10^3/uL (140-400); RED BLOOD COUNT 4.28 x10^6/uL (4.30-5.70); RED CELL DISTRIBUTION WIDTH 14.5 % (11.5-14.5); WHITE BLOOD COUNT 9.4 x10^3/uL (4.0-11.0)
[2019-05-26 07:44] LABS: ALBUMIN 2.6 g/dL (3.4-5.0); ALBUMIN/GLOBULIN RATIO 0.7 (1.0-1.7); ALK PHOS 62 U/L (46-116); ALT (SGPT) 19 U/L (16-63); ANION GAP 8 (6-14); AST (SGOT) 13 U/L (15-37); BLOOD UREA NITROGEN 12 mg/dL (8-26); BUN/CREATININE RATIO 20 (6-20); CALCIUM 8.8 mg/dL (8.5-10.1); CARBON DIOXIDE 30 mmol/L (21-32); CHLORIDE 105 mmol/L (98-107); CREATININE 0.6 mg/dL (0.7-1.3); GLUCOSE 67 mg/dL (70-99); POTASSIUM 3.3 mmol/L (3.5-5.1); SODIUM 143 mmol/L (136-145); TOTAL BILIRUBIN 0.4 mg/dL (0.2-1.0); TOTAL PROTEIN 6.6 g/dL (6.4-8.2)
[2019-05-26 07:47] LABS: VAL ACID 42 mcg/mL (50-100)
[2019-05-26] MEDS: ASPIRIN 81 MG TAB.CHEW PO SCH (08:12)
[2019-05-26] MEDS: SENNOSIDES 8.6 MG TABLET PO SCH ×2 (08:12→19:30)
[2019-05-26] MEDS: POTASSIUM CHLORIDE 20 MEQ PACKET. PO SCH ×3 (08:12→19:30)
[2019-05-26] MEDS: QUEtiapine 50 MG TABLET. PO SCH (08:12)
[2019-05-26] MEDS: CHOLECALCIFEROL (VITAMIN D3) 1,000 UNIT TABLET PO SCH (08:12)
[2019-05-26] MEDS: FINASTERIDE 5 MG TABLET PO SCH (08:13)
[2019-05-26] MEDS: levETIRAcetam 500 MG TABLET PO SCH ×2 (08:13→19:29)
[2019-05-26] MEDS: metFORMIN 500 MG TABLET PO SCH ×2 (08:13→17:00)
[2019-05-26] MEDS: MULTIVITAMIN with MINERAL TABLET. PO SCH (08:13)
[2019-05-26] MEDS: CARVEDILOL 12.5 MG TABLET PO SCH ×2 (08:13→17:00)
[2019-05-26] MEDS: FUROSEMIDE 40 MG TABLET PO SCH (08:14)
[2019-05-26] MEDS: PREGABALIN 50 MG CAPSULE PO SCH ×3 (08:15→19:32)
[2019-05-26] MEDS: traMADol 50 MG TABLET PO SCH ×4 (08:15→19:33)
[2019-05-26] MEDS: QUEtiapine 25 MG TABLET. PO SCH ×2 (13:00→17:00)
--- NOTE | 2019-05-26 13:27 | PN ---
DATE: 05/24/2019 This late entry, 05/24, covers the elements not covered in my initial note. SUBJECTIVE: I met with the patient in the evening. The patient slept 7-1/2 hours previous night. He has been resistive with his medications. Xanax is being tapered and discontinued. He seems more anxious since then. He received Zyprexa Zydis at 1350 due to anxiety, paranoia; refused his meds at night; took them later. Valproic acid level is 46. REVIEW OF SYSTEMS: No CV, , pulmonary, eye system symptoms on review. Gait unsteady in Broda chair, hard of hearing. MENTAL STATUS EXAM: Oriented to himself and situation. Speech is coherent, has some latency. Abstraction fair. Computation impaired. Language function intact. Attention span short. Mood and affect remains somewhat anxious, labile, but improved. LABORATORY DATA: Reviewed. IMPRESSION: Unchanged from initial note. PLAN: Continue current psychotropics. We may need to increase Depakote further. Maintain Luvox 75 mg a day and Remeron 7.5 mg at bedtime together with Seroquel at current dosage and primidone. MAN Geno CHASE MD DR: GLENROY/shadi JOB#: [id number] / [id number]
[2019-05-26 16:04] VITALS: BP 103/73
[2019-05-26] MEDS: DIVALPROEX ER 250 MG TAB.ER.24H. PO SCH (19:29)
[2019-05-26] MEDS: traZODone 100 MG TABLET. PO SCH (19:29)
[2019-05-26] MEDS: TAMSULOSIN 0.4 MG CAP.ER.24H. PO SCH (19:29)
[2019-05-26] MEDS: PRIMIDONE 50 MG TABLET PO SCH (19:30)
[2019-05-26] MEDS: MIRTAZAPINE 7.5 MG TABLET. PO SCH (19:30)
[2019-05-26] MEDS: INSULIN GLARGINE 300 UNITS/3 ML INSULN.PEN. SQ SCH (19:34)
--- NOTE | 2019-05-26 22:28 | PDOC ---
Exam Note: Franco Note: Please also refer to the separate dictated note~for this date of service dictated separately.~Patient seen individually. Discussed the patient with Nursing staff reviewed the chart.~Reviewed interim history and current functioning. Reviewed vital signs,~Labs/ Radiology~and current medications noted below. Continue current treatment with the changes noted in the dictated addendum note Assessment: Vital Signs/I&O: Vital Signs Date Time Temp Pulse Resp B/P (MAP) Pulse Ox O2 Delivery O2 Flow Rate FiO2 05/26/19 20:32 18 98 Room Air 05/26/19 17:00 73 103/73 05/26/19 16:04 97.5 I & O 05/25/19 05/25/19 05/26/19 15:00 23:00 07:00 Intake Total 480 ml 240 ml Balance 480 ml 240 ml Labs: Laboratory Tests Test 05/26/19 07:18 05/26/19 07:20 05/26/19 12:35 05/26/19 16:57 White Blood Count 9.4 x10^3/uL (4.0-11.0) Red Blood Count 4.28 x10^6/uL (4.30-5.70) L Hemoglobin 13.2 g/dL (13.0-17.5) Hematocrit 40.0 % (39.0-53.0) Mean Corpuscular Volume 94 fL (79-100) Mean Corpuscular Hemoglobin 31 pg (25-35) Mean Corpuscular Hemoglobin Concent 33 g/dL (31-37) Red Cell Distribution Width 14.5 % (11.5-14.5) Platelet Count 274 x10^3/uL (140-400) Neutrophils (%) (Auto) 64 % (31-73) Lymphocytes (%) (Auto) 25 % (24-48) Monocytes (%) (Auto) 8 % (0-9) Eosinophils (%) (Auto) 3 % (0-3) Basophils (%) (Auto) 1 % (0-3) Neutrophils # (Auto) 6.0 x10^3uL (1.8-7.7) Lymphocytes # (Auto) 2.3 x10^3/uL (1.0-4.8) Monocytes # (Auto) 0.7 x10^3/uL (0.0-1.1) Eosinophils # (Auto) 0.2 x10^3/uL (0.0-0.7) Basophils # (Auto) 0.0 x10^3/uL (0.0-0.2) Sodium Level 143 mmol/L (136-145) Potassium Level 3.3 mmol/L (3.5-5.1) L Chloride Level 105 mmol/L (98-107) Carbon Dioxide Level 30 mmol/L (21-32) Anion Gap 8 (6-14) Blood Urea Nitrogen 12 mg/dL (8-26) Creatinine 0.6 mg/dL (0.7-1.3) L Estimated GFR (Cockcroft-Gault) 128.0 BUN/Creatinine Ratio 20 (6-20) Glucose Level 67 mg/dL (70-99) L Calcium Level 8.8 mg/dL (8.5-10.1) Total Bilirubin 0.4 mg/dL (0.2-1.0) Aspartate Amino Transferase (AST) 13 U/L (15-37) L Alanine Aminotransferase (ALT) 19 U/L (16-63) Alkaline Phosphatase 62 U/L (46-116) Total Protein 6.6 g/dL (6.4-8.2) Albumin 2.6 g/dL (3.4-5.0) L Albumin/Globulin Ratio 0.7 (1.0-1.7) L Valproic Acid Level 42 mcg/mL (50-100) L Valproic Acid Last Dose Date 05/25/19 Valproic Acid Last Dose Time 2100 Glucose (Fingerstick) 80 mg/dL (70-99) 95 mg/dL (70-99) 92 mg/dL (70-99) Test 05/26/19 19:04 Glucose (Fingerstick) 146 mg/dL (70-99) H Current Medications: I have reviewed the current psychotropics carefully including drug interactions. Risk benefit ratio favors no change other than as noted in my dictated progress note. Diagnosis: Problems: (1) Anxiety disorder (2) Impulse control disorder (3) Mild cognitive disorder (4) Psychosis, atypical (5) Major depressive disorder, recurrent episode (6) Dementia SHARI CHASE MD May 26, 2019 22:27
--- NOTE | 2019-05-27 04:59 | PN ---
DATE: 05/25/2019 PSYCHIATRIC PROGRESS NOTE This late entry 05/25/2019 covers elements not covered in my initial note. SUBJECTIVE: I met with the patient in the evening. The patient was staffed at a treatment team meeting with the entire team in the morning. Reviewed the patient's history, diagnosis, current medications, progress, transition plans. He is less anxious, attention seeking, less whistling. Sleeping average 5 hours. Yelling out at times. Appetite 25%-50%. REVIEW OF SYSTEMS: Hard of hearing, impaired ambulation, in Broda chair. He does have wearing amplifiers in place and this is how I communicated with him. REVIEW OF SYSTEMS: No CV, , or pulmonary system symptoms on review. MENTAL STATUS EXAM: Oriented to himself and situation. Speech has some latency, can be rapid at times. Abstraction fair, computation impaired, language function intact, attention span short. Mood and affect remains somewhat anxious, labile. LABORATORY DATA: Reviewed. IMPRESSION: Unchanged from initial note. PLAN: Increase Luvox from 75 mg a day to 100 mg a day on . Maintain Remeron, Depakote, trazodone, along with Zyprexa p.r.n. and Seroquel and melatonin. He is also on primidone. Adjust further as clinically indicated. SHARI CHASE MD DR: GLENROY/shadi JOB#: [id number] / [id number]
[2019-05-27 05:40] VITALS: BP 126/73
[2019-05-27] MEDS: INSULIN LISPRO 300 UNITS/3 ML INSULN.PEN. SQ SCH ×3 (07:30→17:00)
[2019-05-27] MEDS: CARVEDILOL 12.5 MG TABLET PO SCH ×2 (07:56→16:36)
[2019-05-27] MEDS: FINASTERIDE 5 MG TABLET PO SCH (07:56)
[2019-05-27] MEDS: QUEtiapine 50 MG TABLET. PO SCH (07:56)
[2019-05-27] MEDS: levETIRAcetam 500 MG TABLET PO SCH ×2 (07:56→19:47)
[2019-05-27] MEDS: SENNOSIDES 8.6 MG TABLET PO SCH ×2 (07:57→19:47)
[2019-05-27] MEDS: POTASSIUM CHLORIDE 20 MEQ PACKET. PO SCH ×3 (07:57→19:48)
[2019-05-27] MEDS: CHOLECALCIFEROL (VITAMIN D3) 1,000 UNIT TABLET PO SCH (07:57)
[2019-05-27] MEDS: ASPIRIN 81 MG TAB.CHEW PO SCH (07:57)
[2019-05-27] MEDS: MULTIVITAMIN with MINERAL TABLET. PO SCH (07:57)
[2019-05-27] MEDS: FUROSEMIDE 40 MG TABLET PO SCH (07:57)
[2019-05-27] MEDS: metFORMIN 500 MG TABLET PO SCH ×2 (07:58→16:36)
[2019-05-27] MEDS: PREGABALIN 50 MG CAPSULE PO SCH ×3 (08:01→19:49)
[2019-05-27] MEDS: traMADol 50 MG TABLET PO SCH ×4 (08:02→19:47)
[2019-05-27] MEDS: QUEtiapine 25 MG TABLET. PO SCH ×2 (14:35→16:38)
[2019-05-27] MEDS ORDERED: DEXTROSE 50% 25 GM / 50ML DISP.SYRIN. IV PRN (14:45)
[2019-05-27] MEDS: fentaNYL 12MCG/HR 1 PATCH PATCH TD SCH (15:34)
[2019-05-27 15:40] VITALS: BP 124/71
[2019-05-27] MEDS: DIVALPROEX ER 250 MG TAB.ER.24H. PO SCH (19:46)
[2019-05-27] MEDS: PRIMIDONE 50 MG TABLET PO SCH (19:46)
[2019-05-27] MEDS: TAMSULOSIN 0.4 MG CAP.ER.24H. PO SCH (19:47)
[2019-05-27] MEDS: traZODone 100 MG TABLET. PO SCH (19:47)
[2019-05-27] MEDS: MIRTAZAPINE 7.5 MG TABLET. PO SCH (19:47)
[2019-05-27] MEDS: INSULIN GLARGINE 300 UNITS/3 ML INSULN.PEN. SQ SCH (21:31)
--- NOTE | 2019-05-27 23:14 | PDOC ---
Exam Note: Franco Note: Please also refer to the separate dictated note~for this date of service dictated separately.~Patient seen individually. Discussed the patient with Nursing staff reviewed the chart.~Reviewed interim history and current functioning. Reviewed vital signs,~Labs/ Radiology~and current medications noted below. Continue current treatment with the changes noted in the dictated addendum note Assessment: Vital Signs/I&O: Vital Signs Date Time Temp Pulse Resp B/P (MAP) Pulse Ox O2 Delivery O2 Flow Rate FiO2 05/27/19 20:47 18 95 05/27/19 17:41 Room Air 05/27/19 16:36 84 124/71 05/27/19 15:40 97.9 I & O 05/26/19 05/26/19 05/27/19 15:00 23:00 07:00 Intake Total 600 ml 480 ml 240 ml Balance 600 ml 480 ml 240 ml Labs: Laboratory Tests Test 05/27/19 07:11 05/27/19 11:25 05/27/19 16:33 05/27/19 19:25 Glucose (Fingerstick) 65 mg/dL (70-99) L 144 mg/dL (70-99) H 91 mg/dL (70-99) 95 mg/dL (70-99) Current Medications: Meds: Current Medications Medications (Trade) Dose Ordered Sig/Bobbi Route PRN Reason Start Time Stop Time Status Last Admin Dose Admin Fluvoxamine Maleate (Luvox) 100 mg DAILY PO 05/27/19 09:00 05/27/19 08:02 Fentanyl (Duragesic 12mcg/ Hr) 1 patch Q3DAYS TD 05/27/19 15:00 05/27/19 15:34 I have reviewed the current psychotropics carefully including drug interactions. Risk benefit ratio favors no change other than as noted in my dictated progress note. Diagnosis: Problems: (1) Anxiety disorder (2) Impulse control disorder (3) Mild cognitive disorder (4) Psychosis, atypical (5) Major depressive disorder, recurrent episode (6) Dementia SHARI CHASE MD May 27, 2019 23:14
[2019-05-28] MEDS: traZODone 100 MG TABLET. PO PRN ×2 (01:13→22:26)
[2019-05-28 06:32] VITALS: BP 133/84
[2019-05-28] MEDS: INSULIN LISPRO 300 UNITS/3 ML INSULN.PEN. SQ SCH ×3 (08:00→17:00)
[2019-05-28] MEDS: SENNOSIDES 8.6 MG TABLET PO SCH ×2 (08:07→20:59)
[2019-05-28] MEDS: POTASSIUM CHLORIDE 20 MEQ PACKET. PO SCH ×3 (08:08→20:59)
[2019-05-28] MEDS: CHOLECALCIFEROL (VITAMIN D3) 1,000 UNIT TABLET PO SCH (08:08)
[2019-05-28] MEDS: levETIRAcetam 500 MG TABLET PO SCH ×2 (08:08→21:00)
[2019-05-28] MEDS: MULTIVITAMIN with MINERAL TABLET. PO SCH (08:09)
[2019-05-28] MEDS: CARVEDILOL 12.5 MG TABLET PO SCH ×2 (08:09→16:35)
[2019-05-28] MEDS: metFORMIN 500 MG TABLET PO SCH ×2 (08:09→16:35)
[2019-05-28] MEDS: ASPIRIN 81 MG TAB.CHEW PO SCH (08:09)
[2019-05-28] MEDS: FUROSEMIDE 40 MG TABLET PO SCH (08:09)
[2019-05-28] MEDS: PREGABALIN 50 MG CAPSULE PO SCH ×3 (08:10→20:59)
[2019-05-28] MEDS: FINASTERIDE 5 MG TABLET PO SCH (08:10)
[2019-05-28] MEDS: QUEtiapine 50 MG TABLET. PO SCH (08:10)
[2019-05-28] MEDS: traMADol 50 MG TABLET PO SCH ×4 (08:15→21:00)
[2019-05-28] MEDS: QUEtiapine 25 MG TABLET. PO SCH ×2 (12:03→16:36)
[2019-05-28 16:28] VITALS: BP 119/74
[2019-05-28] MEDS: traZODone 100 MG TABLET. PO SCH (20:59)
[2019-05-28] MEDS: PRIMIDONE 50 MG TABLET PO SCH (20:59)
[2019-05-28] MEDS: TAMSULOSIN 0.4 MG CAP.ER.24H. PO SCH (20:59)
[2019-05-28] MEDS: DIVALPROEX ER 250 MG TAB.ER.24H. PO SCH (20:59)
[2019-05-28] MEDS: MIRTAZAPINE 7.5 MG TABLET. PO SCH (20:59)
[2019-05-28] MEDS: INSULIN GLARGINE 300 UNITS/3 ML INSULN.PEN. SQ SCH (21:01)
--- NOTE | 2019-05-28 21:56 | PDOC ---
Exam Note: Franco Note: Please also refer to the separate dictated note~for this date of service dictated separately.~Patient seen individually. Discussed the patient with Nursing staff reviewed the chart.~Reviewed interim history and current functioning. Reviewed vital signs,~Labs/ Radiology~and current medications noted below. Continue current treatment with the changes noted in the dictated addendum note Assessment: Vital Signs/I&O: Vital Signs Date Time Temp Pulse Resp B/P (MAP) Pulse Ox O2 Delivery O2 Flow Rate FiO2 05/28/19 16:35 89 119/74 05/28/19 16:34 16 94 Room Air 05/28/19 16:28 97.9 05/28/19 08:15 2.0 I & O 05/27/19 05/27/19 05/28/19 15:00 23:00 07:00 Intake Total 480 ml 480 ml 120 ml Balance 480 ml 480 ml 120 ml Labs: Laboratory Tests Test 05/28/19 07:18 05/28/19 12:02 05/28/19 17:19 05/28/19 20:44 Glucose (Fingerstick) 56 mg/dL (70-99) L 152 mg/dL (70-99) H 121 mg/dL (70-99) H 160 mg/dL (70-99) H Current Medications: Meds: Current Medications Medications (Trade) Dose Ordered Sig/Bobbi Route PRN Reason Start Time Stop Time Status Last Admin Dose Admin Quetiapine Fumarate (SEROquel) 12.5 mg DAILYWSUP PO 05/28/19 17:00 05/28/19 16:36 Insulin Glargine (Lantus) 15 units QHS SQ 05/28/19 21:00 05/28/19 21:01 I have reviewed the current psychotropics carefully including drug interactions. Risk benefit ratio favors no change other than as noted in my dictated progress note. Diagnosis: Problems: (1) Anxiety disorder (2) Impulse control disorder (3) Mild cognitive disorder (4) Psychosis, atypical (5) Major depressive disorder, recurrent episode SHARI CHASE MD May 28, 2019 21:56
[2019-05-28] MEDS: MELATONIN 3 MG TABLET PO PRN (22:26)
--- NOTE | 2019-05-28 23:05 | PN ---
DATE: 05/27/2019 PSYCHIATRIC PROGRESS NOTE This is a late entry 05/27/2019, covers the elements not covered in my initial note. SUBJECTIVE: I met with the patient in the evening. The patient slept 4-1/2 hours previous night. He continues to have some chronic pain, receiving fentanyl. This should help his agitation as well. Humalog was changed to sliding scale per Dr. Villavicencio, received Zyprexa a.m. and p.m. due to increased agitation, whistling, restlessness. REVIEW OF SYSTEMS: Hard of hearing, impaired ambulation, in Broda chair. No CV, , pulmonary, eye system symptoms on review. MENTAL STATUS EXAM: Oriented to himself and situation. Speech is coherent, can be loud at times. Abstraction fair, computation impaired, language function intact, attention span short, reasonably oriented. LABORATORY DATA: Reviewed. IMPRESSION: Unchanged from initial note. PLAN: No change from initial note. Treat UTI, positive culture. MAN Geno CHASE MD DR: GLENROY/shadi JOB#: [id number] / [id number]
--- NOTE | 2019-05-28 23:06 | PN ---
DATE: 05/26/2019 This late entry of 05/26/2017, covers the elements not covered in my initial note. SUBJECTIVE: I met with the patient in the evening. The patient has had 2 good days. However, on 05/26/2019, he was yelling again, whistling loudly, though this is better than before. UA has reflux to culture and this could be contributing to his increased agitation on 05/26/2019. He slept 9 hours previous night. REVIEW OF SYSTEMS: Hard of hearing, impaired ambulation, in Broda chair. No CV, , eye, ENT system symptoms on review other than above. MENTAL STATUS EXAM: Oriented to himself and situation. Speech has some latency, coherent, often responses monosyllabic, but repetitive. At other times, loud. Abstraction fair, computation impaired, language function intact. Mood and affect, lability seems to be returning somewhat. LABS: Reviewed. IMPRESSION: Unchanged from initial note. PLAN: No change from initial note. Treat UTI, if positive. MAN Geno CHASE MD DR: GLENROY/shadi JOB#: [id number] / [id number]
[2019-05-29 06:58] VITALS: BP 144/112
[2019-05-29 07:44] LABS: VAL ACID 41 mcg/mL (50-100)
[2019-05-29] MEDS: INSULIN LISPRO 300 UNITS/3 ML INSULN.PEN. SQ SCH ×3 (08:00→17:00)
[2019-05-29] MEDS: FINASTERIDE 5 MG TABLET PO SCH (10:17)
[2019-05-29] MEDS: ASPIRIN 81 MG TAB.CHEW PO SCH (10:17)
[2019-05-29] MEDS: POTASSIUM CHLORIDE 20 MEQ PACKET. PO SCH ×3 (10:17→19:28)
[2019-05-29] MEDS: SENNOSIDES 8.6 MG TABLET PO SCH ×2 (10:18→19:28)
[2019-05-29] MEDS: metFORMIN 500 MG TABLET PO SCH ×2 (10:18→16:56)
[2019-05-29] MEDS: FUROSEMIDE 40 MG TABLET PO SCH (10:18)
[2019-05-29] MEDS: CHOLECALCIFEROL (VITAMIN D3) 1,000 UNIT TABLET PO SCH (10:18)
[2019-05-29] MEDS: QUEtiapine 50 MG TABLET. PO SCH (10:18)
[2019-05-29] MEDS: MULTIVITAMIN with MINERAL TABLET. PO SCH (10:18)
[2019-05-29] MEDS: levETIRAcetam 500 MG TABLET PO SCH ×2 (10:19→19:28)
[2019-05-29] MEDS: PREGABALIN 50 MG CAPSULE PO SCH ×3 (10:19→19:31)
[2019-05-29] MEDS: CARVEDILOL 12.5 MG TABLET PO SCH ×2 (10:20→16:54)
[2019-05-29] MEDS: traMADol 50 MG TABLET PO SCH ×4 (10:30→19:31)
[2019-05-29] MEDS: QUEtiapine 25 MG TABLET. PO SCH ×2 (13:00→16:55)
[2019-05-29 16:30] VITALS: BP 131/74
[2019-05-29] MEDS: DIVALPROEX ER 250 MG TAB.ER.24H. PO SCH (19:27)
[2019-05-29] MEDS: TAMSULOSIN 0.4 MG CAP.ER.24H. PO SCH (19:28)
[2019-05-29] MEDS: traZODone 100 MG TABLET. PO SCH (19:28)
[2019-05-29] MEDS: PRIMIDONE 50 MG TABLET PO SCH (19:28)
[2019-05-29] MEDS: MIRTAZAPINE 7.5 MG TABLET. PO SCH (19:28)
[2019-05-29] MEDS: INSULIN GLARGINE 300 UNITS/3 ML INSULN.PEN. SQ SCH (20:02)
--- NOTE | 2019-05-29 22:39 | PDOC ---
Exam Note: Franco Note: Please also refer to the separate dictated note~for this date of service dictated separately.~Patient seen individually. Discussed the patient with Nursing staff reviewed the chart.~Reviewed interim history and current functioning. Reviewed vital signs,~Labs/ Radiology~and current medications noted below. Continue current treatment with the changes noted in the dictated addendum note Assessment: Vital Signs/I&O: Vital Signs Date Time Temp Pulse Resp B/P (MAP) Pulse Ox O2 Delivery O2 Flow Rate FiO2 05/29/19 20:31 93 Room Air 05/29/19 16:54 60 131/74 05/29/19 16:30 97.9 20 05/28/19 08:15 2.0 I & O 05/28/19 05/28/19 05/29/19 14:59 22:59 06:59 Intake Total 720 ml 240 ml 0 ml Balance 720 ml 240 ml 0 ml Labs: Laboratory Tests Test 05/29/19 06:57 05/29/19 07:28 05/29/19 11:46 05/29/19 17:05 Valproic Acid Level 41 mcg/mL (50-100) L Valproic Acid Last Dose Date 05/28/19 Valproic Acid Last Dose Time 2100 Glucose (Fingerstick) 65 mg/dL (70-99) L 113 mg/dL (70-99) H 77 mg/dL (70-99) Test 05/29/19 19:54 Glucose (Fingerstick) 122 mg/dL (70-99) H Current Medications: I have reviewed the current psychotropics carefully including drug interactions. Risk benefit ratio favors no change other than as noted in my dictated progress note. Diagnosis: Problems: (1) Anxiety disorder (2) Impulse control disorder (3) Mild cognitive disorder (4) Psychosis, atypical (5) Bipolar disorder (6) Major depressive disorder, recurrent episode SHARI CHASE MD May 29, 2019 22:39
[2019-05-30 06:08] VITALS: BP 135/76
[2019-05-30] MEDS ORDERED: hydrOXYzine HCL 25 MG TABLET PO PRN (07:15)
[2019-05-30] MEDS: INSULIN LISPRO 300 UNITS/3 ML INSULN.PEN. SQ SCH ×3 (08:00→17:00)
[2019-05-30] MEDS: FUROSEMIDE 40 MG TABLET PO SCH (08:14)
[2019-05-30] MEDS: CHOLECALCIFEROL (VITAMIN D3) 1,000 UNIT TABLET PO SCH (08:15)
[2019-05-30] MEDS: CARVEDILOL 12.5 MG TABLET PO SCH ×2 (08:15→17:16)
[2019-05-30] MEDS: FINASTERIDE 5 MG TABLET PO SCH (08:15)
[2019-05-30] MEDS: POTASSIUM CHLORIDE 20 MEQ PACKET. PO SCH ×3 (08:15→19:23)
[2019-05-30] MEDS: MULTIVITAMIN with MINERAL TABLET. PO SCH (08:15)
[2019-05-30] MEDS: metFORMIN 500 MG TABLET PO SCH ×2 (08:15→17:15)
[2019-05-30] MEDS: ASPIRIN 81 MG TAB.CHEW PO SCH (08:15)
[2019-05-30] MEDS: SENNOSIDES 8.6 MG TABLET PO SCH ×2 (08:16→19:24)
[2019-05-30] MEDS: QUEtiapine 50 MG TABLET. PO SCH (08:16)
[2019-05-30] MEDS: levETIRAcetam 500 MG TABLET PO SCH ×2 (08:16→19:23)
[2019-05-30] MEDS: fentaNYL 12MCG/HR 1 PATCH PATCH TD SCH (08:18)
[2019-05-30] MEDS: traMADol 50 MG TABLET PO SCH ×4 (08:19→19:26)
[2019-05-30] MEDS: PREGABALIN 50 MG CAPSULE PO SCH ×3 (08:19→19:25)
[2019-05-30 10:40] LABS: ALBUMIN 2.8 g/dL (3.4-5.0); ALBUMIN/GLOBULIN RATIO 0.7 (1.0-1.7); CALCIUM 9.4 mg/dL (8.5-10.1); CREATININE 0.8 mg/dL (0.7-1.3); GFR 91.9; POTASSIUM 3.5 mmol/L (3.5-5.1); TOTAL BILIRUBIN 0.6 mg/dL (0.2-1.0)
[2019-05-30] MEDS: QUEtiapine 25 MG TABLET. PO SCH ×2 (14:16→17:17)
[2019-05-30 16:28] VITALS: BP 124/71
[2019-05-30] MEDS: traZODone 100 MG TABLET. PO SCH (19:23)
[2019-05-30] MEDS: DIVALPROEX ER 250 MG TAB.ER.24H. PO SCH (19:23)
[2019-05-30] MEDS: TAMSULOSIN 0.4 MG CAP.ER.24H. PO SCH (19:23)
[2019-05-30] MEDS: PRIMIDONE 50 MG TABLET PO SCH (19:23)
[2019-05-30] MEDS: MIRTAZAPINE 7.5 MG TABLET. PO SCH (19:24)
[2019-05-30] MEDS: INSULIN GLARGINE 300 UNITS/3 ML INSULN.PEN. SQ SCH (19:27)
--- NOTE | 2019-05-30 22:47 | PDOC ---
Exam Note: Franco Note: Please also refer to the separate dictated note~for this date of service dictated separately.~Patient seen individually. Discussed the patient with Nursing staff reviewed the chart.~Reviewed interim history and current functioning. Reviewed vital signs,~Labs/ Radiology~and current medications noted below. Continue current treatment with the changes noted in the dictated addendum note Assessment: Vital Signs/I&O: Vital Signs Date Time Temp Pulse Resp B/P (MAP) Pulse Ox O2 Delivery O2 Flow Rate FiO2 05/30/19 20:26 91 Room Air 05/30/19 17:16 81 124/71 05/30/19 16:28 97.6 16 05/28/19 08:15 2.0 I & O 05/29/19 05/29/19 05/30/19 14:59 22:59 06:59 Intake Total 480 ml 220 ml Balance 480 ml 220 ml Labs: Laboratory Tests Test 05/30/19 07:48 05/30/19 10:08 05/30/19 12:23 05/30/19 16:39 Glucose (Fingerstick) 77 mg/dL (70-99) 211 mg/dL (70-99) H 119 mg/dL (70-99) H Sodium Level 142 mmol/L (136-145) Potassium Level 3.5 mmol/L (3.5-5.1) Chloride Level 103 mmol/L (98-107) Carbon Dioxide Level 33 mmol/L (21-32) H Anion Gap 6 (6-14) Blood Urea Nitrogen 20 mg/dL (8-26) Creatinine 0.8 mg/dL (0.7-1.3) Estimated GFR (Cockcroft-Gault) 91.9 BUN/Creatinine Ratio 25 (6-20) H Glucose Level 165 mg/dL (70-99) H Calcium Level 9.4 mg/dL (8.5-10.1) Total Bilirubin 0.6 mg/dL (0.2-1.0) Aspartate Amino Transferase (AST) 17 U/L (15-37) Alanine Aminotransferase (ALT) 19 U/L (16-63) Alkaline Phosphatase 64 U/L (46-116) Total Protein 7.0 g/dL (6.4-8.2) Albumin 2.8 g/dL (3.4-5.0) L Albumin/Globulin Ratio 0.7 (1.0-1.7) L Test 05/30/19 19:22 Glucose (Fingerstick) 74 mg/dL (70-99) Current Medications: Meds: Current Medications Medications (Trade) Dose Ordered Sig/Bobbi Route PRN Reason Start Time Stop Time Status Last Admin Dose Admin Lorazepam (Ativan Inj) 1 mg DAILY IM 05/30/19 09:00 05/30/19 08:13 I have reviewed the current psychotropics carefully including drug interactions. Risk benefit ratio favors no change other than as noted in my dictated progress note. Diagnosis: Problems: (1) Anxiety disorder (2) Impulse control disorder (3) Mild cognitive disorder (4) Psychosis, atypical (5) Bipolar disorder (6) Major depressive disorder, recurrent episode SHARI CHASE MD May 30, 2019 22:47
--- NOTE | 2019-05-30 22:59 | PN ---
DATE: 05/30/2019 PSYCHIATRIC PROGRESS NOTE This is a late entry 05/28/2019, cover the elements not covered in my initial note. SUBJECTIVE: I met with the patient in the evening. The patient slept for 4-3/4 hours previous night. He remains paranoid, labile in his mood, looking for her brother. We will repeat a UA morning of 05/29/2019. Valproic acid level is 42. REVIEW OF SYSTEMS: Hard of hearing with hearing amplifier, impaired ambulation, in Broda chair. No CV, , pulmonary, eye system symptoms on review. MENTAL STATUS EXAM: Oriented to himself and situation. Speech coherent, can be loud at times. Abstraction fair, computation impaired, language function intact, attention span short. Mood and affect remain somewhat anxious, labile and he remains delusional. LABORATORY DATA: Reviewed. IMPRESSION: Unchanged from initial note. PLAN: No change from initial note, but we will adjust the Depakote as clinically indicated to reach therapeutic level. MAN Geno CHASE MD DR: GLENROY/shadi JOB#: [id number] / [id number]
--- NOTE | 2019-05-30 23:02 | PN ---
DATE: 05/29/2019 This late entry 05/29/2019 covers the elements not covered in my initial note. SUBJECTIVE: I met with the patient in the evening. The patient slept 4-3/4 hours previous night. Valproic acid level is 41 on 05/29/2019 and we will repeat it again in 2 days since this could be again low due to noncompliance. Also discussed with [facility] about group home's request to taper the Seroquel on account of restrictions on atypical antipsychotics for their facility. REVIEW OF SYSTEMS: Hard of hearing, impaired ambulation, in Broda chair. No CV, , eye system symptoms on review. MENTAL STATUS EXAM: Reasonably oriented. Speech is coherent, can be rapid, loud at times. Abstraction fair, computation impaired, language function intact. He can be loud and whistling frequently, but less so than before. LABORATORY DATA: Reviewed. IMPRESSION: Unchanged from initial note. PLAN: No change from initial note. SHARI CHASE MD DR: GLENROY/shadi JOB#: [id number] / [id number]
[2019-05-31 06:01] VITALS: BP 129/91
[2019-05-31] MEDS: levETIRAcetam 500 MG TABLET PO SCH ×2 (07:44→19:18)
[2019-05-31] MEDS: CARVEDILOL 12.5 MG TABLET PO SCH ×2 (07:44→16:22)
[2019-05-31] MEDS: MULTIVITAMIN with MINERAL TABLET. PO SCH (07:45)
[2019-05-31] MEDS: POTASSIUM CHLORIDE 20 MEQ PACKET. PO SCH ×3 (07:45→19:20)
[2019-05-31] MEDS: metFORMIN 500 MG TABLET PO SCH ×2 (07:45→16:23)
[2019-05-31] MEDS: SENNOSIDES 8.6 MG TABLET PO SCH ×2 (07:45→19:18)
[2019-05-31] MEDS: FINASTERIDE 5 MG TABLET PO SCH (07:48)
[2019-05-31] MEDS: CHOLECALCIFEROL (VITAMIN D3) 1,000 UNIT TABLET PO SCH (07:48)
[2019-05-31] MEDS: QUEtiapine 50 MG TABLET. PO SCH (07:48)
[2019-05-31] MEDS: FUROSEMIDE 40 MG TABLET PO SCH (07:48)
[2019-05-31] MEDS: ASPIRIN 81 MG TAB.CHEW PO SCH (07:48)
[2019-05-31] MEDS: PREGABALIN 50 MG CAPSULE PO SCH ×3 (07:54→19:20)
[2019-05-31] MEDS: traMADol 50 MG TABLET PO SCH ×4 (07:55→19:20)
[2019-05-31] MEDS: INSULIN LISPRO 300 UNITS/3 ML INSULN.PEN. SQ SCH ×3 (07:56→17:00)
[2019-05-31] MEDS: QUEtiapine 25 MG TABLET. PO SCH (12:23)
[2019-05-31 16:24] VITALS: BP 124/72
[2019-05-31 17:17] LABS: BILIRUBIN,URINE NEG (NEG); CLARITY,URINE CLOUDY; COLOR,URINE YELLOW; GLUCOSE,URINE NEG (NEG)
[2019-05-31 17:18] LABS: BACTERIA,URINE MANY /HPF (0-FEW); NITRITE,URINE NEG (NEG); SQUAMOUS EPITHELIAL CELL,UR FEW /LPF; UROBILINOGEN,URINE 1 mg/dL (0.2 mg/dL)
[2019-05-31] MEDS: DIVALPROEX ER 250 MG TAB.ER.24H. PO SCH (19:17)
[2019-05-31] MEDS: traZODone 100 MG TABLET. PO SCH (19:18)
[2019-05-31] MEDS: MIRTAZAPINE 7.5 MG TABLET. PO SCH (19:18)
[2019-05-31] MEDS: PRIMIDONE 50 MG TABLET PO SCH (19:18)
[2019-05-31] MEDS: TAMSULOSIN 0.4 MG CAP.ER.24H. PO SCH (19:18)
[2019-05-31] MEDS: INSULIN GLARGINE 300 UNITS/3 ML INSULN.PEN. SQ SCH (19:30)
--- NOTE | 2019-05-31 22:21 | PDOC ---
Exam Note: Franco Note: Please also refer to the separate dictated note~for this date of service dictated separately.~Patient seen individually. Discussed the patient with Nursing staff reviewed the chart.~Reviewed interim history and current functioning. Reviewed vital signs,~Labs/ Radiology~and current medications noted below. Continue current treatment with the changes noted in the dictated addendum note Assessment: Vital Signs/I&O: Vital Signs Date Time Temp Pulse Resp B/P (MAP) Pulse Ox O2 Delivery O2 Flow Rate FiO2 05/31/19 19:20 95 Room Air 05/31/19 16:24 98.6 84 16 124/72 (89) 05/28/19 08:15 2.0 I & O 0 05/30/19 05/30/19 05/31/19 15:00 23:00 07:00 Intake Total 120 ml 0 ml 100 ml Balance 120 ml 0 ml 100 ml Labs: Laboratory Tests Test 05/31/19 07:17 05/31/19 12:06 05/31/19 16:51 05/31/19 17:14 Glucose (Fingerstick) 104 mg/dL (70-99) H 109 mg/dL (70-99) H 106 mg/dL (70-99) H Urine Collection Type Unknown Urine Color Yellow Urine Clarity Cloudy Urine pH 7.0 Urine Specific [place] 1.020 Urine Protein 30 mg/dl (NEG-TRACE) Urine Glucose (UA) Neg mg/dL (NEG) Urine Ketones (Stick) 15 mg/dL (NEG) Urine Blood Trace (NEG) Urine Nitrite Neg (NEG) Urine Bilirubin Neg (NEG) Urine Urobilinogen Dipstick 1 mg/dL (0.2 mg/dL) Urine Leukocyte Esterase Trace (NEG) Urine RBC 11-20 /HPF (0-2) Urine WBC 11-20 /HPF (0-4) Urine Squamous Epithelial Cells Few /LPF Urine Bacteria Many /HPF (0-FEW) Urine Mucus Mod /LPF Test 05/31/19 19:24 Glucose (Fingerstick) 106 mg/dL (70-99) H Current Medications: I have reviewed the current psychotropics carefully including drug interactions. Risk benefit ratio favors no change other than as noted in my dictated progress note. Diagnosis: Problems: (1) Anxiety disorder (2) Impulse control disorder (3) Mild cognitive disorder (4) Psychosis, atypical (5) Bipolar disorder (6) Major depressive disorder, recurrent episode (7) Dementia SHARI CHASE MD May 31, 2019 22:21
--- NOTE | 2019-06-01 02:00 | PN ---
DATE: 05/30/2019 PSYCHIATRIC PROGRESS NOTE This late entry of 05/30/2019 covers elements not covered in my initial note. SUBJECTIVE: I met with the patient in the evening. The patient slept just 1 hour previous night. Nursing staff has called me as an emergency earlier in the morning. The patient was extremely agitated despite Zyprexa p.r.n., restless, unmanageable. We did add hydroxyzine p.r.n., not very effective, and we started him on IM Ativan scheduled 0.5 mg daily as the oral psychotropics have been ineffective. This is not being used as a restraint. He remains obsessive. REVIEW OF SYSTEMS: Ambulation impaired, in Broda chair, hard of hearing with amplifier. No CV, , pulmonary, eye system symptoms on review. MENTAL STATUS EXAM: Extremely hard of hearing. Ambulation, in Broda chair. Oriented to himself and situation. Speech, often responses, monosyllabic. Abstraction fair, computation impaired, language function intact. Mood and affect labile, anxious. LABORATORY DATA: Reviewed. IMPRESSION: Unchanged from initial note. PLAN: The patient is on Luvox 75 mg a day. We will increase it to 100 mg a day for his obsessiveness, anxiety. Maintain Depakote ER 1000 mg at bedtime. The level was 41 on 05/29/2019. We will repeat labs level, adjust further as clinically indicated. Continue trazodone at bedtime, Seroquel along with Zyprexa and he is on primidone and melatonin. We will make further adjustments as clinically indicated. SHARI CHASE MD DR: GLENROY/shadi JOB#: [id number] / [id number]
[2019-06-01 05:13] VITALS: BP 131/69
[2019-06-01 08:25] LABS: VAL ACID 16 mcg/mL (50-100)
[2019-06-01] MEDS: INSULIN LISPRO 300 UNITS/3 ML INSULN.PEN. SQ SCH ×3 (09:09→17:48)
[2019-06-01] MEDS: MULTIVITAMIN with MINERAL TABLET. PO SCH ×2 (10:30→11:22)
[2019-06-01] MEDS: CHOLECALCIFEROL (VITAMIN D3) 1,000 UNIT TABLET PO SCH ×2 (10:30→11:22)
[2019-06-01] MEDS: SENNOSIDES 8.6 MG TABLET PO SCH ×3 (10:30→20:17)
[2019-06-01] MEDS: FINASTERIDE 5 MG TABLET PO SCH (11:18)
[2019-06-01] MEDS: ASPIRIN 81 MG TAB.CHEW PO SCH (11:18)
[2019-06-01] MEDS: CARVEDILOL 12.5 MG TABLET PO SCH ×2 (11:19→17:48)
[2019-06-01] MEDS: metFORMIN 500 MG TABLET PO SCH ×2 (11:19→17:48)
[2019-06-01] MEDS: levETIRAcetam 500 MG TABLET PO SCH ×2 (11:19→20:10)
[2019-06-01] MEDS: FUROSEMIDE 40 MG TABLET PO SCH (11:19)
[2019-06-01] MEDS: POTASSIUM CHLORIDE 20 MEQ PACKET. PO SCH ×3 (11:20→20:12)
[2019-06-01] MEDS: traMADol 50 MG TABLET PO SCH ×4 (11:21→20:16)
[2019-06-01] MEDS: PREGABALIN 50 MG CAPSULE PO SCH ×3 (11:21→20:12)
[2019-06-01 16:26] VITALS: BP 102/65
--- NOTE | 2019-06-01 19:28 | RAD ---
Exam: Chest one view INDICATION: Chest congestion TECHNIQUE: Frontal view of the chest Comparisons: 05/16/2019 FINDINGS: Sternotomy wires again noted. Heart is mildly enlarged. Pulmonary vessels are prominent. Patchy bilateral infiltrates. Opacity at the left lung base. The left hemidiaphragm. IMPRESSION: Findings likely related to pulmonary edema with left-sided pleural effusion. Electronically signed by: Nicolas Rosas MD (06/01/2019 7:25 PM) [facility]
[2019-06-01] MEDS: MIRTAZAPINE 7.5 MG TABLET. PO SCH (20:11)
[2019-06-01] MEDS: DIVALPROEX ER 250 MG TAB.ER.24H. PO SCH (20:11)
[2019-06-01] MEDS: traZODone 100 MG TABLET. PO SCH (20:11)
[2019-06-01] MEDS: TAMSULOSIN 0.4 MG CAP.ER.24H. PO SCH (20:12)
[2019-06-01] MEDS: PRIMIDONE 50 MG TABLET PO SCH (20:16)
[2019-06-01] MEDS: INSULIN GLARGINE 300 UNITS/3 ML INSULN.PEN. SQ SCH (21:00)
--- NOTE | 2019-06-01 22:23 | PDOC ---
Exam Note: Franco Note: Please also refer to the separate dictated note~for this date of service dictated separately.~Patient seen individually. Discussed the patient with Nursing staff reviewed the chart.~Reviewed interim history and current functioning. Reviewed vital signs,~Labs/ Radiology~and current medications noted below. Continue current treatment with the changes noted in the dictated addendum note Assessment: Vital Signs/I&O: Vital Signs Date Time Temp Pulse Resp B/P (MAP) Pulse Ox O2 Delivery O2 Flow Rate FiO2 06/01/19 20:16 12 06/01/19 17:48 97 102/65 06/01/19 16:26 98.7 91 Room Air 05/28/19 08:15 2.0 I & O 05/31/19 05/31/19 06/01/19 14:59 22:59 06:59 Intake Total 120 ml 0 ml 0 ml Balance 120 ml 0 ml 0 ml Labs: Laboratory Tests Test 06/01/19 07:19 06/01/19 07:35 06/01/19 12:32 06/01/19 17:17 Glucose (Fingerstick) 164 mg/dL (70-99) H 197 mg/dL (70-99) H 179 mg/dL (70-99) H Valproic Acid Level 16 mcg/mL (50-100) L Valproic Acid Last Dose Date 05/31/19 Valproic Acid Last Dose Time 2100 Test 06/01/19 19:37 Glucose (Fingerstick) 155 mg/dL (70-99) H Current Medications: I have reviewed the current psychotropics carefully including drug interactions. Risk benefit ratio favors no change other than as noted in my dictated progress note. Diagnosis: Problems: (1) Anxiety disorder (2) Impulse control disorder (3) Mild cognitive disorder (4) Psychosis, atypical (5) Bipolar disorder (6) Major depressive disorder, recurrent episode (7) Dementia SHARI CHASE MD Jun 01, 2019 22:23
[2019-06-02 05:57] VITALS: BP 147/95
[2019-06-02 06:47] LABS: HEMATOCRIT 41.3 % (39.0-53.0); HEMOGLOBIN 13.3 g/dL (13.0-17.5); RED BLOOD COUNT 4.36 x10^6/uL (4.30-5.70); RED CELL DISTRIBUTION WIDTH 15.1 % (11.5-14.5); WHITE BLOOD COUNT 17.4 x10^3/uL (4.0-11.0)
[2019-06-02 07:03] LABS: VAL ACID 9 mcg/mL (50-100)
[2019-06-02 07:04] LABS: ALBUMIN 2.6 g/dL (3.4-5.0); ALBUMIN/GLOBULIN RATIO 0.6 (1.0-1.7); TOTAL BILIRUBIN 0.6 mg/dL (0.2-1.0)
[2019-06-02 07:05] LABS: POTASSIUM 2.8 mmol/L (3.5-5.1)
[2019-06-02] MEDS: INSULIN LISPRO 300 UNITS/3 ML INSULN.PEN. SQ SCH ×2 (09:17→12:39)
[2019-06-02] MEDS: CHOLECALCIFEROL (VITAMIN D3) 1,000 UNIT TABLET PO SCH (10:17)
[2019-06-02] MEDS: MULTIVITAMIN with MINERAL TABLET. PO SCH (10:17)
[2019-06-02] MEDS: SENNOSIDES 8.6 MG TABLET PO SCH (10:18)
[2019-06-02] MEDS: POTASSIUM CHLORIDE 20 MEQ PACKET. PO SCH ×2 (10:44→14:35)
[2019-06-02] MEDS: ASPIRIN 81 MG TAB.CHEW PO SCH (10:57)
[2019-06-02] MEDS: CARVEDILOL 12.5 MG TABLET PO SCH (10:58)
[2019-06-02] MEDS: metFORMIN 500 MG TABLET PO SCH (10:58)
[2019-06-02] MEDS: levETIRAcetam 500 MG TABLET PO SCH (10:59)
[2019-06-02] MEDS: FUROSEMIDE 40 MG TABLET PO SCH (10:59)
[2019-06-02] MEDS: traMADol 50 MG TABLET PO SCH ×2 (11:00→14:33)
[2019-06-02] MEDS: PREGABALIN 50 MG CAPSULE PO SCH ×2 (11:00→14:36)
[2019-06-02] MEDS: FINASTERIDE 5 MG TABLET PO SCH (11:00)
[2019-06-02] MEDS: fentaNYL 12MCG/HR 1 PATCH PATCH TD SCH (11:04)
[2019-06-02] MEDS ORDERED: INSU100I13 SQ (12:10)
[2019-06-02] MEDS ORDERED: INSU100I11 SQ (12:13)
[2019-06-02] MEDS ORDERED: LORA2VIA6 IM (12:16)
[2019-06-02] MEDS ORDERED: MIRT15TA PO (12:17)
[2019-06-02] MEDS ORDERED: OLAN5TAB5 PO (12:18)
[2019-06-02] MEDS ORDERED: POTA20PA30 PO (12:22)
[2019-06-02] MEDS ORDERED: FENT-73 TP (12:23)
[2019-06-02] MEDS ORDERED: FLUV100T2 PO (12:25)
[2019-06-02] MEDS ORDERED: HYDR25TA PO (12:27)
[2019-06-02] MEDS ORDERED: TRAZ-86 PO (12:28)
[2019-06-02 15:38] VITALS: BP 133/80
--- NOTE | 2019-06-02 19:57 | DS ---
DATE OF DISCHARGE: 06/02/2019 PSYCHIATRIC PROGRESS NOTE This note covers elements not covered in my initial note 06/02/2019. REASON FOR ADMISSION: Please refer to the admission history for details. Briefly, the patient is an 83-year-old male referred to us from [facility] by his primary care physician on account of worsening confusion, agitation, being extremely impulsive. He had increased anxiety, calling out repetitively running into. He had been run into by another resident and became disruptive, uncooperative with cares. He was previously on hospice care, which was discontinued recently. SIGNIFICANT FINDINGS AND CLINICAL COURSE: Following admission, the patient was seen daily individually from a psychiatric standpoint by myself, followed medically per Dr. Villavicencio. The patient had a very difficult course during this hospitalization. Initially, he was extremely agitated, labile, yelling at times, whistling loudly, restless, anxious with marked mood lability. Adjustments were made in his psychotropics and he seemed to do better on the Seroquel, though he was somewhat sedated and we are reducing this. However, [facility] staff indicated they could not have the patient return on Seroquel as it was an atypical antipsychotic and we discontinued it. He was reasonably oriented at times, more than other times and question was raised about the diagnosis of Lewy body dementia within the context of his Parkinson's disease. Nevertheless, prior to discharge, he was quite obsessive, repetitive, depressed and was on a combination of Luvox 100 mg a day, Remeron 7.5 mg at bedtime for insomnia, Depakote ER 1000 mg at bedtime. Valproic acid level was 41, slightly subtherapeutic, but clinically adequate. He is also on trazodone 100 mg at bedtime, may repeat x 1, Zyprexa p.r.n., primidone 50 mg at bedtime per Dr. Walker, melatonin 3 mg at bedtime p.r.n. His urine prior to discharge had reflex to culture and on 06/02/2019, his potassium was 2.8. WBC is elevated at 17.4, sodium elevated along with BUN elevated. He was having poor appetite. Chest x-ray showed pulmonary edema. Dr. Villavicencio opted to transfer him to [address] [place] [address]/ICU since the family wanted active interventions for medical stabilization. REVIEW OF SYSTEMS: Prior to discharge on 06/02/2019, he remained hard of hearing, somewhat withdrawn, impaired ambulation in Broda chair. No CV, , pulmonary, eye system symptoms on review. MENTAL STATUS EXAM: Oriented to himself at times, situation. Speech, often responses monosyllabic, hard of hearing, abstraction fair, computation impaired, language function intact, attention span short. Mood and affect remain intermittently labile, somewhat withdrawn. LABORATORY DATA: Reviewed. 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 Rest diagnoses above. DISCHARGE MEDICATIONS: Please refer to MAR. DISCHARGE INSTRUCTIONS: Psychiatric and medical followup on the medical/surgical floor per Dr. Villavicencio. Time for discharge day management greater than 30 minutes. MAN Geno CHASE MD DR: GLENROY/shadi JOB#: [id number] / [id number]
--- NOTE | 2019-06-02 22:24 | PDOC ---
Exam Note: Franco Note: Please also refer to the separate dictated note~for this date of service dictated separately.~Patient seen individually. Discussed the patient with Nursing staff reviewed the chart.~Reviewed interim history and current functioning. Reviewed vital signs,~Labs/ Radiology~and current medications noted below. Continue current treatment with the changes noted in the dictated addendum note Assessment: Vital Signs/I&O: Vital Signs Date Time Temp Pulse Resp B/P (MAP) Pulse Ox O2 Delivery O2 Flow Rate FiO2 06/02/19 15:38 98.2 101 14 133/80 (97) 97 06/02/19 11:04 Room Air 05/28/19 08:15 2.0 I & O 06/01/19 06/01/19 06/02/19 14:59 22:59 06:59 Intake Total 0 ml 0 ml 0 ml Balance 0 ml 0 ml 0 ml Labs: Laboratory Tests Test 06/02/19 06:35 06/02/19 07:16 06/02/19 11:43 White Blood Count 17.4 x10^3/uL (4.0-11.0) H Red Blood Count 4.36 x10^6/uL (4.30-5.70) Hemoglobin 13.3 g/dL (13.0-17.5) Hematocrit 41.3 % (39.0-53.0) Mean Corpuscular Volume 95 fL (79-100) Mean Corpuscular Hemoglobin 31 pg (25-35) Mean Corpuscular Hemoglobin Concent 32 g/dL (31-37) Red Cell Distribution Width 15.1 % (11.5-14.5) H Platelet Count 199 x10^3/uL (140-400) Sodium Level 152 mmol/L (136-145) H Potassium Level 2.8 mmol/L (3.5-5.1) *L Chloride Level 111 mmol/L (98-107) H Carbon Dioxide Level 28 mmol/L (21-32) Anion Gap 13 (6-14) Blood Urea Nitrogen 34 mg/dL (8-26) H Creatinine 1.0 mg/dL (0.7-1.3) Estimated GFR (Cockcroft-Gault) 71.0 BUN/Creatinine Ratio 34 (6-20) H Glucose Level 187 mg/dL (70-99) H Calcium Level 9.0 mg/dL (8.5-10.1) Total Bilirubin 0.6 mg/dL (0.2-1.0) Aspartate Amino Transferase (AST) 27 U/L (15-37) Alanine Aminotransferase (ALT) 27 U/L (16-63) Alkaline Phosphatase 73 U/L (46-116) Total Protein 7.0 g/dL (6.4-8.2) Albumin 2.6 g/dL (3.4-5.0) L Albumin/Globulin Ratio 0.6 (1.0-1.7) L Valproic Acid Level 9 mcg/mL (50-100) L Valproic Acid Last Dose Date 06/01/2019 Valproic Acid Last Dose Time 2100 Glucose (Fingerstick) 155 mg/dL (70-99) H 215 mg/dL (70-99) H Current Medications: I have reviewed the current psychotropics carefully including drug interactions. Risk benefit ratio favors no change other than as noted in my dictated progress note. Diagnosis: Problems: (1) Anxiety disorder (2) Impulse control disorder (3) Mild cognitive disorder (4) Psychosis, atypical (5) Bipolar disorder (6) Major depressive disorder, recurrent episode SHARI CHASE MD Jun 02, 2019 22:24
--- NOTE | 2019-06-02 22:58 | PN ---
DATE: 05/31/2019 PSYCHIATRIC PROGRESS NOTE This late entry 05/31/2019 covers elements not covered in my initial note. SUBJECTIVE: I met with the patient in the evening. The patient slept 6 hours previous night. He has been intermittently combative with staff. UA is being collected since he might have a UTI, worsening his agitation. [facility] until he is taken off Seroquel and we will go ahead and do this. I did have a call from Luciana, nurse manager family, after Luciana had spoken to the director fundraising at [facility]. REVIEW OF SYSTEMS: Hard of hearing, impaired ambulation, in Broda chair. No CV, , pulmonary, eye system symptoms on review. He is quite withdrawn. Intake is poor, but he was on hospice prior to admission. MENTAL STATUS EXAM: Oriented to himself and situation. Speech has some latency, often responses monosyllabic. Abstraction fair, computation impaired, language function intact, attention span short. Mood and affect remains somewhat anxious, labile, withdrawn at other times. LABORATORY DATA: Reviewed. IMPRESSION: Unchanged from initial note. PLAN: No change from initial note. SHARI CHASE MD DR: GLENROY/shadi JOB#: [id number] / [id number]
--- NOTE | 2019-06-02 23:03 | PN ---
DATE: 06/01/2019 PSYCHIATRIC PROGRESS NOTE This late entry 06/01/2019 covers elements not covered in my initial note. SUBJECTIVE: I met with the patient in the evening of 06/01/2019. The patient slept 6-1/4 hours previous night. The UA has reflex to culture. He remains quite agitated and was staffed at a treatment team meeting with the entire team in the morning and I met with him individually in the evening. Appetite is 25 50%. He has been calling out whistling at times, refusing medications. Seroquel has been discontinued. REVIEW OF SYSTEMS: Ambulation impaired, in Broda chair, hard of hearing. No CV, , pulmonary, eye system symptoms on review. MENTAL STATUS EXAM: Oriented to himself and situation. Speech is often responses monosyllabic. At other times pressured. Abstraction fair, computation impaired, language function intact, attention span short. Mood and affect remain somewhat withdrawn. Other times, labile. LABORATORY DATA: Reviewed. IMPRESSION: Unchanged from initial note. PLAN: No change from initial note. Seroquel has been stopped and we will adjust the rest of his psychotropics for his behaviors. MAN Geno CHASE MD DR: GLENROY/shadi JOB#: [id number] / [id number]
== END 2019-06-02 15:58 | disposition short-term general hospital (02) | DRG 885 ==
LOC: GEROPSY 14:10
PROVIDERS: ADMIT Psychiatry & Neurology Psychiatry; ATTEND Psychiatry & Neurology Psychiatry
DX: F33.3 Major depressive disorder, recurrent, severe with psychotic symptoms (principal); I42.9 Cardiomyopathy, unspecified; I50.22 Chronic systolic (congestive) heart failure; G30.9 Alzheimer's disease, unspecified; F01.50 Vascular dementia, unspecified severity, without behavioral disturbance, psychotic disturbance, mood disturbance, and anxiety; F63.9 Impulse disorder, unspecified; F41.9 Anxiety disorder, unspecified; E11.9 Type 2 diabetes mellitus without complications; F42.9 Obsessive-compulsive disorder, unspecified; G20 Parkinson's disease; G40.909 Epilepsy, unspecified, not intractable, without status epilepticus; G89.29 Other chronic pain; H91.90 Unspecified hearing loss, unspecified ear; I11.0 Hypertensive heart disease with heart failure; I25.10 Atherosclerotic heart disease of native coronary artery without angina pectoris; K21.9 Gastro-esophageal reflux disease without esophagitis; Z51.5 Encounter for palliative care; Z79.899 Other long term (current) drug therapy
CPT/HCPCS: 36415; 71045; 80048; 80053; 80061; 80164; 81001; 82306; 82947; 83036; 83540; 83550; 83735; 84436; 84443; 84480; 85007; 85025; 85027; 86592; 87086; J1815; J2060; 92610

== ENCOUNTER 2019-06-02 16:45 | Inpatient (IN) | payer MEDICARE, OTHER ==
[~2019-06-02] VITALS: Ht 170.2 cm; Wt 68.7 kg
[~2019-06-02 16:45] MED LIST changes: +CALC200T3 PO; +FENT-73 TP; +FLUV100T2 PO; +GUAI600T47 PO; +INSU100I11 SQ; +INSU100I13 SQ; +LORA2VIA6 IM; +MIRT15TA PO; +POTA20PA30 PO; +TRAZ-86 PO
[2019-06-02 16:51] VITALS: BP 164/84
[2019-06-02] MEDS ORDERED: PIP/TAZO PER PHARMACY MC PRN (17:30)
[2019-06-02] MEDS ORDERED: ACETAMINOPHEN 650 MG SUPP.RECT. PR PRN (17:30)
[2019-06-02] MEDS ORDERED: BISACODYL 10 MG SUPP.RECT PR PRN (17:30)
[2019-06-02] MEDS ORDERED: PIPERACILLIN/TAZOBACTAM 4.5 GM in IV NORMAL SALINE 50ML 50 ML IV ONE (17:45)
[2019-06-02] MEDS: POTASSIUM CL 20MEQ IN D5W 1,000 ML IV SCH (17:52)
[2019-06-02] MEDS ORDERED: VANCOMYCIN 1.75 GM in IV NORMAL SALINE 500ML 500 ML IV ONE (18:30)
[2019-06-02] MEDS ORDERED: DEXTROSE 50% 25 GM / 50ML DISP.SYRIN. IV PRN (19:30)
[2019-06-02 19:45] VITALS: BP 146/94
[2019-06-02] MEDS: VANCOMYCIN PER PHARMACY MC PRN (20:03)
[2019-06-02 20:50] VITALS: BP 152/93
[2019-06-02] MEDS ORDERED: ENOXAPARIN 30 MG/0.3 ML SYRINGE. SQ SCH (21:00)
[2019-06-02 22:02] VITALS: BP 156/78
[2019-06-02 23:06] VITALS: BP 156/100
[2019-06-02] MEDS: PIPERACILLIN/TAZOBACTAM 4.5 GM in IV NORMAL SALINE 50ML 50 ML IV SCH (23:12)
[2019-06-03] VITALS (22 sets, daily range): BP systolic 97–174; BP diastolic 61–107
--- NOTE | 2019-06-03 02:29 | HP ---
ADMIT DATE: 06/02/2019 HISTORY OF PRESENT ILLNESS: The patient is an 83-year-old male patient who was transferred from [facility] on account of worsening lab values and he was noted to be hypokalemic and hypernatremic. He apparently was in the process of being discharged to a skilled facility ____ Seroquel and therefore it was discontinued. The patient basically has been refusing to eat and drink and a decision was made to transfer him to [address] [place] [address] to the ICU. He was dehydrated, has also questionable healthcare-associated pneumonia. His white cell count was up to 17,000. The patient continued to be confused, agitated, yelling, although he was not as he was when he was admitted initially. The patient himself is demented and does not really give any useful information. PAST MEDICAL HISTORY: Significant for acute on chronic systolic congestive heart failure, Parkinson's disease, cardiomyopathy, probably ischemic type 2 diabetes, hypertension, atherosclerotic heart disease, coronary artery disease, seizure disorder, muscle weakness, gait and mobility abnormalities, repeated falls, attention and concentration deficit, mild cognitive impairment, cognitive communication deficits and cellulitis of his left lower extremity. PAST SURGICAL HISTORY: Significant for coronary artery bypass graft surgery. PAST PSYCHIATRIC HISTORY: Significant for major depressive disorder and dementia. ALLERGIES: He is allergic to LIDOCAINE and MORPHINE. FAMILY HISTORY: Noncontributory. SOCIAL HISTORY: He is a resident at [facility]. He does not smoke, drink alcohol, any recreational drugs. He is mostly bed bound. He uses Halina lift and he is probably 04/06 ____ MEDICATIONS: He is currently on following medications: He is on hyoscyamine sulfate 0.125 mg p.o. every 4 hours, tamsulosin 0.4 mg at bedtime, carvedilol 12.5 mg twice a day, aspirin 81 mg once a day. He is on a fentanyl patch 12 mcg per hour topically q. 72 hours, tramadol 100 mg 4 times a day, Tylenol 650 mg every 6 hours, primidone 50 mg at bedtime, divalproex extended release 1000 mg at bedtime, Keppra 1000 mg p.o. b.i.d., pregabalin 50 mg 3 times a day. He is on fluvoxamine 100 mg daily, mirtazapine 7.5 mg at bedtime, trazodone 100 mg at bedtime, trazodone 100 mg p.r.n. at bedtime for insomnia. He is on olanzapine 2.5 mg every 2 hours as needed, lorazepam 2 mg per 1 mL vial, Ativan 1 mg intramuscular daily, potassium chloride for Klor-Con 20 mEq p.o. t.i.d., furosemide 40 mg daily, guaifenesin 600 mg twice a day, calcium carbonate, Tums, 1000 mg every 4 hours, bisacodyl 10 mg suppository rectally daily p.r.n. for constipation, bisacodyl 5 mg tablet p.o. every 8 hours as needed, senna 1 tablet twice a day, ondansetron, Zofran, 4 mg before meals and metformin 500 mg twice a day with meals. He is also on Lantus 15 units subcutaneously at bedtime and insulin Lispro 0-5 units subcutaneously 3 times a day with meals, cholecalciferol 2000 International Units once a day, multivitamin 1 tablet once a day, finasteride 5 mg p.o. daily, melatonin 3 mg at bedtime. REVIEW OF SYSTEMS: Unobtainable. PHYSICAL EXAMINATION: GENERAL: When I saw him this afternoon, he was resting flat in bed, in no apparent respiratory distress, slightly pale, but no jaundice, cyanosis or thyromegaly. No jugular venous distention. No lower limb edema. VITAL SIGNS: His heart rate was 110, blood pressure was 164/84, temperature was 97, respiratory rate 24 and oxygen saturation was 97% on room air. HEAD, EYES, EARS, NOSE AND THROAT: Showed normocephalic, atraumatic. NECK: Supple. HEART: Showed normal first and second heart sounds. No gallop, rub or murmur. CHEST: Shows central trachea, equal bilateral expansion, air entry, vesicular sounds with crepitation mostly on the left side. I could not appreciate any rhonchi. ABDOMEN: Distended, soft, nontender. NEUROLOGIC: He is demented, but without any obvious lateralizing sign. All his cranial nerves are intact. He apparently is mostly bedbound. He has a Halina lift. LABORATORY DATA: His lab work done this morning while at [facility] showed that the patient's white cell count has risen to 17,400, hemoglobin was 13.3, MCV 95, and platelet count of 199,000. His chemistry showed a serum sodium 152, potassium 2.8, chloride 111, bicarbonate 28, anion gap of 13, BUN 34, creatinine 1, estimated GFR was 71 mL per minute, his glucose 185, calcium was 9. Total bilirubin, AST, ALT, alkaline phosphatase were normal. Total protein was 7, albumin 2.6. His valproic acid is low at 9 mcg/mL. Treponema pallidum antibody is nonreactive. Urinalysis was essentially unremarkable. His chest x-ray ____ sternotomy wires again noted. Heart is mildly enlarged. Pulmonary vessels are prominent. He has patchy bilateral infiltrate opacity at the left lung base, left hemidiaphragm. Compared this x-ray with chest x-ray done on 05/16/2019 and it looks much improved. The pulmonary congestion seems to be much less and he probably has an infiltrate in the left lung. IMPRESSION AND PLAN: My plan is to admit him with healthcare-associated pneumonia, hypernatremia, hypokalemia, dehydration versus obviously congestive heart failure. My plan, I will start rehydrating him gently. I will also start him on IV antibiotic. Monitor his lab work closely and decide the further management accordingly. We will monitor his blood sugar and probably start him on a small dose insulin sliding scale and once we corrected all these chemical abnormalities, we will discuss with the family the long-term goals of treatment. KIMI DE LA PAZ MD DR: ARIS/shadi JOB#: [id number] / [id number]
[2019-06-03] MEDS: POTASSIUM CL 20MEQ IN D5W 1,000 ML IV SCH ×2 (05:51→20:45)
[2019-06-03] MEDS: LABETALOL 20 MG/4 ML DISP.SYRIN. IVP PRN (06:35)
[2019-06-03 06:57] LABS: HEMATOCRIT 41.8 % (39.0-53.0); HEMOGLOBIN 13.5 g/dL (13.0-17.5); RED BLOOD COUNT 4.44 x10^6/uL (4.30-5.70); RED CELL DISTRIBUTION WIDTH 15.1 % (11.5-14.5); WHITE BLOOD COUNT 10.3 x10^3/uL (4.0-11.0)
[2019-06-03 07:03] LABS: ALBUMIN 2.6 g/dL (3.4-5.0); ALBUMIN/GLOBULIN RATIO 0.6 (1.0-1.7); CALCIUM 8.8 mg/dL (8.5-10.1); TOTAL BILIRUBIN 0.5 mg/dL (0.2-1.0)
[2019-06-03] MEDS: PIPERACILLIN/TAZOBACTAM 4.5 GM in IV NORMAL SALINE 50ML 50 ML IV SCH (07:43)
[2019-06-03] MEDS: INSULIN LISPRO 300 UNITS/3 ML INSULN.PEN. SQ SCH ×3 (08:00→17:00)
[2019-06-03] MEDS: ENOXAPARIN 40 MG/0.4 ML SYRINGE. SQ SCH (08:24)
[2019-06-03] MEDS ORDERED: TAZOBACTAM IV SCH (10:14)
[2019-06-03] MEDS ORDERED: DEXTROSE 5% IV SCH (10:14)
[2019-06-03] MEDS ORDERED: PIPERACILLIN IV SCH (10:14)
[2019-06-03] MEDS: PIPERACILLIN IV SCH (16:52)
[2019-06-03] MEDS: TAZOBACTAM IV SCH (16:52)
[2019-06-03] MEDS: DEXTROSE 5% IV SCH (16:52)
[2019-06-03] MEDS: VANCOMYCIN 1 GM in IV DEXTROSE 5% 250 ML IV SCH (18:16)
--- NOTE | 2019-06-03 22:55 | PDOC ---
Exam Note: Franco Note: Please also refer to the separate dictated note~for this date of service dictated separately.~Patient seen individually. Discussed the patient with Nursing staff reviewed the chart.~Reviewed interim history and current functioning. Reviewed vital signs,~Labs/ Radiology~and current medications noted below. Continue current treatment with the changes noted in the dictated addendum note Assessment: Vital Signs/I&O: Vital Signs Date Time Temp Pulse Resp B/P (MAP) Pulse Ox O2 Delivery O2 Flow Rate FiO2 06/03/19 22:00 96 16 160/94 (116) 92 Room Air 06/03/19 19:00 97.1 06/03/19 17:00 2.0 I & O 06/02/19 06/02/19 06/03/19 15:00 23:00 07:00 Intake Total 0 ml 0 ml Balance 0 ml 0 ml Labs: Laboratory Tests Test 06/03/19 06:19 06/03/19 11:52 06/03/19 16:47 06/03/19 21:09 White Blood Count 10.3 x10^3/uL (4.0-11.0) Red Blood Count 4.44 x10^6/uL (4.30-5.70) Hemoglobin 13.5 g/dL (13.0-17.5) Hematocrit 41.8 % (39.0-53.0) Mean Corpuscular Volume 94 fL (79-100) Mean Corpuscular Hemoglobin 30 pg (25-35) Mean Corpuscular Hemoglobin Concent 32 g/dL (31-37) Red Cell Distribution Width 15.1 % (11.5-14.5) H Platelet Count 189 x10^3/uL (140-400) Sodium Level 154 mmol/L (136-145) H Potassium Level 3.0 mmol/L (3.5-5.1) L Chloride Level 115 mmol/L (98-107) H Carbon Dioxide Level 31 mmol/L (21-32) Anion Gap 8 (6-14) Blood Urea Nitrogen 30 mg/dL (8-26) H Creatinine 1.0 mg/dL (0.7-1.3) Estimated GFR (Cockcroft-Gault) 71.0 BUN/Creatinine Ratio 30 (6-20) H Glucose Level 198 mg/dL (70-99) H Calcium Level 8.8 mg/dL (8.5-10.1) Total Bilirubin 0.5 mg/dL (0.2-1.0) Aspartate Amino Transferase (AST) 30 U/L (15-37) Alanine Aminotransferase (ALT) 30 U/L (16-63) Alkaline Phosphatase 67 U/L (46-116) Total Protein 7.0 g/dL (6.4-8.2) Albumin 2.6 g/dL (3.4-5.0) L Albumin/Globulin Ratio 0.6 (1.0-1.7) L Glucose (Fingerstick) 202 mg/dL (70-99) H 208 mg/dL (70-99) H 219 mg/dL (70-99) H Test 06/03/19 22:12 Glucose (Fingerstick) 193 mg/dL (70-99) H Current Medications: Meds: Current Medications Medications (Trade) Dose Ordered Sig/Bobbi Route PRN Reason Start Time Stop Time Status Last Admin Dose Admin Piperacillin Sod/ Tazobactam Sod 4.5 gm/Sodium Chloride 50 ml @ 100 mls/hr Q8H IV 06/03/19 00:00 06/03/19 10:14 DC 06/03/19 07:43 Vancomycin HCl 1 gm/Dextrose 250 ml @ 250 mls/hr Q24H IV 06/03/19 18:00 06/03/19 18:16 Labetalol HCl (Normodyne) 10 mg PRN Q4HRS PRN IVP HYPERTENSION 06/03/19 06:30 06/03/19 06:35 Enoxaparin Sodium (Lovenox 40mg Syringe) 40 mg Q24H SQ 06/03/19 07:45 06/03/19 08:24 Piperacillin Sod/ Tazobactam Sod 4.5 gm/Dextrose 50 ml @ 100 mls/hr Q8H IV 06/03/19 16:00 06/03/19 16:52 I have reviewed the current psychotropics carefully including drug interactions. Risk benefit ratio favors no change other than as noted in my dictated progress note. Diagnosis: Problems: (1) Anxiety disorder (2) Impulse control disorder (3) Mild cognitive disorder (4) Psychosis, atypical (5) Bipolar disorder (6) Major depressive disorder, recurrent episode (7) Dementia SHARI CHASE MD Jun 03, 2019 22:55
--- NOTE | 2019-06-03 23:08 | PN ---
DATE: 06/03/2019 SUBJECTIVE: The patient is resting, slightly propped up, continues to be agitated, restless ____; however, he does not seem to be tachypneic. PHYSICAL EXAMINATION: GENERAL: When I examined him, he looked somewhat pale, but no jaundice, cyanosis or thyromegaly. No jugular venous distention. No lower limb edema. VITAL SIGNS: Her heart rate was 97, blood pressure was 142/104, temperature was 97.9, respiratory rate 20, and oxygen saturation was 95% on room air. HEAD, EYES, EARS, NOSE AND THROAT: Showed normocephalic, atraumatic. NECK: Supple. HEART: Showed normal first and second heart sounds. No gallop, rub or murmur. CHEST: Clear to auscultation. No crepitation or rhonchi. ABDOMEN: Distended, soft, nontender. No guarding or rigidity. No organomegaly. All hernial orifice intact. Bowel sounds normal. NEUROLOGIC: He is awake, alert, continued to be restless, agitated. He moves his upper extremities without difficulty, although he is mostly bed bound. His intake and output are incompletely recorded. LABORATORY DATA: His lab work this morning showed that his serum sodium unfortunately has risen higher, it is 154, potassium is up from 2.8 to 3, chloride was 115, bicarbonate 21, anion gap of 8, BUN 30, creatinine 1, estimated GFR was 71 mL per minute. His glucose was 98, calcium was 8.8. Total bilirubin, AST, ALT, alkaline phosphatase were normal. Total protein was 7, albumin 2.6. His white cell count was down to 10,000 from 17,000, hemoglobin 13.5, hematocrit 42, MCV 94 and platelet count of 189,000. ASSESSMENT: Healthcare-associated pneumonia. Plan is to continue with gentle rehydration, continue with IV antibiotic. We will call the pharmacy to see if they can mix the antibiotics with D5. He continues to be extremely agitated. He can have Zyprexa 2.5 mg intramuscularly every 4 hours. KIMI DE LA PAZ MD DR: ARIS/shadi JOB#: [id number] / [id number]
[2019-06-04] VITALS (22 sets, daily range): BP systolic 110–188; BP diastolic 70–105
[2019-06-04] MEDS: TAZOBACTAM IV SCH ×3 (00:05→16:41)
[2019-06-04] MEDS: PIPERACILLIN IV SCH ×3 (00:05→16:41)
[2019-06-04] MEDS: DEXTROSE 5% IV SCH ×3 (00:05→16:41)
[2019-06-04] MEDS: LABETALOL 20 MG/4 ML DISP.SYRIN. IVP PRN (01:09)
[2019-06-04 06:54] LABS: CALCIUM 8.4 mg/dL (8.5-10.1); CREATININE 0.9 mg/dL (0.7-1.3); GFR 80.2; POTASSIUM 3.2 mmol/L (3.5-5.1)
[2019-06-04] MEDS: ENOXAPARIN 40 MG/0.4 ML SYRINGE. SQ SCH (07:56)
[2019-06-04] MEDS: INSULIN LISPRO 300 UNITS/3 ML INSULN.PEN. SQ SCH ×3 (08:00→17:10)
[2019-06-04] MEDS: POTASSIUM CL 20MEQ IN D5W 1,000 ML IV SCH (11:53)
[2019-06-04] MEDS: VANCOMYCIN 1 GM in IV DEXTROSE 5% 250 ML IV SCH (18:15)
[2019-06-04 18:16] LABS: VANC TR 7.8 mcg/mL (10.0-20.0)
[2019-06-04] MEDS: VANCOMYCIN PER PHARMACY MC PRN ×2 (21:15→21:17)
--- NOTE | 2019-06-04 22:16 | PDOC ---
Exam Note: Franco Note: Please also refer to the separate dictated note~for this date of service dictated separately.~Patient seen individually. Discussed the patient with Nursing staff reviewed the chart.~Reviewed interim history and current functioning. Reviewed vital signs,~Labs/ Radiology~and current medications noted below. Continue current treatment with the changes noted in the dictated addendum note Assessment: Vital Signs/I&O: Vital Signs Date Time Temp Pulse Resp B/P (MAP) Pulse Ox O2 Delivery O2 Flow Rate FiO2 06/04/19 20:00 Room Air 06/04/19 19:11 96.7 104 16 118/81 (93) 95 06/03/19 17:00 2.0 I & O 06/03/19 06/03/19 06/04/19 15:00 23:00 07:00 Intake Total 150 ml 1400 ml 0 ml Balance 150 ml 1400 ml 0 ml Labs: Laboratory Tests Test 06/04/19 06:20 06/04/19 07:52 06/04/19 11:48 06/04/19 16:48 Sodium Level 153 mmol/L (136-145) H Potassium Level 3.2 mmol/L (3.5-5.1) L Chloride Level 114 mmol/L (98-107) H Carbon Dioxide Level 32 mmol/L (21-32) Anion Gap 7 (6-14) Blood Urea Nitrogen 19 mg/dL (8-26) Creatinine 0.9 mg/dL (0.7-1.3) Estimated GFR (Cockcroft-Gault) 80.2 Glucose Level 228 mg/dL (70-99) H Calcium Level 8.4 mg/dL (8.5-10.1) L Glucose (Fingerstick) 238 mg/dL (70-99) H 294 mg/dL (70-99) H 246 mg/dL (70-99) H Test 06/04/19 17:50 Vancomycin Level Trough 7.8 mcg/mL (10.0-20.0) L Vancomycin Last Dose Date 06/03/19 Vancomycin Last Dose Time 1800 Current Medications: I have reviewed the current psychotropics carefully including drug interactions. Risk benefit ratio favors no change other than as noted in my dictated progress note. Diagnosis: Problems: (1) Anxiety disorder (2) Impulse control disorder (3) Mild cognitive disorder (4) Bipolar disorder (5) Psychosis, atypical (6) Major depressive disorder, recurrent episode SHARI CHASE MD Jun 04, 2019 22:16
--- NOTE | 2019-06-04 22:25 | PN ---
DATE: 06/04/2019 SUBJECTIVE: The patient is resting, slightly propped up in bed, in no apparent respiratory distress. He is awake, alert, continued to be restless, agitated, refusing to eat or drink. OBJECTIVE: GENERAL: When I examined him, he looked somewhat pale, but no jaundice, cyanosis or thyromegaly. No jugular venous distension. No lower limb edema. VITAL SIGNS: His heart rate was 84, blood pressure 141/87, temperature was 97, respiratory rate was 14 and oxygen saturation was 93% on room air. HEAD, EYES, EARS, NOSE AND THROAT: Normocephalic, atraumatic. NECK: Supple. HEART: Showed normal first and second heart sounds. No gallop, rub or murmur. CHEST: Clear to auscultation. No crepitation or rhonchi. ABDOMEN: Distended, soft, and nontender. No guarding or rigidity. No organomegaly. Hernial orifice intact. Bowel sounds normal. NEUROLOGIC: He was demented, very confused, agitated, restless. All cranial nerves intact. He moves his upper extremities without difficulty, although he is mostly bedbound, chair bound. His intake over the last 24 hours and output are incompletely recorded. LABORATORY DATA: His lab work this morning continued to show that his sodium is up 153, potassium slightly up to 3.2, chloride 114, bicarbonate 32, anion gap of 7, BUN 19, creatinine 0.9. His estimated GFR was 80 mL per minute. His glucose was 128, calcium was 8.4. White cell count was 10,000, hemoglobin 13.5, hematocrit 42, MCV 94 and platelet count 189,000. ASSESSMENT: 1. Healthcare-associated pneumonia, on IV antibiotic. 2. Hypernatremia ____. 3. Hypokalemia, slowly improving. PLAN: To continue with gentle hydration, continue in the form of D5W with potassium chloride, vancomycin and Zosyn. I spoke with his son about feeding tube and we will discuss with his brother and will get back to ____. KIMI DE LA PAZ MD DR: ARIS/shadi JOB#: [id number] / [id number]
[2019-06-04] MEDS: traZODone 100 MG TABLET. PO SCH (22:27)
--- NOTE | 2019-06-04 23:24 | PN ---
DATE: 06/03/2019 PSYCHIATRIC PROGRESS NOTE This late entry, 06/03, covers elements not covered in my initial note. SUBJECTIVE: I met with the patient in the evening, ICU bed 6. Discussed with nursing staff. Per nursing report, the patient continues to be quite labile in his mood, hitting at nursing staff. Compliant with blood sugar checks. He remains on Zosyn and vancomycin per Dr. Villavicencio and NATHAN Scales for his seizures. He has been loud, intrusive at times and I discussed with nursing staff about using Zyprexa p.r.n. REVIEW OF SYSTEMS: Hard of hearing. Impaired ambulation. No CV, , pulmonary, eye system symptoms on review. MENTAL STATUS EXAM: Oriented to himself and situation. Speech is coherent, often responses monosyllabic. Abstraction fair, computation impaired, language function intact, attention span short. Short term memory is impaired. IMPRESSION: Unchanged from initial note. PLAN: No change from initial note. Continue Zyprexa p.r.n., make further adjustments as clinically indicated. MAN Geno CHASE MD DR: GLENROY/shadi JOB#: [id number] / [id number]
[2019-06-04] MEDS ORDERED: traZODone 100 MG TABLET. PO PRN (23:30)
[2019-06-05] VITALS (9 sets, daily range): BP systolic 124–170; BP diastolic 71–97
[2019-06-05] MEDS: DEXTROSE 5% IV SCH ×2 (00:15→10:18)
[2019-06-05] MEDS: PIPERACILLIN IV SCH ×2 (00:15→10:18)
[2019-06-05] MEDS: TAZOBACTAM IV SCH ×2 (00:15→10:18)
[2019-06-05] MEDS: POTASSIUM CL 20MEQ IN D5W 1,000 ML IV SCH ×4 (01:25→17:30)
[2019-06-05] MEDS: ENOXAPARIN 40 MG/0.4 ML SYRINGE. SQ SCH (08:11)
[2019-06-05] MEDS: VANCOMYCIN 750 MG in IV NORMAL SALINE 250ML 250 ML IV SCH ×2 (08:12→17:51)
[2019-06-05] MEDS ORDERED: fentaNYL 12MCG/HR 1 PATCH PATCH TD SCH (09:00)
[2019-06-05] MEDS: INSULIN LISPRO 300 UNITS/3 ML INSULN.PEN. SQ SCH ×3 (09:24→16:57)
[2019-06-05] MEDS ORDERED: PIPERACILLIN/TAZOBACTAM 4.5 GM in IV NORMAL SALINE 50ML 50 ML IV SCH (14:17)
[2019-06-05] MEDS: PIPERACILLIN/TAZOBACTAM 4.5 GM in IV NORMAL SALINE 50ML 50 ML IV SCH (16:56)
--- NOTE | 2019-06-05 18:25 | PDOC ---
Exam Note: Franco Note: Please also refer to the separate dictated note~for this date of service dictated separately.~Patient seen individually. Discussed the patient with Nursing staff reviewed the chart.~Reviewed interim history and current functioning. Reviewed vital signs,~Labs/ Radiology~and current medications noted below. Continue current treatment with the changes noted in the dictated addendum note Assessment: Vital Signs/I&O: Vital Signs Date Time Temp Pulse Resp B/P (MAP) Pulse Ox O2 Delivery O2 Flow Rate FiO2 06/05/19 17:30 92 Room Air 06/05/19 16:55 97.0 105 18 154/79 (104) 06/03/19 17:00 2.0 I & O 06/04/19 06/04/19 06/05/19 15:00 23:00 07:00 Intake Total 750 ml 1140 ml 1200 ml Balance 750 ml 1140 ml 1200 ml Labs: Laboratory Tests Test 06/04/19 21:28 06/05/19 08:46 06/05/19 12:39 06/05/19 16:50 Glucose (Fingerstick) 220 mg/dL (70-99) H 206 mg/dL (70-99) H 191 mg/dL (70-99) H 173 mg/dL (70-99) H Current Medications: Meds: Current Medications Medications (Trade) Dose Ordered Sig/Bobbi Route PRN Reason Start Time Stop Time Status Last Admin Dose Admin Fentanyl (Duragesic 12mcg/ Hr) 1 patch Q3DAYS TD 06/05/19 09:00 06/05/19 08:11 Vancomycin HCl 750 mg/Sodium Chloride 250 ml @ 250 mls/hr Q12H IV 06/05/19 06:00 06/05/19 17:51 Trazodone HCl (Desyrel) 100 mg QHS PO 06/04/19 22:15 06/04/19 22:27 Trazodone HCl (Desyrel) 100 mg PRN QHS PRN PO INSOMNIA 06/04/19 23:30 06/04/19 23:39 Piperacillin Sod/ Tazobactam Sod 4.5 gm/Sodium Chloride 50 ml @ 100 mls/hr Q8H IV 06/05/19 16:00 06/05/19 16:56 Fentanyl Citrate (Fentanyl 2ml Vial) 25 mcg PRN Q4HRS PRN IV PAIN 06/05/19 16:45 06/05/19 16:57 I have reviewed the current psychotropics carefully including drug interactions. Risk benefit ratio favors no change other than as noted in my dictated progress note. Diagnosis: Problems: (1) Bipolar disorder (2) Mild cognitive disorder (3) Impulse control disorder (4) Anxiety disorder SHARI CHASE MD Jun 05, 2019 18:25
[2019-06-05] MEDS: traZODone 100 MG TABLET. PO SCH (20:45)
--- NOTE | 2019-06-05 23:59 | PN ---
DATE: 06/04/2019 PSYCHIATRIC PROGRESS NOTE This late entry, 06/04, covers elements not covered in my initial note. SUBJECTIVE: I met with the patient in the evening of 06/04 in ICU bed 6. Discussed with nursing staff, reviewed the chart. Per nursing report, the patient remains somewhat anxious, labile in his mood, has received Zyprexa p.r.n. twice with positive improvement. No clear psychotic symptoms noted. He is hard of hearing. This makes his verbalizations even louder. Continues to have some mood lability. MENTAL STATUS EXAM: Abstraction fair, computation impaired, language function intact. Attention span is short. Mood and affect remain somewhat anxious and labile. LABORATORY DATA: Reviewed. IMPRESSION: Unchanged from initial note. PLAN: Continue Zyprexa p.r.n. Once the patient has medically stabilized, he may return back to [facility]. We have discontinued the Seroquel, which is something the halfway was unable to accept him back on. SHARI CHASE MD DR: GLENROY/shadi JOB#: [id number] / [id number]
[2019-06-06] MEDS: PIPERACILLIN/TAZOBACTAM 4.5 GM in IV NORMAL SALINE 50ML 50 ML IV SCH ×2 (00:52→08:17)
[2019-06-06 04:15] VITALS: BP 135/97
--- NOTE | 2019-06-06 04:21 | PN ---
DATE: 06/05/2019 SUBJECTIVE: The patient continued to be yelling, whistling, and refused to allow us to draw his blood, complaining that he is cold. PHYSICAL EXAMINATION: GENERAL: When I saw him this afternoon, he was pale, not jaundiced, cyanosis or thyromegaly. No jugular venous distension. No limb edema. VITAL SIGNS: His heart rate was 93, blood pressure was 143/88, temperature was 97.5, respiratory rate was 18 and oxygen saturation was 94% on room air. HEAD, EYES, EARS, NOSE AND THROAT: Showed normocephalic, atraumatic. NECK: Supple. HEART: Showed normal first and second heart sounds. No gallop, rub or murmur. CHEST: Clear to auscultation. No crepitation or rhonchi. ABDOMEN: Distended, soft, nontender. No guarding or rigidity. No organomegaly. All hernial orifices intact. Bowel sounds normal. NEUROLOGIC: He is demented, but without any obvious lateralizing sign. His cranial nerves are intact. He moves his upper extremities without difficulty. He is bedbound, wheelchair bound. He has a Halina lift. His intake was 750 and 1515 output was recorded. LABORATORY DATA: No lab works were done this morning as he does not allow us to draw the blood. So far, his urine has grown Streptococcus species more than 100,000 colony forming units per mL. No sensitivities were done. ASSESSMENT: 1. Healthcare-associated pneumonia for which he is on IV antibiotic. 2. Hypernatremia, has not resolved yet and hypokalemia slowly improving. PLAN: To continue gentle hydration. Continue D5W with potassium chloride. Continue with vancomycin and Zosyn. We will attempt to draw the blood to monitor his lab work and adjust his IV fluids accordingly. KIMI DE LA PAZ MD DR: ARIS/shadi JOB#: [id number] / [id number]
[2019-06-06] MEDS: VANCOMYCIN 750 MG in IV NORMAL SALINE 250ML 250 ML IV SCH (06:00)
[2019-06-06] MEDS: ENOXAPARIN 40 MG/0.4 ML SYRINGE. SQ SCH (07:45)
[2019-06-06] MEDS: INSULIN LISPRO 300 UNITS/3 ML INSULN.PEN. SQ SCH (08:00)
[2019-06-06] MEDS: POTASSIUM CL 20MEQ IN D5W 1,000 ML IV SCH (08:17)
[2019-06-06 08:36] VITALS: BP 105/86
--- NOTE | 2019-06-06 17:00 | DISCH ---
DISCHARGE ORDERS DISCHARGE DATE: Jun 06, 2019 FINAL DIAGNOSIS hypernatremia hypokalemia failure to thrive CONDITION AT DISCHARGE: Guarded Code Status: DNR/DNI SNF STAY <30 DAYS: No HOSPICE: Yes HOSPICE EVALUATE & TREAT: Yes POST DISCHARGE ORDERS: ACTIVITY ORDERS: Activity as tolerated WEIGHT BEARING STATUS: As tolerated, Other, see below DIET AFTER DISCHARGE: Regular WOUND/INCISION CARE: Other, see below CHECKS AFTER DISCHARGE: CHECKS AFTER DISCHARGE: Check blood press - daily, Check blood sugar, ac/hs, Check your Temp as needed TREATMENT/EQUIPMENT ORDERS: ADAPTIVE EQUIPMENT NEEDED: None DISCHARGE MEDICATIONS: Home Meds Reported Medications Trazodone Hcl (TRAZODONE HCL) 100 Mg Tablet, 100 MG PO PRN QHS PRN for insomnia 2nd dose , TAB 06/02/19 Hydroxyzine Hcl (HYDROXYZINE HCL) 25 Mg Tablet, 25 MG PO PRN Q4HRS PRN for ANXIETY / AGITATION, TAB 06/02/19 Fluvoxamine Maleate (FLUVOXAMINE MALEATE) 100 Mg Tablet, 100 MG PO DAILY for obsessive behaviors , TAB 06/02/19 Fentanyl (FENTANYL 12mcg/hr) 1 Each Patch.td72, 1 PATCH TP Q3DAYS for pain 06/02/19 Potassium Chloride (KLOR-CON) 20 Meq Packet, 20 MEQ PO TID for Hypokalemia, PKT 06/02/19 Olanzapine (ZYPREXA ZYDIS) 5 Mg Tab.rapdis, 2.5 MG PO PRN Q2HR PRN for PSYCHOSIS, TAB 06/02/19 Mirtazapine (REMERON) 15 Mg Tablet, 7.5 MG PO QHS for SLEEP AID, TAB 06/02/19 Lorazepam (ATIVAN) 2 Mg/1 Ml Vial, 1 MG IM DAILY for anxiety, EACH 06/02/19 Insulin Lispro (HUMALOG) 100 Unit/1 Ml Insuln.pen, 0-5 UNITS SQ TIDWMEALS for diabetes, EACH 06/02/19 Insulin Glargine,Hum.rec.anlog (LANTUS SOLOSTAR) 100 Unit/1 Ml Insuln.pen, 15 UNIT SQ QHS for diabetes , #15 ML 3 Refills 06/02/19 Guaifenesin (MUCINEX) 600 Mg Tablet.er, 600 MG PO PRN BID PRN for CONGESTION, TAB.SR 05/09/19 Calcium Carbonate (TUMS) 200 Mg Tab.chew, 1000 MG PO PRN Q4HRS PRN for HEARTBURN / GAS, TAB.CHEW 05/09/19 Ondansetron Hcl (ZOFRAN) 4 Mg Tablet, 4 MG PO PRN BFRMEAL PRN for NAUSEA/VOMITING 05/09/19 Tramadol Hcl (TRAMADOL HCL) 50 Mg Tablet, 100 MG PO QID for Pain, TAB 05/09/19 Sennosides (SENNA) 8.6 Mg Tablet, 8.6 MG PO BID for CONSTIPATION, TAB 05/09/19 Metformin Hcl (METFORMIN HCL) 500 Mg Tablet, 500 MG PO BIDWMEALS for blood sugar control 05/09/19 Melatonin (MELATONIN) 3 Mg Tablet, 3 MG PO PRN QHS PRN for insomnia 05/09/19 Hyoscyamine Sulfate (HYOSCYAMINE SULFATE) 0.125 Mg Tablet, 0.125 MG PO PRN Q4HRS PRN for SECRETIONS, TAB 05/09/19 Finasteride (FINASTERIDE) 5 Mg Tablet, 5 MG PO DAILY for BPH 05/09/19 Divalproex Sodium (DIVALPROEX SODIUM ER) 500 Mg Tab.er.24h, 1000 MG PO QHS for mood stabilizer , TAB.SR 05/09/19 Cholecalciferol (Vitamin D3) (VITAMIN D-3) 2,000 Unit Capsule, 2000 UNIT PO DAILY for supplement, CAP 05/09/19 Bisacodyl (BISACODYL) 5 Mg Tablet.dr, 5 MG PO PRN Q8HRS PRN for CONSTIPATION, TAB 0 Refills 05/09/19 Bisacodyl (BISACODYL) 10 Mg Supp.rect, 10 MG RC PRN DAILY PRN for CONSTIPATION, SUPP.RECT 0 Refills 05/09/19 Primidone (PRIMIDONE) 50 Mg Tablet, 50 MG PO HS for TREMORS 08/30/17 Trazodone Hcl (TRAZODONE HCL) 50 Mg Tablet, 100 MG PO QHS for INSOMNIA 08/23/17 Acetaminophen (TYLENOL) 325 Mg Tablet, 650 MG PO PRN Q6HRS PRN for PAIN / TEMP 08/23/17 Pregabalin (LYRICA) 50 Mg Capsule, 50 MG PO TID for NEUROPATHY 08/09/17 Levetiracetam (LEVETIRACETAM) 500 Mg Tablet, 1000 MG PO BID for Epilepsy 08/09/17 Carvedilol (CARVEDILOL ) 6.25 Mg Tablet, 12.5 MG PO BIDWMEALS for HYPERTENSION, SEE COMMENTS 08/09/17 Tamsulosin Hcl (TAMSULOSIN HCL) 0.4 Mg Cap.er.24h, 0.4 MG PO HS for BPH 08/09/17 Multivitamin (MULTI-VITAMIN DAILY) 1 Each Tablet, 1 TAB PO DAILY for supplement 08/09/17 Furosemide (FUROSEMIDE) 40 Mg Tablet, 40 MG PO DAILY for Edema 08/09/17 Aspirin (ASPIRIN) 81 Mg Tab.chew, 81 MG PO DAILY for Heart disease 08/09/17 Discontinued Reported Medications Tramadol Hcl (TRAMADOL HCL) 50 Mg Tablet, 50 MG PO PRN Q6HRS PRN for PAIN, TAB 05/09/19 Promethazine Hcl (PROMETHAZINE HCL) 25 Mg Tablet, 25 MG PO PRN Q4HRS PRN for NAUSEA/VOMITING 05/09/19 Insulin Aspart (NOVOLOG) 100 Unit/1 Ml Cartridge, 3 UNIT SQ TIDBFRMEAL for DM, SYR 05/09/19 Meloxicam (MELOXICAM) 15 Mg Tablet, 15 MG PO DAILY for PAIN 05/09/19 Citalopram Hydrobromide (CITALOPRAM HBR) 10 Mg Tablet, 30 MG PO DAILY for agitation/depression, TAB 05/09/19 Acetaminophen (TYLENOL) 325 Mg Tablet, 650 MG RC PRN Q4HRS PRN for PAIN, TAB 05/09/19 Potassium Chloride (K-Tab ER) 20 Meq Tablet.er, 20 MEQ PO BID for Supplement 08/23/17 Magnesium Hydroxide (MILK OF MAGNESIA) 400 Mg/5 Ml Oral.susp, 2400 MG PO PRN DAILY PRN for CONSTIPATION 08/23/17 Alprazolam (XANAX) 0.25 Mg Tablet, 0.5 MG PO BID for A/A 08/09/17 Insulin Detemir (Levemir Flextouch) 100 Unit/1 Ml Insuln.pen, 20 UNIT SQ HS for Diabetes 08/09/17 KIMI DE LA PAZ MD Jun 06, 2019 16:59
--- NOTE | 2019-06-06 21:41 | DS ---
DATE OF DISCHARGE: 06/06/2019 HOSPITAL COURSE: This is an 83-year-old male patient who was transferred from [facility] to [address] [place] [address] as the patient has been extremely hyponatremic, hypokalemic, has been refusing to eat or drink, constantly agitated, restless, repeating the same words on and on and on, refused to allow us to draw his labs to monitor his IV fluids and we have had a lengthy discussion with his family and [facility] staff and a decision was made to [facility] to go on hospice to be evaluated and treated there. PHYSICAL EXAMINATION: GENERAL: The patient was resting slightly propped up in bed, in no apparent respiratory distress. He was pale, not jaundiced, cyanosis or thyromegaly. No jugular venous distention. No limb edema. VITAL SIGNS: His heart rate was 97, blood pressure was 105/86, temperature was 97.2, respiratory rate was 22 and oxygen saturation was 93% on room air. HEAD, EYES, EARS, NOSE AND THROAT: Showed normocephalic, atraumatic. NECK: Supple. HEART: Showed normal first and second heart sounds. No gallop, rub or murmur. CHEST: Clear to auscultation. No crepitation or rhonchi. ABDOMEN: Distended, soft, nontender. No guarding or rigidity. No organomegaly. All hernial orifices intact. Bowel sounds normal. NEUROLOGIC: He was demented without any obvious lateralizing sign. All his cranial nerves are intact. He moves his upper extremities without difficulty. He is mostly bedbound, chair bound. LABORATORY DATA: As of 06/04/2019 showed serum sodium 153, potassium 3.2, chloride 114, bicarbonate 32, anion gap of 7, BUN 19, creatinine 0.9. White cell count was 10,000, hemoglobin 13, hematocrit 41, MCV 94 and platelet count of 189. DISCHARGE MEDICATIONS: He was discharged to continue all his current medications and is to be evaluated by hospice team. KIMI DE LA PAZ MD DR: ARIS/shadi JOB#: [id number] / [id number]
--- NOTE | 2019-06-06 23:35 | PN ---
DATE: 06/05/2019 PSYCHIATRIC PROGRESS NOTE This late entry 06/05/2019, covers elements not covered in my initial note. SUBJECTIVE: I met with the patient in the evening of 06/05/2019 in ICU bed 6. Per nursing report, the patient continues to have some mood lability and will be discharged on hospice care. Apparently, Igor Puentes is wanting a primary psychiatric disorder other than his current diagnosis to justify the Seroquel. We are going to go ahead and stop this and in fact had stopped it on the [facility] and since he will be on hospice care, they will have options to use Roxanol, etc., to be able to help with his mood lability even without the Seroquel. He is hard of hearing, somewhat loud at times, otherwise cooperative at other times. MENTAL STATUS EXAM: Oriented to situation. Speech coherent, rapid at times. Abstraction fair, computation impaired, language function intact. Mood and affect, continues to have some mood lability, but improved. LABORATORY DATA: Reviewed. IMPRESSION: Unchanged from initial note. PLAN: No change from initial note other than above. MAN Geno CHASE MD DR: GLENROY/shadi JOB#: [id number] / [id number]
== END 2019-06-06 09:35 | disposition hospice, inpatient (51) | DRG 177 ==
LOC: ICU 16:45
PROVIDERS: ADMIT Internal Medicine; ATTEND Internal Medicine
DX: J69.0 Pneumonitis due to inhalation of food and vomit (principal); E43 Unspecified severe protein-calorie malnutrition; E87.0 Hyperosmolality and hypernatremia; E87.1 Hypo-osmolality and hyponatremia; I50.22 Chronic systolic (congestive) heart failure; F41.9 Anxiety disorder, unspecified; F63.9 Impulse disorder, unspecified; E86.0 Dehydration; E11.9 Type 2 diabetes mellitus without complications; E87.6 Hypokalemia; F02.80 Dementia in other diseases classified elsewhere, unspecified severity, without behavioral disturbance, psychotic disturbance, mood disturbance, and anxiety; F09 Unspecified mental disorder due to known physiological condition; F31.9 Bipolar disorder, unspecified; G20 Parkinson's disease; G40.909 Epilepsy, unspecified, not intractable, without status epilepticus; I11.0 Hypertensive heart disease with heart failure; I25.10 Atherosclerotic heart disease of native coronary artery without angina pectoris; I25.5 Ischemic cardiomyopathy; Y95 Nosocomial condition; Z95.1 Presence of aortocoronary bypass graft; Z88.2 Allergy status to sulfonamides; Z88.8 Allergy status to other drugs, medicaments and biological substances; Z91.040 Latex allergy status
CPT/HCPCS: 36415; 80048; 80053; 80202; 82947; 85027; 87641; J1650; J1815; J1953; J2543; J3010; J3370; J3490; J7040; J7042; J7050